=== PATIENT | female | born 1975 | race Caucasian/White ===

== ENCOUNTER 2017-06-05 01:04 | Emergency (ER) | payer OTHER ==
[2017-06-05] MEDS ORDERED: IPRATROPIUM-ALBUTEROL 3 ML NEB INHALATION STA (01:32)
[2017-06-05] MEDS ORDERED: ACETAMINOPHEN TAB 500 MG TAB PO STA (01:35)
--- NOTE | 2017-06-05 01:38 | ED ---
URI HPI - General Chief Complaint: Upper Respiratory Infection Stated Complaint: sore throat,cough Time Seen by Provider: 06/05/17 01:16 Source: patient, RN notes reviewed Mode of arrival: ambulatory Limitations: no limitations - History of Present Illness Initial Comments: Patient is a 41-year-old female presents to the emergency room for evaluation of upper respiratory symptoms. Patient states she's had sore throat, cough, nasal congestion for the past 2 days. Patient states her daughter was recently diagnosed with strep throat. Patient states that having on and off fevers. Patient states last dose of Aleve was yesterday. Patient denies headache or dizziness. Patient states having all over body aches. Patient states she is slightly nauseous but denies vomiting. Patient denies abdominal pain. Patient denies chest pain or shortness of breath. Patient states she's had a slight non- productive cough. Patient does state she has a history of asthma. Patient denies smoking. Patient denies any other symptoms or complaints at this time. - Related Data Home Medications Medication Instructions Recorded Confirmed Albuterol Inhaler [Ventolin Hfa 2 puff INHALATION RT-Q6H PRN 04/22/16 06/29/16 Inhaler] Cetirizine HCl [Zyrtec] 10 mg PO HS 04/22/16 06/29/16 Montelukast Sodium [Singulair] 10 mg PO HS 04/22/16 06/29/16 Naproxen [Naprosyn] 500 mg PO Q12H 06/22/16 06/29/16 Calcium Acetate-Aluminum Sulf 1 applic TOPICAL TID 06/29/16 06/29/16 [[place] Packet] Ibuprofen [Motrin] 200 mg PO Q6HR PRN 06/29/16 06/29/16 Previous Rx's Medication Instructions Recorded Amoxic-Pot Clav 875-125Mg 1 tab PO Q12HR #20 tablet 06/26/16 [Augmentin 875-125] Clobetasol Propionate [Temovate 1 applic TOPICAL BID #1 applic 06/27/16 0.05% Cream] traMADol HCl [Ultram] 50 mg PO QID PRN #0 tab 06/27/16 Calcium Acetate-Aluminum Sulf 1 each TOPICAL TID packet 07/02/16 [[place] Packet] HYDROcodone/APAP 5-325MG [[place] 2 each PO Q4HR PRN #0 tab 07/02/16 5-325] SILVER sulfADIAZINE CREAM 1 applic TOPICAL BID applic 07/02/16 [[place]adene Cream] Ciprofloxacin HCl [Cipro] 750 mg PO BID #28 tablet 07/04/16 predniSONE 20 mg PO BID #10 tab 07/04/16 Azithromycin [Zithromax Z-pack] 250 mg PO DIRECTED #6 tab 06/05/17 Benzonatate [Tessalon Perles] 100 mg PO TID PRN #15 cap 06/05/17 guaiFENesin [Mucinex] 1,200 mg PO BID #10 tab.er.12h 06/05/17 Allergies Allergy/AdvReac Type Severity Reaction Status Date / Time codeine Allergy Swelling Verified 06/05/17 01:09 sulfamethoxazole Allergy Rash/Hives Verified 06/05/17 01:09 [From Bactrim] trimethoprim [From Bactrim] Allergy Rash/Hives Verified 06/05/17 01:09 Review of Systems ROS Statement: Those systems with pertinent positive or pertinent negative responses have been documented in the HPI. ROS Other: All systems not noted in ROS Statement are negative. 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 Limitations: no limitations General appearance: alert, in no apparent distress Head exam: Present: atraumatic, normocephalic, normal inspection Eye exam: Present: normal appearance ENT exam: Present: normal exam, normal oropharynx, mucous membranes moist, TM's normal bilaterally, normal external ear exam Neck exam: Present: normal inspection Respiratory exam: Present: normal lung sounds bilaterally. Absent: respiratory distress Cardiovascular Exam: Present: regular rate, normal rhythm, normal heart sounds GI/Abdominal exam: Present: soft, normal bowel sounds. Absent: distended, tenderness, guarding, rebound, rigid Extremities exam: Present: normal inspection Back exam: Present: normal inspection Neurological exam: Present: alert, oriented X3, CN II-XII intact, normal gait Psychiatric exam: Present: normal affect, normal mood Skin exam: Present: warm, dry, intact, normal color. Absent: rash Course Vital Signs 06/05/17 06/05/17 06/05/17 01:06 01:49 02:03 Temperature 102.1 F H Pulse Rate 98 96 92 Respiratory 24 Rate Blood Pressure 135/65 O2 Sat by Pulse 97 Oximetry 06/05/17 06/05/17 02:54 03:07 Temperature 100.9 F H 100.9 F H Pulse Rate 90 90 Respiratory 18 18 Rate Blood Pressure 129/59 129/59 O2 Sat by Pulse 97 97 Oximetry Medical Decision Making - Medical Decision Making patient is a 41-year-old female since emergency room for evaluation of upper respiratory symptoms. Chest x-ray negative for any acute findings. Rapid strep negative. Patient be placed on symptomatic treatment. Discussed with patient the symptoms are not improving in 3-5 days that she can begin taking antibiotics that were prescribed. Advised patient to follow-up with primary care provider. Patient states she understands everything that was discussed with her. Return parameters discussed. Case discussed with Dr. Gee. - Lab Data Lab Results 06/05/17 Range/Units 01:22 Group A Strep Rapid Negative (Negative) - Radiology Data Radiology results: report reviewed, image reviewed Disposition Clinical Impression: Upper respiratory infection Disposition: HOME SELF-CARE Condition: Good Instructions: Upper Respiratory Infection (ED) Additional Instructions: Alternate Tylenol and Motrin for fever. Take Mucinex as directed. Take Tessalon Perles as needed for cough. If symptoms are not improving in 3-5 days , begin taking antibiotics as directed. Please follow up with primary care provider. If any new symptom arises or symptoms worsen, return to ER as soon as possible. Prescriptions: Azithromycin [Zithromax Z-pack] 250 mg PO DIRECTED #6 tab Benzonatate [Tessalon Perles] 100 mg PO TID PRN #15 cap PRN Reason: Cough guaiFENesin [Mucinex] 1,200 mg PO BID #10 tab.er.12h Referrals: Hever Duarte MD [Primary Care Provider] - 1-2 days Time of Disposition: 03:02
--- NOTE | 2017-06-05 02:31 | XR ---
EXAM: XR Chest, 2 Views CLINICAL HISTORY: Reason: Cough and congestion. TECHNIQUE: Frontal and lateral views of the chest. COMPARISON: No relevant prior studies available. FINDINGS: Lungs: No consolidation. Pleural space: Unremarkable. No effusion or pneumothorax. Heart: Unremarkable. No cardiomegaly. Mediastinum: Unremarkable. Bones/joints: There are degenerative changes seen within the spine. IMPRESSION: No acute intrathoracic abnormality or source of the patient's symptoms detected.
[2017-06-05 02:55] VITALS: BP 129/59; PULSE 90; RESP 18; TEMP 100.9
== END 2017-06-05 03:07 | disposition home or self-care (01) ==
LOC: EC 01:04
DX: J06.9 Acute upper respiratory infection, unspecified (principal); J45.909 Unspecified asthma, uncomplicated; Z88.2 Allergy status to sulfonamides; Z88.5 Allergy status to narcotic agent; Z79.1 Long term (current) use of non-steroidal anti-inflammatories (NSAID)
CPT/HCPCS: 71020; 87081; 87430; 94640; 99284

== ENCOUNTER 2018-03-31 21:51 | Emergency (ER) | payer OTHER ==
--- NOTE | 2018-04-01 00:35 | XR ---
EXAMINATION TYPE: XR shoulder complete RT DATE OF EXAM: 04/01/2018 COMPARISON: NONE HISTORY: Shoulder pain TECHNIQUE: 3 views FINDINGS: I see no fracture nor dislocation. Joint spaces are normal. There are no pathologic calcifi cations. IMPRESSION: Negative right shoulder exam.
--- NOTE | 2018-04-01 00:46 | ED ---
Extremity Problem HPI - General Chief complaint: Extremity Problem,Nontraumatic Stated complaint: arm & ear pain Time Seen by Provider: 04/01/18 00:05 Source: patient, RN notes reviewed, old records reviewed Mode of arrival: ambulatory Limitations: no limitations - History of Present Illness Initial comments: Patient is a 42 year old female, with CC of right arm pain x 2 days with movement and bilateral ear drainage and left ear pain. Patient reports no injury to right arm. IT is shoulder pain and worse with ROM. 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 No fever or chills. - Related Data Home Medications Medication Instructions Recorded Confirmed Ibuprofen [Motrin] 200 - 400 mg PO Q6HR PRN 10/27/17 03/31/18 diphenhydrAMINE [Benadryl] 25 mg PO HS 03/31/18 03/31/18 Previous Rx's Medication Instructions Recorded Amoxic-Pot Clav 875-125Mg 1 tab PO Q12HR #20 tablet 04/01/18 [Augmentin 875-125] Ciprofloxacin Ophth Soln [Cipro 1 drops LEFT EYE Q4HR #1 bottle 04/01/18 Ophth Soln] Ibuprofen [Motrin] 600 mg PO Q6HR PRN #20 tab 04/01/18 Allergies Allergy/AdvReac Type Severity Reaction Status Date / Time codeine Allergy Swelling Verified 10/27/17 19:18 sulfamethoxazole Allergy Rash/Hives Verified 10/27/17 19:18 [From Bactrim] trimethoprim [From Bactrim] Allergy Rash/Hives Verified 10/27/17 19:18 Review of Systems ROS Statement: Those systems with pertinent positive or pertinent negative responses have been documented in the HPI. ROS Other: All systems not noted in ROS Statement are negative. 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 Date of last positivie culture/infection: 2014 MDRO Source:: leg Past Surgical History: Section, Tubal Ligation Past Anesthesia/Blood Transfusion Reactions: No Reported Reaction Past Psychological History: No Psychological Hx Reported Smoking Status: Never smoker Past Alcohol Use History: Occasional Past Drug Use History: None Reported - Past Family History Mother Family Medical History: Cancer Additional Family Medical History / Comment(s): Tiffany, Father Family Medical History: No Reported History General Exam - General Exam Comments Initial Comments: Well appearing 42 year old female, no distress. Limitations: no limitations General appearance: alert, in no apparent distress Head exam: Present: atraumatic, normocephalic, normal inspection Eye exam: Present: normal appearance, PERRL, EOMI. Absent: scleral icterus, conjunctival injection, periorbital swelling ENT exam: Present: normal exam, mucous membranes moist. Absent: TM's normal bilaterally (Left otitis erythema and drainage noted. ) Neck exam: Present: normal inspection. Absent: tenderness, meningismus, lymphadenopathy Respiratory exam: Present: normal lung sounds bilaterally. Absent: respiratory distress, wheezes, rales, rhonchi, stridor Cardiovascular Exam: Present: regular rate, normal rhythm, normal heart sounds. Absent: systolic murmur, diastolic murmur, rubs, gallop, clicks Extremities exam: Present: normal inspection, full ROM, normal capillary refill , other (Pain with ROM of right shoulder. normal pulse, no deformity. NV intact. ). Absent: tenderness, pedal edema, joint swelling, calf tenderness Neurological exam: Present: alert, oriented X3, CN II-XII intact Psychiatric exam: Present: normal affect, normal mood Skin exam: Present: warm, dry, intact, normal color. Absent: rash Course Vital Signs 03/31/18 04/01/18 23:04 01:00 Temperature 97.8 F 97.5 F L Pulse Rate 62 58 L Respiratory 20 16 Rate Blood Pressure 131/70 148/78 O2 Sat by Pulse 100 100 Oximetry Medical Decision Making - Medical Decision Making 42 year old female with ear pain and right shoulder pain for two days. She has evidence of otitis media and drainage noted. Will start on antibiotics. Xray of shoulder was normal. Discussed chronic rotator cuff injury, and patient can follow up with orthopedic. REturn parameters discussed. - Radiology Data Radiology results: report reviewed Negative right shoulder exam . Disposition Clinical Impression: Right shoulder strain, Otitis externa, Otitis media Disposition: HOME SELF-CARE Condition: Good Instructions: Rotator Cuff Injury (ED), Otitis Externa (ED), Otitis Media (ED) Additional Instructions: Patient is follow-up with primary care provider. Return to emergency department if any alarming signs or symptoms occur. Prescriptions: Amoxic-Pot Clav 875-125Mg [Augmentin 875-125] 1 tab PO Q12HR #20 tablet Ciprofloxacin Ophth Soln [Cipro Ophth Soln] 1 drops LEFT EYE Q4HR #1 bottle Ibuprofen [Motrin] 600 mg PO Q6HR PRN #20 tab PRN Reason: Pain Is patient prescribed a controlled substance at d/c from ED?: No When asked, does pt state using other controlled substances?: No If prescribed controlled substance>3 days was MAPS reviewed?: No If opioid is for acute pain is fill amount 7 days or less?: No If Rx opioid, was Start Talking consent form obtained?: No Referrals: Hever Duarte MD [Primary Care Provider] - 1-2 days Time of Disposition: 00:44
[2018-04-01 01:01] VITALS: BP 148/78; PULSE 58; RESP 16; TEMP 97.5
== END 2018-04-01 01:23 | disposition home or self-care (01) ==
LOC: EC 21:51
DX: S46.911A Strain of unspecified muscle, fascia and tendon at shoulder and upper arm level, right arm, initial encounter (principal); H66.93 Otitis media, unspecified, bilateral; H60.93 Unspecified otitis externa, bilateral; Z86.14 Personal history of Methicillin resistant Staphylococcus aureus infection; Z79.899 Other long term (current) drug therapy; Z88.5 Allergy status to narcotic agent; Z88.2 Allergy status to sulfonamides
CPT/HCPCS: 99284

== ENCOUNTER 2018-05-04 22:58 | Emergency (ER) | payer OTHER ==
[2018-05-04 23:10] VITALS: BP 162/89; PULSE 62; RESP 18; TEMP 98.2
[2018-05-04] MEDS ORDERED: CIPROFLOXACIN-DEXAMETH 0.3-0.1% DROPS 7.5 ML BTL BOTH EARS STA (23:31)
--- NOTE | 2018-05-04 23:36 | ED ---
ENT HPI - General Chief complaint: ENT Stated complaint: sore throat Time Seen by Provider: 05/04/18 23:15 Source: patient Mode of arrival: ambulatory Limitations: no limitations - History of Present Illness Initial comments: 42-year-old female patient presents the emergency department today for sore throat and bilateral ear drainage. Patient states that she is having increased pain to the left ear and increased drainage from the right ear. Patient states she is having difficulty with hearing. Patient states that her symptoms have been going on for the last month. States that she did complete a prescription of Augmentin, has been taking Zyrtec, and has not noticed any improvement in her symptoms. States that she did see her primary care physician but did miss a recheck with him this . Denies any fevers or chills with this. She denies any cough or congestion. Patient states she is having a yeast infection beneath her right breast. States that she is out of nystatin cream. Patient denies any recent shortness breath, chest pain, abdominal pain, nausea, vomiting , diarrhea, constipation, back pain, numbness, tingling, dizziness, weakness, hematuria, dysuria, urinary urgency, urinary frequency, headache, visual changes , or any other complaints. - Related Data Home Medications Medication Instructions Recorded Confirmed Ibuprofen [Motrin] 200 - 400 mg PO Q6HR PRN 10/27/17 05/04/18 Cetirizine HCl [Zyrtec] 10 mg PO HS 05/04/18 05/04/18 Previous Rx's Medication Instructions Recorded Nystatin 100,000Unit/gm Cream 1 applic TOPICAL BID #25 gm 05/04/18 [Mycostatin Cream] Allergies Allergy/AdvReac Type Severity Reaction Status Date / Time codeine Allergy Swelling Verified 05/04/18 23:15 sulfamethoxazole Allergy Rash/Hives Verified 05/04/18 23:15 [From Bactrim] trimethoprim [From Bactrim] Allergy Rash/Hives Verified 05/04/18 23:15 Review of Systems ROS Statement: Those systems with pertinent positive or pertinent negative responses have been documented in the HPI. ROS Other: All systems not noted in ROS Statement are negative. 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 Date of last positivie culture/infection: 2015 MDRO Source:: leg Past Surgical History: Section, Tubal Ligation Past Anesthesia/Blood Transfusion Reactions: No Reported Reaction Past Psychological History: No Psychological Hx Reported Smoking Status: Never smoker Past Alcohol Use History: Occasional Past Drug Use History: None Reported - Past Family History Mother Family Medical History: Cancer Additional Family Medical History / Comment(s): Tiffany, Father Family Medical History: No Reported History General Exam Limitations: no limitations General appearance: alert, in no apparent distress, other (This is a well- developed, well-nourished adult female patient in no acute distress. Vital signs upon presentation are temperature 98.2F, pulse 62, respirations 18, blood pressure 162/89, pulse ox 99% on room air.) Eye exam: Present: normal appearance, PERRL, EOMI. Absent: scleral icterus, conjunctival injection, periorbital swelling ENT exam: Present: normal exam, mucous membranes moist. Absent: normal oropharynx (Mild pharyngeal erythema. Tonsils absent.), TM's normal bilaterally (Bilateral canal erythema, drainage present. Difficult to visualize tympanic membranes due to crusted drainage, what I could see do look normal.) Respiratory exam: Present: normal lung sounds bilaterally. Absent: respiratory distress, wheezes, rales, rhonchi, stridor Cardiovascular Exam: Present: regular rate, normal rhythm, normal heart sounds. Absent: systolic murmur, diastolic murmur, rubs, gallop, clicks Neurological exam: Present: alert, oriented X3, CN II-XII intact Psychiatric exam: Present: normal affect, normal mood Skin exam: Present: warm, dry, intact, normal color, rash (Erythema with satellite lesions noted to area beneath right breast. ) Course Vital Signs 05/04/18 23:07 Temperature 98.2 F Pulse Rate 62 Respiratory 18 Rate Blood Pressure 162/89 O2 Sat by Pulse 99 Oximetry Medical Decision Making - Medical Decision Making 42-year-old female patient presented to the emergency department today for complaints of sore throat and bilateral ear drainage, left ear discomfort. Physical examination did reveal canal erythema bilaterally, crusted drainage within the ear canals, and what I could see of the tympanic membranes appeared normal. Patient will be discharged home with Ciprodex drops. She'll be given prescription for nystatin to the rash beneath her breast. She is instructed to follow-up with an bacteriology research assistant. She is instructed to follow- up with her primary care physician for recheck in one to days. Return parameters discussed in detail. She verbalizes understanding and agreed with this plan. Disposition Clinical Impression: Otitis externa, Pharyngitis Disposition: HOME SELF-CARE Condition: Good Instructions: Ciprofloxacin/Dexamethasone (Into the ear), Pharyngitis (ED), Otitis Externa (ED) Additional Instructions: Use 4 drops in each ear twice daily. Follow-up with Ear, Nose, and Throat specialist. Follow-up with her primary care physician for recheck in 1-2 days. Return here immediately for any new, worsening, or concerning symptoms. Prescriptions: Nystatin 100,000Unit/gm Cream [Mycostatin Cream] 1 applic TOPICAL BID #25 gm Is patient prescribed a controlled substance at d/c from ED?: No Referrals: Hever Duarte MD [Primary Care Provider] - 1-2 days Sushil Wen MD [STAFF PHYSICIAN] - 1-2 days Time of Disposition: 23:35
== END 2018-05-04 23:50 | disposition home or self-care (01) ==
LOC: EC 22:58
DX: H60.93 Unspecified otitis externa, bilateral (principal); J02.9 Acute pharyngitis, unspecified; R21 Rash and other nonspecific skin eruption; Z86.14 Personal history of Methicillin resistant Staphylococcus aureus infection; Z79.899 Other long term (current) drug therapy; Z88.1 Allergy status to other antibiotic agents; Z88.2 Allergy status to sulfonamides; Z88.5 Allergy status to narcotic agent
CPT/HCPCS: 99282

== ENCOUNTER 2018-09-27 14:27 | Emergency (ER) | payer BC, OTHER ==
[2018-09-27 14:58] VITALS: RESP 18; TEMP 98.6
[2018-09-27] MEDS ORDERED: methylPREDNISolone SOD SUCCI 125 MG/2 ML VIAL IM ONE (17:32)
--- NOTE | 2018-09-27 17:32 | ED ---
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 She presents today with acute flare up of skin condition, and complains of irritiation and drainage from scalp, underneath axilla, and groin. She reports no fevers, chills. She states that in the past she has been hospitalized for severe reactions, and has been on cipro and keflex in the past. She has not followed up with philatelic consultant in quite some time. She denies any other complaints. She has been using desatin ointment over the areas. - Related Data Home Medications Medication Instructions Recorded Confirmed Cetirizine HCl [Zyrtec] 10 mg PO HS 05/04/18 09/27/18 diphenhydrAMINE HCL [Benadryl] 25 mg PO DAILY 09/27/18 09/27/18 Previous Rx's Medication Instructions Recorded Cephalexin [Keflex] 500 mg PO Q6HR #40 cap 09/27/18 Ciprofloxacin HCl [Cipro] 500 mg PO Q12HR 10 Days tab 09/27/18 Clobetasol Propionate [Temovate 1 applic TOPICAL BID #60 cream..g. 09/27/18 0.05% Cream] predniSONE 10 mg PO DAILY #15 tab 09/27/18 Allergies Allergy/AdvReac Type Severity Reaction Status Date / Time codeine Allergy Swelling Verified 09/27/18 16:54 sulfamethoxazole Allergy Rash/Hives Verified 09/27/18 16:54 [From Bactrim] trimethoprim [From Bactrim] Allergy Rash/Hives Verified 09/27/18 16:54 Review of Systems ROS Statement: Those systems with pertinent positive or pertinent negative responses have been documented in the HPI. ROS Other: All systems not noted in ROS Statement are negative. 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 Date of last positivie culture/infection: 2014 MDRO Source:: leg Past Surgical History: Section, Tubal Ligation Past Anesthesia/Blood Transfusion Reactions: No Reported Reaction Past Psychological History: No Psychological Hx Reported Smoking Status: Never smoker Past Alcohol Use History: Occasional Past Drug Use History: None Reported - Past Family History Mother Family Medical History: Cancer Additional Family Medical History / Comment(s): Tiffany, Father Family Medical History: No Reported History General Exam - General Exam Comments Initial Comments: This is a 43 year old female, no acute distress. Limitations: no limitations General appearance: alert Head exam: Present: atraumatic, normocephalic, normal inspection, other ( erythematous scale-like raised macular rash over scalp, posterior ears. ) Eye exam: Present: normal appearance, PERRL, EOMI. Absent: scleral icterus, conjunctival injection, periorbital swelling Respiratory exam: Present: normal lung sounds bilaterally. Absent: respiratory distress, wheezes, rales, rhonchi, stridor Cardiovascular Exam: Present: regular rate, normal rhythm, normal heart sounds. Absent: systolic murmur, diastolic murmur, rubs, gallop, clicks GI/Abdominal exam: Present: soft, normal bowel sounds. Absent: distended, tenderness, guarding, rebound, rigid Extremities exam: Present: normal inspection, full ROM, normal capillary refill. Absent: tenderness, pedal edema, joint swelling, calf tenderness Back exam: Present: normal inspection Neurological exam: Present: alert, oriented X3, CN II-XII intact Psychiatric exam: Present: normal affect, normal mood Skin exam: Present: warm, dry, intact, normal color, rash (Scaley, raised macular papular rash over axilla, underneath breasts, groin, neck and scalp. Consistent with darier disease. ) Course Vital Signs 09/27/18 09/27/18 14:53 18:40 Temperature 98.6 F Pulse Rate 66 58 L Respiratory 18 18 Rate Blood Pressure 156/99 163/99 O2 Sat by Pulse 98 99 Oximetry Medical Decision Making - Medical Decision Making 43 year old female with acute darier disease flare up, in scalp, axilla, breast tissue, and groin. No fevers or chills. She has managed with with Dr. Romero and Dr. Blood, infectious disease in the past. No recent antibiotics. Wound culture obtained from scalp. Patient at this time would like to try outpatient treatment with steriods, antibiotics, and cream. STarted on cipro, and keflex, as that has helped her in the past. Given IM steriods shot, and given clobetasol cream to use. Discussed if symptoms worsen to return for reevaluation. Discussed Derm follow up. Disposition Clinical Impression: Darier disease Disposition: HOME SELF-CARE Condition: Good Instructions: Cellulitis (ED) Additional Instructions: Patient denies follow-up with philatelic consultant, and primary care physician. Return to emergency department if any alarming signs or symptoms occur. Prescriptions: Cephalexin [Keflex] 500 mg PO Q6HR #40 cap Ciprofloxacin HCl [Cipro] 500 mg PO Q12HR 10 Days tab Clobetasol Propionate [Temovate 0.05% Cream] 1 applic TOPICAL BID #60 cream..g. predniSONE 10 mg PO DAILY #15 tab Is patient prescribed a controlled substance at d/c from ED?: No Referrals: Hever Duarte MD [Primary Care Provider] - 1-2 days Time of Disposition: 17:31
[2018-09-27 18:42] VITALS: BP 163/99; PULSE 58
== END 2018-09-27 18:45 | disposition home or self-care (01) ==
LOC: EC 14:27
DX: Q82.8 Other specified congenital malformations of skin (principal); Z79.899 Other long term (current) drug therapy; Z88.2 Allergy status to sulfonamides; Z88.5 Allergy status to narcotic agent
CPT/HCPCS: 87070; 87205; 99284; J2930; 87077; 87186

== ENCOUNTER 2018-10-02 03:36 | Emergency (ER) | payer BC ==
[2018-10-02 03:49] VITALS: TEMP 98.2
[2018-10-02] MEDS ORDERED: ACETAMINOPHEN TAB 325 MG TAB PO PRN (05:03)
[2018-10-02] MEDS ORDERED: NALOXONE 0.4 MG/ML 1 ML VIAL IV PRN (05:03)
[2018-10-02] MEDS ORDERED: VANCOMYCIN IV PER PHARMACY 1 EACH MISC MISCELLANE PRN (05:08)
[2018-10-02] MEDS ORDERED: traMADol 50 MG TAB PO STA (05:09)
[2018-10-02] MEDS ORDERED: SODIUM CHLORIDE 0.9% 1,000 ML IV SCH (05:15)
[2018-10-02] MEDS ORDERED: VANCOMYCIN 1,500 MG in SODIUM CHLORIDE 0.9% 250 ML IVPB ONE (06:00)
[2018-10-02 06:55] VITALS: BP 136/76; PULSE 58
--- NOTE | 2018-10-02 07:46 | ED ---
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 Patient is being treated with outpatient antibiotics. She denies fevers. She states that she does not feel the infection is significantly different. She states it doesn't seem to be getting significantly worse and it has not improved much. -: days(s) Location: head Radiation: non-radiation Quality: dull, constant Consistency: constant Improves with: none Worsens with: other (Palpation) Associated Symptoms: denies other symptoms Treatments Prior to Arrival: other (Antibiotics, steroids,) - Related Data Home Medications Medication Instructions Recorded Confirmed Cetirizine HCl [Zyrtec] 10 mg PO HS 05/04/18 09/27/18 diphenhydrAMINE HCL [Benadryl] 25 mg PO DAILY 09/27/18 09/27/18 Previous Rx's Medication Instructions Recorded Cephalexin [Keflex] 500 mg PO Q6HR #40 cap 09/27/18 Ciprofloxacin HCl [Cipro] 500 mg PO Q12HR 10 Days tab 09/27/18 Clobetasol Propionate [Temovate 1 applic TOPICAL BID #60 cream..g. 09/27/18 0.05% Cream] predniSONE 10 mg PO DAILY #15 tab 09/27/18 Allergies Allergy/AdvReac Type Severity Reaction Status Date / Time codeine Allergy Swelling Verified 09/27/18 16:54 sulfamethoxazole Allergy Rash/Hives Verified 09/27/18 16:54 [From Bactrim] trimethoprim [From Bactrim] Allergy Rash/Hives Verified 09/27/18 16:54 Review of Systems ROS Statement: Those systems with pertinent positive or pertinent negative responses have been documented in the HPI. ROS Other: All systems not noted in ROS Statement are negative. 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 Date of last positivie culture/infection: 09/27/18 MDRO Source:: head Past Surgical History: Section, Tubal Ligation Past Anesthesia/Blood Transfusion Reactions: No Reported Reaction Past Psychological History: No Psychological Hx Reported Smoking Status: Never smoker Past Alcohol Use History: Occasional Past Drug Use History: None Reported - Past Family History Mother Family Medical History: Cancer Additional Family Medical History / Comment(s): Tiffany, Father Family Medical History: No Reported History General Exam Limitations: no limitations General appearance: alert, in no apparent distress Head exam: Present: normocephalic, other (The patient does have what appears to be cellulitis of the scalp. No definite abscess.) Eye exam: Present: normal appearance. Absent: scleral icterus, conjunctival injection ENT exam: Present: normal oropharynx Neck exam: Present: normal inspection, full ROM. Absent: tenderness, meningismus, lymphadenopathy Respiratory exam: Present: normal lung sounds bilaterally. Absent: respiratory distress, wheezes, rales, rhonchi, stridor Cardiovascular Exam: Present: regular rate, normal rhythm, normal heart sounds. Absent: systolic murmur, diastolic murmur, rubs, gallop GI/Abdominal exam: Present: soft. Absent: distended, tenderness, guarding, rebound, rigid, mass Back exam: Present: normal inspection. Absent: CVA tenderness (R), CVA tenderness (L) Neurological exam: Present: alert Skin exam: Present: warm, dry, erythema (Posterior scalp) Course Vital Signs 10/02/18 10/02/18 10/02/18 03:44 05:55 06:54 Temperature 98.2 F Pulse Rate 78 88 58 L Respiratory 16 16 16 Rate Blood Pressure 162/98 132/82 136/76 O2 Sat by Pulse 100 96 100 Oximetry Medical Decision Making - Medical Decision Making Patient's 43-year-old woman with scalp cellulitis that does not appear to be improving with outpatient treatment. In addition she had a culture that is revealing what appears to be MRSA. Patient started on vancomycin here and I'm did write admission orders, and the patient subsequently stated that she was not able to stay and would sign out AMA. She states she will follow-up to have PICC line placed and continue the antibiotic treatment, but states that she is not able to state today. Discussed the risks of worsening infection, including permanent disability and . Patient states she is aware and will deftly follow-up to complete the treatment. Disposition Clinical Impression: Recurrent cellulitis Disposition: Left Against Medical Advice Condition: Serious Referrals: Hever Duarte MD [Primary Care Provider] - 1-2 days
[2018-10-02] MEDS ORDERED: diphenhydrAMINE 25 MG CAP PO SCH (09:00)
[2018-10-02] MEDS ORDERED: CIPROFLOXACIN HCL 500 MG TAB PO SCH (09:00)
[2018-10-02] MEDS ORDERED: CLOBETASOL PROP 0.05% CR 15GM TOPICAL SCH (09:00)
[2018-10-02 10:20] VITALS: RESP 19
[2018-10-02] MEDS ORDERED: LORATADINE 10 MG TAB PO SCH (21:00)
== END 2018-10-02 10:01 | disposition left against medical advice (07) ==
LOC: EC 03:36 → 4SSUR 05:03 → UNDOADMIN 05:03 → EC 10:01
DX: L03.811 Cellulitis of head [any part, except face] (principal); Z86.14 Personal history of Methicillin resistant Staphylococcus aureus infection; Z79.899 Other long term (current) drug therapy; Z88.2 Allergy status to sulfonamides; Z88.5 Allergy status to narcotic agent
CPT/HCPCS: 99283; 96365; 96366; J3370

== ENCOUNTER 2018-11-03 13:23 | Emergency (ER) | payer BC ==
[2018-11-03 14:14] VITALS: RESP 18; TEMP 98.8
--- NOTE | 2018-11-03 15:23 | ED ---
General Adult HPI - General Chief complaint: Skin/Abscess/Foreign Body Stated complaint: rash all over body, poss shingles Time Seen by Provider: 11/03/18 14:29 Source: patient, RN notes reviewed Mode of arrival: ambulatory Limitations: no limitations - History of Present Illness Initial comments: Patient's 43-year-old female presented to the emergency room today with chief complaint of a rash. She does admit that she has history of Darier disease. Patient states unsure if this is related. She states that she is profoundly increased rash across her abdomen over the last 2 days. Was scheduled see her family doctor tomorrow but states that she started noticed some spots to the legs. She states she feels like it is getting worse so she came here to the emergency room. Patient denies any other complaints or symptoms currently. Patient denies any recent fever, chills, shortness of breath, chest pain, back pain, abdominal pain, nausea or vomiting, numbness or tingling, headaches or visual changes, or any other complaints. - Related Data Home Medications Medication Instructions Recorded Confirmed Cetirizine HCl [Zyrtec] 10 mg PO HS 05/04/18 09/27/18 diphenhydrAMINE HCL [Benadryl] 25 mg PO DAILY 09/27/18 09/27/18 Previous Rx's Medication Instructions Recorded Cephalexin [Keflex] 500 mg PO Q6HR #40 cap 09/27/18 Ciprofloxacin HCl [Cipro] 500 mg PO Q12HR 10 Days tab 09/27/18 Clobetasol Propionate [Temovate 1 applic TOPICAL BID #60 cream..g. 09/27/18 0.05% Cream] predniSONE 10 mg PO DAILY #15 tab 09/27/18 Griseofulvin, Microsize 500 mg PO DAILY #14 tablet 11/03/18 [Griseofulvin] predniSONE 40 mg PO DAILY 5 Days tab 11/03/18 Allergies Allergy/AdvReac Type Severity Reaction Status Date / Time codeine Allergy Swelling Verified 11/03/18 14:11 sulfamethoxazole Allergy Rash/Hives Verified 11/03/18 14:11 [From Bactrim] trimethoprim [From Bactrim] Allergy Rash/Hives Verified 11/03/18 14:11 Review of Systems ROS Statement: Those systems with pertinent positive or pertinent negative responses have been documented in the HPI. ROS Other: All systems not noted in ROS Statement are negative. 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 Date of last positivie culture/infection: 09/27/18 MDRO Source:: head Past Surgical History: Section, Tubal Ligation Past Anesthesia/Blood Transfusion Reactions: No Reported Reaction Past Psychological History: No Psychological Hx Reported Smoking Status: Never smoker Past Alcohol Use History: Rare Past Drug Use History: None Reported - Past Family History Mother Family Medical History: Cancer Additional Family Medical History / Comment(s): Tiffany, Father Family Medical History: No Reported History General Exam - General Exam Comments Initial Comments: General: The patient is awake and alert, in no distress, and does not appear acutely ill. Ears, nose, mouth and throat: There are moist mucous membranes and no oral lesions. Neck: The neck is supple, there is no tenderness or JVD. Cardiovascular: There is a regular rate and rhythm. No murmur, rub or gallop is appreciated. Respiratory: Lungs are clear to auscultation, respirations are non-labored, breath sounds are equal. No wheezes, stridor, rales, or rhonchi. Musculoskeletal: Normal ROM, no tenderness. Neurological: A&O x 3. CN II-XII intact, There are no obvious motor or sensory deficits. Coordination appears grossly intact. Speech is normal. Skin: patient does have maculopapular red raised rash going across the abdomen. There is scaling in nature. There is a few papular type rash to the posterior trunk and lower extremities. Psychiatric: Cooperative, appropriate mood & affect, normal judgment. Limitations: no limitations Course Vital Signs 11/03/18 14:11 Temperature 98.8 F Pulse Rate 90 Respiratory 18 Rate Blood Pressure 144/86 O2 Sat by Pulse 98 Oximetry Medical Decision Making - Medical Decision Making case was discussed and seen by attending physician Dr. Ortega. Patient does have follow-up appointment with her family doctor tomorrow. We will start patient on antifungal medication and steroids. Advised to continue follow-up and to follow-up with the solid waste facility operator. Advised return if symptoms increase or worsen. Disposition Clinical Impression: Rash Disposition: HOME SELF-CARE Condition: Good Instructions: Tinea Corporis (ED) Additional Instructions: Please use medication as discussed. Please follow-up with family doctor with appointment tomorrow. Please return to emergency room if the symptoms increase or worsen or for any other concerns. Prescriptions: Griseofulvin, Microsize [Griseofulvin] 500 mg PO DAILY #14 tablet predniSONE 40 mg PO DAILY 5 Days tab Is patient prescribed a controlled substance at d/c from ED?: No Referrals: Hever Duarte MD [Primary Care Provider] - 1-2 days Jim Milan MD [STAFF PHYSICIAN] - 1-2 days Time of Disposition: 15:22
[2018-11-03 15:42] VITALS: BP 152/87; PULSE 80
== END 2018-11-03 15:40 | disposition home or self-care (01) ==
LOC: EC 13:23
DX: R21 Rash and other nonspecific skin eruption (principal); Q82.8 Other specified congenital malformations of skin; Z88.2 Allergy status to sulfonamides; Z88.5 Allergy status to narcotic agent; Z79.899 Other long term (current) drug therapy; Z86.14 Personal history of Methicillin resistant Staphylococcus aureus infection
CPT/HCPCS: 99282

== ENCOUNTER 2018-11-15 07:28 | Emergency (ER) | payer BC ==
[2018-11-15 07:36] VITALS: BP 118/79; PULSE 81; RESP 18; TEMP 97.8
--- NOTE | 2018-11-15 08:30 | ED ---
General Adult HPI - General Chief complaint: Skin/Abscess/Foreign Body Stated complaint: poss MRSA Time Seen by Provider: 11/15/18 08:05 Source: patient, RN notes reviewed Mode of arrival: ambulatory Limitations: no limitations - History of Present Illness Initial comments: Patient 43-year-old female presenting to the emergency room today with a chief complaint of possible MRSA infection. Does admit history of MRSA. States she' s noticed spot to the right wrist also one spot to the right side of the abdomen. She states she's concerned that these are small beginnings of MRSA abscess. Patient denies any other complaints currently. Patient denies any recent fever, chills, shortness of breath, chest pain, back pain, abdominal pain , headaches or visual changes, or any other complaints. - Related Data Home Medications Medication Instructions Recorded Confirmed Cetirizine HCl [Zyrtec] 10 mg PO HS 05/04/18 11/15/18 diphenhydrAMINE HCL [Benadryl] 25 mg PO DAILY 09/27/18 11/15/18 Previous Rx's Medication Instructions Recorded Griseofulvin, Microsize 500 mg PO DAILY #14 tablet 11/03/18 [Griseofulvin] Clindamycin HCl 300 mg PO Q6H #40 cap 11/15/18 Allergies Allergy/AdvReac Type Severity Reaction Status Date / Time codeine Allergy Swelling Verified 11/15/18 07:51 sulfamethoxazole Allergy Rash/Hives Verified 11/15/18 07:51 [From Bactrim] trimethoprim [From Bactrim] Allergy Rash/Hives Verified 11/15/18 07:51 Review of Systems ROS Statement: Those systems with pertinent positive or pertinent negative responses have been documented in the HPI. ROS Other: All systems not noted in ROS Statement are negative. 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 Date of last positivie culture/infection: 09/27/18 MDRO Source:: head Past Surgical History: Section, Tubal Ligation Past Anesthesia/Blood Transfusion Reactions: No Reported Reaction Past Psychological History: No Psychological Hx Reported Smoking Status: Never smoker Past Alcohol Use History: Rare Past Drug Use History: None Reported - Past Family History Mother Family Medical History: Cancer Additional Family Medical History / Comment(s): Tiffany, Father Family Medical History: No Reported History General Exam - General Exam Comments Initial Comments: General: The patient is awake and alert, in no distress, and does not appear acutely ill. Musculoskeletal: Normal ROM, no tenderness. Strength 5/5. Sensation intact. Pulses equal bilaterally 2+. Neurological: A&O x 3. CN II-XII intact, There are no obvious motor or sensory deficits. Coordination appears grossly intact. Speech is normal. Skin: She does have small bump to the right side of the abdomen and a small bump to the right wrist. There is no fluctuant area.. Psychiatric: Cooperative, appropriate mood & affect, normal judgment. Limitations: no limitations Course Vital Signs 11/15/18 07:34 Temperature 97.8 F Pulse Rate 81 Respiratory 18 Rate Blood Pressure 118/79 O2 Sat by Pulse 100 Oximetry Medical Decision Making - Medical Decision Making Patient will be started on clindamycin to cover for MRSA. Advised close follow- up return for any other concerns. Disposition Clinical Impression: Abscess Disposition: HOME SELF-CARE Condition: Good Instructions: Abscess (ED) Additional Instructions: Please use medication as discussed. Please follow-up with family doctor in the next 2 days of symptoms have not improved. Please return to emergency room if the symptoms increase or worsen or for any other concerns. Prescriptions: Clindamycin HCl 300 mg PO Q6H #40 cap Is patient prescribed a controlled substance at d/c from ED?: No Referrals: Hever Duarte MD [Primary Care Provider] - 1-2 days Time of Disposition: 08:29
== END 2018-11-15 08:43 | disposition home or self-care (01) ==
LOC: EC 07:28
DX: L02.413 Cutaneous abscess of right upper limb (principal); L02.211 Cutaneous abscess of abdominal wall; B95.62 Methicillin resistant Staphylococcus aureus infection as the cause of diseases classified elsewhere; Z79.899 Other long term (current) drug therapy; Z88.5 Allergy status to narcotic agent; Z88.2 Allergy status to sulfonamides
CPT/HCPCS: 99283

== ENCOUNTER 2019-03-11 06:19 | Emergency (ER) | payer BC ==
--- NOTE | 2019-03-11 06:55 | ED ---
Abdominal Pain HPI - General Source: patient Limitations: no limitations - History of Present Illness Complaint: abdominal pain -: hour(s) Location: RLQ Radiation: none Migration to: no migration Severity: moderate Quality: stabbing Consistency: intermittent Improves With: nothing Worsens With: nothing Associated Symptoms: nausea, diarrhea <Frankie Gee - Last Filed: 03/11/19 06:55> <Unruly Linares - Last Filed: 03/11/19 10:13> - General Chief Complaint: Abdominal Pain Stated Complaint: Abd Pain Time Seen by Provider: 03/11/19 06:45 - History of Present Illness Initial Comments: This patient is a 43-year-old woman who presents to have evaluation for right lower quadrant pain. The patient states that this been going on while she was working this morning. She indicates the right lower quadrant. She states that the pains are sharp and intermittent. She states that they, every few minutes and last 15-30 seconds. She has not found anything that makes pain worse or recurrent gives any relief. She has had some accompanying nausea. She states that she had 2 bowel movements this morning as well no blood or dark tarry (Frankie Gee) - Related Data Home Medications Medication Instructions Recorded Confirmed Cetirizine HCl [Zyrtec] 10 mg PO HS 05/04/18 03/11/19 diphenhydrAMINE HCL [Benadryl] 25 mg PO DAILY 09/27/18 03/11/19 Previous Rx's Medication Instructions Recorded Ibuprofen [Motrin] 600 mg PO Q8HR PRN #24 tab 03/11/19 Allergies Allergy/AdvReac Type Severity Reaction Status Date / Time codeine Allergy Swelling Verified 03/11/19 08:07 sulfamethoxazole Allergy Rash/Hives Verified 03/11/19 08:07 [From Bactrim] trimethoprim [From Bactrim] Allergy Rash/Hives Verified 03/11/19 08:07 Review of Systems ROS Other: All systems not noted in ROS Statement are negative. Constitutional: Denies: fever, chills, weakness Respiratory: Denies: cough, dyspnea Cardiovascular: Denies: chest pain, palpitations, edema Gastrointestinal: Reports: abdominal pain, nausea, diarrhea. Denies: vomiting, constipation, hematemesis, melena Genitourinary: Denies: dysuria, hematuria Musculoskeletal: Denies: back pain Skin: Denies: rash Neurological: Denies: headache, weakness, numbness <Frankie Gee - Last Filed: 03/11/19 06:55> ROS Other: All systems not noted in ROS Statement are negative. <Unruly Linares - Last Filed: 03/11/19 10:13> ROS Statement: Those systems with pertinent positive or pertinent negative responses have been documented in the HPI. 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 Date of last positivie culture/infection: 09/27/18 MDRO Source:: head Past Surgical History: Section, Tubal Ligation Past Anesthesia/Blood Transfusion Reactions: No Reported Reaction Past Psychological History: No Psychological Hx Reported Smoking Status: Never smoker Past Alcohol Use History: Rare Past Drug Use History: None Reported - Past Family History Mother Family Medical History: Cancer Additional Family Medical History / Comment(s): Tiffany, Father Family Medical History: No Reported History <GuillaumeFrankie joseph - Last Filed: 03/11/19 06:55> General Exam Limitations: no limitations General appearance: alert, in no apparent distress Head exam: Present: atraumatic, normocephalic Eye exam: Present: normal appearance. Absent: scleral icterus, conjunctival injection ENT exam: Present: normal oropharynx Neck exam: Present: normal inspection Respiratory exam: Present: normal lung sounds bilaterally. Absent: respiratory distress, wheezes, rales, rhonchi, stridor Cardiovascular Exam: Present: regular rate, normal rhythm, normal heart sounds. Absent: systolic murmur, diastolic murmur, rubs, gallop GI/Abdominal exam: Present: soft. Absent: distended, tenderness, guarding, rebound, rigid, mass Extremities exam: Present: normal inspection, normal capillary refill. Absent: pedal edema, calf tenderness Back exam: Present: normal inspection. Absent: CVA tenderness (R), CVA tenderness (L) Neurological exam: Present: alert Skin exam: Present: warm, dry, intact, normal color. Absent: rash <MarlenFraknie - Last Filed: 03/11/19 06:55> Course Vital Signs 03/11/19 03/11/19 06:31 09:00 Temperature 98.2 F 98.0 F Pulse Rate 58 L 68 Respiratory 17 18 Rate Blood Pressure 149/84 130/74 O2 Sat by Pulse 97 99 Oximetry Medical Decision Making - Lab Data Result diagrams: 03/11/19 07:03 03/11/19 07:03 <Unruly Linares - Last Filed: 03/11/19 10:13> - Medical Decision Making 43-year-old female with intermittent right lower quadrant abdominal pain. Patient has minimal tenderness on exam, no rebound or guarding, stable vitals. She has normal CBC and normal CMP, laboratory workup is unremarkable. Her care was signed out at shift change awaiting reevaluation. CT was performed, shows a cystic structure in the right adnexa 3.4 x 3.1 cm. Ultrasound was obtained with intent at better visualization, however the right cystic structure was not visualized on ultrasound. Patient will follow-up with her primary care physician regarding this cystic structure, she will return with worsening or changing symptoms. (Unruly Linares) - Lab Data Lab Results 03/11/19 03/11/19 03/11/19 Range/Units 07:03 07:03 07:03 WBC 5.2 (3.8-10.6) k/uL RBC 4.35 (3.80-5.40) m/uL Hgb 11.7 (11.4-16.0) gm/dL Hct 35.8 (34.0-46.0) % MCV 82.5 (80.0-100.0) fL MCH 26.8 (25.0-35.0) pg MCHC 32.5 (31.0-37.0) g/dL RDW 14.5 (11.5-15.5) % Plt Count 281 (150-450) k/uL Neutrophils % 60 % Lymphocytes % 27 % Monocytes % 6 % Eosinophils % 5 % Basophils % 0 % Neutrophils # 3.1 (1.3-7.7) k/uL Lymphocytes # 1.4 (1.0-4.8) k/uL Monocytes # 0.3 (0-1.0) k/uL Eosinophils # 0.3 (0-0.7) k/uL Basophils # 0.0 (0-0.2) k/uL Sodium 138 (137-145) mmol/L Potassium 4.4 (3.5-5.1) mmol/L Chloride 106 (98-107) mmol/L Carbon Dioxide 27 (22-30) mmol/L Anion Gap 5 mmol/L BUN 12 (7-17) mg/dL Creatinine 0.73 (0.52-1.04) mg/dL Est GFR (CKD-EPI)AfAm >90 (>60 ml/min/1.73 sqM) Est GFR (CKD-EPI)NonAf >90 (>60 ml/min/1.73 sqM) Glucose 84 (74-99) mg/dL Calcium 8.8 (8.4-10.2) mg/dL Total Bilirubin 0.6 (0.2-1.3) mg/dL AST 22 (14-36) U/L ALT 21 (9-52) U/L Alkaline Phosphatase 56 (38-126) U/L Total Protein 6.8 (6.3-8.2) g/dL Albumin 4.0 (3.5-5.0) g/dL Amylase 34 (30-110) U/L Lipase 83 (23-300) U/L Urine Color Light Yellow Urine Appearance Clear (Clear) Urine pH 6.5 (5.0-8.0) Ur Specific [place] 1.015 (1.001-1.035) Urine Protein Negative (Negative) Urine Glucose (UA) Negative (Negative) Urine Ketones Negative (Negative) Urine Blood Negative (Negative) Urine Nitrite Negative (Negative) Urine Bilirubin Negative (Negative) Urine Urobilinogen <2.0 (<2.0) mg/dL Ur Leukocyte Esterase Small H (Negative) Urine RBC 2 (0-5) /hpf Urine WBC 5 (0-5) /hpf Ur Squamous Epith Cells 6 H (0-4) /hpf Urine Bacteria Rare H (None) /hpf Urine Mucus Rare H (None) /hpf Urine HCG, Qual (Not Detectd) 03/11/19 Range/Units 07:03 WBC (3.8-10.6) k/uL RBC (3.80-5.40) m/uL Hgb (11.4-16.0) gm/dL Hct (34.0-46.0) % MCV (80.0-100.0) fL MCH (25.0-35.0) pg MCHC (31.0-37.0) g/dL RDW (11.5-15.5) % Plt Count (150-450) k/uL Neutrophils % % Lymphocytes % % Monocytes % % Eosinophils % % Basophils % % Neutrophils # (1.3-7.7) k/uL Lymphocytes # (1.0-4.8) k/uL Monocytes # (0-1.0) k/uL Eosinophils # (0-0.7) k/uL Basophils # (0-0.2) k/uL Sodium (137-145) mmol/L Potassium (3.5-5.1) mmol/L Chloride (98-107) mmol/L Carbon Dioxide (22-30) mmol/L Anion Gap mmol/L BUN (7-17) mg/dL Creatinine (0.52-1.04) mg/dL Est GFR (CKD-EPI)AfAm (>60 ml/min/1.73 sqM) Est GFR (CKD-EPI)NonAf (>60 ml/min/1.73 sqM) Glucose (74-99) mg/dL Calcium (8.4-10.2) mg/dL Total Bilirubin (0.2-1.3) mg/dL AST (14-36) U/L ALT (9-52) U/L Alkaline Phosphatase (38-126) U/L Total Protein (6.3-8.2) g/dL Albumin (3.5-5.0) g/dL Amylase (30-110) U/L Lipase (23-300) U/L Urine Color Urine Appearance (Clear) Urine pH (5.0-8.0) Ur Specific [place] (1.001-1.035) Urine Protein (Negative) Urine Glucose (UA) (Negative) Urine Ketones (Negative) Urine Blood (Negative) Urine Nitrite (Negative) Urine Bilirubin (Negative) Urine Urobilinogen (<2.0) mg/dL Ur Leukocyte Esterase (Negative) Urine RBC (0-5) /hpf Urine WBC (0-5) /hpf Ur Squamous Epith Cells (0-4) /hpf Urine Bacteria (None) /hpf Urine Mucus (None) /hpf Urine HCG, Qual Not Detected (Not Detectd) Disposition <Frankie Gee - Last Filed: 03/11/19 06:55> Is patient prescribed a controlled substance at d/c from ED?: No Time of Disposition: 10:12 <Unruly Linares Last Filed: 03/11/19 10:13> Clinical Impression: Abdominal pain Disposition: HOME SELF-CARE Condition: Good Instructions (If sedation given, give patient instructions): Abdominal Pain (ED) Prescriptions: Ibuprofen [Motrin] 600 mg PO Q8HR PRN #24 tab PRN Reason: Pain Referrals: Hever Duarte MD [Primary Care Provider] - 1-2 days
[2019-03-11 07:18] LABS: Basophils % (A) 0 %; Eosinophils # (A) 0.3 k/uL (0-0.7); Eosinophils % (A) 5 %; HCT 35.8 % (34.0-46.0); HGB 11.7 gm/dL (11.4-16.0); Lymphocytes # (A) 1.4 k/uL (1.0-4.8); Lymphocytes % (A) 27 %; MCH 26.8 pg (25.0-35.0); MCHC 32.5 g/dL (31.0-37.0); MCV 82.5 fL (80.0-100.0); Mean Platelet Volume 6.5; Monocytes # (A) 0.3 k/uL (0-1.0); Monocytes % (A) 6 %; Neutrophils # (A) 3.1 k/uL (1.3-7.7); Neutrophils % (A) 60 %; Platelet Count 281 k/uL (150-450); RBC 4.35 m/uL (3.80-5.40); RDW 14.5 % (11.5-15.5); WBC 5.2 k/uL (3.8-10.6)
[2019-03-11 07:21] LABS: Appearance,Urine Clear (Clear); Bacteria,Urine Rare /hpf; Bilirubin,Urine Negative (Negative); Blood,Urine Negative (Negative); Color,Urine Light Yellow; Glucose,Urine (UA) Negative (Negative); Ketones,Urine Negative (Negative); Leukocyte Esterase,Urine Small (Negative); Mucus,Urine Rare /hpf; Nitrite,Urine Negative (Negative); PH, Urine 6.5 (5.0-8.0); Protein,Urine Negative (Negative); RBC,Urine 2 /hpf (0-5); Specific Gravity,Urine 1.015 (1.001-1.035); Squamous Epithelial Cell,Urine 6 /hpf (0-4); Urobilinogen,Urine <2.0 mg/dL (<2.0); WBC,Urine 5 /hpf (0-5)
[2019-03-11 07:26] LABS: ALT 21 U/L (9-52); AST 22 U/L (14-36); Alkaline Phosphatase 56 U/L (38-126); Amylase 34 U/L (30-110); Anion Gap 5 mmol/L; Blood Urea Nitrogen 12 mg/dL (7-17); Calcium 8.8 mg/dL (8.4-10.2); Carbon Dioxide 27 mmol/L (22-30); Chloride 106 mmol/L (98-107); Glucose 84 mg/dL (74-99); Lipase 83 U/L (23-300); Potassium 4.4 mmol/L (3.5-5.1); Sodium 138 mmol/L (137-145); Total Bilirubin 0.6 mg/dL (0.2-1.3); Total Protein 6.8 g/dL (6.3-8.2)
[2019-03-11] MEDS ORDERED: KETOROLAC 30 MG/ML 1 ML VIAL IVP STA (07:35)
--- NOTE | 2019-03-11 08:32 | CT ---
EXAMINATION TYPE: CT abdomen pelvis w con DATE OF EXAM: 03/11/2019 COMPARISON: None HISTORY: Right lower quadrant pain CONTRAST: CT scan of the abdomen and pelvis is performed with Oral Contrast and with IV Contrast, patient injec robin with 100 mL of Isovue 300. FINDINGS: LUNG BASES-: No visible nodule. No infiltrate. Small hiatal hernia. LIVER/GB: No calcified gallstones. 1.2 hypoattenuating lesion left hepatic lobe. Biliary tree is of normal caliber. PANCREAS: No inflammation. No distinct mass. SPLEEN: No splenic enlargement. No lesion seen. ADRENALS: No nodule. No thickening. KIDNEYS/BLADDER: No hydronephrosis. No nephrolithiasis. No distinct renal mass. Urinary bladder g rossly unremarkable. BOWEL: Normal appendix. Normal bowel caliber. No inflammation. GENITAL ORGANS: Cystic structure in the region of the cul-de-sac to the right of midline measuring 3 .4 x 3.1 cm may reflect loculated fluid. Cyst of other etiology is not excluded. Consider pelvic ultr asound. The ovaries and uterus appear unremarkable. LYMPH NODES: No greater than 1cm abdominal or pelvic lymph nodes are appreciated. AORTA: No significant abnormality. OSSEOUS STRUCTURES: No significant abnormality is seen. OTHER: No significant additional abnormality is seen. IMPRESSION: 1. No acute inflammatory process seen. 2. Cystic structure in the region of the cul-de-sac as discussed above of uncertain etiology. Conside r pelvic ultrasound. 3. Small hiatal hernia. 4. Too small to characterize lesion left hepatic lobe may reflect a small cyst. Ultrasound could be p erformed on a nonemergent basis.
[2019-03-11 09:20] VITALS: RESP 18; TEMP 98
--- NOTE | 2019-03-11 09:57 | US ---
EXAMINATION TYPE: US pelvis complete transvag DATE OF EXAM: 03/11/2019 COMPARISON: NONE CLINICAL HISTORY: Pain. TECHNIQUE: Transvaginal (TV) and Transabdominal (TA) . Transvaginal sonographic images of the pelvi s were acquired. Transabdominal sonographic images were medically necessary to better assess the fol lowing anatomy: ovaries Date of LMP: 12/25/18 EXAM MEASUREMENTS: Uterus: 11.8 x 5.0 x 6.0cm Endometrial Stripe: 1.6 cm Right Ovary: 3.3 x 2.3 x 2.2 cm Left Ovary: not visualized Morbidly obese patient, technically difficult study. Patient unable to fully empty bladder making transvaginal technically difficult. 1. Uterus: Anteverted, enlarged 2. Endometrium: thickened, small amount of ff in endocervical canal 3. Right Ovary: appears wnl 4. Left Ovary: not visualized, due to obesity and overlying bowel gas 5. Bilateral Adnexa: wnl as seen 6. Posterior cul-de-sac: wnl Unable to appreciate cystic area seen on right with CT. IMPRESSION: 1. Cystic structure seen on CT is not confirmed with ultrasound. This could reflect a loop of bowel. Consider follow-up CT in 3 months. Otherwise unremarkable study.
[2019-03-11 11:06] VITALS: BP 132/77; PULSE 60
== END 2019-03-11 11:07 | disposition home or self-care (01) ==
LOC: EC 06:19
DX: R10.31 Right lower quadrant pain (principal); N83.8 Other noninflammatory disorders of ovary, fallopian tube and broad ligament; R11.0 Nausea; R19.7 Diarrhea, unspecified; Z88.2 Allergy status to sulfonamides; Z88.5 Allergy status to narcotic agent; Z79.899 Other long term (current) drug therapy; Z86.14 Personal history of Methicillin resistant Staphylococcus aureus infection; Z87.2 Personal history of diseases of the skin and subcutaneous tissue; Z98.51 Tubal ligation status
CPT/HCPCS: 36415; 80053; 82150; 83690; 85025; 81001; 81025; 76856; 76830; 74177; 99284; 96374; J1885; Q9967

== ENCOUNTER 2019-11-17 05:13 | Emergency (ER) | payer BC ==
[2019-11-17 05:21] VITALS: TEMP 99
[2019-11-17] MEDS ORDERED: IPRATROPIUM-ALBUTEROL 3 ML NEB INHALATION STA (05:33)
[2019-11-17] MEDS ORDERED: ALBUTEROL NEBULIZED 2.5 MG/3 ML INHALATION STA (05:33)
--- NOTE | 2019-11-17 05:49 | XR ---
EXAMINATION TYPE: XR chest 2V DATE OF EXAM: 11/17/2019 COMPARISON: 06/05/2017 HISTORY: Cough and wheezing TECHNIQUE: FINDINGS: Heart and mediastinum are normal. There is some patchy airspace infiltrate right upper lobe . The other lung brandon are clear. Diaphragm is normal. Bony thorax is intact. IMPRESSION: Right upper lobe pneumonia is a change compared to old exam. Normal heart.
--- NOTE | 2019-11-17 06:06 | ED ---
SOB HPI - General Chief Complaint: Upper Respiratory Infection Stated Complaint: HALLIE/Fever Time Seen by Provider: 11/17/19 05:26 Source: patient Mode of arrival: ambulatory Limitations: no limitations - History of Present Illness MD Complaint: shortness of breath, cough Onset/Timin -: days(s) Consistency: constant Improves With: nothing Worsens With: nothing Context: recent URI Associated Symptoms: fever, cough Treatments Prior to Arrival: none - Related Data Home Oxygen Therapy: No Home Medications Medication Instructions Recorded Confirmed Cetirizine HCl [Zyrtec] 10 mg PO HS 05/04/18 03/11/19 diphenhydrAMINE HCL [Benadryl] 25 mg PO DAILY 09/27/18 03/11/19 Previous Rx's Medication Instructions Recorded Ibuprofen [Motrin] 600 mg PO Q8HR PRN #24 tab 03/11/19 Albuterol Inhaler [Ventolin Hfa 1 - 2 puff INHALATION Q6HR PRN #1 11/17/19 Inhaler] inhaler Azithromycin [Zithromax Z-pack] 250 mg PO DIRECTED #6 tab 11/17/19 predniSONE 60 mg PO DAILY #30 tab 11/17/19 Allergies Allergy/AdvReac Type Severity Reaction Status Date / Time codeine Allergy Swelling Verified 11/17/19 05:21 sulfamethoxazole Allergy Rash/Hives Verified 11/17/19 05:21 [From Bactrim] trimethoprim [From Bactrim] Allergy Rash/Hives Verified 11/17/19 05:21 Review of Systems ROS Statement: Those systems with pertinent positive or pertinent negative responses have been documented in the HPI. ROS Other: All systems not noted in ROS Statement are negative. 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 Date of last positivie culture/infection: 09/27/18 MDRO Source:: head Past Surgical History: Section, Tubal Ligation Past Anesthesia/Blood Transfusion Reactions: No Reported Reaction Past Psychological History: No Psychological Hx Reported Smoking Status: Never smoker Past Alcohol Use History: Rare Past Drug Use History: None Reported - Past Family History Mother Family Medical History: Cancer Additional Family Medical History / Comment(s): Tiffany, Father Family Medical History: No Reported History General Exam Limitations: no limitations General appearance: alert, in no apparent distress Head exam: Present: atraumatic, normocephalic ENT exam: Present: normal oropharynx Neck exam: Present: normal inspection, full ROM Respiratory exam: Present: wheezes, other (Frequent nonproductive cough). Absent: respiratory distress, rales, rhonchi, stridor Cardiovascular Exam: Present: regular rate, normal rhythm, normal heart sounds. Absent: systolic murmur, diastolic murmur, rubs, gallop GI/Abdominal exam: Present: soft. Absent: distended, tenderness, guarding, rebound, rigid, mass Extremities exam: Present: normal inspection, normal capillary refill. Absent: pedal edema, calf tenderness Back exam: Present: normal inspection. Absent: CVA tenderness (R), CVA tenderne ss (L) Neurological exam: Present: alert Skin exam: Present: warm, dry, intact, normal color. Absent: rash Course Vital Signs 11/17/19 11/17/19 11/17/19 05:18 05:45 05:52 Temperature 99 F Pulse Rate 77 77 84 Respiratory 20 Rate Blood Pressure 124/82 O2 Sat by Pulse 97 Oximetry Medical Decision Making - Lab Data Result diagrams: 11/17/19 06:20 Lab Results 11/17/19 11/17/19 Range/Units 05:32 06:20 WBC 3.9 (3.8-10.6) k/uL RBC 4.37 (3.80-5.40) m/uL Hgb 12.8 (11.4-16.0) gm/dL Hct 37.0 (34.0-46.0) % MCV 84.8 (80.0-100.0) fL MCH 29.3 (25.0-35.0) pg MCHC 34.5 (31.0-37.0) g/dL RDW 13.8 (11.5-15.5) % Plt Count 213 (150-450) k/uL Neutrophils % 61 % Lymphocytes % 27 % Monocytes % 6 % Eosinophils % 2 % Basophils % 1 % Neutrophils # 2.4 (1.3-7.7) k/uL Lymphocytes # 1.1 (1.0-4.8) k/uL Monocytes # 0.2 (0-1.0) k/uL Eosinophils # 0.1 (0-0.7) k/uL Basophils # 0.0 (0-0.2) k/uL Influenza Type A RNA Not Detected (Not Detectd) Influenza Type B (PCR) Not Detected (Not Detectd) Disposition Clinical Impression: Pneumonia Disposition: HOME SELF-CARE Condition: Good Instructions (If sedation given, give patient instructions): Pneumonia (ED) Prescriptions: predniSONE 60 mg PO DAILY #30 tab Albuterol Inhaler [Ventolin Hfa Inhaler] 1 - 2 puff INHALATION Q6HR PRN #1 inhaler PRN Reason: Wheezing Azithromycin [Zithromax Z-pack] 250 mg PO DIRECTED #6 tab Is patient prescribed a controlled substance at d/c from ED?: No Referrals: Hever Duarte MD [Primary Care Provider] - 1-2 days
[2019-11-17] MEDS ORDERED: AZITHROMYCIN 500 MG TAB PO STA (06:07)
[2019-11-17 06:37] LABS: Basophils % (A) 1 %; Eosinophils # (A) 0.1 k/uL (0-0.7); Eosinophils % (A) 2 %; HGB 12.8 gm/dL (11.4-16.0); Lymphocytes # (A) 1.1 k/uL (1.0-4.8); Lymphocytes % (A) 27 %; MCH 29.3 pg (25.0-35.0); MCHC 34.5 g/dL (31.0-37.0); MCV 84.8 fL (80.0-100.0); Mean Platelet Volume 6.5; Monocytes # (A) 0.2 k/uL (0-1.0); Monocytes % (A) 6 %; Neutrophils # (A) 2.4 k/uL (1.3-7.7); Neutrophils % (A) 61 %; Platelet Count 213 k/uL (150-450); RBC 4.37 m/uL (3.80-5.40); RDW 13.8 % (11.5-15.5); WBC 3.9 k/uL (3.8-10.6)
[2019-11-17 06:45] LABS: African American GFR (CKD) >90 (>60 ml/min/1.73 sqM); Anion Gap 7 mmol/L; Blood Urea Nitrogen 12 mg/dL (7-17); Calcium 8.4 mg/dL (8.4-10.2); Carbon Dioxide 29 mmol/L (22-30); Chloride 103 mmol/L (98-107); Glucose 102 mg/dL (74-99); Non-African American GFR(CKD) 78 (>60 ml/min/1.73 sqM); Potassium 4.3 mmol/L (3.5-5.1); Sodium 139 mmol/L (137-145)
[2019-11-17] MEDS ORDERED: predniSONE 20 MG TAB PO STA (06:46)
[2019-11-17 06:56] VITALS: BP 120/70; PULSE 83; RESP 18
== END 2019-11-17 07:05 | disposition home or self-care (01) ==
LOC: EC 05:13
DX: J18.1 Lobar pneumonia, unspecified organism (principal); Z79.899 Other long term (current) drug therapy; Z88.1 Allergy status to other antibiotic agents; Z88.2 Allergy status to sulfonamides; Z88.5 Allergy status to narcotic agent
CPT/HCPCS: 99285; 36415; 94640; 80048; 85025; 87502; 71046; 96365; J0696; J7512

== ENCOUNTER 2020-05-07 16:30 | Emergency (ER) | payer OTHER ==
[2020-05-07 16:45] VITALS: TEMP 98.1
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
[2020-05-07 18:59] VITALS: BP 104/75; PULSE 68; RESP 18
== END 2020-05-07 19:11 | disposition home or self-care (01) ==
LOC: EC 16:30
DX: S16.1XXA Strain of muscle, fascia and tendon at neck level, initial encounter (principal); Z88.2 Allergy status to sulfonamides; Z88.5 Allergy status to narcotic agent; Z86.14 Personal history of Methicillin resistant Staphylococcus aureus infection; V43.52XA Car driver injured in collision with other type car in traffic accident, initial encounter; Y92.410 Unspecified street and highway as the place of occurrence of the external cause
CPT/HCPCS: 70450; 72125; 99283

== ENCOUNTER 2021-01-10 15:57 | Emergency (ER) | payer OTHER ==
[2021-01-10] MEDS ORDERED: ONDANSETRON 4 MG/2 ML VIAL IVP STA (16:57)
[2021-01-10] MEDS ORDERED: SODIUM CHLORIDE 0.9% 1,000 ML IV STA (16:57)
--- NOTE | 2021-01-10 17:06 | ED ---
Dizziness HPI - General Chief Complaint: Dizziness Stated Complaint: Vomiting, Dizziness Time Seen by Provider: 01/10/21 16:56 Source: patient, RN notes reviewed Mode of arrival: ambulatory Limitations: no limitations - History of Present Illness Initial Comments: 45-year-old female that presents to emergency room with nausea and vomiting. She notes around 2:30 this afternoon she acutely became nauseous and lightheaded with some dizziness. She noted that she drinks plenty water about 80 ounces per day. She did note a history of vertigo, but stated that this was a different sensation and feeling. She denied any syncopal episodes or pain. She noted that she was doing okay while at work this morning but had to leave due to nausea. She denied any chest pain shortness of breath headache diarrhea constipation fever fatigue chills. - Related Data Home Medications Medication Instructions Recorded Confirmed Cetirizine HCl [Zyrtec] 10 mg PO HS 05/04/18 01/10/21 Acetaminophen Tab [Tylenol Tab] 500 mg PO Q6H PRN 01/10/21 01/10/21 Minocycline HCl [Minocin] 100 mg PO DAILY 01/10/21 01/10/21 Allergies Allergy/AdvReac Type Severity Reaction Status Date / Time codeine Allergy Swelling Verified 01/10/21 17:47 sulfamethoxazole Allergy Rash/Hives Verified 01/10/21 17:47 [From Bactrim] trimethoprim [From Bactrim] Allergy Rash/Hives Verified 01/10/21 17:47 Review of Systems ROS Statement: Those systems with pertinent positive or pertinent negative responses have been documented in the HPI. ROS Other: All systems not noted in ROS Statement are negative. 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 Date of last positivie culture/infection: 09/27/18 MDRO Source:: head Past Surgical History: Section, Tubal Ligation Past Anesthesia/Blood Transfusion Reactions: No Reported Reaction Past Psychological History: No Psychological Hx Reported Smoking Status: Never smoker Past Alcohol Use History: Rare Past Drug Use History: None Reported - Past Family History Mother Family Medical History: Cancer Additional Family Medical History / Comment(s): Tiffany, Father Family Medical History: No Reported History General Exam Limitations: no limitations General appearance: alert, in no apparent distress, obese Head exam: Present: atraumatic, normocephalic, normal inspection Eye exam: Present: normal appearance, PERRL, EOMI. Absent: scleral icterus, conjunctival injection, periorbital swelling ENT exam: Present: normal exam, mucous membranes moist Neck exam: Present: normal inspection. Absent: tenderness, meningismus, lymphadenopathy Respiratory exam: Present: normal lung sounds bilaterally. Absent: respiratory distress, wheezes, rales, rhonchi, stridor Cardiovascular Exam: Present: regular rate, normal rhythm, normal heart sounds. Absent: systolic murmur, diastolic murmur, rubs, gallop, clicks GI/Abdominal exam: Present: soft, normal bowel sounds. Absent: distended, tenderness, guarding, rebound, rigid Extremities exam: Present: normal inspection, full ROM, normal capillary refill. Absent: tenderness, pedal edema, joint swelling, calf tenderness Neurological exam: Present: alert, oriented X3, CN II-XII intact Psychiatric exam: Present: normal affect, normal mood Skin exam: Present: warm, dry, intact, normal color. Absent: rash Course Vital Signs 01/10/21 01/10/21 16:12 18:34 Temperature 97.8 F Pulse Rate 55 L 59 L Respiratory 17 18 Rate Blood Pressure 142/84 139/78 O2 Sat by Pulse 100 100 Oximetry EKG Findings - EKG Comments: EKG Findings:: Ventricular rate 59 bpm, HI interval 172 ms, QRS duration 108 ms, QT/QTc 516/510 ms, PareT axes 70/-32/12. Sinus bradycardia with sinus arrhythmia, left axis deviation, prolonged QT, abnormal ECG. Medical Decision Making - Medical Decision Making Ordered a 5-year-old female complaining of nausea and dizziness. Labs, 1 L normal saline, 4 mg of Zofran, EKG ordered. Labs unremarkable. Started pack of Zofran ordered. Case discussed with Dr. Carrasco, patient discharged home. - Lab Data Result diagrams: 01/10/21 17:14 01/10/21 17:14 Lab Results 01/10/21 01/10/21 01/10/21 Range/Units 17:14 17:14 17:14 WBC 7.6 (3.8-10.6) k/uL RBC 4.72 (3.80-5.40) m/uL Hgb 13.7 (11.4-16.0) gm/dL Hct 40.1 (34.0-46.0) % MCV 85.1 (80.0-100.0) fL MCH 29.2 (25.0-35.0) pg MCHC 34.3 (31.0-37.0) g/dL RDW 14.0 (11.5-15.5) % Plt Count 235 (150-450) k/uL MPV 6.4 Neutrophils % 79 % Lymphocytes % 13 % Monocytes % 4 % Eosinophils % 3 % Basophils % 0 % Neutrophils # 6.0 (1.3-7.7) k/uL Lymphocytes # 1.0 (1.0-4.8) k/uL Monocytes # 0.3 (0-1.0) k/uL Eosinophils # 0.2 (0-0.7) k/uL Basophils # 0.0 (0-0.2) k/uL Sodium (137-145) mmol/L Potassium (3.5-5.1) mmol/L Chloride (98-107) mmol/L Carbon Dioxide (22-30) mmol/L Anion Gap mmol/L BUN (7-17) mg/dL Creatinine (0.52-1.04) mg/dL Est GFR (CKD-EPI)AfAm (>60 ml/min/1.73 sqM) Est GFR (CKD-EPI)NonAf (>60 ml/min/1.73 sqM) Glucose (74-99) mg/dL Calcium (8.4-10.2) mg/dL Total Bilirubin (0.2-1.3) mg/dL AST (14-36) U/L ALT (4-34) U/L Alkaline Phosphatase (38-126) U/L Troponin I (0.000-0.034) ng/mL Total Protein (6.3-8.2) g/dL Albumin (3.5-5.0) g/dL Amylase (30-110) U/L Lipase (23-300) U/L Urine Color Yellow Urine Appearance Clear (Clear) Urine pH 7.5 (5.0-8.0) Ur Specific [place] 1.025 (1.001-1.035) Urine Protein Trace H (Negative) Urine Glucose (UA) Negative (Negative) Urine Ketones Trace H (Negative) Urine Blood Negative (Negative) Urine Nitrite Negative (Negative) Urine Bilirubin Negative (Negative) Urine Urobilinogen <2.0 (<2.0) mg/dL Ur Leukocyte Esterase Negative (Negative) Urine HCG, Qual Not Detected (Not Detectd) Coronavirus (PCR) (Not Detectd) 01/10/21 01/10/21 01/10/21 Range/Units 17:14 17:14 17:14 WBC (3.8-10.6) k/uL RBC (3.80-5.40) m/uL Hgb (11.4-16.0) gm/dL Hct (34.0-46.0) % MCV (80.0-100.0) fL MCH (25.0-35.0) pg MCHC (31.0-37.0) g/dL RDW (11.5-15.5) % Plt Count (150-450) k/uL MPV Neutrophils % % Lymphocytes % % Monocytes % % Eosinophils % % Basophils % % Neutrophils # (1.3-7.7) k/uL Lymphocytes # (1.0-4.8) k/uL Monocytes # (0-1.0) k/uL Eosinophils # (0-0.7) k/uL Basophils # (0-0.2) k/uL Sodium 138 (137-145) mmol/L Potassium 4.1 (3.5-5.1) mmol/L Chloride 102 (98-107) mmol/L Carbon Dioxide 28 (22-30) mmol/L Anion Gap 8 mmol/L BUN 17 (7-17) mg/dL Creatinine 0.87 (0.52-1.04) mg/dL Est GFR (CKD-EPI)AfAm >90 (>60 ml/min/1.73 sqM) Est GFR (CKD-EPI)NonAf 81 (>60 ml/min/1.73 sqM) Glucose 93 (74-99) mg/dL Calcium 9.1 (8.4-10.2) mg/dL Total Bilirubin 0.6 (0.2-1.3) mg/dL AST 35 (14-36) U/L ALT 25 (4-34) U/L Alkaline Phosphatase 72 (38-126) U/L Troponin I <0.012 (0.000-0.034) ng/mL Total Protein 7.8 (6.3-8.2) g/dL Albumin 4.7 (3.5-5.0) g/dL Amylase 38 (30-110) U/L Lipase 100 (23-300) U/L Urine Color Urine Appearance (Clear) Urine pH (5.0-8.0) Ur Specific [place] (1.001-1.035) Urine Protein (Negative) Urine Glucose (UA) (Negative) Urine Ketones (Negative) Urine Blood (Negative) Urine Nitrite (Negative) Urine Bilirubin (Negative) Urine Urobilinogen (<2.0) mg/dL Ur Leukocyte Esterase (Negative) Urine HCG, Qual (Not Detectd) Coronavirus (PCR) Not Detected (Not Detectd) - EKG Data -: EKG Interpreted by Me EKG shows normal: sinus rhythm Rate: bradycardia EKG Comments: Ventricular rate 59 bpm, HI interval 172 ms, QRS duration 108 ms, QT/QTc 516/510 ms, PRT axes 70/-32/12. Sinus bradycardia with sinus arrhythmia, left axis deviation, prolonged QT, abnormal ECG. Disposition Clinical Impression: Nausea and vomiting, Dizziness Disposition: HOME SELF-CARE Condition: Stable Instructions (If sedation given, give patient instructions): Dizziness (ED) Additional Instructions: Please return to the Emergency Department if symptoms worsen or any other concerns. Follow-up with primary care in 3-4 days. Take Zofran starter pack as prescribed as directed. Increase oral fluid intake. Shoe for approximately 1 gallon per day. Eat a bland diet until symptoms dissipate. Is patient prescribed a controlled substance at d/c from ED?: No Referrals: Hever Duarte MD [Primary Care Provider] - 1-2 days Time of Disposition: 18:55
[2021-01-10 17:27] LABS: Appearance,Urine Clear (Clear); Bilirubin,Urine Negative (Negative); Blood,Urine Negative (Negative); Color,Urine Yellow; Glucose,Urine (UA) Negative (Negative); Ketones,Urine Trace (Negative); Leukocyte Esterase,Urine Negative (Negative); Nitrite,Urine Negative (Negative); PH, Urine 7.5 (5.0-8.0); Protein,Urine Trace (Negative); Specific Gravity,Urine 1.025 (1.001-1.035); Urobilinogen,Urine <2.0 mg/dL (<2.0)
[2021-01-10 18:09] LABS: Basophils % (A) 0 %; Eosinophils # (A) 0.2 k/uL (0-0.7); Eosinophils % (A) 3 %; HCT 40.1 % (34.0-46.0); HGB 13.7 gm/dL (11.4-16.0); Lymphocytes % (A) 13 %; MCH 29.2 pg (25.0-35.0); MCHC 34.3 g/dL (31.0-37.0); MCV 85.1 fL (80.0-100.0); Mean Platelet Volume 6.4; Monocytes # (A) 0.3 k/uL (0-1.0); Monocytes % (A) 4 %; Neutrophils % (A) 79 %; Platelet Count 235 k/uL (150-450); RBC 4.72 m/uL (3.80-5.40); WBC 7.6 k/uL (3.8-10.6)
[2021-01-10 18:20] LABS: ALT 25 U/L (4-34); AST 35 U/L (14-36); African American GFR (CKD) >90 (>60 ml/min/1.73 sqM); Albumin 4.7 g/dL (3.5-5.0); Alkaline Phosphatase 72 U/L (38-126); Amylase 38 U/L (30-110); Anion Gap 8 mmol/L; Blood Urea Nitrogen 17 mg/dL (7-17); Calcium 9.1 mg/dL (8.4-10.2); Carbon Dioxide 28 mmol/L (22-30); Chloride 102 mmol/L (98-107); Glucose 93 mg/dL (74-99); Lipase 100 U/L (23-300); Non-African American GFR(CKD) 81 (>60 ml/min/1.73 sqM); Potassium 4.1 mmol/L (3.5-5.1); Sodium 138 mmol/L (137-145); Total Bilirubin 0.6 mg/dL (0.2-1.3); Total Protein 7.8 g/dL (6.3-8.2)
[2021-01-10 18:36] VITALS: PULSE 59; RESP 18
[2021-01-10] MEDS ORDERED: ONDANSETRON 4 MG ODT STARTER PACK 2 TAB BTL PO STA (18:54)
[2021-01-10 19:33] VITALS: BP 117/79; TEMP 97.9
== END 2021-01-10 19:33 | disposition home or self-care (01) ==
LOC: EC 15:57
DX: R11.2 Nausea with vomiting, unspecified (principal); R42 Dizziness and giddiness; J45.909 Unspecified asthma, uncomplicated; Z20.822 Contact with and (suspected) exposure to COVID-19
CPT/HCPCS: 36415; 93005; 80053; 82150; 83690; 84484; 85025; 81003; 81025; 87635; 99284; 96374; 96361; J2405; S0119

== ENCOUNTER 2021-01-29 19:48 | Emergency (ER) | payer OTHER ==
--- NOTE | 2021-01-29 21:39 | XR ---
EXAMINATION TYPE: XR chest 2V DATE OF EXAM: 01/29/2021 COMPARISON: 11/17/2019 HISTORY: Cough TECHNIQUE: 2 views FINDINGS: Heart and mediastinum are normal. Lungs are clear. Diaphragm is normal. Bony thorax appears normal. IMPRESSION: Normal chest. There is clearing of the right upper lobe pneumonia compared to old exam.
[2021-01-29] MEDS ORDERED: ACETAMINOPHEN TAB 500 MG TAB PO STA (22:24)
--- NOTE | 2021-01-29 22:52 | ED ---
General Adult HPI - General Chief complaint: Upper Respiratory Infection Stated complaint: Cough Time Seen by Provider: 01/29/21 22:24 Source: patient Mode of arrival: wheelchair Limitations: no limitations - History of Present Illness Initial comments: Patient is a pleasant 45-year-old female presenting to the emergency Department with complaints of cough. Onset of symptoms was 3 days ago. Patient has had significant fatigue. Patient feels a little bit short of breath. Patient has fever or chills and myalgias. Patient's was recently diagnosed with coronavirus infection. Patient does have loss of taste and smell. 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 Patient is having an outbreak in her scalp and chest. Patient states normally he gets like this she does get Cipro and prednisone - Related Data Home Medications Medication Instructions Recorded Confirmed Cetirizine HCl [Zyrtec] 10 mg PO HS 05/04/18 01/10/21 Acetaminophen Tab [Tylenol Tab] 500 mg PO Q6H PRN 01/10/21 01/10/21 Minocycline HCl [Minocin] 100 mg PO DAILY 01/10/21 01/10/21 Previous Rx's Medication Instructions Recorded Ciprofloxacin HCl [Cipro] 500 mg PO Q12HR #14 tablet 01/29/21 Mupirocin 2% Oint [Bactroban 2% 1 applic TOPICAL TID #80 gm 01/29/21 Oint] methylPREDNISolone Dose Pack 24 mg PO DAILY #1 tab 01/29/21 [Medrol Dose Pack] Allergies Allergy/AdvReac Type Severity Reaction Status Date / Time codeine Allergy Swelling Verified 01/29/21 21:08 sulfamethoxazole Allergy Rash/Hives Verified 01/29/21 21:08 [From Bactrim] trimethoprim [From Bactrim] Allergy Rash/Hives Verified 01/29/21 21:08 Review of Systems ROS Statement: Those systems with pertinent positive or pertinent negative responses have been documented in the HPI. ROS Other: All systems not noted in ROS Statement are negative. Constitutional: Reports: fever, chills Eyes: Denies: eye pain ENT: Denies: ear pain Respiratory: Reports: cough Cardiovascular: Denies: chest pain Endocrine: Reports: fatigue Gastrointestinal: Reports: other (Anorexia). Denies: abdominal pain Genitourinary: Denies: dysuria Musculoskeletal: Denies: back pain Skin: Reports: as per HPI, rash 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 Date of last positivie culture/infection: 09/27/18 MDRO Source:: head Past Surgical History: Section, Tubal Ligation Past Anesthesia/Blood Transfusion Reactions: No Reported Reaction Past Psychological History: No Psychological Hx Reported Smoking Status: Never smoker Past Alcohol Use History: Rare Past Drug Use History: None Reported - Past Family History Mother Family Medical History: Cancer Additional Family Medical History / Comment(s): Tiffany, Father Family Medical History: No Reported History General Exam Limitations: no limitations General appearance: alert, in no apparent distress Head exam: Present: normocephalic, other (Scalp with evidence of lesions with scaling and clear drainage.) Eye exam: Present: normal appearance Neck exam: Present: normal inspection Respiratory exam: Present: normal lung sounds bilaterally Cardiovascular Exam: Present: regular rate, normal rhythm GI/Abdominal exam: Present: soft. Absent: tenderness Extremities exam: Present: normal inspection. Absent: calf tenderness Neurological exam: Present: alert Psychiatric exam: Present: normal affect, normal mood Skin exam: Present: rash (Chest also has a patch approximately 4 x 6 cm with scaling lesion) Course Vital Signs 01/29/21 21:04 Temperature 100.4 F H Pulse Rate 95 Respiratory 22 Rate Blood Pressure 123/90 O2 Sat by Pulse 97 Oximetry Medical Decision Making - Medical Decision Making Patient is a candidate for monoclonal antibodies. Patient is a agreement with confusion. This will be provided prior to discharge. Patient will be observed following transfusion. - Lab Data Lab Results 01/29/21 Range/Units 21:10 Coronavirus (PCR) Detected A (Not Detectd) - Radiology Data Radiology results: image reviewed (Chest x-ray shows no acute process) Disposition Clinical Impression: Coronavirus infection, Darier disease Disposition: HOME SELF-CARE Instructions (If sedation given, give patient instructions): Upper Respiratory Infection (ED), Fever in Adults (ED) Additional Instructions: [id number] vitamin D, vitamin C, and zinc. Continue medicated shampoo. Prescriptions for antibiotics and steroids as well as antibiotic ointment has been sent to her pharmacy. Return for difficulty breathing, not tolerating fluids, worsening symptoms or any other concerns. Follow-up to primary care physician in the next day or 2 for recheck. Prescriptions: Mupirocin 2% Oint [Bactroban 2% Oint] 1 applic TOPICAL TID #80 gm Ciprofloxacin HCl [Cipro] 500 mg PO Q12HR #14 tablet methylPREDNISolone Dose Pack [Medrol Dose Pack] 24 mg PO DAILY #1 tab Is patient prescribed a controlled substance at d/c from ED?: No Referrals: Hever Duarte MD [Primary Care Provider] - 1-2 days Time of Disposition: 22:49
[2021-01-29] MEDS ORDERED: MUPIROCIN 2% OINT 22 GM TUBE TOPICAL ONE (23:00)
[2021-01-29 23:20] VITALS: RESP 18
[2021-01-29] MEDS ORDERED: BAMLANIVIMAB (EUA) 700 MG, ETESEVIMAB (EUA) 1,400 MG in SODIUM CHLORIDE 0.9% 50 ML IVPB ONE (23:50)
[2021-01-30] MEDS ORDERED: SODIUM CHLORIDE 0.9% 1,000 ML IV SCH (00:15)
[2021-01-30 02:01] VITALS: BP 137/90; PULSE 80; TEMP 99
== END 2021-01-30 02:01 | disposition home or self-care (01) ==
LOC: EC 19:48
DX: U07.1 COVID-19 (principal); Q82.8 Other specified congenital malformations of skin; J45.909 Unspecified asthma, uncomplicated
CPT/HCPCS: 87070; 87205; 87635; 71046; 99285; 96365; 96361; Q0245

== ENCOUNTER 2021-09-17 05:20 | Emergency (ER) | payer BC ==
[2021-09-17 05:25] VITALS: BP 141/87; PULSE 67; RESP 18; TEMP 99.1
[2021-09-17 06:44] LABS: Appearance,Urine Clear (Clear); Bacteria,Urine Rare /hpf; Bilirubin,Urine Negative (Negative); Blood,Urine Negative (Negative); Color,Urine Light Yellow; Glucose,Urine (UA) Negative (Negative); Ketones,Urine Negative (Negative); Leukocyte Esterase,Urine Large (Negative); Mucus,Urine Rare /hpf; Nitrite,Urine Negative (Negative); Protein,Urine Negative (Negative); RBC,Urine <1 /hpf (0-5); Specific Gravity,Urine 1.009 (1.001-1.035); Squamous Epithelial Cell,Urine 4 /hpf (0-4); Urobilinogen,Urine <2.0 mg/dL (<2.0); WBC,Urine 29 /hpf (0-5)
[2021-09-17] MEDS ORDERED: FLUCONAZOLE 150 MG TAB PO STA (08:18)
[2021-09-17] MEDS ORDERED: NYSTATIN 100,000 UNIT/GM OINT 30 GM TUBE TOPICAL STA (08:20)
--- NOTE | 2021-09-17 08:24 | ED ---
General Adult HPI - General Chief complaint: Urogenital Stated complaint: Female Time Seen by Provider: 09/17/21 07:54 Source: patient, RN notes reviewed Mode of arrival: ambulatory Limitations: no limitations - History of Present Illness Initial comments: 46-year-old female with a past medical history of Darier's disease, eczema presents to the emergency room for a chief complaint of rash. Patient states she has had an itchy and painful rash in the groin. This has been ongoing since the past several days. She denies any fevers. Denies any new rash elsewhere. Patient denies any vaginal discharge. Denies any concern for STDs.Patient has no other complaints at this time including shortness of breath, chest pain, abdominal pain, nausea or vomiting, headache, or visual changes. - Related Data Home Medications Medication Instructions Recorded Confirmed Cetirizine HCl [Zyrtec] 10 mg PO HS 05/04/18 01/10/21 Acetaminophen Tab [Tylenol Tab] 500 mg PO Q6H PRN 01/10/21 01/10/21 Minocycline HCl [Minocin] 100 mg PO DAILY 01/10/21 01/10/21 Previous Rx's Medication Instructions Recorded Ciprofloxacin HCl [Cipro] 500 mg PO Q12HR #14 tablet 01/29/21 Mupirocin 2% Oint [Bactroban 2% 1 applic TOPICAL TID #80 gm 01/29/21 Oint] methylPREDNISolone Dose Pack 24 mg PO DAILY #1 tab 01/29/21 [Medrol Dose Pack] Fluconazole [Diflucan] 150 mg PO ONCE #1 tab 09/17/21 Nystatin 1 applic TOPICAL TID #30 gm 09/17/21 Allergies Allergy/AdvReac Type Severity Reaction Status Date / Time codeine Allergy Swelling Verified 09/17/21 05:25 sulfamethoxazole Allergy Rash/Hives Verified 09/17/21 05:25 [From Bactrim] trimethoprim [From Bactrim] Allergy Rash/Hives Verified 09/17/21 05:25 Review of Systems ROS Statement: Those systems with pertinent positive or pertinent negative responses have been documented in the HPI. ROS Other: All systems not noted in ROS Statement are negative. 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 Date of last positivie culture/infection: 01/29/21 MDRO Source:: Scalp Past Surgical History: Section, Tubal Ligation Past Anesthesia/Blood Transfusion Reactions: No Reported Reaction Past Psychological History: No Psychological Hx Reported Smoking Status: Never smoker Past Alcohol Use History: Rare Past Drug Use History: None Reported - Past Family History Mother Family Medical History: Cancer Additional Family Medical History / Comment(s): Tiffany, Father Family Medical History: No Reported History General Exam Limitations: no limitations General appearance: alert, in no apparent distress Head exam: Present: atraumatic Eye exam: Present: normal appearance, PERRL, EOMI. Absent: scleral icterus, conjunctival injection ENT exam: Present: normal exam, mucous membranes moist Neck exam: Present: normal inspection, full ROM. Absent: tenderness Respiratory exam: Present: normal lung sounds bilaterally. Absent: respiratory distress, wheezes Cardiovascular Exam: Present: regular rate, normal rhythm, normal heart sounds External exam: Present: erythema (pt has erythema consistent with linwood noted in the intertriginous areas of the thighs as well as labia.) Speculum exam: Present: normal speculum exam. Absent: erythema, vaginal discharge, cervical discharge, vaginal bleeding, foreign body, tissue, laceration By manual exam: Present: normal by manual exam. Absent: cervical motion tenderness Course Vital Signs 09/17/21 05:23 Temperature 99.1 F Pulse Rate 67 Respiratory 18 Rate Blood Pressure 141/87 O2 Sat by Pulse 98 Oximetry Medical Decision Making - Medical Decision Making pelvic exam was done. There is erythema in the intertriginous areas and on labia consistent with candidiasis. Patient will be treated with Diflucan and nystatin cream. Urinalysis was obtained. There were 29 white cells however patient is not having any dysuria. We will culture this. Gonorrhea chlamydia Trichomonas and genital culture pending. There is no concern for STDs and patient does not want treatment. Will follow up with her [employer]. She will return here for any worsening symptoms. - Lab Data Lab Results 09/17/21 Range/Units 05:31 Urine Color Light Yellow Urine Appearance Clear (Clear) Urine pH 5.0 (5.0-8.0) Ur Specific [place] 1.009 (1.001-1.035) Urine Protein Negative (Negative) Urine Glucose (UA) Negative (Negative) Urine Ketones Negative (Negative) Urine Blood Negative (Negative) Urine Nitrite Negative (Negative) Urine Bilirubin Negative (Negative) Urine Urobilinogen <2.0 (<2.0) mg/dL Ur Leukocyte Esterase Large H (Negative) Urine RBC <1 (0-5) /hpf Urine WBC 29 H (0-5) /hpf Ur Squamous Epith Cells 4 (0-4) /hpf Urine Bacteria Rare H (None) /hpf Urine Mucus Rare H (None) /hpf Disposition Clinical Impression: Skin rash in pelvic region Disposition: HOME SELF-CARE Condition: Good Instructions (If sedation given, give patient instructions): Skin Yeast Infection (ED) Additional Instructions: Please use cream as directed. If symptoms do not improve within 3 days take second pill. Follow-up with your doctor. Return to the emergency room for any worsening symptoms. Prescriptions: Fluconazole [Diflucan] 150 mg PO ONCE #1 tab Nystatin 1 applic TOPICAL TID #30 gm Is patient prescribed a controlled substance at d/c from ED?: No Referrals: Hever Duarte MD [Primary Care Provider] - 1-2 days Time of Disposition: 08:22
[2021-09-18 15:42] LABS: C. trachomatis,PCR Negative (Neg,Equiv); Chlamydia trachomatis Source Urine; N. gonorrhoeae,PCR Negative (Neg,Equiv); Neisseria Source Urine
== END 2021-09-17 09:21 | disposition home or self-care (01) ==
LOC: EC 05:20
DX: R21 Rash and other nonspecific skin eruption (principal); J45.909 Unspecified asthma, uncomplicated; Z88.1 Allergy status to other antibiotic agents; Z88.5 Allergy status to narcotic agent; Z88.2 Allergy status to sulfonamides; Z98.51 Tubal ligation status
CPT/HCPCS: 81001; 81025; 87070; 87086; 87491; 87591; 99283

== ENCOUNTER 2021-09-21 09:23 | Emergency (ER) | payer BC ==
[2021-09-21 09:27] VITALS: BP 173/84; PULSE 62; RESP 18; TEMP 98.1
--- NOTE | 2021-09-21 10:15 | ED ---
Female Urogenital HPI - General Chief complaint: Urogenital Stated complaint: Female Time Seen by Provider: 09/21/21 09:28 Source: patient, old records reviewed Mode of arrival: ambulatory Limitations: no limitations - History of Present Illness Initial comments: Patient is a 46-year-old female with history of Dariers Disease, presenting to the emergency department for reevaluation of a rash in her groin area. Patient was evaluated about 3 days ago for same complaint, was prescribed oral and topical nystatin as well as topical steroid. She states the rash is getting worse and is not improving with that ointments. She states she does follow with a busboy over they are not open on the weekends and she wanted a reevaluation. She denies any fevers or chills. States she was hospitalized in the past as this infection can get worse. She denies any chest pain or shortness of breath, no cough or chills. She has no further complaints. Her vitals are stable upon arrival. - Related Data Home Medications Medication Instructions Recorded Confirmed Minocycline HCl [Minocin] 100 mg PO DAILY 01/10/21 09/21/21 Fluconazole [Diflucan] 150 mg PO DAILY 09/21/21 09/21/21 Triamcinolone 0.1% Ointment 1 applic TOPICAL DAILY PRN 09/21/21 09/21/21 [Kenalog 0.1% Ointment] Previous Rx's Medication Instructions Recorded Nystatin 1 applic TOPICAL TID #30 gm 09/17/21 Amoxicillin/Potassium Clav 1 tab PO Q12HR 10 Days #20 tab 09/21/21 [Augmentin 875-125 Tablet] Clobetasol Propionate [Temovate 1 applic TOPICAL BID #15 gm 09/21/21 0.05% Cream] predniSONE [Deltasone] 20 mg PO DAILY #12 tab 09/21/21 Allergies Allergy/AdvReac Type Severity Reaction Status Date / Time codeine Allergy Swelling Verified 09/21/21 10:19 sulfamethoxazole Allergy Rash/Hives Verified 09/21/21 10:19 [From Bactrim] trimethoprim [From Bactrim] Allergy Rash/Hives Verified 09/21/21 10:19 Review of Systems ROS Statement: Those systems with pertinent positive or pertinent negative responses have been documented in the HPI. ROS Other: All systems not noted in ROS Statement are negative. 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 Date of last positivie culture/infection: 01/29/21 MDRO Source:: Scalp Past Surgical History: Section, Tubal Ligation Past Anesthesia/Blood Transfusion Reactions: No Reported Reaction Past Psychological History: No Psychological Hx Reported Smoking Status: Never smoker Past Alcohol Use History: Rare Past Drug Use History: None Reported - Past Family History Mother Family Medical History: Cancer Additional Family Medical History / Comment(s): Tiffany, Father Family Medical History: No Reported History General Exam - General Exam Comments Initial Comments: GENERAL: Patient is well-developed and well-nourished. Patient is nontoxic and in no acute distress. HEAD: Atraumatic, normocephalic. EYES: Pupils equal round and reactive to light, extraocular movements intact, sclera anicteric, conjunctiva are normal. Eyelids were unremarkable. ENT: Moist mucous membranes. NECK: Normal range of motion, supple without lymphadenopathy or JVD. LUNGS: Unlabored respirations. Breath sounds clear to auscultation bilaterally and equal. No wheezes rales or rhonchi. HEART: Regular rate and rhythm without murmurs, rubs or gallops. MUSCULOSKELETAL: Normal extremities with adequate strength and normal range of motion, no pitting or edema. No clubbing or cyanosis. SKIN: Warm, Dry, normal turgor. Patient has an acute rash in the creases of bilateral groins, it is a raised, mildly erythematous, papules that are oozing some. Limitations: no limitations Course Vital Signs 09/21/21 09:24 Temperature 98.1 F Pulse Rate 62 Respiratory 18 Rate Blood Pressure 173/84 O2 Sat by Pulse 99 Oximetry Medical Decision Making - Medical Decision Making Patient is a 46-year-old female with history of Darier's disease presenting for reevaluation of a rash in her bilateral groin area. She was seen 4 days ago, symptoms are worsening. Patient's rash is consistent with her prior outbreak that her prior doctor thought was because of her Darier's disease. I did review past reports from Dr. Romero that used to see the patient. Patient will be started on an oral steroid and antibiotic as well as a stronger topical steroid cream. She is agreeable to this plan of care. She will follow-up with her busboy on Thursday or Thursday. Return parameters were discussed. She verbalized understanding. Disposition Clinical Impression: Darier disease, Skin rash in pelvic region Disposition: HOME SELF-CARE Condition: Stable Instructions (If sedation given, give patient instructions): Acute Rash (ED) Additional Instructions: Please return to the Emergency Department if symptoms worsen or any other concerns. Start medications as prescribed. Recommend following up with your busboy next week. Prescriptions: Amoxicillin/Potassium Clav [Augmentin 875-125 Tablet] 1 tab PO Q12HR 10 Days #20 tab predniSONE [Deltasone] 20 mg PO DAILY #12 tab Clobetasol Propionate [Temovate 0.05% Cream] 1 applic TOPICAL BID #15 gm Is patient prescribed a controlled substance at d/c from ED?: No Referrals: Hever Duarte MD [Primary Care Provider] - 1-2 days Time of Disposition: 10:15
== END 2021-09-21 10:45 | disposition home or self-care (01) ==
LOC: EC 09:23
DX: Q82.8 Other specified congenital malformations of skin (principal); R21 Rash and other nonspecific skin eruption; J45.909 Unspecified asthma, uncomplicated; Z72.89 Other problems related to lifestyle
CPT/HCPCS: 99282

== ENCOUNTER 2021-09-22 08:16 | Inpatient (IN) | payer BC ==
--- NOTE | 2021-09-22 09:13 | ED ---
Female Urogenital HPI - General Chief complaint: Urogenital Stated complaint: Female Time Seen by Provider: 09/22/21 08:23 Source: patient, RN notes reviewed, old records reviewed Mode of arrival: ambulatory Limitations: no limitations - History of Present Illness Initial comments: Patient is a 46-year-old female with history of Dariers disease, presenting to the emergency Department with complaints of continued and worsening pain of a bilateral groin rash. This is patient's third visit this week for similar complaint. She has taken oral medications, topical medications without improvement. She states her pain has been worse and she is requesting admission. Patient states she has had to be admitted in the past for similar issue. Her pain is currently an 8/10, she describes it as burning, hurts to walk, hurts to sit. She denies any fevers or chills. She has been taking her prescribed medications without improvement in her symptoms. She denies any chest pain or shortness of breath. She has no further complaints. She is afebrile upon arrival. - Related Data Home Medications Medication Instructions Recorded Confirmed Minocycline HCl [Minocin] 100 mg PO DAILY 01/10/21 09/22/21 Acetaminophen Tab [Tylenol Tab] 1,000 mg PO Q6HR PRN 09/22/21 09/22/21 Nystatin 1 applic TOPICAL BID 09/22/21 09/22/21 Previous Rx's Medication Instructions Recorded Amoxicillin/Potassium Clav 1 tab PO Q12HR 10 Days #20 tab 09/21/21 [Augmentin 875-125 Tablet] Clobetasol Propionate [Temovate 1 applic TOPICAL BID #15 gm 09/21/21 0.05% Cream] predniSONE [Deltasone] 20 mg PO DAILY #12 tab 09/21/21 Allergies Allergy/AdvReac Type Severity Reaction Status Date / Time codeine Allergy Swelling Verified 09/22/21 09:42 sulfamethoxazole Allergy Rash/Hives Verified 09/22/21 09:42 [From Bactrim] trimethoprim [From Bactrim] Allergy Rash/Hives Verified 09/22/21 09:42 Review of Systems ROS Statement: Those systems with pertinent positive or pertinent negative responses have been documented in the HPI. ROS Other: All systems not noted in ROS Statement are negative. 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 Date of last positivie culture/infection: 01/29/21 MDRO Source:: Scalp Past Surgical History: Section, Tubal Ligation Past Anesthesia/Blood Transfusion Reactions: No Reported Reaction Past Psychological History: No Psychological Hx Reported Smoking Status: Never smoker Past Alcohol Use History: Rare Past Drug Use History: None Reported - Past Family History Mother Family Medical History: Cancer Additional Family Medical History / Comment(s): Dariers, Father Family Medical History: No Reported History General Exam - General Exam Comments Initial Comments: GENERAL: Patient is well-developed and well-nourished. Patient is nontoxic and in no acute distress. HEAD: Atraumatic, normocephalic. EYES: Pupils equal round and reactive to light, extraocular movements intact, sclera anicteric, conjunctiva are normal. Eyelids were unremarkable. ENT: Moist mucous membranes. NECK: Normal range of motion, supple without lymphadenopathy or JVD. LUNGS: Unlabored respirations. Breath sounds clear to auscultation bilaterally and equal. No wheezes rales or rhonchi. HEART: Regular rate and rhythm without murmurs, rubs or gallops. ABDOMEN: Soft, nontender, normoactive bowel sounds. : Patient has extensive plaque type skin lesions, blisters in bilateral groins, right greater than left., Mild erythema surrounding the lesions as well. These are very painful to the touch. MUSCULOSKELETAL: Normal extremities with adequate strength and normal range of motion, no pitting or edema. No clubbing or cyanosis. NEUROLOGICAL: Patient is alert and oriented x 3. SKIN: Warm, Dry, normal turgor, no rashes or lesions noted. Limitations: no limitations Course Vital Signs 09/22/21 09/22/21 08:19 11:21 Temperature 97.5 F L Pulse Rate 114 H 62 Respiratory 18 18 Rate Blood Pressure 153/100 140/85 O2 Sat by Pulse 96 99 Oximetry Medical Decision Making - Medical Decision Making Patient is a 46-year-old female with history of Dariers disease presenting for rash/blisters of bilateral groins over the past week. This patient's third visit for same complaint. She has tried oral and topical medications over the past week without improvement. The blisters have worsened. She has no fevers, her vitals are stable, labs are stable. Patient has seen Dr. Blood in the past for this, she is requesting admission as her pain is worsening. Patient will be admitted for further care and treatment, infected skin lesions, failed outpatient treatment. Patient accepted by Dr. Duarte, with consult to Dr. Blood. Patient is agreeable to this plan of care. I will start a course of antibiotics and IV steroids, pain control. Case discussed with Dr. Linares. - Lab Data Result diagrams: 09/22/21 10:32 09/22/21 10:32 Disposition Clinical Impression: Skin lesion, infected, Darier disease, Cellulitis of groin, Failure of outpatient treatment Disposition: ADMITTED IP TO THIS HOSP Condition: Stable Decision Date: 09/22/21 Decision Time: 09:27
[2021-09-22] MEDS ORDERED: KETOROLAC 15 MG/ML 1 ML VIAL IVP STA (09:18)
[2021-09-22] MEDS ORDERED: methylPREDNISolone SOD SUCCI 125 MG/2 ML VIAL IV STA (09:22)
[2021-09-22] MEDS ORDERED: cefTRIAXone IN SWFI 1,000 MG/10 ML SYRINGE IVP STA (09:22)
[2021-09-22] MEDS ORDERED: NALOXONE 0.4 MG/ML 1 ML VIAL IV PRN (09:25)
[2021-09-22] MEDS ORDERED: ONDANSETRON 4 MG/2 ML VIAL IVP PRN (09:25)
[2021-09-22] MEDS ORDERED: IBUPROFEN 400 MG TAB PO PRN (09:25)
[2021-09-22] MEDS ORDERED: MORPHINE SULFATE 4 MG/ML SYRINGE IV PRN (09:25)
[2021-09-22] MEDS ORDERED: ACETAMINOPHEN TAB 325 MG TAB PO PRN (09:25)
[2021-09-22] MEDS ORDERED: KETOROLAC 15 MG/ML 1 ML VIAL IVP PRN (09:25)
[2021-09-22 10:42] LABS: Basophils % (A) 0 %; Eosinophils # (A) 0.1 k/uL (0-0.7); Eosinophils % (A) 1 %; HCT 40.7 % (34.0-46.0); HGB 13.9 gm/dL (11.4-16.0); Lymphocytes % (A) 9 %; MCHC 34.1 g/dL (31.0-37.0); Mean Platelet Volume 6.4; Monocytes # (A) 0.4 k/uL (0-1.0); Monocytes % (A) 3 %; Neutrophils # (A) 9.5 k/uL (1.3-7.7); Neutrophils % (A) 86 %; Platelet Count 241 k/uL (150-450); RBC 4.63 m/uL (3.80-5.40); RDW 13.5 % (11.5-15.5); WBC 11.1 k/uL (3.8-10.6)
[2021-09-22 11:00] LABS: ALT 14 U/L (4-34); AST 20 U/L (14-36); African American GFR (CKD) >90 (>60 ml/min/1.73 sqM); Albumin 3.9 g/dL (3.5-5.0); Alkaline Phosphatase 66 U/L (38-126); Anion Gap 6 mmol/L; Blood Urea Nitrogen 15 mg/dL (7-17); Calcium 8.9 mg/dL (8.4-10.2); Carbon Dioxide 28 mmol/L (22-30); Chloride 103 mmol/L (98-107); Glucose 90 mg/dL (74-99); Non-African American GFR(CKD) 88 (>60 ml/min/1.73 sqM); Sodium 137 mmol/L (137-145); Total Bilirubin 0.4 mg/dL (0.2-1.3); Total Protein 6.7 g/dL (6.3-8.2)
--- NOTE | 2021-09-22 12:42 | HP ---
HISTORY AND PHYSICAL HISTORY OF PRESENT ILLNESS: 46-year-old white female, history of Darier's disease, presents to the hospital with complaints of continued worsening pain, bilateral groin rash. She is admitted with most likely bacterial infection, failed outpatient treatment. She has been admitted two or three times in the past for this condition due to overwhelming skin infection. She is admitted, started on broad-spectrum antibiotics. Wait for Dr. Blood's recommendations. MEDICATIONS: Home medicines include Minocin 100 daily, Diflucan 150 daily, Kenalog cream topically daily, nystatin topically t.i.d., Deltasone 20 mg daily. Clobetasol p.r.n. REVIEW OF SYMPTOMS: 14-point review of systems otherwise negative. PAST MEDICAL HISTORY: Darier's disease, asthma, skin disorder, MRSA. PAST SURGICAL HISTORY: , tubal ligation. SOCIAL HISTORY: Does not smoke. No alcohol. FAMILY HISTORY: Mother Darier's and cancer. Father negative. PHYSICAL EXAMINATION: Vital signs stable. Afebrile. CARDIOVASCULAR: S1, S2. LUNGS: Clear. GI soft. HEMATOLOGY: Negative Homans. INTEGUMENT: She has skin blisters with bilateral groin areas. PSYCH: Fair mood and affect. NEUROLOGIC: Alert and oriented x3. ASSESSMENT AND PLAN: 1. Infected skin lesion. 2. Darier's disease. 3. Cellulitis of the groin. 4. Tachycardia secondary to infection. 5. Hypertension acceleration secondary infection. 6. Prognosis guarded. 7. IV antibiotics. 8. Await for Infectious Disease consult. MMODL / IJN: [id number] /
[2021-09-22 13:08] LABS: Erythrocyte Sedimentation Rate 12 mm/hr (0-20)
[2021-09-22] MEDS ORDERED: VANCOMYCIN 1,000 MG in SODIUM CHLORIDE 0.9% 250 ML IVPB STA (13:49)
[2021-09-22] MEDS ORDERED: VANCOMYCIN IV PER PHARMACY 1 EACH MISC MISCELLANE PRN (14:11)
[2021-09-22] MEDS: VANCOMYCIN 2,500 MG in SODIUM CHLORIDE 0.9% 500 ML 500 ML IVPB ONE ×2 (15:42→20:49)
[2021-09-22] MEDS: methylPREDNISolone SOD SUCCI 125 MG/2 ML VIAL IV SCH ×2 (18:04→23:54)
[2021-09-22] MEDS: AMPICILLIN-SULBACTAM 3 GM in SODIUM CHLORIDE 0.9% 100 ML IVPB SCH ×2 (18:11→23:54)
[2021-09-22] MEDS: KETOROLAC 30 MG/ML 1 ML VIAL IVP PRN (18:24)
[2021-09-23] MEDS: KETOROLAC 30 MG/ML 1 ML VIAL IVP PRN ×3 (03:47→15:18)
[2021-09-23] MEDS ORDERED: VANCOMYCIN 2,000 MG in SODIUM CHLORIDE 0.9% 500 ML 500 ML IVPB SCH (04:00)
[2021-09-23] MEDS: AMPICILLIN-SULBACTAM 3 GM in SODIUM CHLORIDE 0.9% 100 ML IVPB SCH ×3 (05:35→17:55)
[2021-09-23] MEDS: methylPREDNISolone SOD SUCCI 125 MG/2 ML VIAL IV SCH ×3 (05:35→17:53)
[2021-09-23] MEDS ORDERED: predniSONE 20 MG TAB PO SCH (09:00)
[2021-09-23] MEDS: FLUCONAZOLE IN NACL,ISO-OSM 100 MG in SALINE 1 50ML.BAG IVPB SCH (09:21)
[2021-09-23 11:11] LABS: Calcium 8.8 mg/dL (8.4-10.2); Potassium 4.1 mmol/L (3.5-5.1)
--- NOTE | 2021-09-23 14:58 | PN ---
PROGRESS NOTE DATE OF SERVICE: 09/23/2021 REASON FOR FOLLOWUP: Rash to the groin, question of inflammatory versus infection and bilateral breast cutaneous candidiasis. INTERVAL HISTORY: Patient is afebrile. Still complaining of burning pain to the rash and the groin in the area. Not so much discomfort to the rash under the breast. No chest pain, shortness of breath, cough, abdominal pain or diarrhea. PHYSICAL EXAMINATION: Blood pressure 106/73, pulse of 55, temperature 98. She is 95% on room air. General description is a middle-aged female lying in bed in no distress. Respiratory system: Unlabored breathing, decreased intensity of breath sounds. No wheeze. Heart S1, S2. Regular rate and rhythm. Abdomen: Soft. No tenderness. Examination of the rash to the groin area did have some maceration. No significant redness or drainage. LABS: Creatinine 0.94. Cultures are currently pending. DIAGNOSTIC IMPRESSION AND PLAN: 1. Patient with extensive rash to the groin area concerning for possible inflammatory versus infectious. Cultures are pending. Patient is on steroids and Unasyn. 2. Patient with bilateral breast fold cutaneous candidiasis, continue with nystatin powder. MMODL / IJN: [id number] /
[2021-09-23] MEDS: SODIUM CHLORIDE 0.9% 500 ML 500 ML IV SCH (17:55)
[2021-09-24] MEDS: AMPICILLIN-SULBACTAM 3 GM in SODIUM CHLORIDE 0.9% 100 ML IVPB SCH ×5 (00:23→23:10)
[2021-09-24] MEDS: methylPREDNISolone SOD SUCCI 125 MG/2 ML VIAL IV SCH ×3 (00:23→06:01)
[2021-09-24] MEDS: KETOROLAC 30 MG/ML 1 ML VIAL IVP PRN (03:10)
[2021-09-24 04:50] LABS: HSV I IgG Interp POSITIVE (NEGATIVE); HSV II IgG Interp NEGATIVE (NEGATIVE)
[2021-09-24] MEDS: FLUCONAZOLE IN NACL,ISO-OSM 100 MG in SALINE 1 50ML.BAG IVPB SCH (08:06)
--- NOTE | 2021-09-24 11:10 | PN ---
PROGRESS NOTE This is a 46-year-old white female with improved wound in the right lower quadrant, right groin. Remains on Unasyn, fluconazole, IV steroids. Cardiovascular S1-S2. Lungs clear. GI soft. Hematology: Negative Homans. Psych fair mood and affect. Integument: Rash in the right groin improved. Redness, some under the breast area. ASSESSMENT: 1. Candidiasis. 2. Darier's disease. 3. Acute skin rash, cellulitis in the groin. Wait for cultures for long-term antibiotics, but improving on Zosyn. Prognosis guarded. MMODL / IJN: [id number] /
[2021-09-24] MEDS: ACYCLOVIR SODIUM 1,000 MG in SODIUM CHLORIDE 0.9% 250 ML IVPB SCH ×2 (11:16→19:33)
--- NOTE | 2021-09-24 14:49 | PN ---
PROGRESS NOTE DATE OF SERVICE: 09/24/2021 REASON FOR FOLLOWUP: 1. Extensive groin and genital area herpes zoster. 2. Bilateral breast fold cutaneous candidiasis. INTERVAL HISTORY: Patient is afebrile. The patient mentioned some burning pain to the genital and groin area, however, decreased intensity. No chest pain, shortness of breath or cough. No abdominal pain or diarrhea. PHYSICAL EXAMINATION: Blood pressure 132/82 with a pulse of 57, temperature 97.7. She is 98% on room air. General description is a middle-aged female lying in bed in no distress. Respiratory system: Unlabored breathing, clear to auscultation anteriorly. Heart S1, S2. Regular rate and rhythm. Abdomen soft, no tenderness. LABS: HSV, PCR from the blister on the genital area came back positive and she did have positive serology. DIAGNOSTIC IMPRESSION AND PLAN: 1. 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 Patient started on acyclovir. Culture showing gram- negative and also covered with Unasyn. 2. Breast fold cutaneous candidiasis, continue with Nystatin powder. MMODL / IJN: [id number] /
[2021-09-24] MEDS: SODIUM CHLORIDE 0.9% 500 ML 500 ML IV SCH (18:15)
[2021-09-25] MEDS: ACYCLOVIR SODIUM 1,000 MG in SODIUM CHLORIDE 0.9% 250 ML IVPB SCH ×3 (03:02→20:21)
[2021-09-25] MEDS: KETOROLAC 30 MG/ML 1 ML VIAL IVP PRN (03:05)
[2021-09-25] MEDS: AMPICILLIN-SULBACTAM 3 GM in SODIUM CHLORIDE 0.9% 100 ML IVPB SCH ×3 (05:17→17:54)
[2021-09-25 06:23] LABS: Herpes simplex I and/or II IgM 0.48 INDEX (<=0.90); Herpes simplex IgG I Ab >62.20 (< or = 0.90)
[2021-09-25 06:36] LABS: Basophils % (A) 0 %; Eosinophils % (A) 0 %; HCT 37.6 % (34.0-46.0); HGB 12.5 gm/dL (11.4-16.0); Lymphocytes # (A) 1.3 k/uL (1.0-4.8); Lymphocytes % (A) 10 %; MCH 30.3 pg (25.0-35.0); MCHC 33.2 g/dL (31.0-37.0); MCV 91.5 fL (80.0-100.0); Mean Platelet Volume 6.7; Monocytes # (A) 0.6 k/uL (0-1.0); Monocytes % (A) 5 %; Neutrophils # (A) 10.2 k/uL (1.3-7.7); Neutrophils % (A) 84 %; Platelet Count 250 k/uL (150-450); RBC 4.11 m/uL (3.80-5.40); RDW 13.9 % (11.5-15.5); WBC 12.3 k/uL (3.8-10.6)
[2021-09-25 06:58] LABS: Albumin 3.1 g/dL (3.5-5.0); Calcium 8.4 mg/dL (8.4-10.2); Potassium 4.4 mmol/L (3.5-5.1); Total Bilirubin 0.3 mg/dL (0.2-1.3); Total Protein 5.7 g/dL (6.3-8.2)
[2021-09-25] MEDS: FLUCONAZOLE IN NACL,ISO-OSM 100 MG in SALINE 1 50ML.BAG IVPB SCH (08:14)
--- NOTE | 2021-09-25 09:08 | PN ---
PROGRESS NOTE The patient was found to have an RS possibly HSV infection. Pseudomonas infection of the wound as well as possible herpes simplex virus. On IV acyclovir, IV Unasyn. Possibly switch to oral antibiotics on discharge as well as fungal medicines for under the groin and possible IV versus oral acyclovir. Pseudomonas is sensitive to multiple antibiotics. Possibly Cipro will be given as an outpatient or Levaquin. Prognosis is guarded. Follow up in next 24 to 48 hours for possible discharge. The patient continues improvement. MMODL / IJN: [id number] /
--- NOTE | 2021-09-25 15:31 | PN ---
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 Blood pressure is 130s over 80s, pulse 50s to 60s, temperature 97.7, O2 98. Cardiovascular S1, S2. Lungs clear. GI soft. She had PCR from the blister which is HSV, positive serology. She had extensive surgical rash to the groin and general area on the right side secondary to HSV 1 steroids. She is on acyclovir gram-negative Pseudomonas, covered with Unasyn and possibly switched to Cipro on discharge and breast fold cutaneous candidiasis with nystatin powder. Prognosis is guarded but possibly discharge home on [facility] as she wants to go to [facility] Thursday morning that her family goes to for years and years. MMODL / CARLOSN: [id number] /
[2021-09-25] MEDS: SODIUM CHLORIDE 0.9% 500 ML 500 ML IV SCH (16:30)
--- NOTE | 2021-09-25 22:01 | PN ---
PROGRESS NOTE DATE OF SERVICE: 09/25/2021 REASON FOR FOLLOWUP: 1. Genital herpes. 2. Bilateral breast fold cutaneous candidiasis. INTERVAL HISTORY: The patient is afebrile. The patient is breathing comfortably. Denies any chest pain, shortness of breath or cough. Overall burning pain to the genital area has decreased in intensity. PHYSICAL EXAMINATION: Blood pressure 128/67, pulse of 57, temperature is 97.9. He is 99% on room air. General description is a middle-aged female lying in bed in no distress. Respiratory system: Unlabored breathing, decreased intensity of breath sounds. No wheeze. Heart S1, S2. Regular rate and rhythm. Abdomen soft, no tenderness. The groin area induration and maceration are minimally decreased. LABS: Creatinine is slightly up at 1.07. Local culture positive for Pseudomonas. DIAGNOSTIC IMPRESSION AND PLAN: Patient with extensive rash and maceration to the groin and genital area concerning for the HSV1 infection with secondary cellulitis. Culture with Pseudomonas. Antibiotic adjusted to Zosyn. Continue acyclovir, IV fluid. Kidney function needs to be monitored closely. Repeat CBC and creatinine tomorrow. Continue supportive care. MMODL / IJN: [id number] /
[2021-09-26] MEDS: PIPERACILLIN-TAZOBACTAM 3.375 GM in SODIUM CHLORIDE 0.9% 100 ML IVPB SCH ×2 (00:19→07:55)
[2021-09-26] MEDS: ACYCLOVIR SODIUM 1,000 MG in SODIUM CHLORIDE 0.9% 250 ML IVPB SCH ×3 (04:29→20:19)
[2021-09-26 05:00] LABS: Basophils % (A) 0 %; Eosinophils # (A) 0.1 k/uL (0-0.7); Eosinophils % (A) 1 %; HCT 35.8 % (34.0-46.0); HGB 12.3 gm/dL (11.4-16.0); Lymphocytes # (A) 2.4 k/uL (1.0-4.8); Lymphocytes % (A) 29 %; MCH 30.4 pg (25.0-35.0); MCHC 34.4 g/dL (31.0-37.0); MCV 88.3 fL (80.0-100.0); Mean Platelet Volume 6.4; Monocytes # (A) 0.6 k/uL (0-1.0); Monocytes % (A) 7 %; Neutrophils # (A) 5.1 k/uL (1.3-7.7); Neutrophils % (A) 61 %; Platelet Count 236 k/uL (150-450); RBC 4.05 m/uL (3.80-5.40); RDW 14.3 % (11.5-15.5); WBC 8.3 k/uL (3.8-10.6)
[2021-09-26 05:15] LABS: African American GFR (CKD) 81 (>60 ml/min/1.73 sqM); Anion Gap 3 mmol/L; Blood Urea Nitrogen 30 mg/dL (7-17); C Reactive Protein <0.5 mg/dL (<1.0); Calcium 8.2 mg/dL (8.4-10.2); Carbon Dioxide 27 mmol/L (22-30); Chloride 106 mmol/L (98-107); Glucose 83 mg/dL (74-99); Non-African American GFR(CKD) 71 (>60 ml/min/1.73 sqM); Potassium 4.2 mmol/L (3.5-5.1); Sodium 136 mmol/L (137-145)
[2021-09-26] MEDS: FLUCONAZOLE IN NACL,ISO-OSM 100 MG in SALINE 1 50ML.BAG IVPB SCH (09:10)
[2021-09-26] MEDS ORDERED: VANCOMYCIN IV PER PHARMACY 1 EACH MISC MISCELLANE PRN (09:53)
[2021-09-26] MEDS ORDERED: VANCOMYCIN 2,250 MG in SODIUM CHLORIDE 0.9% 500 ML 500 ML IVPB ONE (11:00)
[2021-09-26] MEDS: SODIUM CHLORIDE 0.9% 500 ML 500 ML IV SCH (13:13)
[2021-09-26] MEDS: diphenhydrAMINE 25 MG CAP PO PRN ×2 (13:30→20:26)
[2021-09-26] MEDS: NYSTATIN 100,000 UNIT/GM POWD 15 GM TOPICAL SCH ×3 (14:23→21:59)
[2021-09-26] MEDS: CEFEPIME 2 GM in SODIUM CHLORIDE 0.9% 100 ML IVPB SCH (15:55)
--- NOTE | 2021-09-26 20:20 | P.PN ---
Progress Note - Text Progress Note Date: 09/26/21 Hospital course: Patient admitted with bilateral breasts for cutaneous candidiasis, groin candid iasis, genital herpes. September 26: Overnight patient did developed some rash in the contact areas of the back and the buttock area. Not in the front. IV Zosyn was switched over to vancomycin by ID. Patient is also on IV Diflucan and IV cefepime. Oral intake good. Sitting up in bed. Comfortable. No shortness of breath. No throat tightness. no welts Review of systems: Was done for constitutional, cardiovascular, GI, pulmonary. relevant finding as above Active Medications Acetaminophen (Acetaminophen Tab 325 Mg Tab) 650 mg PO Q6HR PRN PRN Reason: Mild Pain or Fever > 100.5 Diphenhydramine HCl (Diphenhydramine 25 Mg Cap) 25 mg PO Q6H PRN PRN Reason: itching Last Admin: 09/26/21 13:30 Dose: 25 mg Documented by: Fluconazole/Sodium Chloride (100 mg/ IV Solution) 50 mls @ 50 mls/hr IVPB DAILY [facility] Last Admin: 09/26/21 09:10 Dose: 50 mls/hr Documented by: Sodium Chloride (Saline 0.9%) 500 mls @ 20 mls/hr IV .Q24H [facility] Last Admin: 09/26/21 13:13 Dose: 20 mls/hr Documented by: Acyclovir Sodium 1,000 mg/ (Sodium Chloride) 270 mls @ 270 mls/hr IVPB Q8H [facility] Last Admin: 09/26/21 12:00 Dose: 270 mls/hr Documented by: Vancomycin HCl 2,250 mg/ (Sodium Chloride) 500 mls @ 167 mls/hr IVPB Q12H [facility] Cefepime HCl 2 gm/ Sodium (Chloride) 100 mls @ 25 mls/hr IVPB Q8HR [facility] Last Admin: 09/26/21 15:55 Dose: 25 mls/hr Documented by: Ibuprofen (Ibuprofen 400 Mg Tab) 400 mg PO Q6HR PRN PRN Reason: Mild Pain or Fever > 100.5 Ketorolac Tromethamine (Ketorolac 30 Mg/Ml 1 Ml Vial) 15 mg IVP Q6HR PRN PRN Reason: Moderate Pain Stop: 09/27/21 18:13 Last Admin: 09/25/21 03:05 Dose: 15 mg Documented by: Morphine Sulfate (Morphine Sulfate 4 Mg/Ml Syringe) 4 mg IV Q4HR PRN PRN Reason: Severe Pain Last Admin: 09/23/21 04:37 Dose: 4 mg Documented by: Naloxone HCl (Naloxone 0.4 Mg/Ml 1 Ml Vial) 0.2 mg IV Q2M PRN PRN Reason: Opioid Reversal Nystatin (Nystatin 100,000 Unit/Gm Powd 15 Gm) 1 applic TOPICAL TID [facility]; Protocol Last Admin: 09/26/21 14:30 Dose: 1 applic Documented by: Ondansetron HCl (Ondansetron 4 Mg/2 Ml Vial) 4 mg IVP Q8HR PRN PRN Reason: Nausea And Vomiting Last Admin: 09/23/21 09:40 Dose: 4 mg Documented by: On examination: VITAL SIGNS: 97.8, 60, 18, 137 with 75, 100% room air GENERAL APPEARANCE: BMI 39.8, sitting on bed, awake comfortable HEENT: Normal external appearance of nose and ear. Oral cavity normal EYES: Pupils equal. Conjunctiva normal. NECK: JVD not raised. Mass not palpable. RESPIRATORY: Respiratory effort normal. Lungs clear to auscultation. CARDIOVASCULAR: First and second sounds normal. No edema. DERMATOLOGICAL: Scattered rash on the back. Some red medicine the contiguous area below the breast and the groin ABDOMEN: Soft. Liver and spleen not palpable. No tenderness. No mass palpable. PSYCHIATRY: Alert and oriented x3. Mood and affect normal. Investigations: White count 8.3 hemoglobin 12.3 platelets 236 potassium 4.2 BUN 30 creatinine 0.97 CRP less than 0.5 HSV 1 and 2 IgM antibody 0.48 HSV 1 DNA PCR detected COVID 19 PCR: Not detected Assessment and plan: -Extensive rash and maceration to the groin and genital area positive for HSV-1 infection and secondary cellulitis. Cultures positive for Pseudomonas aeruginosa and MRSA. An HSV-1 PCR Patient on IV acyclovir, IV Diflucan, IV vancomycin per ID -Obesity BMI 39.8 Weight loss measures -Possible ALLERGIC reaction to Zosyn This has been discontinued. Swished to vancomycin per ID. Continue topical treatment and IV antibiotics per ID. Discussed with the patient. Continue. Use Benadryl when necessary.
[2021-09-26] MEDS: VANCOMYCIN 2,250 MG in SODIUM CHLORIDE 0.9% 500 ML 500 ML IVPB SCH (21:59)
[2021-09-27] MEDS: CEFEPIME 2 GM in SODIUM CHLORIDE 0.9% 100 ML IVPB SCH ×2 (00:16→07:37)
[2021-09-27] MEDS: ACYCLOVIR SODIUM 1,000 MG in SODIUM CHLORIDE 0.9% 250 ML IVPB SCH ×2 (04:16→12:58)
[2021-09-27 07:37] VITALS: BP 135/84; PULSE 62
[2021-09-27 08:21] LABS: Calcium 8.2 mg/dL (8.4-10.2)
[2021-09-27 08:26] VITALS: BMI 39.8
[2021-09-27 08:31] LABS: Potassium 4.9 mmol/L (3.5-5.1)
[2021-09-27 08:43] VITALS: RESP 16; TEMP 98.4
[2021-09-27] MEDS: FLUCONAZOLE IN NACL,ISO-OSM 100 MG in SALINE 1 50ML.BAG IVPB SCH (09:00)
[2021-09-27] MEDS: NYSTATIN 100,000 UNIT/GM POWD 15 GM TOPICAL SCH (09:00)
--- NOTE | 2021-09-27 09:26 | PN ---
PROGRESS NOTE DATE OF SERVICE: 09/26/2021 REASON FOR FOLLOWUP: 1. Groin area with secondary bacterial infection. 2. Bilateral breast wall cutaneous candidiasis. INTERVAL COURSE: The patient is afebrile. She is breathing comfortably. The patient has developed a rash to the back area has been discontinued. Patient mentioned overall pain and discomfort to the bilateral groin area has decreased. No chest pain, shortness of breath or cough. No abdominal pain. No diarrhea. PHYSICAL EXAMINATION: Blood pressure is 140/70 with a pulse of 75, temperature 98.2. She is 100% on room air. General description is a middle-aged female up in the chair in no distress. Respiratory system: Unlabored breathing, clear to auscultation anteriorly. Heart S1, S2. Regular rate and rhythm. Abdomen soft, no tenderness. Groin area overall induration has slightly decreased. LABS: The culture now showing MRSA in addition to the Pseudomonas. DIAGNOSTIC IMPRESSION AND PLAN: Patient with extensive herpes infection on the bilateral groin and the genital area with secondary cellulitis. Culture with MRSA and Pseudomonas developing a rash to Zosyn. Antibiotic adjusted to vancomycin, cefepime. Continue with Acyclovir. Hopefully transition to oral medication. Continue supportive care. MMODL / IJN: [id number] /
[2021-09-27] MEDS: VANCOMYCIN 2,250 MG in SODIUM CHLORIDE 0.9% 500 ML 500 ML IVPB SCH (10:40)
--- NOTE | 2021-09-27 17:05 | PN ---
PROGRESS NOTE DATE OF SERVICE: 09/27/2021 REASON FOR FOLLOWUP: 1. Bilateral groin area secondary to cellulitis. 2. Breast fold cutaneous candidiasis. INTERVAL HISTORY: The patient is afebrile. The patient is feeling better, breathing comfortably. Overall pain and discomfort to the groin area has decreased. No chest pain, shortness of breath or cough. No abdominal pain or diarrhea. PHYSICAL EXAMINATION: Blood pressure 135/84, pulse of 62, temperature 98.4. She is 100% on room air. General description is a middle-aged female up in the bed in no distress. Respiratory system: Unlabored breathing, clear to auscultation anteriorly. Heart S1, S2. Regular rate and rhythm. Abdomen soft, no tenderness. Bilateral groin area induration has decreased. LABS: Culture with MSSA, Pseudomonas, anaerobes.. DIAGNOSTIC IMPRESSION AND PLAN: 1. Patient with extensive groin area HSV1 infection with possible secondary cellulitis. Plan is for acyclovir 1 gram q.8 hours for 7 days along with oral Cipro for the same duration. 2. Cutaneous candidiasis of the breast folds. Nystatin powder twice a day for about a week. MMODL / IJN: [id number] /
--- NOTE | 2021-09-27 17:21 | P.DS ---
Providers Date of admission: 09/22/21 09:25 Expected date of discharge: 09/27/21 Attending physician: Hever Duarte Consults: 09/22/21 09:25 Consult Physician Urgent Consulting Provider: Jimmy Blood Consult Reason/Comments: Infected skin lesions, failed outpatient treatment Do you want consulting provider notified?: Yes Primary care physician: Hever Duarte [facility] Course: Hospital course: Patient admitted with bilateral breasts for cutaneous candidiasis, groin candidiasis, genital herpes. September 26: Overnight patient did developed some rash in the contact areas of t he back and the buttock area. Not in the front. IV Zosyn was switched over to vancomycin by ID. Patient is also on IV Diflucan and IV cefepime. Oral intake good. Sitting up in bed. Comfortable. No shortness of breath. No throat tightness. no welts September 27: Feeling much better. Rash on the back improved. Oral intake improved. She will be discharged on Valtrex, ciprofloxacin per ID. Benadryl when necessary. Discussed with the patient. Follow with Dr. Reyes Consultation: Dr. Blood from ID On examination: VITAL SIGNS: 98.4, 62, 16, 1 3584, 100% room air GENERAL APPEARANCE: Sitting up in a chair, awake, comfortable HEENT: Normal external appearance of nose and ear. Oral cavity normal EYES: Pupils equal. Conjunctiva normal. NECK: JVD not raised. Mass not palpable. RESPIRATORY: Respiratory effort normal. Lungs clear to auscultation. CARDIOVASCULAR: First and second sounds normal. No edema. DERMATOLOGICAL: Scattered rash on the back: Improving. Some red rash contiguous area below the breast and the groin ABDOMEN: Soft. Liver and spleen not palpable. No tenderness. No mass palpable. PSYCHIATRY: Alert and oriented x3. Mood and affect normal. Investigations: September 27: Potassium 4.9 creatinine 0.95 White count 8.3 hemoglobin 12.3 platelets 236 potassium 4.2 BUN 30 creatinine 0.97 CRP less than 0.5 HSV 1 and 2 IgM antibody 0.48 HSV 1 DNA PCR detected COVID 19 PCR: Not detected Assessment and plan: -Extensive rash and maceration to the groin and genital area positive for HSV-1 infection and secondary cellulitis. Cultures positive for Pseudomonas aerugin dave and MRSA. An HSV-1 PCR Patient on IV acyclovir, IV Diflucan, IV vancomycin per ID Discharged on valacyclovir thousand milligrams every 8 21 tablets: Ciprofloxacin 5 mg twice a day 14 tablets -Obesity BMI 39.8 Weight loss measures -Possible ALLERGIC reaction to Zosyn This has been discontinued. Swished to vancomycin per ID. Disposition: Home Patient Condition at Discharge: Good Plan - Discharge Summary Discharge Rx Participant: No New Discharge Prescriptions: New diphenhydrAMINE [Benadryl] 25 mg PO Q6H PRN cap PRN Reason: itching Ciprofloxacin HCl [Cipro] 500 mg PO BID 7 Days #14 tab valACYclovir HCL [Valtrex] 1,000 mg PO Q8HR #21 tab Continue Acetaminophen Tab [Tylenol] 1,000 mg PO Q6HR PRN PRN Reason: Pain Discontinued Amoxicillin/Potassium Clav [Augmentin 875-125 Tablet] 1 tab PO Q12HR 10 Days #20 tab predniSONE [Deltasone] 20 mg PO DAILY #12 tab Clobetasol Propionate [Temovate 0.05% Cream] 1 applic TOPICAL BID #15 gm No Action Minocycline HCl [Minocin] 100 mg PO DAILY Nystatin 1 applic TOPICAL BID Discharge Medication List Minocycline HCl [Minocin] 100 mg PO DAILY 01/10/21 [History] Acetaminophen Tab [Tylenol] 1,000 mg PO Q6HR PRN 09/22/21 [History] Nystatin 1 applic TOPICAL BID 09/22/21 [History] Ciprofloxacin HCl [Cipro] 500 mg PO BID 7 Days #14 tab 09/27/21 [Rx] diphenhydrAMINE [Benadryl] 25 mg PO Q6H PRN cap 09/27/21 [Rx] valACYclovir HCL [Valtrex] 1,000 mg PO Q8HR #21 tab 09/27/21 [Rx] Follow up Appointment(s)/Referral(s): Hever Duarte MD [Primary Care Provider] - 1-2 days Jimmy Blood MD [STAFF PHYSICIAN] - 1 Week Discharge Disposition: HOME SELF-CARE
[2021-09-28] MEDS ORDERED: VANCOMYCIN TROUGH DUE 1 EACH MISC MISCELLANE ONE (21:00)
== END 2021-09-27 16:50 | disposition home or self-care (01) | DRG 758 ==
LOC: EC 08:16 → 5NMEDONC 09:25 → 6PED 09:56
PROVIDERS: ADMIT Family Medicine; ATTEND Family Medicine
DX: A60.09 Herpesviral infection of other urogenital tract (principal); B37.89 Other sites of candidiasis; L03.314 Cellulitis of groin; Z20.822 Contact with and (suspected) exposure to COVID-19; B02.9 Zoster without complications; B96.5 Pseudomonas (aeruginosa) (mallei) (pseudomallei) as the cause of diseases classified elsewhere; Q82.8 Other specified congenital malformations of skin; I10 Essential (primary) hypertension; J45.909 Unspecified asthma, uncomplicated; E66.9 Obesity, unspecified; Z68.39 Body mass index [BMI] 39.0-39.9, adult; Z79.899 Other long term (current) drug therapy; Z86.14 Personal history of Methicillin resistant Staphylococcus aureus infection; Z98.891 History of uterine scar from previous surgery; Z98.51 Tubal ligation status; Z71.3 Dietary counseling and surveillance; Z88.5 Allergy status to narcotic agent; Z88.0 Allergy status to penicillin; Z88.2 Allergy status to sulfonamides; Z80.9 Family history of malignant neoplasm, unspecified; Z82.79 Family history of other congenital malformations, deformations and chromosomal abnormalities
CPT/HCPCS: 80048; 80053; 85025; 85652; 86140; 86694; 86695; 86696; 87070; 87075; 87077; 87186; 87205; 87529; 87635; 99284

== ENCOUNTER 2021-10-03 07:57 | Emergency (ER) | payer BC ==
[2021-10-03 08:04] VITALS: BP 145/85; PULSE 72; RESP 20; TEMP 98.5
--- NOTE | 2021-10-03 08:39 | ED ---
General Adult HPI - General Chief complaint: Allergic Reaction Stated complaint: Allergic reaction to meds Time Seen by Provider: 10/03/21 08:07 Source: patient, RN notes reviewed, old records reviewed Mode of arrival: ambulatory Limitations: no limitations - History of Present Illness Initial comments: 46-year-old female presenting for evaluation suspected ALLERGIC reaction. Patient had recent admission for skin infection, bacteremia, and genital herpes. She had been on IV medications and was discharged on oral Cipro and valacyclovir. She believes she is having ALLERGIC reaction to valacyclovir. She states she's taken Cipro in the past without issue. She has a generalized erythematous skin reaction. No significant dyspnea. No tongue or lip swelling. No vomiting. - Related Data Home Medications Medication Instructions Recorded Confirmed Minocycline HCl [Minocin] 100 mg PO DAILY 01/10/21 09/22/21 Acetaminophen Tab [Tylenol] 1,000 mg PO Q6HR PRN 09/22/21 09/22/21 Nystatin 1 applic TOPICAL BID 09/22/21 09/22/21 Previous Rx's Medication Instructions Recorded Ciprofloxacin HCl [Cipro] 500 mg PO BID 7 Days #14 tab 09/27/21 diphenhydrAMINE [Benadryl] 25 mg PO Q6H PRN cap 09/27/21 valACYclovir HCL [Valtrex] 1,000 mg PO Q8HR #21 tab 09/27/21 diphenhydrAMINE [Benadryl] 25 mg PO TID PRN #21 capsule 10/03/21 methylPREDNISolone Dose Pack 4 mg PO DIRECTED #21 packet 10/03/21 [Medrol Dose Pack] Allergies Allergy/AdvReac Type Severity Reaction Status Date / Time Penicillins Allergy Intermediate Rash/Hives Verified 10/03/21 08:04 codeine Allergy Swelling Verified 10/03/21 08:04 sulfamethoxazole Allergy Rash/Hives Verified 10/03/21 08:04 [From Bactrim] trimethoprim [From Bactrim] Allergy Rash/Hives Verified 10/03/21 08:04 Review of Systems ROS Statement: Those systems with pertinent positive or pertinent negative responses have been documented in the HPI. ROS Other: All systems not noted in ROS Statement are negative. 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, eczema History of Any Multi-Drug Resistant Organisms: MRSA Date of last positivie culture/infection: 09/22/21 MDRO Source:: GROIN Past Surgical History: Section, Tubal Ligation Past Anesthesia/Blood Transfusion Reactions: No Reported Reaction Past Psychological History: No Psychological Hx Reported Smoking Status: Never smoker Past Alcohol Use History: Rare Past Drug Use History: None Reported - Past Family History Mother Family Medical History: Cancer Additional Family Medical History / Comment(s): Tiffany, Father Family Medical History: No Reported History General Exam Limitations: no limitations General appearance: alert, in no apparent distress Head exam: Present: atraumatic, normocephalic Eye exam: Present: normal appearance, PERRL ENT exam: Present: normal exam Neck exam: Present: normal inspection. Absent: tenderness, meningismus Respiratory exam: Present: normal lung sounds bilaterally. Absent: respiratory distress Cardiovascular Exam: Present: regular rate, normal rhythm GI/Abdominal exam: Present: soft. Absent: distended, tenderness Neurological exam: Present: alert, oriented X3, CN II-XII intact Skin exam: Present: other (Generalized erythematous maculopapular rash throughout the torso and extremities.) Course Vital Signs 10/03/21 08:01 Temperature 98.5 F Pulse Rate 72 Respiratory 20 Rate Blood Pressure 145/85 O2 Sat by Pulse 97 Oximetry Medical Decision Making - Medical Decision Making 46 yo female presenting with generalized rash, suspect ALLERGIC reaction to medication. Patient otherwise well-appearing stable vitals. I discussed case with Dr. Blood who is familiar with this patient. Recommending discontinuing the Valtrex and steroids. Patient given return parameters. She will continue Cipro at this time. Disposition Clinical Impression: Allergic reaction to drug Disposition: HOME SELF-CARE Condition: Good Instructions (If sedation given, give patient instructions): Antibiotic Med ication Allergy (ED) Prescriptions: diphenhydrAMINE [Benadryl] 25 mg PO TID PRN #21 capsule PRN Reason: Allergic Reaction methylPREDNISolone Dose Pack [Medrol Dose Pack] 4 mg PO DIRECTED #21 packet Is patient prescribed a controlled substance at d/c from ED?: No Referrals: Hever Duarte MD [Primary Care Provider] - 1-2 days Jimmy Blood MD [STAFF PHYSICIAN] - 1-2 days Time of Disposition: 08:48
== END 2021-10-03 09:00 | disposition home or self-care (01) ==
LOC: EC 07:57
DX: T50.905A Adverse effect of unspecified drugs, medicaments and biological substances, initial encounter (principal); J45.909 Unspecified asthma, uncomplicated
CPT/HCPCS: 99283

== ENCOUNTER → 2022-07-03 | Outpatient (CLI) | payer BC ==
[2022-07-03 12:30] LABS: HCG,Qualitative Serum Not Detected
[2022-07-03 18:39] LABS: Follicle Stimulating Hormone 61.8 mIU/mL
== END | disposition home or self-care (01) ==
LOC: LABWHC1 10:25
PROVIDERS: ATTEND Physician Assistant Medical
DX: Q82.8 Other specified congenital malformations of skin (principal)
CPT/HCPCS: 36415; 83001; 84703

== ENCOUNTER 2023-01-29 05:31 | Inpatient (IN) | payer BC ==
[2023-01-29] MEDS ORDERED: methylPREDNISolone SOD SUCCI 125 MG/2 ML VIAL IV STA (06:10)
[2023-01-29] MEDS ORDERED: NALOXONE 0.4 MG/ML 1 ML VIAL IV PRN (06:12)
--- NOTE | 2023-01-29 06:28 | ED ---
General Adult HPI - General Chief complaint: Skin/Abscess/Foreign Body Stated complaint: Infection on chest, Time Seen by Provider: 01/29/23 05:54 Source: patient, RN notes reviewed, old records reviewed Mode of arrival: ambulatory - History of Present Illness Initial comments: 47-year-old female who presents for evaluation of rash underneath her right breast. She has history of eczema, history of Darier's disease. Patient had been seen by dermatology prescribed topical steroids but symptoms have failed to improve in of significantly worsened. No fever. She states that she's had multiple skin infections in the past requiring IV antibiotics and steroids. She is followed by infectious disease. - Related Data Home Medications Medication Instructions Recorded Confirmed Minocycline HCl [Minocin] 100 mg PO DAILY 01/10/21 09/22/21 Acetaminophen Tab [Tylenol] 1,000 mg PO Q6HR PRN 09/22/21 09/22/21 Nystatin 1 applic TOPICAL BID 09/22/21 09/22/21 Previous Rx's Medication Instructions Recorded Ciprofloxacin HCl [Cipro] 500 mg PO BID 7 Days #14 tab 09/27/21 diphenhydrAMINE [Benadryl] 25 mg PO Q6H PRN cap 09/27/21 valACYclovir HCL [Valtrex] 1,000 mg PO Q8HR #21 tab 09/27/21 diphenhydrAMINE [Benadryl] 25 mg PO TID PRN #21 capsule 10/03/21 methylPREDNISolone Dose Pack 4 mg PO DIRECTED #21 packet 10/03/21 [Medrol Dose Pack] Allergies Allergy/AdvReac Type Severity Reaction Status Date / Time valacyclovir [From Valtrex] Allergy Severe Rash/Hives Verified 01/29/23 05:45 Penicillins Allergy Intermediate Rash/Hives Verified 01/29/23 05:45 codeine Allergy Swelling Verified 01/29/23 05:45 sulfamethoxazole Allergy Rash/Hives Verified 01/29/23 05:45 [From Bactrim] trimethoprim [From Bactrim] Allergy Rash/Hives Verified 01/29/23 05:45 Review of Systems ROS Statement: Those systems with pertinent positive or pertinent negative responses have been documented in the HPI. ROS Other: All systems not noted in ROS Statement are negative. 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 Date of last positivie culture/infection: 09/22/21 MDRO Source:: GROIN Past Surgical History: Section, Tubal Ligation Past Anesthesia/Blood Transfusion Reactions: No Reported Reaction Past Psychological History: No Psychological Hx Reported Smoking Status: Never smoker Past Alcohol Use History: Rare Past Drug Use History: None Reported - Past Family History Mother Family Medical History: Cancer Additional Family Medical History / Comment(s): Tiffany, Father Family Medical History: No Reported History General Exam General appearance: alert, in no apparent distress Head exam: Present: atraumatic, normocephalic Eye exam: Present: normal appearance, PERRL, EOMI Respiratory exam: Present: normal lung sounds bilaterally. Absent: respiratory distress, wheezes Cardiovascular Exam: Present: regular rate, normal rhythm GI/Abdominal exam: Absent: distended Neurological exam: Present: alert, oriented X3 Psychiatric exam: Present: normal affect, normal mood Skin exam: Present: other (Erythematous, draining rash underneath the right breast.) Course Vital Signs 01/29/23 05:40 Temperature 98.1 F Pulse Rate 67 Respiratory 18 Rate Blood Pressure 135/89 O2 Sat by Pulse 97 Oximetry Medical Decision Making - Medical Decision Making Was pt. sent in by a medical professional or institution (NE[facility] Mae, LABEL PRINTING MACHINIST, urgent care, hospital, or assisted...) When possible be specific @ -No Did you speak to anyone other than the patient for history (EMS, parent, family, police, friend...)? What history was obtained from this source @ -No Did you review nursing and triage notes (agree or disagree)? Why? @ -I reviewed and agree with nursing and triage notes Were old charts reviewed (outside hosp., previous admission, EMS record, old EKG, old radiological studies, urgent care reports/EKG's, assisted records)? Report findings @ -No old charts were reviewed Differential Diagnosis (chest pain, altered mental status, abdominal pain women, abdominal pain men, vaginal bleeding, weakness, fever, dyspnea, syncope, headache, dizziness, GI bleed, back pain, seizure, CVA, palpatations, mental health, musculoskeletal)? @ -Cellulitis, fungal infection EKG interpreted by me (3pts min.). @ -As above X-rays interpreted by me (1pt min.). @ -None done CT interpreted by me (1pt min.). @ -None done U/S interpreted by me (1pt. min.). @ -None done What testing was considered but not performed or refused? (CT, X-rays, U/S, labs)? Why? @ -None What meds were considered but not given or refused? Why? @ -None Did you discuss the management of the patient with other professionals (professionals i.e. , PA, LABEL PRINTING MACHINIST, lab, RT, psych nurse, socially responsible investment adviser, grease monkey, teacher, customer service security officer, caseworker)? Give summary @ -Case discussed with admitting physician Was smoking cessation discussed for >3mins.? @ -No Was critical care preformed (if so, how long)? @ -No Were there social determinants of health that impacted care today? How? (Homelessness, low income, unemployed, alcoholism, drug addiction, transportation, low edu. Level, literacy, decrease access to med. care, fpc, rehab)? @ -No Was there de-escalation of care discussed even if they declined (Discuss DNR or withdrawal of care, Hospice)? DNR status @ -No What co-morbidities impacted this encounter? (DM, HTN, Smoking, COPD, CAD, Cancer, CVA, ARF, Chemo, Hep., AIDS, mental health diagnosis, sleep apnea, morbid obesity)? @ -None Was patient admitted / discharged? Hospital course, mention meds given and route, prescriptions, significant lab abnormalities, going to OR and other pertinent info. @ -Admitted with infectious disease on consult Undiagnosed new problem with uncertain prognosis? @ -No Drug Therapy requiring intensive monitoring for toxicity (Heparin, Nitro, Insulin, Cardizem)? @ -No Were any procedures done? @ -No Diagnosis/symptom? @ -Skin soft tissue infection of the right chest and inframammary region Acute, or Chronic, or Acute on Chronic? @ -Acute Uncomplicated (without systemic symptoms) or Complicated (systemic symptoms)? @ -[complicated Side effects of treatment? @ -No Exacerbation, Progression, or Severe Exacerbation? @ -No Poses a threat to life or bodily function? How? (Chest pain, [place], NH, pneumonia, PE, COPD, DKA, ARF, appy, cholecystitis, CVA, Diverticulitis, Homicidal, Suicidal, threat to staff... and all critical care pts) @ -No Disposition Clinical Impression: Recurrent cellulitis, Darier disease, Failure of outpatient treatment, Cellulitis of chest wall, Skin lesion, infected Disposition: ADMITTED IP TO THIS HOSP Condition: Stable Is patient prescribed a controlled substance at d/c from ED?: No Referrals: Hever Duarte MD [Primary Care Provider] - 1-2 days Time of Disposition: 06:27
[2023-01-29 06:37] LABS: Basophils % (A) 0 %; Eosinophils # (A) 0.1 k/uL (0-0.7); Eosinophils % (A) 2 %; HCT 39.4 % (34.0-46.0); HGB 13.2 gm/dL (11.4-16.0); Lymphocytes # (A) 0.9 k/uL (1.0-4.8); Lymphocytes % (A) 16 %; MCHC 33.6 g/dL (31.0-37.0); MCV 89.1 fL (80.0-100.0); Mean Platelet Volume 6.5; Monocytes # (A) 0.4 k/uL (0-1.0); Monocytes % (A) 7 %; Neutrophils # (A) 4.1 k/uL (1.3-7.7); Neutrophils % (A) 74 %; Platelet Count 254 k/uL (150-450); RBC 4.42 m/uL (3.80-5.40); RDW 14.2 % (11.5-15.5); WBC 5.5 k/uL (3.8-10.6)
[2023-01-29 06:57] LABS: ALT 19 U/L (4-34); AST 21 U/L (14-36); African American GFR (CKD) >90 (>60 ml/min/1.73 sqM); Alkaline Phosphatase 68 U/L (38-126); Anion Gap 5 mmol/L; Blood Urea Nitrogen 17 mg/dL (7-17); Calcium 8.9 mg/dL (8.4-10.2); Carbon Dioxide 29 mmol/L (22-30); Chloride 105 mmol/L (98-107); Glucose 87 mg/dL (74-99); Non-African American GFR(CKD) 81 (>60 ml/min/1.73 sqM); Potassium 4.4 mmol/L (3.5-5.1); Sodium 139 mmol/L (137-145); Total Bilirubin 0.5 mg/dL (0.2-1.3); Total Protein 6.8 g/dL (6.3-8.2)
[2023-01-29] MEDS ORDERED: NYSTATIN 100,000 UNIT/GM OINT 30 GM TUBE TOPICAL SCH (09:00)
[2023-01-29] MEDS ORDERED: HYDROmorphone 1 MG/ML 1 ML SYRINGE IVP PRN (12:36)
[2023-01-29] MEDS: FLUCONAZOLE 100 MG TAB PO SCH (13:07)
[2023-01-29] MEDS: NYSTATIN 100,000 UNIT/GM POWD 15 GM TOPICAL SCH ×2 (13:08→20:53)
[2023-01-29] MEDS ORDERED: VANCOMYCIN IV PER PHARMACY 1 EACH MISC MISCELLANE PRN (19:07)
[2023-01-29] MEDS ORDERED: VANCOMYCIN 1,000 MG in SODIUM CHLORIDE 0.9% 250 ML IVPB STA (19:08)
--- NOTE | 2023-01-29 19:16 | P.CONS ---
History of Present Illness - Reason for Consult Consult date: 01/29/23 Skin infection Requesting physician: Unruly Linares - Chief Complaint Increasing pain to the breast fold and groin area x days - History of Present Illness Patient is a 47-year-old female with a past medical history taken for eczema and Dariers' disease, recently started having a problem with the worsening of another patch on the right lower abdominal area subsequently noticed to have increasing excoriation to the right breast fold and to the bilateral groin area patient advised to see her machine turner and the patient did received a dose of Solu-Medrol and subsequently sent to the [facility] ER on arrival to the ER the patient was afebrile did have a normal white count patient did receive a dose of Solu-Medrol and Rocephin in the ER started on nystatin cream admit to the hospital infectious disease was consulted for further management of antibiotic therapy. At the time my evaluation that is 01/29/2023 the patient denies having any fever or any chills patient complaining of significant excoriation pain especially to the right breast fold area intensity is almost 7-8 out of 10 no radiation patient denies having any drainage Review of Systems Positive point has been mentioned in the HPI rest of the systems are negative 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 Year Discovered:: 09/22/21 MDRO Source:: GROIN Past Surgical History: Section, Tubal Ligation Past Anesthesia/Blood Transfusion Reactions: No Reported Reaction Past Psychological History: No Psychological Hx Reported Smoking Status: Never smoker Past Alcohol Use History: Rare Past Drug Use History: None Reported - Past Family History Mother Family Medical History: Cancer Additional Family Medical History / Comment(s): Dariers, Father Family Medical History: No Reported History Medications and Allergies Home Medications Medication Instructions Recorded Confirmed Type Acitretin [Soriatane] 10 mg PO DIRECTED 01/29/23 01/29/23 History Clobetasol Propionate [Temovate 1 applic TOPICAL BID 01/29/23 01/29/23 History 0.05% Oint] Ciprofloxacin HCl [Cipro] 500 mg PO Q12HR 10 Days #20 tab 02/06/23 Rx Nystatin 100,000 Unit/gm Powd 1 applic TOPICAL BID #30 gm 02/06/23 Rx [Mycostatin Powder] metroNIDAZOLE [Flagyl] 500 mg PO TID #30 tab 02/06/23 Rx Levothyroxine Sodium [Synthroid] 75 mcg PO DAILY@0630 90 Days #90 02/07/23 Rx tab Allergies Allergy/AdvReac Type Severity Reaction Status Date / Time valacyclovir [From Valtrex] Allergy Severe Rash/Hives Verified 01/29/23 05:45 Penicillins Allergy Intermediate Itching Verified 01/29/23 07:56 codeine Allergy Swelling Verified 01/29/23 05:45 piperacillin [From Zosyn] Allergy Itching Verified 01/29/23 07:56 sulfamethoxazole Allergy Rash/Hives Verified 01/29/23 05:45 [From Bactrim] tazobactam [From Zosyn] Allergy Itching Verified 01/29/23 07:56 trimethoprim [From Bactrim] Allergy Rash/Hives Verified 01/29/23 05:45 Physical Exam Vitals: Vital Signs Temp Pulse Pulse Resp BP BP Pulse Ox 01/29/23 07:37 97.7 F 60 16 131/79 100 01/29/23 07:00 97.9 F 56 L 16 139/79 99 01/29/23 05:40 98.1 F 67 18 135/89 97 Intake and Output 01/28/23 01/29/23 01/29/23 22:59 06:59 14:59 Intake Total 118 Balance 118 Intake: Oral 118 Other: Weight 118.388 kg 118.388 kg GENERAL DESCRIPTION: Middle-aged female lying in bed, no distress. No tachypnea or accessory muscle of respiration use. HEENT: Shows Pallor , no scleral icterus. Oral mucous membrane is dry. No pharyngeal erythema or thrush NECK: Trachea central, no thyromegaly. LUNGS: Unlabored breathing. Clear to auscultation anteriorly. No wheeze or crackle. HEART: S1, S2, regular rate and rhythm. No loud murmur ABDOMEN: Soft, no tenderness , guarding or rigidity, no organomegaly EXTREMITIES: No edema of feet. SKIN: Right breast fold and groin area did have extensive excoriation, no significant redness or foul-smelling drainage was noticed NEUROLOGICAL: The patient is awake, alert, oriented x3, mood and affect normal. Results CBC & Chem 7: 02/04/23 06:01 02/07/23 09:44 Labs: Abnormal Lab Results - Last 24 Hours (Table) 01/29/23 Range/Units 06:16 Lymphocytes # 0.9 L (1.0-4.8) k/uL Assessment and Plan (1) Intertriginous candidiasis Status: Acute Code(s): B37.2 - CANDIDIASIS OF SKIN AND NAIL SNOMED Code(s): 922945113 (2) Cellulitis of chest wall Status: Acute Code(s): L03.313 - CELLULITIS OF CHEST WALL SNOMED Code(s): 55790500 Plan: 1patient with extensive cutaneous candidiasis involving the bilateral breast fold right greater than the left and also involving the bilateral groin area with no evidence of any secondary cellulitis in this patient with no fever or elevated white count. 2discontinue nystatin cream. 3we will start the patient on nystatin powder twice a day and oral Diflucan. 4no need for systemic antibiotic therapy We will follow on clinical condition and cultures to further adjust medication if needed Thank you for this consultation we will follow the patient along with you Time with Patient: Greater than 30
[2023-01-29] MEDS ORDERED: VANCOMYCIN 2,000 MG in SODIUM CHLORIDE 0.9% 500 ML 500 ML IVPB ONE (19:30)
[2023-01-30] MEDS: diphenhydrAMINE 50 MG/ML 1 ML VIAL IVP PRN (00:07)
[2023-01-30] MEDS: methylPREDNISolone SOD SUCCI 40 MG/ML 1 ML VIAL IV SCH ×3 (00:07→16:23)
[2023-01-30] MEDS: ACYCLOVIR SODIUM 450 MG in SODIUM CHLORIDE 0.9% 100 ML IVPB SCH ×4 (01:27→23:45)
[2023-01-30] MEDS: VANCOMYCIN 2,000 MG in SODIUM CHLORIDE 0.9% 500 ML 500 ML IVPB SCH ×2 (08:30→18:58)
[2023-01-30] MEDS: NYSTATIN 100,000 UNIT/GM POWD 15 GM TOPICAL SCH ×2 (09:26→20:18)
[2023-01-30] MEDS: FLUCONAZOLE 100 MG TAB PO SCH (09:26)
[2023-01-30 11:24] LABS: African American GFR (CKD) 94.3 (60.0-200.0); Non-African American GFR(CKD) 81.4 (60.0-200.0)
[2023-01-30] MEDS ORDERED: VANCOMYCIN 2,000 MG in SODIUM CHLORIDE 0.9% 500 ML 500 ML IVPB SCH (16:30)
[2023-01-30] MEDS: IBUPROFEN 400 MG TAB PO PRN (18:21)
--- NOTE | 2023-01-30 21:13 | P.PN ---
Subjective Progress Note Date: 01/30/23 Principal diagnosis: Cutenous Candidiasis Patient is a 47-year-old female with a past medical history taken for eczema and Dariers' disease, presented to hospital with increasing pain discomfort to the breast fold as well as the bilateral groin fold area. On today's evaluation that is 01/30/2023, the patient denies having any fever or any chills still complaining of discomfort to the right breast fold area however no worsening there is no redness or drainage no chest pain shortness of breath or cough no abdominal pain no diarrhea Objective - Vital Signs Vital signs: Vital Signs Temp 90.0 F L 01/30/23 06:40 Pulse 60 01/30/23 06:40 Resp 14 01/30/23 08:56 BP 104/74 01/30/23 06:40 Pulse Ox 97 01/30/23 06:40 FiO2 Intake & Output 01/29/23 01/30/23 01/30/23 18:59 06:59 18:59 Intake Total 236 Balance 236 Weight 118.388 kg Intake: Oral 236 Other: Voiding Method Toilet # Voids 2 2 - Exam GENERAL DESCRIPTION middle-aged female lying in bed in no distress RESPIRATORY SYSTEM: Unlabored breathing , decreased breath sounds at bases HEART: S1 S2 regular rate and rhythm ,no loud murmurs ABDOMEN: Soft , no tenderness EXTREMITIES: No edema feet Right breast fold area with excoriation no significant redness or drainage - Labs CBC & Chem 7: 01/29/23 06:16 01/30/23 06:43 Labs: Abnormal Lab Results - Last 24 Hours (Table) 01/29/23 Range/Units 06:16 ESR 35 H (0-20) mm/Hr Microbiology - Last 24 Hours (Table) 01/29/23 05:45 Blood Culture - Preliminary Blood No Growth after 24 hours 01/29/23 06:00 Blood Culture - Preliminary Blood No Growth after 24 hours Assessment and Plan (1) Failure of outpatient treatment Current Visit: Yes Status: Acute Code(s): Z78.9 - OTHER SPECIFIED HEALTH STATUS SNOMED Code(s): 872314180 (2) Skin lesion, infected Current Visit: Yes Status: Acute Code(s): L08.9 - LOCAL INFECTION OF THE SKIN AND SUBCUTANEOUS TISSUE, UNSP SNOMED Code(s): 47241575 Plan: 1patient with extensive cutaneous candidiasis involving the bilateral breast fold right greater than the left and also involving the bilateral groin area with no evidence of any secondary cellulitis in this patient with no fever or elevated white count. 2continue the patient on nystatin powder twice a day and oral Diflucan. 3no need for systemic antibiotic therapy Time with Patient: Less than 30
--- NOTE | 2023-01-30 21:31 | HP ---
HISTORY AND PHYSICAL HISTORY OF PRESENT ILLNESS: This 47-year-old white female admitted for severe cellulitis to the right lateral abdomen and chest area in the anterior breast area start her on. She has history of areas in severe worsening of this excoriation to her abdomen and under the breast area, started on IV Diflucan and IV acyclovir which helped on a prior admission. Waiting for Dr. Blood's recommendations. PAST MEDICAL HISTORY: Asthma, eczema, disorder, heart murmur, , and tubal ligation for surgery. FAMILY HISTORY: Mother with cancer. Father otherwise negative. HOME MEDICINES: 1. Soriatane. 2. Temovate. ALLERGIES: Penicillin, codeine, sulfa, Bactrim allergies. PHYSICAL EXAMINATION: VITAL SIGNS: Temperature 98.1, pulse 67, respiratory rate 16 to 18, pulse 50s, blood pressure 130s over 70s 80s, and O2 97-100. CARDIOVASCULAR: S1, S2. LUNGS: Decreased breath sounds x4. HEMATOLOGIC: Negative Homans. INTEGUMENT: Large red excoriated area with pustular on the right lateral abdomen, about 5 inches x 5 inches, severe continuous excoriations onto the breast. ENDOCRINE: BMI is over 40. She has no fever or elevated white count. We are going to put her on acyclovir, Diflucan and check cultures with Dr. Blood's recommendations. PROGNOSIS: Guarded. MMODL / IJN: [id number] /
[2023-01-31] MEDS: IBUPROFEN 400 MG TAB PO PRN ×3 (05:31→20:31)
[2023-01-31] MEDS: ACYCLOVIR SODIUM 450 MG in SODIUM CHLORIDE 0.9% 100 ML IVPB SCH ×3 (05:32→22:39)
[2023-01-31 06:39] LABS: T4, Free (Free Thyroxine) 1.22 ng/dL (0.78-2.19)
[2023-01-31] MEDS: NYSTATIN 100,000 UNIT/GM POWD 15 GM TOPICAL SCH ×2 (08:36→20:32)
[2023-01-31] MEDS: FLUCONAZOLE 100 MG TAB PO SCH (09:04)
[2023-01-31] MEDS ORDERED: VANCOMYCIN 1,250 MG in SODIUM CHLORIDE 0.9% 250 ML IVPB SCH (10:30)
[2023-01-31] MEDS: VANCOMYCIN 1,750 MG in SODIUM CHLORIDE 0.9% 500 ML 500 ML IVPB SCH ×2 (11:31→20:32)
[2023-01-31] MEDS: ACETAMINOPHEN TAB 325 MG TAB PO PRN (15:44)
--- NOTE | 2023-01-31 17:15 | P.PN ---
Subjective Progress Note Date: 01/31/23 Principal diagnosis: Cutenous Candidiasis Patient is a 47-year-old female with a past medical history taken for eczema and Dariers' disease, presented to hospital with increasing pain discomfort to the breast fold as well as the bilateral groin fold area. On today's evaluation that is 01/31/2023, the patient remains to be afebrile, the patient is still complaining of discomfort to the right breast fold area and mention some drainage, the patient denies chest pain shortness of breath or cough no abdominal pain no diarrhea Objective - Vital Signs Vital signs: Vital Signs Temp 98.1 F 01/31/23 14:09 Pulse 59 L 01/31/23 14:09 Resp 16 01/31/23 14:09 BP 154/77 01/31/23 14:09 Pulse Ox 99 01/31/23 14:09 FiO2 Intake & Output 01/30/23 01/31/23 01/31/23 18:59 06:59 18:59 Intake Total 118 236 Balance 118 236 Intake: Oral 118 236 Other: Voiding Method Toilet # Voids 1 2 1 # Bowel Movements 1 - Exam GENERAL DESCRIPTION middle-aged female lying in bed in no distress RESPIRATORY SYSTEM: Unlabored breathing , decreased breath sounds at bases HEART: S1 S2 regular rate and rhythm ,no loud murmurs ABDOMEN: Soft , no tenderness EXTREMITIES: No edema feet Right breast fold area with excoriation no significant redness or drainage - Labs CBC & Chem 7: 01/29/23 06:16 01/30/23 06:43 Labs: Abnormal Lab Results - Last 24 Hours (Table) 01/31/23 Range/Units 05:02 Free T3 pg/mL 2.5 L (2.8-5.3) pg/ml Microbiology - Last 24 Hours (Table) 01/29/23 21:05 Gram Stain - Preliminary Breast - Right Wound Culture - Preliminary Gram Neg Bacilli 01/29/23 06:00 Blood Culture - Preliminary Blood No Growth after 48 hours 01/29/23 05:45 Blood Culture - Preliminary Blood No Growth after 48 hours 01/29/23 21:05 Anaerobic Culture - Preliminary Breast - Right Assessment and Plan (1) Failure of outpatient treatment Current Visit: Yes Status: Acute Code(s): Z78.9 - OTHER SPECIFIED HEALTH STATUS SNOMED Code(s): 144203830 (2) Skin lesion, infected Current Visit: Yes Status: Acute Code(s): L08.9 - LOCAL INFECTION OF THE SKIN AND SUBCUTANEOUS TISSUE, UNSP SNOMED Code(s): 09323288 Plan: 1patient with extensive cutaneous candidiasis involving the bilateral breast fold right greater than the left and also involving the bilateral groin area with no evidence of any secondary cellulitis in this patient with no fever or elevated white count. 2patient has been advised to continue the patient on nystatin powder twice a day and oral Diflucan, keeping the area dry as much as possible Time with Patient: Less than 30
[2023-02-01] MEDS: IBUPROFEN 400 MG TAB PO PRN ×2 (02:31→11:43)
[2023-02-01] MEDS: ACETAMINOPHEN TAB 325 MG TAB PO PRN ×3 (02:31→16:51)
[2023-02-01] MEDS ORDERED: VANCOMYCIN TROUGH DUE 1 EACH MISC MISCELLANE ONE (05:00)
[2023-02-01] MEDS: ACYCLOVIR SODIUM 450 MG in SODIUM CHLORIDE 0.9% 100 ML IVPB SCH ×3 (05:57→20:06)
[2023-02-01] MEDS: LEVOTHYROXINE 75 MCG TAB PO SCH (05:57)
[2023-02-01] MEDS: FLUCONAZOLE 100 MG TAB PO SCH (08:36)
[2023-02-01] MEDS: NYSTATIN 100,000 UNIT/GM POWD 15 GM TOPICAL SCH ×2 (08:36→20:04)
[2023-02-01] MEDS: diphenhydrAMINE 50 MG/ML 1 ML VIAL IVP PRN (08:37)
[2023-02-01] MEDS ORDERED: MORPHINE SULFATE 2 MG/ML SYRINGE IVP PRN (08:54)
[2023-02-01 09:16] LABS: African American GFR (CKD) 77.7 (60.0-200.0)
[2023-02-01] MEDS: VANCOMYCIN 1,750 MG in SODIUM CHLORIDE 0.9% 500 ML 500 ML IVPB SCH ×2 (15:15→20:05)
--- NOTE | 2023-02-01 16:23 | P.PN ---
Subjective Progress Note Date: 02/01/23 Principal diagnosis: Cutenous Candidiasis Patient is a 47-year-old female with a past medical history taken for eczema and Dariers' disease, presented to hospital with increasing pain discomfort to the breast fold as well as the bilateral groin fold area. On today's evaluation that is 02/01/2023, the patient continues to be afebrile, the patient has been complaining of discomfort to the right breast fold area and mention some drainage, the patient denies chest pain shortness of breath or cough no abdominal pain no diarrhea has been reported by the nursing staff Objective - Vital Signs Vital signs: Vital Signs Temp 98.3 F 02/01/23 14:27 Pulse 59 L 02/01/23 14:27 Resp 17 02/01/23 14:27 BP 133/74 02/01/23 14:27 Pulse Ox 99 02/01/23 14:27 FiO2 Intake & Output 01/31/23 02/01/23 02/01/23 18:59 06:59 18:59 Intake Total 954 118 Balance 954 118 Intake: Oral 954 118 Other: Voiding Method Toilet # Voids 1 1 2 - Exam The right breast for area is about the same per the nursing staff - Labs CBC & Chem 7: 01/29/23 06:16 02/01/23 05:19 Labs: Microbiology - Last 24 Hours (Table) 01/29/23 21:05 Gram Stain - Preliminary Breast - Right Wound Culture - Preliminary Gram Neg Bacilli Presumptive Staph aureus Group D Enterococcus 01/29/23 06:00 Blood Culture - Preliminary Blood No Growth after 72 hours 01/29/23 05:45 Blood Culture - Preliminary Blood No Growth after 72 hours Assessment and Plan (1) Failure of outpatient treatment Current Visit: Yes Status: Acute Code(s): Z78.9 - OTHER SPECIFIED HEALTH STATUS SNOMED Code(s): 591489156 (2) Skin lesion, infected Current Visit: Yes Status: Acute Code(s): L08.9 - LOCAL INFECTION OF THE SKIN AND SUBCUTANEOUS TISSUE, UNSP SNOMED Code(s): 10471611 Plan: 1patient with extensive cutaneous candidiasis involving the bilateral breast fold right greater than the left and also involving the bilateral groin area with no evidence of any secondary cellulitis in this patient with no fever or elevated white count. 2patient has been advised to continue the patient on nystatin powder twice a day and oral Diflucan, keeping the area dry as much as possible, with use of abdominal material or clothing such as cotton or absorbent dressing to separate the skin fold will help and daily cleansing followed by drying of the affected area with a hairdryer will help and discussed with pt and RN Time with Patient: Less than 30
--- NOTE | 2023-02-01 17:44 | P.PN ---
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 ER on arrival to the ER the patient was afebrile did have a normal white count patient did receive a dose of Solu-Medrol and Rocephin in the ER started on nystatin cream admit to the hospital infectious disease was consulted for further management of antib iotic therapy. At the time my evaluation that is 01/29/2023 the patient denies having any fever or any chills patient complaining of significant excoriation pain especially to the right breast fold area intensity is almost 7-8 out of 10 no radiation patient denies having any drainage 02/01/2023 the patient continues to be afebrile, the patient has been complaining of disc omfort to the right breast fold area and mention some drainage, the patient denies chest pain shortness of breath or cough no abdominal pain no diarrhea has been reported by the nursing staff patient with extensive cutaneous candidiasis involving the bilateral breast fold right greater than the left and also involving the bilateral groin area with no evidence of any secondary cellulitis in this patient with no fever or elevated white count. patient has been advised to continue the patient on nystatin powder twice a day and oral Diflucan, keeping the area dry as much as possible, with use of abdominal material or clothing such as cotton or absorbent dressing to separate the skin fold will help and daily cleansing followed by drying of the affected area with a hairdryer will help Objective - Vital Signs Vital signs: Vital Signs Temp 97.8 F 02/01/23 07:00 Pulse 54 L 02/01/23 07:00 Resp 16 02/01/23 07:00 BP 116/74 02/01/23 07:00 Pulse Ox 100 02/01/23 07:00 FiO2 Intake & Output 01/31/23 02/01/23 02/01/23 18:59 06:59 18:59 Intake Total 954 Balance 954 Intake: Oral 954 Other: Voiding Method Toilet # Voids 1 1 - Exam PHYSICAL EXAMINATION: GENERAL: The patient is alert and oriented x3, not in any acute distress. Well developed, well nourished. HEENT: Pupils are round and equally reacting to light. EOMI. No scleral icterus. No conjunctival pallor. Normocephalic, atraumatic. No pharyngeal erythema. No thyromegaly. CARDIOVASCULAR: S1 and S2 present. No murmurs, rubs, or gallops. PULMONARY: Chest is clear to auscultation, no wheezing or crackles. ABDOMEN: Soft, nontender, nondistended, normoactive bowel sounds. No palpable organomegaly. MUSCULOSKELETAL: No joint swelling or deformity. EXTREMITIES: No cyanosis, clubbing, or pedal edema. NEUROLOGICAL: Gross neurological examination did not reveal any focal deficits. SKIN: No rashes. - Labs CBC & Chem 7: 01/29/23 06:16 02/01/23 05:19 Labs: Microbiology - Last 24 Hours (Table) 01/29/23 21:05 Gram Stain - Preliminary Breast - Right Wound Culture - Preliminary Gram Neg Bacilli Presumptive Staph aureus Group D Enterococcus 01/29/23 06:00 Blood Culture - Preliminary Blood No Growth after 72 hours 01/29/23 05:45 Blood Culture - Preliminary Blood No Growth after 72 hours Assessment and Plan Assessment: Extensive cutaneous candidiasis involving bilateral depressed. Right greater than left and bilateral groin areas with no evidence of secondary cellulitis - Patient remains on nystatin powder and oral Diflucan - IDs on board; no need for oral antibiotics Uncontrolled pain; patient has lost IV access and been able to get up until tomorrow; is agreeable to try IM pain medication Hypothyroidism; levothyroxin 75 MCG daily DVT prophylaxis; SCDs CODE STATUS; full code
[2023-02-01] MEDS ORDERED: MORPHINE SULFATE 4 MG/ML SYRINGE IM PRN (17:45)
[2023-02-01] MEDS: KETOROLAC 15 MG/ML 1 ML VIAL IM PRN (18:10)
[2023-02-02] MEDS: KETOROLAC 15 MG/ML 1 ML VIAL IM PRN ×2 (01:58→11:25)
[2023-02-02] MEDS: ACYCLOVIR SODIUM 450 MG in SODIUM CHLORIDE 0.9% 100 ML IVPB SCH ×3 (05:56→21:55)
[2023-02-02] MEDS: LEVOTHYROXINE 75 MCG TAB PO SCH (06:20)
[2023-02-02] MEDS ORDERED: VANCOMYCIN TROUGH DUE 1 EACH MISC MISCELLANE ONE (08:00)
[2023-02-02] MEDS: FLUCONAZOLE 100 MG TAB PO SCH (09:21)
[2023-02-02] MEDS: NYSTATIN 100,000 UNIT/GM POWD 15 GM TOPICAL SCH ×2 (09:21→21:32)
[2023-02-02 09:27] LABS: African American GFR (CKD) 88.2 (60.0-200.0); Non-African American GFR(CKD) 76.1 (60.0-200.0)
[2023-02-02] MEDS: VANCOMYCIN 1,750 MG in SODIUM CHLORIDE 0.9% 500 ML 500 ML IVPB SCH ×2 (09:50→23:34)
--- NOTE | 2023-02-02 19:10 | P.PN ---
Subjective Progress Note Date: 02/02/23 Principal diagnosis: Cutenous Candidiasis Patient is a 47-year-old female with a past medical history taken for eczema and Dariers' disease, presented to hospital with increasing pain discomfort to the breast fold as well as the bilateral groin fold area. On today's evaluation that is 02/02/2023, the patient denies having any fever or any chills still complaining of pain and discomfort to the right breast fold area though some improvement since yesterday no chest pain shortness of breath or cough no abdominal pain or diarrhea Objective - Vital Signs Vital signs: Vital Signs Temp 98.0 F 02/02/23 07:00 Pulse 54 L 02/02/23 07:00 Resp 16 02/02/23 07:00 BP 126/82 02/02/23 07:00 Pulse Ox 100 02/02/23 07:00 FiO2 Intake & Output 02/01/23 02/02/23 02/02/23 18:59 06:59 18:59 Intake Total 236 118 Balance 236 118 Intake: Oral 236 118 Other: Voiding Method Toilet # Voids 2 1 - Exam Middle-aged female up in the bed in no distress Examination of the right breast fold in the presence of the nurse did shows overall decrease in excoriation and drainage - Labs CBC & Chem 7: 01/29/23 06:16 02/02/23 05:20 Labs: Microbiology - Last 24 Hours (Table) 01/29/23 21:05 Gram Stain - Final Breast - Right Wound Culture - Final Acinetobacter divya/haemol Methicillin resist S. aureus Enterococcus faecalis 01/29/23 05:45 Blood Culture - Preliminary Blood No Growth after 96 hours 01/29/23 06:00 Blood Culture - Preliminary Blood No Growth after 96 hours Assessment and Plan (1) Failure of outpatient treatment Current Visit: Yes Status: Acute Code(s): Z78.9 - OTHER SPECIFIED HEALTH STATUS SNOMED Code(s): 544162811 (2) Skin lesion, infected Current Visit: Yes Status: Acute Code(s): L08.9 - LOCAL INFECTION OF THE SKIN AND SUBCUTANEOUS TISSUE, UNSP SNOMED Code(s): 22764938 Plan: 1patient with extensive cutaneous candidiasis involving the bilateral breast fold right greater than the left and also involving the bilateral groin area with no evidence of any secondary cellulitis in this patient with no fever or elevated white count. 2patient has been advised to continue the patient on nystatin powder twice a day and oral Diflucan, keeping the area dry as much as possible, with use of abdominal material or clothing such as cotton or absorbent dressing to separate the skin fold will help and daily cleansing followed by drying of the affected area with a hairdryer 3patient category planner has recommended medication which can be started per the admitting physician and discussed with the patient nurse this morning Time with Patient: Less than 30
[2023-02-02] MEDS: KETOROLAC 15 MG/ML 1 ML VIAL IVP PRN (21:30)
--- NOTE | 2023-02-03 05:25 | PN ---
PROGRESS NOTE DATE OF SERVICE: 02/02/2023 SUBJECTIVE: This is a 47-year-old woman who was admitted with extensive bilateral cutaneous candidiasis, also had diarrhea disease. No chest pain, no palpitations, no fever. OBJECTIVE: VITAL SIGNS: Pulse is 52, blood pressure 143/70, respirations 16. CHEST: Clear to auscultation. ABDOMEN: Soft. SKIN: Significant lesions present. LABORATORY DATA: Noted. ASSESSMENT: 1. Extensive cutaneous candidiasis bilateral groin and under the breast with secondary cellulitis. 2. Uncontrolled pain. RECOMMENDATIONS: This 47-year-old woman presented with multiple complex medical issues, we will monitor the patient closely. We will continue current management, follow closely with Infectious Disease. Repeat labs. Symptomatic treatment. Guarded prognosis. Further recommendations will follow, Dr. Duarte will follow. MMODL / IJN: [id number] /
[2023-02-03] MEDS: LEVOTHYROXINE 75 MCG TAB PO SCH (06:28)
[2023-02-03] MEDS: KETOROLAC 15 MG/ML 1 ML VIAL IVP PRN (06:31)
[2023-02-03] MEDS: ACYCLOVIR SODIUM 450 MG in SODIUM CHLORIDE 0.9% 100 ML IVPB SCH ×3 (07:12→20:06)
[2023-02-03] MEDS: FLUCONAZOLE 100 MG TAB PO SCH (09:12)
[2023-02-03] MEDS: VANCOMYCIN 1,750 MG in SODIUM CHLORIDE 0.9% 500 ML 500 ML IVPB SCH ×2 (09:12→20:59)
[2023-02-03] MEDS: NYSTATIN 100,000 UNIT/GM POWD 15 GM TOPICAL SCH ×2 (09:13→20:59)
[2023-02-03 11:07] LABS: Basophils # (A) 0.02 X 10*3/uL (0.00-0.10); Basophils % (A) 0.2 %; Eosinophils # (A) 0.27 X 10*3/uL (0.04-0.35); Eosinophils % (A) 3.1 %; HCT 36.4 % (37.2-46.3); HGB 11.8 g/dL (12.0-15.0); Immature Grans, Automated 0.5 %; Lymphocytes # (A) 2.48 X 10*3/uL (0.90-5.00); Lymphocytes % (A) 28.3 %; MCH 29.4 pg (27.0-32.0); MCHC 32.4 g/dL (32.0-37.0); MCV 90.8 fL (80.0-97.0); Mean Platelet Volume 8.1 fL (9.5-12.2); Monocytes # (A) 0.56 X 10*3/uL (0.20-1.00); Monocytes % (A) 6.4 %; NRBC Per 100 WBC 0 /100 WBCS (0.0-0.0); Neutrophils # (A) 5.39 X 10*3/uL (1.80-7.70); Neutrophils % (A) 61.5 %; Platelet Count 189 X 10*3/uL (140-440); RBC 4.01 X 10*6/uL (4.10-5.20); RDW 14.2 % (11.5-14.5); WBC 8.76 X 10*3/uL (4.50-10.00)
[2023-02-03 11:21] LABS: African American GFR (CKD) 101.8 (60.0-200.0); Anion Gap 8.8 mmol/L (10.00-18.00); BUN/Creat Ratio 22.75 Ratio (12.00-20.00); Blood Urea Nitrogen 18.2 mg/dL (9.0-27.0); Calcium 8.4 mg/dL (8.7-10.3); Carbon Dioxide 26.2 mmol/L (20.0-27.5); Non-African American GFR(CKD) 87.8 (60.0-200.0); Potassium 4.6 mmol/L (3.5-5.5)
[2023-02-03] MEDS: metroNIDAZOLE 500 MG TAB PO SCH ×2 (15:09→20:59)
[2023-02-03] MEDS: CIPROFLOXACIN HCL 500 MG TAB PO SCH ×2 (15:09→20:58)
--- NOTE | 2023-02-03 17:39 | P.PN ---
Subjective Progress Note Date: 02/03/23 Principal diagnosis: Cutenous Candidiasis Patient is a 47-year-old female with a past medical history taken for eczema and Dariers' disease, presented to hospital with increasing pain discomfort to the breast fold as well as the bilateral groin fold area. On today's evaluation that is 02/03/2023, the patient remains to be afebrile, the patient pain and discomfort to the right breast fold area has slightly decreased in intensity, and less drainage no chest pain shortness of breath or cough no abdominal pain or diarrhea Objective - Vital Signs Vital signs: Vital Signs Temp 98.1 F 02/03/23 07:00 Pulse 56 L 02/03/23 07:00 Resp 18 02/03/23 07:00 BP 142/87 02/03/23 07:00 Pulse Ox 98 02/03/23 07:00 FiO2 Intake & Output 02/02/23 02/03/23 02/03/23 18:59 06:59 18:59 Intake Total 236 Balance 236 Intake: Oral 236 Other: # Voids 4 3 # Bowel Movements 2 - Exam GENERAL DESCRIPTION: Middle-age female up in bed in no distress RESPIRATORY SYSTEM: Unlabored breathing , decreased breath sounds at bases HEART: S1 S2 regular rate and rhythm , ABDOMEN: Soft , no tenderness EXTREMITIES: No edema feet - Labs CBC & Chem 7: 02/03/23 06:04 02/03/23 06:04 Labs: Abnormal Lab Results - Last 24 Hours (Table) 02/03/23 02/03/23 Range/Units 06:04 06:04 RBC 4.01 L (4.10-5.20) X 10*6/uL Hgb 11.8 L (12.0-15.0) g/dL Hct 36.4 L (37.2-46.3) % MPV 8.1 L (9.5-12.2) fL Anion Gap 8.80 L (10.00-18.00) mmol/L BUN/Creatinine Ratio 22.75 H (12.00-20.00) Ratio Calcium 8.4 L (8.7-10.3) mg/dL Microbiology - Last 24 Hours (Table) 01/29/23 06:00 Blood Culture - Preliminary Blood No Growth after 120 hours 01/29/23 05:45 Blood Culture - Preliminary Blood No Growth after 120 hours 01/29/23 21:05 Anaerobic Culture - Final Breast - Right Anaerobic Gm Negative Bacilli Anaerobic Gm Negative Bacilli#2 Anaerobic Gm Negative Bacilli#3 01/29/23 21:05 Gram Stain - Final Breast - Right Wound Culture - Final Acinetobacter divya/haemol Methicillin resist S. aureus Enterococcus faecalis Assessment and Plan (1) Failure of outpatient treatment Current Visit: Yes Status: Acute Code(s): Z78.9 - OTHER SPECIFIED HEALTH STATUS SNOMED Code(s): 654498880 (2) Skin lesion, infected Current Visit: Yes Status: Acute Code(s): L08.9 - LOCAL INFECTION OF THE SKIN AND SUBCUTANEOUS TISSUE, UNSP SNOMED Code(s): 64745858 Plan: 1patient with extensive cutaneous candidiasis involving the bilateral breast fold right greater than the left and also involving the bilateral groin area with no evidence of any secondary cellulitis in this patient with no fever or elevated white count. 2patient has been advised to continue the patient on nystatin powder twice a day and oral Diflucan, keeping the area dry as much as possible, with use of abdominal material or clothing such as cotton or absorbent dressing to separate the skin fold will help and daily cleansing followed by drying of the affected area with a hairdryer 3patient did have local cultures obtained which did grow multiple pathogen of questionable clinical significance however keeping in mind her persistent symptoms he will go ahead and add oral Cipro and Flagyl and see clinical response Time with Patient: Less than 30
[2023-02-04] MEDS: ACYCLOVIR SODIUM 450 MG in SODIUM CHLORIDE 0.9% 100 ML IVPB SCH ×3 (05:36→20:20)
--- NOTE | 2023-02-04 06:19 | PN ---
PROGRESS NOTE SUBJECTIVE: A 47-year-old white female is admitted for Darier's disease flare. Multiple cultures have come back. On the right chest and lower breast area, under the breasts, worsening rash. Positive skin cultures x4. Antibiotics were readjusted. OBJECTIVE: VITAL SIGNS: Temp 98.1, pulse is 56, respiratory rate 16 to 18, blood pressure 142/87, O2 is 98%. CARDIOVASCULAR: S1, S2. LUNGS: Clear. ENDOCRINE: BMI is over 40. PSYCHIATRIC: Fair mood and affect. NEUROLOGIC: Alert and oriented x3. LABORATORY DATA: Hemoglobin is 11.8, white count 8.76. ASSESSMENT: Darier's disease flare, outpatient treatment failed, right abdomen, severe excoriations and pustules. She is on multiple antibiotics now as she has MRSA blood cultures. Continue with multiple antibiotics. Prognosis guarded. MMODL / IJN: [id number] /
[2023-02-04] MEDS: LEVOTHYROXINE 75 MCG TAB PO SCH (06:29)
[2023-02-04 07:51] LABS: Basophils % (A) 0 %; Eosinophils # (A) 0.4 k/uL (0-0.7); Eosinophils % (A) 4 %; HCT 40.3 % (34.0-46.0); HGB 13.5 gm/dL (11.4-16.0); Lymphocytes # (A) 2.2 k/uL (1.0-4.8); Lymphocytes % (A) 21 %; MCH 29.5 pg (25.0-35.0); MCHC 33.4 g/dL (31.0-37.0); MCV 88.1 fL (80.0-100.0); Mean Platelet Volume 6.8; Monocytes # (A) 0.4 k/uL (0-1.0); Monocytes % (A) 4 %; Neutrophils # (A) 7.3 k/uL (1.3-7.7); Neutrophils % (A) 70 %; Platelet Count 225 k/uL (150-450); RBC 4.57 m/uL (3.80-5.40); RDW 14.6 % (11.5-15.5); WBC 10.4 k/uL (3.8-10.6)
[2023-02-04 07:56] LABS: ALT 32 U/L (4-34); AST 24 U/L (14-36); African American GFR (CKD) >90 (>60 ml/min/1.73 sqM); Albumin 3.5 g/dL (3.5-5.0); Albumin/Globulin Ratio 1.3; Alkaline Phosphatase 63 U/L (38-126); Anion Gap 6 mmol/L; Blood Urea Nitrogen 21 mg/dL (7-17); Calcium 8.7 mg/dL (8.4-10.2); Carbon Dioxide 27 mmol/L (22-30); Chloride 107 mmol/L (98-107); Globulin 2.8 g/dL; Glucose 79 mg/dL (74-99); Non-African American GFR(CKD) 87 (>60 ml/min/1.73 sqM); Potassium 4.8 mmol/L (3.5-5.1); Sodium 140 mmol/L (137-145); Total Bilirubin 0.4 mg/dL (0.2-1.3); Total Protein 6.3 g/dL (6.3-8.2)
[2023-02-04] MEDS: VANCOMYCIN 1,750 MG in SODIUM CHLORIDE 0.9% 500 ML 500 ML IVPB SCH ×2 (08:37→20:08)
[2023-02-04] MEDS: metroNIDAZOLE 500 MG TAB PO SCH ×3 (08:37→20:08)
[2023-02-04] MEDS: CIPROFLOXACIN HCL 500 MG TAB PO SCH ×2 (08:37→20:08)
[2023-02-04] MEDS: NYSTATIN 100,000 UNIT/GM POWD 15 GM TOPICAL SCH ×2 (08:38→20:11)
[2023-02-04 12:43] VITALS: BMI 40.8
[2023-02-04 12:56] LABS: C Reactive Protein 1.8 mg/dL (<1.0)
--- NOTE | 2023-02-04 14:45 | P.PN ---
Subjective Progress Note Date: 02/04/23 Principal diagnosis: Cutenous Candidiasis Patient is a 47-year-old female with a past medical history taken for eczema and Dariers' disease, presented to hospital with increasing pain discomfort to the breast fold as well as the bilateral groin fold area. On today's evaluation that is 02/03/2023, the patient continues to be afebrile, the patient pain and discomfort to the right breast fold area has decreased in intensity, patient denies having any chest pain shortness of cough no nausea vomiting or diarrhea Objective - Vital Signs Vital signs: Vital Signs Temp 97.8 F 02/04/23 08:00 Pulse 72 02/04/23 08:00 Resp 20 02/04/23 08:00 BP 138/86 02/04/23 08:00 Pulse Ox 100 02/04/23 08:00 FiO2 Intake & Output 02/03/23 02/04/23 02/04/23 18:59 06:59 18:59 Intake Total 720 240 Balance 720 240 Weight 118.388 kg Intake: Oral 720 240 Other: Voiding Method Toilet # Voids 2 2 1 - Exam GENERAL DESCRIPTION: Middle-age female up in bed in no distress RESPIRATORY SYSTEM: Unlabored breathing , decreased breath sounds at bases HEART: S1 S2 regular rate and rhythm , ABDOMEN: Soft , no tenderness SKIN : Right breast fold did have excoriation no significant redness - Labs CBC & Chem 7: 02/04/23 06:01 02/04/23 06:01 Labs: Abnormal Lab Results - Last 24 Hours (Table) 02/04/23 Range/Units 06:01 BUN 21 H (7-17) mg/dL C-Reactive Protein 1.8 H (<1.0) mg/dL Microbiology - Last 24 Hours (Table) 01/29/23 05:45 Blood Culture - Final Blood No Growth after 144 hours 01/29/23 06:00 Blood Culture - Final Blood No Growth after 144 hours Assessment and Plan (1) Failure of outpatient treatment Current Visit: Yes Status: Acute Code(s): Z78.9 - OTHER SPECIFIED HEALTH STATUS SNOMED Code(s): 249981687 (2) Skin lesion, infected Current Visit: Yes Status: Acute Code(s): L08.9 - LOCAL INFECTION OF THE SKIN AND SUBCUTANEOUS TISSUE, UNSP SNOMED Code(s): 93283811 Plan: 1patient with extensive cutaneous candidiasis involving the bilateral breast fold right greater than the left and also involving the bilateral groin area with no evidence of any secondary cellulitis in this patient with no fever or elevated white count. 2patient has been advised to continue the patient on nystatin powder twice a day and oral Diflucan, keeping the area dry as much as possible, with use of abdominal material or clothing such as cotton or absorbent dressing to separate the skin fold will help and daily cleansing followed by drying of the affected area with a hairdryer 3patient did have local cultures obtained which did grow multiple pathogen of questionable clinical significance however keeping in mind her persistent symptoms, patient was started on oral Cipro and Flagyl patient reporting some clinical improvement continue and monitor clinical course closely Time with Patient: Less than 30
[2023-02-04] MEDS: IBUPROFEN 400 MG TAB PO PRN (14:55)
[2023-02-04] MEDS ORDERED: VANCOMYCIN TROUGH DUE 1 EACH MISC MISCELLANE ONE (20:00)
[2023-02-05] MEDS: ACYCLOVIR SODIUM 450 MG in SODIUM CHLORIDE 0.9% 100 ML IVPB SCH ×3 (05:29→20:06)
[2023-02-05] MEDS: LEVOTHYROXINE 75 MCG TAB PO SCH (05:45)
[2023-02-05] MEDS ORDERED: VANCOMYCIN TROUGH DUE 1 EACH MISC MISCELLANE ONE (08:00)
[2023-02-05] MEDS: NYSTATIN 100,000 UNIT/GM POWD 15 GM TOPICAL SCH ×2 (09:27→20:11)
[2023-02-05] MEDS: IBUPROFEN 400 MG TAB PO PRN ×2 (09:28→16:32)
[2023-02-05] MEDS: VANCOMYCIN 1,750 MG in SODIUM CHLORIDE 0.9% 500 ML 500 ML IVPB SCH (09:28)
[2023-02-05] MEDS: metroNIDAZOLE 500 MG TAB PO SCH ×3 (09:28→20:11)
[2023-02-05] MEDS: CIPROFLOXACIN HCL 500 MG TAB PO SCH ×2 (09:28→20:11)
--- NOTE | 2023-02-05 15:31 | P.PN ---
Subjective Progress Note Date: 02/05/23 Principal diagnosis: Cutenous Candidiasis Patient is a 47-year-old female with a past medical history taken for eczema and Dariers' disease, presented to hospital with increasing pain discomfort to the breast fold as well as the bilateral groin fold area. On today's evaluation that is 02/05/2023, the patient remains to be afebrile, the patient pain to the right breast fold area has decreased in intensity, patient denies having any chest pain shortness of cough no nausea vomiting or diarrhea, is feeling better today Objective - Vital Signs Vital signs: Vital Signs Temp 97.4 F L 02/05/23 08:00 Pulse 61 02/05/23 08:00 Resp 18 02/05/23 08:00 BP 114/72 02/05/23 08:00 Pulse Ox 100 02/05/23 08:00 FiO2 Intake & Output 02/04/23 02/05/23 02/05/23 18:59 06:59 18:59 Intake Total 480 358 Balance 480 358 Weight 118.388 kg Intake: Oral 480 358 Other: Voiding Method Toilet # Voids 1 1 - Exam GENERAL DESCRIPTION: Middle-age female up in bed in no distress RESPIRATORY SYSTEM: Unlabored breathing , decreased breath sounds at bases HEART: S1 S2 regular rate and rhythm , ABDOMEN: Soft , no tenderness SKIN : Right breast fold did have excoriation no significant redness - Labs CBC & Chem 7: 02/04/23 06:01 02/04/23 06:01 Assessment and Plan (1) Failure of outpatient treatment Current Visit: Yes Status: Acute Code(s): Z78.9 - OTHER SPECIFIED HEALTH STATUS SNOMED Code(s): 246535458 (2) Skin lesion, infected Current Visit: Yes Status: Acute Code(s): L08.9 - LOCAL INFECTION OF THE SKIN AND SUBCUTANEOUS TISSUE, UNSP SNOMED Code(s): 19769545 Plan: 1patient with extensive cutaneous candidiasis involving the bilateral breast fold right greater than the left and also involving the bilateral groin area with no evidence of any secondary cellulitis in this patient with no fever or elevated white count. 2patient has been advised to continue the patient on nystatin powder twice a day and oral Diflucan, keeping the area dry as much as possible, with use of abdominal material or clothing such as cotton or absorbent dressing to separate the skin fold will help and daily cleansing followed by drying of the affected area with a hairdryer 3patient did have local cultures obtained which did grow multiple pathogen of questionable clinical significance however keeping in mind her persistent symptoms, patient to continue with oral Cipro and Flagyl as the patient seemed to have some clinical improvement and continue local care as ordered Time with Patient: Less than 30
[2023-02-05] MEDS: VANCOMYCIN 1,500 MG in SODIUM CHLORIDE 0.9% 500 ML 500 ML IVPB SCH (20:11)
[2023-02-06] MEDS: ACYCLOVIR SODIUM 450 MG in SODIUM CHLORIDE 0.9% 100 ML IVPB SCH ×4 (05:39→23:42)
[2023-02-06] MEDS: LEVOTHYROXINE 75 MCG TAB PO SCH (05:40)
[2023-02-06 06:35] LABS: African American GFR (CKD) >90 (>60 ml/min/1.73 sqM); Non-African American GFR(CKD) 87 (>60 ml/min/1.73 sqM)
[2023-02-06 08:08] VITALS: RESP 16
[2023-02-06] MEDS: NYSTATIN 100,000 UNIT/GM POWD 15 GM TOPICAL SCH ×2 (08:26→20:37)
[2023-02-06] MEDS: IBUPROFEN 400 MG TAB PO PRN ×2 (08:26→16:36)
[2023-02-06] MEDS: CIPROFLOXACIN HCL 500 MG TAB PO SCH ×2 (08:26→20:46)
[2023-02-06] MEDS: metroNIDAZOLE 500 MG TAB PO SCH ×3 (08:26→20:46)
[2023-02-06] MEDS: VANCOMYCIN 1,500 MG in SODIUM CHLORIDE 0.9% 500 ML 500 ML IVPB SCH ×2 (08:27→20:39)
--- NOTE | 2023-02-06 13:01 | PN ---
PROGRESS NOTE SUBJECTIVE: This is a 47-year-old white female who is admitted for Darier's disease and severe aspiration of the breast. She is responding to multiple medications due to positive skin cultures. OBJECTIVE: VITAL SIGNS: Blood pressure is 114/72, temperature 97.4, pulse 60s, respiratory rate 18. CARDIOVASCULAR: S1, S2. LUNGS: Clear. GI: Soft. INTEGUMENT: Shows severe maceration of the breast with oozing exudate, right lateral abdominal wound is scabbed up. ASSESSMENT: Outpatient treatment, severe Darier's disease flare, severe candidiasis, herpes simplex versus severe cellulitis of the skin. Prognosis is guarded. Continue antibiotics x3. Oral Cipro. Prognosis guarded. MMODL / IJN: [id number] /
--- NOTE | 2023-02-06 18:26 | P.PN ---
Subjective Progress Note Date: 02/06/23 Principal diagnosis: Cutenous Candidiasis Patient is a 47-year-old female with a past medical history taken for eczema and Dariers' disease, presented to hospital with increasing pain discomfort to the breast fold as well as the bilateral groin fold area. On today's evaluation that is 02/06/2023, the patient continues to be afebrile, the patient pain to the right breast fold area has decreased in intensity and the patient is feeling better today, patient denies having any chest pain shortness of cough no nausea vomiting or diarrhea Objective - Vital Signs Vital signs: Vital Signs Temp 98.3 F 02/06/23 08:00 Pulse 62 02/06/23 08:00 Resp 16 02/06/23 08:00 BP 146/78 02/06/23 08:00 Pulse Ox 99 02/06/23 08:00 FiO2 Intake & Output 02/05/23 02/06/23 02/06/23 18:59 06:59 18:59 Intake Total 476 240 Balance 476 240 Intake: Oral 476 240 Other: Voiding Method Toilet # Voids 1 - Exam GENERAL DESCRIPTION: Middle-age female up in bed in no distress RESPIRATORY SYSTEM: Unlabored breathing , decreased breath sounds at bases HEART: S1 S2 regular rate and rhythm , ABDOMEN: Soft , no tenderness SKIN : Right breast fold did have excoriation no significant redness - Labs CBC & Chem 7: 02/04/23 06:01 02/06/23 05:25 Assessment and Plan (1) Failure of outpatient treatment Current Visit: Yes Status: Acute Code(s): Z78.9 - OTHER SPECIFIED HEALTH STATUS SNOMED Code(s): 372986835 (2) Skin lesion, infected Current Visit: Yes Status: Acute Code(s): L08.9 - LOCAL INFECTION OF THE SKIN AND SUBCUTANEOUS TISSUE, UNSP SNOMED Code(s): 09080301 Plan: 1patient with extensive cutaneous candidiasis involving the bilateral breast fold right greater than the left and also involving the bilateral groin area with no evidence of any secondary cellulitis in this patient with no fever or elevated white count. 2patient has been advised to continue the patient on nystatin powder twice a day and oral Diflucan, keeping the area dry as much as possible, with use of abdominal material or clothing such as cotton or absorbent dressing to separate the skin fold will help and daily cleansing followed by drying of the affected area with a hairdryer 3patient did have local cultures obtained which did grow multiple pathogen of questionable clinical significance however keeping in mind her persistent symptoms, patient reporting clinical improvement and would consider ten-day cou rse of oral Cipro Flagyl along with nystatin powder on discharge prescription was sent to the pharmacy Time with Patient: Less than 30
[2023-02-07] MEDS: ACYCLOVIR SODIUM 450 MG in SODIUM CHLORIDE 0.9% 100 ML IVPB SCH (03:22)
[2023-02-07 03:38] VITALS: TEMP 97.8
[2023-02-07] MEDS: LEVOTHYROXINE 75 MCG TAB PO SCH (06:28)
[2023-02-07] MEDS ORDERED: VANCOMYCIN TROUGH DUE 1 EACH MISC MISCELLANE ONE (08:00)
[2023-02-07 08:26] VITALS: BP 160/84; PULSE 58
[2023-02-07] MEDS: CIPROFLOXACIN HCL 500 MG TAB PO SCH (08:46)
[2023-02-07] MEDS: metroNIDAZOLE 500 MG TAB PO SCH (08:46)
[2023-02-07] MEDS: NYSTATIN 100,000 UNIT/GM POWD 15 GM TOPICAL SCH (08:47)
[2023-02-07] MEDS: VANCOMYCIN 1,500 MG in SODIUM CHLORIDE 0.9% 500 ML 500 ML IVPB SCH (08:47)
[2023-02-07 10:16] LABS: African American GFR (CKD) >90 (>60 ml/min/1.73 sqM); Non-African American GFR(CKD) 86 (>60 ml/min/1.73 sqM)
--- NOTE | 2023-02-07 14:08 | P.PN ---
Subjective Progress Note Date: 02/07/23 Principal diagnosis: Cutenous Candidiasis Patient is a 47-year-old female with a past medical history taken for eczema and Dariers' disease, presented to hospital with increasing pain discomfort to the breast fold as well as the bilateral groin fold area. On today's evaluation that is 02/07/2023, the patient remains to be afebrile, the patient pain to the right breast fold area has decreased in intensity and the drainage has decreased in intensity, patient denies having any chest pain shortness of cough no nausea vomiting or diarrhea Objective - Vital Signs Vital signs: Vital Signs Temp 97.8 F 02/07/23 07:15 Pulse 58 L 02/07/23 08:00 Resp 16 02/07/23 08:00 BP 160/84 02/07/23 07:15 Pulse Ox 100 02/07/23 07:15 FiO2 Intake & Output 02/06/23 02/07/23 02/07/23 18:59 06:59 18:59 Intake Total 720 500 118 Balance 720 500 118 Intake: Oral 720 500 118 Other: Voiding Method Toilet Toilet # Voids 3 - Exam GENERAL DESCRIPTION: Middle-age female up in bed in no distress RESPIRATORY SYSTEM: Unlabored breathing , decreased breath sounds at bases HEART: S1 S2 regular rate and rhythm , ABDOMEN: Soft , no tenderness SKIN : Right breast fold excoriation has decreased no drainage - Labs CBC & Chem 7: 02/04/23 06:01 02/07/23 09:44 Assessment and Plan (1) Failure of outpatient treatment Status: Acute Code(s): Z78.9 - OTHER SPECIFIED HEALTH STATUS SNOMED Code(s): 724439446 (2) Skin lesion, infected Status: Acute Code(s): L08.9 - LOCAL INFECTION OF THE SKIN AND SUBCUTANEOUS TISSUE, UNSP SNOMED Code(s): 60699548 Plan: 1patient with extensive cutaneous candidiasis involving the bilateral breast fold right greater than the left and also involving the bilateral groin area with no evidence of any secondary cellulitis in this patient with no fever or elevated white count. 2patient has been advised to continue the patient on nystatin powder twice a day, keeping the area dry as much as possible, with use of abdominal material or clothing such as cotton or absorbent dressing to separate the skin fold will help and daily cleansing followed by drying of the affected area with a hairdryer 3patient did have local cultures obtained which did grow multiple pathogen of questionable clinical significance however keeping in mind her persistent symptoms, patient reporting clinical improvement , prescription for ten-day course of oral Cipro Flagyl along with nystatin powder has been sent to the pharmacy yesterday patient to continue with those medication and close outpatient follow-up Time with Patient: Less than 30
[2023-02-08] MEDS ORDERED: VANCOMYCIN 1,500 MG in SODIUM CHLORIDE 0.9% 500 ML 500 ML IVPB SCH (09:00)
== END 2023-02-07 13:11 | disposition home or self-care (01) | DRG 607 ==
LOC: EC 05:31 → 6NMEDSUR 06:12 → OBSVTOIN 02-02 14:15
PROVIDERS: ADMIT Family Medicine; ATTEND Family Medicine
PROC: 05H933Z Insertion of Infusion Device into Right Brachial Vein, Percutaneous Approach (ICD-10-PCS; principal; 2023-02-02 08:30)
DX: B37.2 Candidiasis of skin and nail (principal); Q82.8 Other specified congenital malformations of skin; E03.9 Hypothyroidism, unspecified; Z79.890 Hormone replacement therapy; L30.9 Dermatitis, unspecified; J45.909 Unspecified asthma, uncomplicated; Z86.14 Personal history of Methicillin resistant Staphylococcus aureus infection; Z88.5 Allergy status to narcotic agent; Z88.0 Allergy status to penicillin; Z88.2 Allergy status to sulfonamides; Z79.899 Other long term (current) drug therapy
CPT/HCPCS: 36410; 36415; 76937; 80048; 80053; 80202; 82565; 83036; 83605; 84439; 84443; 84481; 85025; 85652; 86140; 87040; 87070; 87075; 87077; 87186; 87205; 96365; 96375; 99284

== ENCOUNTER 2023-06-02 07:11 | Observation (INO) | payer BC ==
[2023-06-02] MEDS ORDERED: DEXAMETHASONE SOD PHOSPHATE 10 MG/ML 1 ML VIAL IV STA (07:50)
[2023-06-02] MEDS ORDERED: NALOXONE 0.4 MG/ML 1 ML VIAL IV PRN (07:51)
--- NOTE | 2023-06-02 08:01 | ED ---
General Adult HPI - General Chief complaint: Wound/Laceration Stated complaint: Weeping skin Time Seen by Provider: 06/02/23 07:26 Source: patient, RN notes reviewed, old records reviewed Mode of arrival: ambulatory Limitations: no limitations - History of Present Illness Initial comments: 47-year-old female presents for evaluation of skin erythema and irritation. Patient has history of both eczema and Darier's disease. She has been following with her prepress operator and attempting topical treatment. She was told on Thursday that if her symptoms did not improve she should present to the emergency department. Patient states that she has been on doxycycline for the past 2 weeks. No reported fever. Patient reports nausea. Patient has followed with infectious disease in the past related to superficial skin infections. - Related Data Home Medications Medication Instructions Recorded Confirmed Acitretin [Soriatane] 10 mg PO DIRECTED 01/29/23 01/29/23 Clobetasol Propionate [Temovate 1 applic TOPICAL BID 01/29/23 01/29/23 0.05% Oint] Previous Rx's Medication Instructions Recorded Ciprofloxacin HCl [Cipro] 500 mg PO Q12HR 10 Days #20 tab 02/06/23 Nystatin 100,000 Unit/gm Powd 1 applic TOPICAL BID #30 gm 02/06/23 [Mycostatin Powder] metroNIDAZOLE [Flagyl] 500 mg PO TID #30 tab 02/06/23 Levothyroxine Sodium [Synthroid] 75 mcg PO DAILY@0630 90 Days #90 02/07/23 tab Allergies Allergy/AdvReac Type Severity Reaction Status Date / Time valacyclovir [From Valtrex] Allergy Severe Rash/Hives Verified 01/29/23 05:45 Penicillins Allergy Intermediate Itching Verified 01/29/23 07:56 codeine Allergy Swelling Verified 01/29/23 05:45 piperacillin [From Zosyn] Allergy Itching Verified 01/29/23 07:56 sulfamethoxazole Allergy Rash/Hives Verified 01/29/23 05:45 [From Bactrim] tazobactam [From Zosyn] Allergy Itching Verified 01/29/23 07:56 trimethoprim [From Bactrim] Allergy Rash/Hives Verified 01/29/23 05:45 Review of Systems ROS Statement: Those systems with pertinent positive or pertinent negative responses have been documented in the HPI. ROS Other: All systems not noted in ROS Statement are negative. 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 Date of last positivie culture/infection: 01/29/23 MDRO Source:: Right Breast Past Surgical History: Section, Tubal Ligation Past Anesthesia/Blood Transfusion Reactions: No Reported Reaction Past Psychological History: No Psychological Hx Reported Smoking Status: Never smoker Past Alcohol Use History: Rare Past Drug Use History: None Reported - Past Family History Mother Family Medical History: Cancer Additional Family Medical History / Comment(s): Dariers, Father Family Medical History: No Reported History General Exam Limitations: no limitations General appearance: alert, in no apparent distress Head exam: Present: atraumatic, normocephalic Eye exam: Present: normal appearance, PERRL ENT exam: Present: normal exam Neck exam: Present: normal inspection. Absent: tenderness Respiratory exam: Present: normal lung sounds bilaterally. Absent: respiratory distress Cardiovascular Exam: Present: regular rate, normal rhythm GI/Abdominal exam: Absent: distended Extremities exam: Present: normal capillary refill Neurological exam: Present: alert, oriented X3, CN II-XII intact. Absent: motor sensory deficit Psychiatric exam: Present: normal affect, normal mood Skin exam: Present: warm, other (Yellowish discoloration with erythematous base of the neck, groin, right hip) Course Vital Signs 06/02/23 07:12 Temperature 97.2 F L Pulse Rate 64 Respiratory 16 Rate Blood Pressure 138/85 O2 Sat by Pulse 97 Oximetry Medical Decision Making - Medical Decision Making Was pt. sent in by a medical professional or institution (, PA, CANE FLUME FEEDING MACHINE OPERATOR, urgent care, hospital, or longterm...) When possible be specific @ -No Did you speak to anyone other than the patient for history (EMS, parent, family, police, friend...)? What history was obtained from this source @ -No Did you review nursing and triage notes (agree or disagree)? Why? @ -I reviewed and agree with nursing and triage notes Were old charts reviewed (outside hosp., previous admission, EMS record, old EKG, old radiological studies, urgent care reports/EKG's, longterm records)? Report findings @ -No old charts were reviewed Differential Diagnosis (chest pain, altered mental status, abdominal pain women, abdominal pain men, vaginal bleeding, weakness, fever, dyspnea, syncope, headache, dizziness, GI bleed, back pain, seizure, CVA, palpatations, mental health, musculoskeletal)? @ -Eczema, psoriasis, intertrigo, erysipelas EKG interpreted by me (3pts min.). @ -As above X-rays interpreted by me (1pt min.). @ -None done CT interpreted by me (1pt min.). @ -None done U/S interpreted by me (1pt. min.). @ -None done What testing was considered but not performed or refused? (CT, X-rays, U/S, labs)? Why? @ -None What meds were considered but not given or refused? Why? @ -None Did you discuss the management of the patient with other professionals (professionals i.e. , PA, CANE FLUME FEEDING MACHINE OPERATOR, lab, RT, psych nurse, addiction social worker, executive asst, teacher, weapons officer, nurse case management)? Give summary @ -Case discussed with Dr. Duarte who does recommend 23 hour observation Was smoking cessation discussed for >3mins.? @ -No Was critical care preformed (if so, how long)? @ -No Were there social determinants of health that impacted care today? How? (Homelessness, low income, unemployed, alcoholism, drug addiction, transportation, low edu. Level, literacy, decrease access to med. care, alf, rehab)? @ -No Was there de-escalation of care discussed even if they declined (Discuss DNR or withdrawal of care, Hospice)? DNR status @ -No What co-morbidities impacted this encounter? (DM, HTN, Smoking, COPD, CAD, Cancer, CVA, ARF, Chemo, Hep., AIDS, mental health diagnosis, sleep apnea, morbid obesity)? @ -Asthma, eczema Was patient admitted / discharged? Hospital course, mention meds given and route, prescriptions, significant lab abnormalities, going to OR and other pertinent info. @ -[Patient will be given a dose of steroids and antibiotics in the emergency department. Laboratory studies will be obtained. These results are pending. Undiagnosed new problem with uncertain prognosis? @ -No Drug Therapy requiring intensive monitoring for toxicity (Heparin, Nitro, Insulin, Cardizem)? @ -No Were any procedures done? @ -No Diagnosis/symptom? @ -Superficial skin infection,Darier's disease, failed outpatient treatment Acute, or Chronic, or Acute on Chronic? @ -[Acute on chronic Uncomplicated (without systemic symptoms) or Complicated (systemic symptoms)? @ -Uncomplicated Side effects of treatment? @ -No Exacerbation, Progression, or Severe Exacerbation? @ -No Poses a threat to life or bodily function? How? (Chest pain, USA, DC, pneumonia, PE, COPD, DKA, ARF, appy, cholecystitis, CVA, Diverticulitis, Homicidal, Suicidal, threat to staff... and all critical care pts) @ -No Disposition Clinical Impression: Darier disease, Failure of outpatient treatment Disposition: ADMITTED IP TO THIS [facility] Condition: Stable Is patient prescribed a controlled substance at d/c from ED?: No Referrals: Hever Duarte MD [Primary Care Provider] - 1-2 days Time of Disposition: 08:02
[2023-06-02 08:47] LABS: Basophils % (A) 0 %; Eosinophils # (A) 0.4 k/uL (0-0.7); Eosinophils % (A) 5 %; HCT 39.7 % (34.0-46.0); HGB 13.7 gm/dL (11.4-16.0); Lymphocytes # (A) 1.2 k/uL (1.0-4.8); Lymphocytes % (A) 13 %; MCH 30.8 pg (25.0-35.0); MCHC 34.6 g/dL (31.0-37.0); MCV 89.2 fL (80.0-100.0); Mean Platelet Volume 6.8; Monocytes # (A) 0.4 k/uL (0-1.0); Monocytes % (A) 4 %; Neutrophils # (A) 6.9 k/uL (1.3-7.7); Neutrophils % (A) 77 %; Platelet Count 236 k/uL (150-450); RBC 4.45 m/uL (3.80-5.40); RDW 13.4 % (11.5-15.5)
[2023-06-02 08:58] LABS: ALT 26 U/L (4-34); AST 28 U/L (14-36); African American GFR (CKD) 86 (>60 ml/min/1.73 sqM); Albumin 3.7 g/dL (3.5-5.0); Alkaline Phosphatase 75 U/L (38-126); Anion Gap 4 mmol/L; Blood Urea Nitrogen 12 mg/dL (7-17); Calcium 8.7 mg/dL (8.4-10.2); Carbon Dioxide 30 mmol/L (22-30); Chloride 104 mmol/L (98-107); Glucose 91 mg/dL (74-99); Non-African American GFR(CKD) 75 (>60 ml/min/1.73 sqM); Potassium 4.2 mmol/L (3.5-5.1); Sodium 138 mmol/L (137-145); Total Bilirubin 0.6 mg/dL (0.2-1.3); Total Protein 6.6 g/dL (6.3-8.2)
[2023-06-02] MEDS: SODIUM CHLORIDE 0.9% 1,000 ML IV SCH ×2 (09:16→21:49)
[2023-06-02] MEDS: CLOTRIMAZOLE 1% CREAM 30 GM TUBE TOPICAL SCH ×2 (10:45→20:00)
--- NOTE | 2023-06-02 18:48 | HP ---
HISTORY AND PHYSICAL HISTORY OF PRESENT ILLNESS: The patient came to the emergency room. She is a 47-year-old white female with weeping skin, wound infection, irritation, eczema, and Darier's disease. She sees tree care foreman for topical treatments. She came in due to worsening and failing outpatient doxycycline. We admitted her to the hospital for treatment. We are going to get Infectious Disease involved for treatment. HOME MEDICATIONS: She takes Synthroid 75 mcg daily. ALLERGIES: Please see further orders. PAST MEDICAL HISTORY: Asthma, skin disorder, Darier's disease, eczema, and heart murmurs. PAST SURGICAL HISTORY: and tubal ligation. FAMILY HISTORY: Mother had Darier's REVIEW OF SYSTEMS: Fourteen-point review of systems is otherwise negative except for asthma and dyspnea. PHYSICAL EXAMINATION: VITAL SIGNS: Temperature 97.2, pulse 64, respiratory rate 16 to 18, blood pressure 130s/80s, O2 of 97%. GENERAL: She is obese white female. HEART: S1 and S2. LUNGS: Decreased breath sounds x4. ABDOMEN: 2 to 3+ edema. PSYCHIATRIC: Fair mood and affect. NEUROLOGIC: Alert and oriented x3. SKIN: Neck, groin, and right hip; she has a warm yellow discoloration and erythema at its base. ASSESSMENT: 1. Cellulitis of the skin, Darier's flare, multiple areas. 2. Failure to thrive. 3. Failure of outpatient treatment. 4. Asthma. 5. Possibly sleep apnea. PLAN: Continue current treatment. Infectious Disease consult. Broad-spectrum IV antibiotics. Please see further orders. MMODL / IJN: [id number] /
--- NOTE | 2023-06-02 19:54 | CT ---
EXAMINATION TYPE: CT chest wo con CT DLP: 630.8 mGycm, Automated exposure control for dose reduction was used. DATE OF EXAM: 06/02/2023 7:23 PM COMPARISON: None CLINICAL INDICATION:Female, 47 years old with history of dyspnea; TECHNIQUE: Multiple axial images were obtained through the chest. Sagittal and coronal reformats were created for review. Contrast used: mL of (None if empty) Oral contrast used: (None if empty) FINDINGS: LUNGS/ PLEURA: The lung parenchyma appears unremarkable. AIRWAY: Patent and unremarkable. HEART: The heart is mildly enlarged for size. MEDIASTINUM: No gross evidence of adenopathy. VASCULATURE: No aortic aneurysm. MUSCULOSKELETAL: Moderate disc degeneration changes are present throughout the thoracolumbar spine. SOFT TISSUES/LYMPH NODES: Unremarkable. LOWER NECK: No significant findings. UPPER ABDOMEN: No significant findings. IMPRESSION: 1. No evidence for acute process. 2. Mild cardiomegaly.
[2023-06-02] MEDS: methylPREDNISolone SOD SUCCI 125 MG/2 ML VIAL IV SCH ×2 (20:00→23:38)
[2023-06-02] MEDS: FLUCONAZOLE IN NACL,ISO-OSM 200 MG in SALINE 1 100ML.BAG IVPB SCH (21:48)
--- NOTE | 2023-06-02 23:06 | P.CONS ---
History of Present Illness - Reason for Consult Consult date: 06/02/23 - History of Present Illness Patient is a 47-year female with a past medical history significant for dariers disease eczema history of recurrence skin and soft tissue infection, presented to the hospital with increasing discomfort to the bilateral breast fold and bilateral groin area that apparently has been getting worse over the last few weeks patient has been evaluated outpatient setting by his dermatologis t and has been treated with the doxycycline for 3 weeks and was advised to go to the hospital if any worsening patient complaining of worsening pain as well as itching and did have some drainage from the groin area patient denies any fever or chills, patient on presentation to the hospital for was afebrile and no fever has been followed subsequently patient was not tachycardic or hypertensive darrell ent did have normal white count with no left shift kidney function was normal liver enzymes are normal patient did receive a dose of Rocephin and dexamethasone subsequently has been started on doxycycline and infectious disease was consulted concern for possible cellulitis and need for antibiotic th erapy 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 Year Discovered:: 01/29/23 MDRO Source:: Right Breast Past Surgical History: Section, Tubal Ligation Past Anesthesia/Blood Transfusion Reactions: No Reported Reaction Past Psychological History: No Psychological Hx Reported Smoking Status: Never smoker Past Alcohol Use History: Rare Past Drug Use History: None Reported - Past Family History Mother Family Medical History: Cancer Additional Family Medical History / Comment(s): Dariers, Father Family Medical History: No Reported History Medications and Allergies Home Medications Medication Instructions Recorded Confirmed Type Cephalexin [Keflex] 500 mg PO DIRECTED 06/02/23 06/02/23 History Doxycycline Hyclate 100 mg PO DAILY 06/02/23 06/02/23 History Ibuprofen [Motrin Ib] 400 mg PO Q6H PRN 06/02/23 06/02/23 History Loratadine [Claritin] 10 mg PO DAILY 06/02/23 06/02/23 History diphenhydrAMINE HCL [Benadryl] 25 mg PO HS 06/02/23 06/02/23 History Allergies Allergy/AdvReac Type Severity Reaction Status Date / Time valacyclovir [From Valtrex] Allergy Severe Rash/Hives Verified 06/02/23 09:21 Penicillins Allergy Intermediate Itching Verified 06/02/23 09:21 codeine Allergy Swelling Verified 06/02/23 09:21 piperacillin [From Zosyn] Allergy Itching Verified 06/02/23 09:21 sulfamethoxazole Allergy Rash/Hives Verified 06/02/23 09:21 [From Bactrim] tazobactam [From Zosyn] Allergy Itching Verified 06/02/23 09:21 trimethoprim [From Bactrim] Allergy Rash/Hives Verified 06/02/23 09:21 Physical Exam Vitals: Vital Signs Temp Pulse Resp BP Pulse Ox 06/02/23 10:19 97.9 F 62 18 138/81 100 06/02/23 07:12 97.2 F L 64 16 138/85 97 Intake and Output 06/01/23 06/02/23 06/02/23 22:59 06:59 14:59 Other: Weight 120.202 kg Results CBC & Chem 7: 06/02/23 07:56 06/02/23 07:56 Assessment and Plan Plan: 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, and this patient especially with involvement of bilateral breast fold and groin area now presenting to hospital with worsening pain and some drainage to the groin region however no significant erythema was noticed on routine examination patient not running any fever and did have a normal white count clinically doubt secondary cellulitis and need for antibiotic therapy 2-with concern for possible cutaneous candidiasis will benefit from nystatin powder and Diflucan 3-May benefit from trial of steroids 4-we will avoid any local culture to avoid use of any unnecessary antibiotics as no clinical suspicion for cellulitis in this patient with no fever or elevated white count this has been explained to the patient in layman term and will discontinue doxycycline We will follow on clinical condition and cultures to further adjust medication if needed Thank you for this consultation we will follow the patient along with you Dictation was produced using Medaxionation software. please excuse any grammatical, word or spelling errors. Time with Patient: Greater than 30
[2023-06-03] MEDS: methylPREDNISolone SOD SUCCI 125 MG/2 ML VIAL IV SCH ×4 (05:28→23:51)
[2023-06-03] MEDS: LORATADINE 10 MG TAB PO SCH (08:42)
[2023-06-03] MEDS: CLOTRIMAZOLE 1% CREAM 30 GM TUBE TOPICAL SCH ×2 (08:43→21:34)
[2023-06-03] MEDS ORDERED: DOXYCYCLINE 100 MG CAP PO SCH (09:00)
--- NOTE | 2023-06-03 12:48 | CA ---
Transthoracic Echo Report Name: Catherine Black Age: 47 Gender: F : 1975 Exam Date: 06/03/2023 10:30 Exam Location: [facility] Ht (in): 67 Wt (lb): 265 Ordering Physician: Hever Duarte MD Attending/Referring Phys: Promotional Model Edgard Rizo Procedure CPT: Indications: dyspnea Cardiac Hx: Technical Quality: Technically difficult study Contrast 1: Lumason Total Dose (mL): 5 Contrast 2: Total Dose (mL): MEASUREMENTS (Male / Female) Normal Values 2D ECHO LV Diastolic Diameter PLAX 4.9 cm 4.2 - 5.9 / 3.9 - 5.3 cm LV Systolic Diameter PLAX 3.2 cm IVS Diastolic Thickness 1.0 cm 0.6 - 1.0 / 0.6 - 0.9 cm LVPW Diastolic Thickness 0.9 cm 0.6 - 1.0 / 0.6 - 0.9 cm LV Relative Wall Thickness 0.4 RV Internal Dim ED PLAX 2.7 cm LVOT Diameter 2.0 cm Aortic Root Diameter 2.4 cm LA Systolic Diameter LX 2.1 cm 3.0 - 4.0 / 2.7 - 3.8 cm LV Diastolic Volume MOD BP 53.4 cm??? 67 - 155 / 56 - 104 cm??? LV Systolic Volume MOD BP 23.0 cm??? - 58 / 19 - 49 cm??? LV Ejection Fraction MOD BP 56.9 % >= 55 % LV Cardiac Index MOD BP 833.7 cm???/min???m??? LV Diastolic Volume MOD 4C 47.4 cm??? LV Systolic Volume MOD 4C 20.5 cm??? LV Ejection Fraction MOD 4C 56.8 % LV Cardiac Index MOD 4C 738.5 cm???/min???m??? LV Diastolic Length 4C 5.8 cm LV Systolic Length 4C 5.4 cm LV Diastolic Volume MOD 2C 50.2 cm??? LV Systolic Volume MOD 2C 23.7 cm??? LV Ejection Fraction MOD 2C 52.8 % LV Cardiac Index MOD 2C 727.0 cm???/min???m??? LV Diastolic Length 2C 7.0 cm LV Systolic Length 2C 6.2 cm LA Volume 37.0 cm??? 18 - 58 / 22 - 52 cm??? Ascending Aorta Diameter 2.6 cm DOPPLER AV Peak Velocity 126.9 cm/s AV Peak Gradient 6.4 mmHg LVOT Peak Velocity 110.1 cm/s LVOT Peak Gradient 4.9 mmHg AV Area Cont Eq pk 2.7 cm??? MV Peak Velocity 110.9 cm/s MV Peak Gradient 4.9 mmHg MV Mean Velocity 49.2 cm/s MV Mean Gradient 1.3 mmHg MV Velocity Time Integral 41.4 cm MR Peak Velocity 191.5 cm/s MR Peak Gradient 14.7 mmHg Mitral E Point Velocity 86.9 cm/s Mitral A Point Velocity 78.6 cm/s Mitral E to A Ratio 1.1 MV Deceleration Time 314.9 ms TR Peak Velocity 171.2 cm/s TR Peak Gradient 11.7 mmHg Right Ventricular Systolic Press 16.7 mmHg PV Peak Velocity 91.6 cm/s PV Peak Gradient 3.4 mmHg FINDINGS Left Ventricle Normal LV size and wall thickness.left ventricular ejection fraction is estimated at 55-60 %.normal left ventricular wall motion. Right Ventricle Normal right ventricular size. Right Atrium Normal right atrial size. Left Atrium Normal left atrial size. Mitral Valve Structurally normal mitral valve. Mild MR. Aortic Valve Trileaflet aortic valve. No aortic valve stenosis or regurgitation. Tricuspid Valve Structurally normal tricuspid valve. No tricuspid regurgitation. Pulmonic Valve Pulmonic valve not well visualized. No pulmonic regurgitation. Pericardium Normal pericardium. Aorta Normal size aortic root and proximal ascending aorta. CONCLUSIONS 1. Normal left ventricular size and systolic function 2. Mild mitral regurgitation Lumason ECHO contrast used for improved visualization of the endocardial borders (inadequate visualization of two or more contiguous segments). Previewed by: Dr. Jen Kaiser MD (Electronically Signed) Final Date: 03 June 2023 12:47
[2023-06-03] MEDS: SODIUM CHLORIDE 0.9% 1,000 ML IV SCH ×2 (13:22→23:52)
[2023-06-03 14:31] LABS: ALT 24 U/L (4-34); AST 25 U/L (14-36); African American GFR (CKD) >90 (>60 ml/min/1.73 sqM); Albumin 3.8 g/dL (3.5-5.0); Albumin/Globulin Ratio 1.4; Alkaline Phosphatase 74 U/L (38-126); Anion Gap 9 mmol/L; Blood Urea Nitrogen 13 mg/dL (7-17); Calcium 8.6 mg/dL (8.4-10.2); Carbon Dioxide 22 mmol/L (22-30); Chloride 106 mmol/L (98-107); Globulin 2.8 g/dL; Glucose 180 mg/dL (74-99); Non-African American GFR(CKD) >90 (>60 ml/min/1.73 sqM); Potassium 4.1 mmol/L (3.5-5.1); Sodium 137 mmol/L (137-145); Total Bilirubin 0.4 mg/dL (0.2-1.3); Total Protein 6.6 g/dL (6.3-8.2)
[2023-06-03] MEDS: FLUCONAZOLE IN NACL,ISO-OSM 200 MG in SALINE 1 100ML.BAG IVPB SCH (17:43)
[2023-06-03] MEDS ORDERED: ACETAMINOPHEN TAB 325 MG TAB PO PRN (21:50)
--- NOTE | 2023-06-04 03:28 | PN ---
PROGRESS NOTE SUBJECTIVE: A 47-year-old white female, remains on IV fluconazole. She rash, IV Solu-Medrol for Darier's flare. The patient is improving. Discussed with her CAT scan and echo report. She will go home in the morning. OBJECTIVE: VITAL SIGNS: Blood pressure 120s over 70s to 80s, O2 of 98% on room air, temp 96, respiratory rate 16 to 18, heart rate 67. CARDIOVASCULAR: S1 and S2. LUNGS: Decreased breath sounds. HEMATOLOGY: Negative Homans. PSYCHIATRIC: Fair mood and affect. LABORATORY DATA: Carbon dioxide is down to 22. PLAN: The patient will be discharged home on a prednisone taper with Darier's flare and will follow up as an outpatient. Instructed to take Symbicort inhaler 160/4.5 two puffs b.i.d. Weight loss, for possible Wegovy injections. Please see further orders. Discharge in the morning. MMODL / IJN: [id number] /
[2023-06-04] MEDS: methylPREDNISolone SOD SUCCI 125 MG/2 ML VIAL IV SCH (05:44)
[2023-06-04 08:09] VITALS: BP 142/84; PULSE 54; RESP 20; TEMP 97.9
[2023-06-04] MEDS: CLOTRIMAZOLE 1% CREAM 30 GM TUBE TOPICAL SCH (08:30)
[2023-06-04] MEDS: LORATADINE 10 MG TAB PO SCH (08:30)
[2023-06-04] MEDS ORDERED: FLUCONAZOLE 100 MG TAB PO SCH (09:00)
[2023-06-04] MEDS ORDERED: predniSONE 20 MG TAB PO SCH (09:00)
[2023-06-04 14:05] LABS: ALT 24 U/L (8-44); AST 19 U/L (13-35); Albumin/Globulin Ratio 1.67 Ratio (1.60-3.17); Alkaline Phosphatase 69 U/L (41-126); BUN/Creat Ratio 14.62 Ratio (12.00-20.00); Blood Urea Nitrogen 11.7 mg/dL (9.0-27.0); Carbon Dioxide 24.9 mmol/L (21.6-31.8); Chloride 106 mmol/L (96-109); Globulin 2.4 d/dL (1.6-3.3); Glucose 111 mg/dL (70-110); Potassium 4.4 mmol/L (3.5-5.5); Sodium 142 mmol/L (135-145); Total Bilirubin 0.2 mg/dL (0.3-1.2); Total Protein 6.4 d/dL (6.2-8.2)
== END 2023-06-04 11:05 | disposition home or self-care (01) ==
LOC: EC 07:11 → 6NMEDSUR 07:53
PROVIDERS: ADMIT Family Medicine; ATTEND Family Medicine
DX: Q82.8 Other specified congenital malformations of skin (principal); L03.90 Cellulitis, unspecified; R62.7 Adult failure to thrive; J45.909 Unspecified asthma, uncomplicated; E66.9 Obesity, unspecified; Z79.890 Hormone replacement therapy; Z79.899 Other long term (current) drug therapy; Z88.0 Allergy status to penicillin; Z88.5 Allergy status to narcotic agent; Z88.2 Allergy status to sulfonamides; Z88.1 Allergy status to other antibiotic agents
CPT/HCPCS: 96361; 96366 ×2; 96367; 96376 ×2; 96365; 96375; 99284; 93306; 80053 ×3; 83605; 85025; 87040; 87070; 87205; 87075; 84145; 71250; G0378 ×3; J1100; J2930 ×2; J0696; J1450 ×2; J7512; Q9950

== ENCOUNTER 2023-06-11 00:35 | Emergency (ER) | payer BC ==
[2023-06-11 00:40] VITALS: RESP 18; TEMP 98.1
--- NOTE | 2023-06-11 00:56 | ED ---
General Adult HPI - General Chief complaint: Skin/Abscess/Foreign Body Stated complaint: Infection Time Seen by Provider: 06/11/23 00:41 Source: patient, RN notes reviewed, old records reviewed Mode of arrival: ambulatory Limitations: no limitations - History of Present Illness Initial comments: 47-year-old female for reevaluation of skin irritation and suspected infection. Patient does report pain. No fever. She had been recently admitted and evaluated by infectious disease. She does follow with dermatology. She is currently on oral antibiotics including Keflex and doxycycline. She is on oral steroids as well as Diflucan - Related Data Home Medications Medication Instructions Recorded Confirmed Ibuprofen [Motrin Ib] 400 mg PO Q6H PRN 06/02/23 06/02/23 Loratadine [Claritin] 10 mg PO DAILY 06/02/23 06/02/23 diphenhydrAMINE HCL [Benadryl] 25 mg PO HS 06/02/23 06/02/23 Previous Rx's Medication Instructions Recorded Acetaminophen Tab [Tylenol] 650 mg PO Q6HR PRN tab 06/04/23 Fluconazole [Diflucan] 100 mg PO DAILY 10 Days #10 tab 06/04/23 Sulconazole Nitrate 1 applic TOPICAL BID #60 gram 06/04/23 predniSONE [Deltasone] 40 mg PO DAILY 30 Days #30 tab 06/04/23 Allergies Allergy/AdvReac Type Severity Reaction Status Date / Time valacyclovir [From Valtrex] Allergy Severe Rash/Hives Verified 06/11/23 00:36 Penicillins Allergy Intermediate Itching Verified 06/11/23 00:36 codeine Allergy Swelling Verified 06/11/23 00:36 piperacillin [From Zosyn] Allergy Itching Verified 06/11/23 00:36 sulfamethoxazole Allergy Rash/Hives Verified 06/11/23 00:36 [From Bactrim] tazobactam [From Zosyn] Allergy Itching Verified 06/11/23 00:36 trimethoprim [From Bactrim] Allergy Rash/Hives Verified 06/11/23 00:36 Review of Systems ROS Statement: Those systems with pertinent positive or pertinent negative responses have been documented in the HPI. ROS Other: All systems not noted in ROS Statement are negative. 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 Date of last positivie culture/infection: 01/29/23 MDRO Source:: Right Breast Past Surgical History: Section, Tubal Ligation Past Anesthesia/Blood Transfusion Reactions: No Reported Reaction Past Psychological History: No Psychological Hx Reported Smoking Status: Never smoker Past Alcohol Use History: Rare Past Drug Use History: None Reported - Past Family History Mother Family Medical History: Cancer Additional Family Medical History / Comment(s): Tiffany, Father Family Medical History: No Reported History General Exam Limitations: no limitations General appearance: alert, in no apparent distress Head exam: Present: atraumatic, normocephalic Eye exam: Present: normal appearance ENT exam: Present: normal exam Neck exam: Present: normal inspection Respiratory exam: Absent: respiratory distress Cardiovascular Exam: Present: regular rate, normal rhythm GI/Abdominal exam: Present: soft. Absent: distended Extremities exam: Present: normal inspection Neurological exam: Present: alert, oriented X3, CN II-XII intact. Absent: motor sensory deficit Psychiatric exam: Present: normal affect, normal mood Skin exam: Present: warm, other (Erythema and skin irritation under the bilateral breasts) Course Vital Signs 06/11/23 00:37 Temperature 98.1 F Pulse Rate 66 Respiratory 18 Rate Blood Pressure 139/85 O2 Sat by Pulse 97 Oximetry Medical Decision Making - Medical Decision Making Was pt. sent in by a medical professional or institution ([facility], STONE FABRICATOR, urgent care, hospital, or group home...) When possible be specific @ -No Did you speak to anyone other than the patient for history (EMS, parent, family, police, friend...)? What history was obtained from this source @ -No Did you review nursing and triage notes (agree or disagree)? Why? @ -I reviewed and agree with nursing and triage notes Were old charts reviewed (outside hosp., previous admission, EMS record, old EKG, old radiological studies, urgent care reports/EKG's, group home records)? Report findings @ Reviewed recent infectious disease notes Differential Diagnosis (chest pain, altered mental status, abdominal pain women, abdominal pain men, vaginal bleeding, weakness, fever, dyspnea, syncope, headache, dizziness, GI bleed, back pain, seizure, CVA, palpatations, mental health, musculoskeletal)? @ -Intertrigo, eczema, abscess, cellulitis EKG interpreted by me (3pts min.). @ -As above X-rays interpreted by me (1pt min.). @ -None done CT interpreted by me (1pt min.). @ -None done U/S interpreted by me (1pt. min.). @ -None done What testing was considered but not performed or refused? (CT, X-rays, U/S, labs)? Why? @ -None What meds were considered but not given or refused? Why? @ -None Did you discuss the management of the patient with other professionals (professionals i.e. , PA, STONE FABRICATOR, lab, RT, psych nurse, manager social services, rope laying machine operator, teacher, deportation officer, disease case manager)? Give summary @ -No Was smoking cessation discussed for >3mins.? @ -No Was critical care preformed (if so, how long)? @ -No Were there social determinants of health that impacted care today? How? (Homelessness, low income, unemployed, alcoholism, drug addiction, transportation, low edu. Level, literacy, decrease access to med. care, prison, re hab)? @ -No Was there de-escalation of care discussed even if they declined (Discuss DNR or withdrawal of care, Hospice)? DNR status @ -No What co-morbidities impacted this encounter? (DM, HTN, Smoking, COPD, CAD, Cancer, CVA, ARF, Chemo, Hep., AIDS, mental health diagnosis, sleep apnea, morbid obesity)? @ -None Was patient admitted / discharged? Hospital course, mention meds given and route, prescriptions, significant lab abnormalities, going to OR and other pertinent info. @ 47-year-old female presents for evaluation skin irritation. There is no induration, no drainage, the skin is erythematous with combination of eczema and intertrigo. Patient afebrile non-tachycardic. I do feel she is stable for continued outpatient evaluation treatment. Will add nystatin powder in the patient is instructed to elevate the breasts and encourage airflow. Undiagnosed new problem with uncertain prognosis? @ -No Drug Therapy requiring intensive monitoring for toxicity (Heparin, Nitro, Insulin, Cardizem)? @ -No Were any procedures done? @ -No Diagnosis/symptom? @ -Intertrigo Acute, or Chronic, or Acute on Chronic? @ Chronic Uncomplicated (without systemic symptoms) or Complicated (systemic symptoms)? @ -default Side effects of treatment? @ -No Exacerbation, Progression, or Severe Exacerbation? @ -No Poses a threat to life or bodily function? How? (Chest pain, [place], [place], pneumonia, PE, COPD, DKA, ARF, appy, cholecystitis, CVA, Diverticulitis, Homicidal, Suicidal, threat to staff... and all critical care pts) @ -No Disposition Clinical Impression: Darier disease, Intertriginous candidiasis Disposition: HOME SELF-CARE Condition: Fair Instructions (If sedation given, give patient instructions): Skin Yeast Infection (ED) Is patient prescribed a controlled substance at d/c from ED?: No Referrals: Hever Duarte MD [Primary Care Provider] - 1-2 days Time of Disposition: 00:56
[2023-06-11] MEDS ORDERED: NYSTATIN 100,000 UNIT/GM POWD 15 GM TOPICAL SCH (01:00)
[2023-06-11 01:25] VITALS: BP 154/90; PULSE 56
== END 2023-06-11 01:38 | disposition home or self-care (01) ==
LOC: EC 00:35
DX: B37.2 Candidiasis of skin and nail (principal); Q82.8 Other specified congenital malformations of skin; J45.909 Unspecified asthma, uncomplicated; Z88.0 Allergy status to penicillin; Z88.5 Allergy status to narcotic agent; Z88.1 Allergy status to other antibiotic agents; Z88.2 Allergy status to sulfonamides; Z88.8 Allergy status to other drugs, medicaments and biological substances
CPT/HCPCS: 99283

== ENCOUNTER 2023-06-13 09:01 | Emergency (ER) | payer BC ==
[2023-06-13 09:08] VITALS: TEMP 98.5
[2023-06-13] MEDS ORDERED: KETOROLAC 15 MG/ML 1 ML VIAL IVP STA (09:21)
--- NOTE | 2023-06-13 09:37 | ED ---
General Adult HPI - General Chief complaint: Skin/Abscess/Foreign Body Stated complaint: rash Time Seen by Provider: 06/13/23 09:15 Source: patient, RN notes reviewed Mode of arrival: ambulatory Limitations: no limitations - History of Present Illness Initial comments: Patient is a pleasant 47-year-old female presenting to the emergency department with concern for her rash. Patient states symptoms have been occurring for the past couple weeks. Patient is still having discomfort and feels it is getting worse. Patient is on multiple antibiotics. Patient has been recently hospitalized for this. Area of rash is in the groin and left side of trunk, mostly under the breast - Related Data Home Medications Medication Instructions Recorded Confirmed Ibuprofen [Motrin Ib] 400 mg PO Q6H PRN 06/02/23 06/02/23 Loratadine [Claritin] 10 mg PO DAILY 06/02/23 06/02/23 diphenhydrAMINE HCL [Benadryl] 25 mg PO HS 06/02/23 06/02/23 Previous Rx's Medication Instructions Recorded Acetaminophen Tab [Tylenol] 650 mg PO Q6HR PRN tab 06/04/23 Fluconazole [Diflucan] 100 mg PO DAILY 10 Days #10 tab 06/04/23 Sulconazole Nitrate 1 applic TOPICAL BID #60 gram 06/04/23 predniSONE [Deltasone] 40 mg PO DAILY 30 Days #30 tab 06/04/23 Allergies Allergy/AdvReac Type Severity Reaction Status Date / Time valacyclovir [From Valtrex] Allergy Severe Rash/Hives Verified 06/13/23 09:08 Penicillins Allergy Intermediate Itching Verified 06/13/23 09:08 codeine Allergy Swelling Verified 06/13/23 09:08 piperacillin [From Zosyn] Allergy Itching Verified 06/13/23 09:08 sulfamethoxazole Allergy Rash/Hives Verified 06/13/23 09:08 [From Bactrim] tazobactam [From Zosyn] Allergy Itching Verified 06/13/23 09:08 trimethoprim [From Bactrim] Allergy Rash/Hives Verified 06/13/23 09:08 Review of Systems ROS Statement: Those systems with pertinent positive or pertinent negative responses have been documented in the HPI. ROS Other: All systems not noted in ROS Statement are negative. 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 Date of last positivie culture/infection: 01/29/23 MDRO Source:: Right Breast Past Surgical History: Section, Tubal Ligation Past Anesthesia/Blood Transfusion Reactions: No Reported Reaction Past Psychological History: No Psychological Hx Reported Smoking Status: Never smoker Past Alcohol Use History: Rare Past Drug Use History: None Reported - Past Family History Mother Family Medical History: Cancer Additional Family Medical History / Comment(s): Tiffany, Father Family Medical History: No Reported History General Exam Limitations: no limitations General appearance: alert, in no apparent distress Head exam: Present: normocephalic Eye exam: Present: normal appearance Neck exam: Present: normal inspection Respiratory exam: Present: normal lung sounds bilaterally Cardiovascular Exam: Present: regular rate, normal rhythm GI/Abdominal exam: Present: soft. Absent: tenderness Neurological exam: Present: alert Psychiatric exam: Present: normal affect, normal mood Skin exam: Present: rash (Patient has erythematous scaly rash underneath both breasts, more so on the left and somewhat left abdomen as well. There is also some the groin. Patient has rash covered with Desitin that she apply just prior to arrival) Course Vital Signs 06/13/23 06/13/23 09:05 10:00 Temperature 98.5 F Pulse Rate 87 61 Respiratory 22 15 Rate Blood Pressure 139/93 150/94 O2 Sat by Pulse 95 94 L Oximetry EKG Findings - EKG Results: EKG: interpreted by ERMD (([place] left), sinus rhythm, normal axis, normal QRS, normal ST/T Medical Decision Making - Medical Decision Making Was pt. sent in by a medical professional or institution (, PA, MEAT APPRENTICE, urgent care, hospital, or jail...) When possible be specific @ -No Did you speak to anyone other than the patient for history (EMS, parent, family, police, friend...)? What history was obtained from this source @ -No Did you review nursing and triage notes (agree or disagree)? Why? @ -I reviewed and agree with nursing and triage notes Were old charts reviewed (outside hosp., previous admission, EMS record, old EKG, old radiological studies, urgent care reports/EKG's, jail records)? Report findings @ -Previous culture results reviewed Differential Diagnosis (chest pain, altered mental status, abdominal pain women, abdominal pain men, vaginal bleeding, weakness, fever, dyspnea, syncope, headache, dizziness, GI bleed, back pain, seizure, CVA, palpatations, mental he alth, musculoskeletal)? @ -Differential Fever: Pneumonia, viral URI, endocarditis, myocarditis, pericarditis, otitis, sinusitis, peritonsillar Abscess, retropharyngeal Abscess, epiglottitis, peritonitis, appendicitis, Yadira cystitis, diverticulitis, hepatitis, colitis, UTI, PID, TOA, pyelonephritis, prostatitis, epididymitis, meningitis, encephalitis, pulmonary embolism, CVA, thyroid storm, pancreatitis, adrenal crisis, cavernous sinus thrombosis, this is not meant to be an all-inclusive list. EKG interpreted by me (3pts min.). @ -As above X-rays interpreted by me (1pt min.). @ -None done CT interpreted by me (1pt min.). @ -None done U/S interpreted by me (1pt. min.). @ -None done What testing was considered but not performed or refused? (CT, X-rays, U/S, labs)? Why? @ -None What meds were considered but not given or refused? Why? @ -Considered antibiotics, see below Did you discuss the management of the patient with other professionals (professionals i.e. , PA, MEAT APPRENTICE, lab, RT, psych nurse, social media marketing analyst, fruit worker, teacher, air support control officer, embedded case manager)? Give summary @ -Case was discussed in detail with Dr. Alvarado who is familiar with this patient. He did recently evaluation of this patient does not feel there is acute infection. Cultures reviewed with him. He does not recommend admission or further antibiotics. He does recommend following with dermatology. He does add patient is currently on steroids. Labs also reviewed with him. Was smoking cessation discussed for >3mins.? @ -No Was critical care preformed (if so, how long)? @ -No Were there social determinants of health that impacted care today? How? (Homelessness, low income, unemployed, alcoholism, drug addiction, transportation, low edu. Level, literacy, decrease access to med. care, [facility], rehab)? @ -No Was there de-escalation of care discussed even if they declined (Discuss DNR or withdrawal of care, Hospice)? DNR status @ -No What co-morbidities impacted this encounter? (DM, HTN, Smoking, COPD, CAD, Cancer, CVA, ARF, Chemo, Hep., AIDS, mental health diagnosis, sleep apnea, morbid obesity)? @ -None Was patient admitted / discharged? Hospital course, mention meds given and route, prescriptions, significant lab abnormalities, going to OR and other pertinent info. @ -Patient reevaluated and is feeling somewhat better. Patient is updated on results and plan. Undiagnosed new problem with uncertain prognosis? @ -No Drug Therapy requiring intensive monitoring for toxicity (Heparin, Nitro, Insulin, Cardizem)? @ -No Were any procedures done? @ -No Diagnosis/symptom? @ -Darier's disease Acute, or Chronic, or Acute on Chronic? @ -Acute on chronic Uncomplicated (without systemic symptoms) or Complicated (systemic symptoms)? @ -default Side effects of treatment? @ -No Exacerbation, Progression, or Severe Exacerbation? @ -No Poses a threat to life or bodily function? How? (Chest pain, [place], [place], pneumonia, PE, COPD, DKA, ARF, appy, cholecystitis, CVA, Diverticulitis, Homicidal, Suicidal, threat to staff... and all critical care pts) @ -No - Lab Data Result diagrams: 06/13/23 09:47 06/13/23 09:47 Lab Results 06/13/23 06/13/23 06/13/23 Range/Units 09:47 09:47 09:47 WBC 12.7 H (3.8-10.6) k/uL RBC 4.46 (3.80-5.40) m/uL Hgb 13.7 (11.4-16.0) gm/dL Hct 39.9 (34.0-46.0) % MCV 89.4 (80.0-100.0) fL MCH 30.8 (25.0-35.0) pg MCHC 34.5 (31.0-37.0) g/dL RDW 13.6 (11.5-15.5) % Plt Count 261 (150-450) k/uL MPV 6.8 Neutrophils % 83 % Lymphocytes % 13 % Monocytes % 3 % Eosinophils % 0 % Basophils % 0 % Neutrophils # 10.5 H (1.3-7.7) k/uL Lymphocytes # 1.7 (1.0-4.8) k/uL Monocytes # 0.4 (0-1.0) k/uL Eosinophils # 0.1 (0-0.7) k/uL Basophils # 0.0 (0-0.2) k/uL Sodium 136 L (137-145) mmol/L Potassium 3.9 (3.5-5.1) mmol/L Chloride 103 (98-107) mmol/L Carbon Dioxide 24 (22-30) mmol/L Anion Gap 9 mmol/L BUN 23 H (7-17) mg/dL Creatinine 0.85 (0.52-1.04) mg/dL Est GFR (CKD-EPI)AfAm >90 (>60 ml/min/1.73 sqM) Est GFR (CKD-EPI)NonAf 82 (>60 ml/min/1.73 sqM) Glucose 124 H (74-99) mg/dL Plasma Lactic Acid Esteban 2.6 H* (0.7-2.0) mmol/L Calcium 8.3 L (8.4-10.2) mg/dL Total Bilirubin 0.6 (0.2-1.3) mg/dL AST 36 (14-36) U/L ALT 62 H (4-34) U/L Alkaline Phosphatase 48 (38-126) U/L Total Protein 6.1 L (6.3-8.2) g/dL Albumin 3.6 (3.5-5.0) g/dL Disposition Clinical Impression: Darier disease Disposition: HOME SELF-CARE Condition: Stable Additional Instructions: Please do follow-up to primary care physician as well as traffic supervisor in the next couple days for recheck. Return for fever, increased pain or rash, worsening symptoms or other concerns. Is patient prescribed a controlled substance at d/c from ED?: No Referrals: Hever Duarte MD [Primary Care Provider] - 1-2 days Jim Milan MD [STAFF PHYSICIAN] - 1-2 days Time of Disposition: 11:19
[2023-06-13 09:57] LABS: Basophils % (A) 0 %; Eosinophils # (A) 0.1 k/uL (0-0.7); Eosinophils % (A) 0 %; HCT 39.9 % (34.0-46.0); HGB 13.7 gm/dL (11.4-16.0); Lymphocytes # (A) 1.7 k/uL (1.0-4.8); Lymphocytes % (A) 13 %; MCH 30.8 pg (25.0-35.0); MCHC 34.5 g/dL (31.0-37.0); MCV 89.4 fL (80.0-100.0); Mean Platelet Volume 6.8; Monocytes # (A) 0.4 k/uL (0-1.0); Monocytes % (A) 3 %; Neutrophils # (A) 10.5 k/uL (1.3-7.7); Neutrophils % (A) 83 %; Platelet Count 261 k/uL (150-450); RBC 4.46 m/uL (3.80-5.40); RDW 13.6 % (11.5-15.5); WBC 12.7 k/uL (3.8-10.6)
[2023-06-13 10:11] LABS: ALT 62 U/L (4-34); AST 36 U/L (14-36); African American GFR (CKD) >90 (>60 ml/min/1.73 sqM); Albumin 3.6 g/dL (3.5-5.0); Alkaline Phosphatase 48 U/L (38-126); Anion Gap 9 mmol/L; Blood Urea Nitrogen 23 mg/dL (7-17); Calcium 8.3 mg/dL (8.4-10.2); Carbon Dioxide 24 mmol/L (22-30); Chloride 103 mmol/L (98-107); Glucose 124 mg/dL (74-99); Non-African American GFR(CKD) 82 (>60 ml/min/1.73 sqM); Potassium 3.9 mmol/L (3.5-5.1); Sodium 136 mmol/L (137-145); Total Bilirubin 0.6 mg/dL (0.2-1.3); Total Protein 6.1 g/dL (6.3-8.2)
[2023-06-13 10:43] VITALS: PULSE 61
[2023-06-13 11:53] VITALS: BP 145/80; RESP 18
== END 2023-06-13 11:53 | disposition home or self-care (01) ==
LOC: EC 09:01
DX: Q82.8 Other specified congenital malformations of skin (principal); J45.909 Unspecified asthma, uncomplicated; Z88.0 Allergy status to penicillin; Z88.5 Allergy status to narcotic agent; Z88.2 Allergy status to sulfonamides; Z88.6 Allergy status to analgesic agent; Z88.8 Allergy status to other drugs, medicaments and biological substances; Z88.1 Allergy status to other antibiotic agents
CPT/HCPCS: 36415; 93005; 80053; 83605; 85025; 87040; 99284; 96374; J1885

== ENCOUNTER 2023-06-13 13:28 | Observation (INO) | payer BC ==
[2023-06-13] MEDS ORDERED: NALOXONE 0.4 MG/ML 1 ML VIAL IV PRN (14:29)
[2023-06-13] MEDS ORDERED: MORPHINE SULFATE 4 MG/ML SYRINGE IV PRN (14:29)
[2023-06-13] MEDS ORDERED: ACETAMINOPHEN TAB 325 MG TAB PO PRN (14:29)
--- NOTE | 2023-06-13 14:29 | ED ---
General Adult HPI - General Chief complaint: Recheck/Abnormal Lab/Rx Stated complaint: rash Time Seen by Provider: 06/13/23 13:45 Source: patient, RN notes reviewed, old records reviewed Mode of arrival: ambulatory Limitations: no limitations - History of Present Illness Initial comments: Patient is a pleasant 47-year-old female returning emergency Department with continued pain. 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 Patient has been in the hospital recently for this. Patient was in the emergency department earlier today and released. Patient states her pain has worsened since that time. Patient states she talked her doctor who recommended she come to the hospital to be admitted. Otherwise symptoms are similar. - Related Data Home Medications Medication Instructions Recorded Confirmed Ibuprofen [Motrin Ib] 400 mg PO Q6H PRN 06/02/23 06/02/23 Loratadine [Claritin] 10 mg PO DAILY 06/02/23 06/02/23 diphenhydrAMINE HCL [Benadryl] 25 mg PO HS 06/02/23 06/02/23 Previous Rx's Medication Instructions Recorded Acetaminophen Tab [Tylenol] 650 mg PO Q6HR PRN tab 06/04/23 Fluconazole [Diflucan] 100 mg PO DAILY 10 Days #10 tab 06/04/23 Sulconazole Nitrate 1 applic TOPICAL BID #60 gram 06/04/23 predniSONE [Deltasone] 40 mg PO DAILY 30 Days #30 tab 06/04/23 Ketorolac [Toradol] 10 mg PO Q6HR PRN #12 tab 06/13/23 Allergies Allergy/AdvReac Type Severity Reaction Status Date / Time valacyclovir [From Valtrex] Allergy Severe Rash/Hives Verified 06/13/23 09:08 Penicillins Allergy Intermediate Itching Verified 06/13/23 09:08 codeine Allergy Swelling Verified 06/13/23 09:08 piperacillin [From Zosyn] Allergy Itching Verified 06/13/23 09:08 sulfamethoxazole Allergy Rash/Hives Verified 06/13/23 09:08 [From Bactrim] tazobactam [From Zosyn] Allergy Itching Verified 06/13/23 09:08 trimethoprim [From Bactrim] Allergy Rash/Hives Verified 06/13/23 09:08 Review of Systems ROS Statement: Those systems with pertinent positive or pertinent negative responses have been documented in the HPI. ROS Other: All systems not noted in ROS Statement are negative. Constitutional: Denies: fever Eyes: Denies: eye pain ENT: Denies: ear pain Skin: Reports: as per HPI, rash 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 Date of last positivie culture/infection: 01/29/23 MDRO Source:: Right Breast Past Surgical History: Section, Tubal Ligation Past Anesthesia/Blood Transfusion Reactions: No Reported Reaction Past Psychological History: No Psychological Hx Reported Smoking Status: Never smoker Past Alcohol Use History: Rare Past Drug Use History: None Reported - Past Family History Mother Family Medical History: Cancer Additional Family Medical History / Comment(s): Tiffany, Father Family Medical History: No Reported History General Exam Limitations: no limitations General appearance: alert, in no apparent distress Head exam: Present: atraumatic Eye exam: Present: normal appearance Respiratory exam: Present: normal lung sounds bilaterally Cardiovascular Exam: Present: regular rate, normal rhythm GI/Abdominal exam: Present: soft. Absent: tenderness Extremities exam: Present: normal inspection Neurological exam: Present: alert Skin exam: Present: rash (Patient does have erythematous patches with plaque formation under bilateral breast and left trunk anteriorly as well as) Course Vital Signs 06/13/23 13:32 Temperature 98.4 F Pulse Rate 74 Respiratory 22 Rate Blood Pressure 156/90 O2 Sat by Pulse 97 Oximetry Medical Decision Making - Medical Decision Making Was pt. sent in by a medical professional or institution (, PA, OVER THE [employer] T[employer]ING SUPERVISOR, urgent care, hospital, or skilled nursing...) When possible be specific @ -Patient was reportedly sent in by her primary care physician Dr. Garcia Did you speak to anyone other than the patient for history (EMS, parent, family, police, friend...)? What history was obtained from this source @ -No Did you review nursing and triage notes (agree or disagree)? Why? @ -I reviewed and agree with nursing and triage notes Were old charts reviewed (outside hosp., previous admission, EMS record, old EKG, old radiological studies, urgent care reports/EKG's, skilled nursing records)? Report findings @ -No old charts were reviewed Differential Diagnosis (chest pain, altered mental status, abdominal pain women, abdominal pain men, vaginal bleeding, weakness, fever, dyspnea, syncope, headache, dizziness, GI bleed, back pain, seizure, CVA, palpatations, mental health, musculoskeletal)? @ -Differential Abdominal Pain Women: Appendicitis, Cholecystitis, diverticulosis, ischemic bowel, pancreatitis, hepatitis, UTI, gastroenteritis, AAA, incarcerated hernia, bowel obstruction, constipation, inflammatory bowel, hepatitis, peptic ulcer disease, splenic infarction, perforated viscus, vulvitis, ovarian torsion, PID, kidney stone, placenta abruption, this is not meant to be an all-inclusive list EKG interpreted by me (3pts min.). @ -As above X-rays interpreted by me (1pt min.). @ -None done CT interpreted by me (1pt min.). @ -None done U/S interpreted by me (1pt. min.). @ -None done What testing was considered but not performed or refused? (CT, X-rays, U/S, labs)? Why? @ -None What meds were considered but not given or refused? Why? @ -None Did you discuss the management of the patient with other professionals (professionals i.e. , PA, OVER [employer] T[employer]ING SUPERVISOR, lab, RT, psych nurse, social media specialist, box truck driver, teacher, occupational medicine officer, corrections caseworker)? Give summary @ -Case was discussed with Dr. Duarte who is familiar with this patient and will admit. He does request IV steroid and consult with Dr. Alvarado Was smoking cessation discussed for >3mins.? @ -No Was critical care preformed (if so, how long)? @ -No Were there social determinants of health that impacted care today? How? (Homelessness, low income, unemployed, alcoholism, drug addiction, transportation, low edu. Level, literacy, decrease access to med. care, fdc, rehab)? @ -No Was there de-escalation of care discussed even if they declined (Discuss DNR or withdrawal of care, Hospice)? DNR status @ -No What co-morbidities impacted this encounter? (DM, HTN, Smoking, COPD, CAD, Cancer, CVA, ARF, Chemo, Hep., AIDS, mental health diagnosis, sleep apnea, morbid obesity)? @ -None Was patient admitted / discharged? Hospital course, mention meds given and route, prescriptions, significant lab abnormalities, going to OR and other pertinent info. @ -Patient will be admitted. Admission orders written. Undiagnosed new problem with uncertain prognosis? @ -No Drug Therapy requiring intensive monitoring for toxicity (Heparin, Nitro, Insulin, Cardizem)? @ -No Were any procedures done? @ -No Diagnosis/symptom? @ -Darier's disease Acute, or Chronic, or Acute on Chronic? @ -Acute on chronic Uncomplicated (without systemic symptoms) or Complicated (systemic symptoms)? @ -default Side effects of treatment? @ -No Exacerbation, Progression, or Severe Exacerbation? @ -No Poses a threat to life or bodily function? How? (Chest pain, USA, VT, pneumonia, PE, COPD, DKA, ARF, appy, cholecystitis, CVA, Diverticulitis, Homicidal, Suicidal, threat to staff... and all critical care pts) @ -No Disposition Clinical Impression: Darier disease Disposition: ADMITTED IP TO THIS HOSP Is patient prescribed a controlled substance at d/c from ED?: No Referrals: Hever Duarte MD [Primary Care Provider] - 1-2 days Time of Disposition: 14:29
[2023-06-13 15:00] LABS: Basophils % (A) 0 %; Eosinophils # (A) 0.1 k/uL (0-0.7); Eosinophils % (A) 0 %; HCT 41.8 % (34.0-46.0); HGB 14.1 gm/dL (11.4-16.0); Lymphocytes # (A) 1.4 k/uL (1.0-4.8); Lymphocytes % (A) 9 %; MCH 30.4 pg (25.0-35.0); MCHC 33.8 g/dL (31.0-37.0); MCV 90.1 fL (80.0-100.0); Mean Platelet Volume 6.9; Monocytes # (A) 0.5 k/uL (0-1.0); Monocytes % (A) 3 %; Neutrophils # (A) 14.1 k/uL (1.3-7.7); Neutrophils % (A) 88 %; Platelet Count 274 k/uL (150-450); RBC 4.65 m/uL (3.80-5.40); RDW 13.7 % (11.5-15.5); WBC 16.1 k/uL (3.8-10.6)
[2023-06-13 15:12] LABS: ALT 70 U/L (4-34); AST 34 U/L (14-36); African American GFR (CKD) >90 (>60 ml/min/1.73 sqM); Albumin 3.8 g/dL (3.5-5.0); Alkaline Phosphatase 58 U/L (38-126); Anion Gap 9 mmol/L; Blood Urea Nitrogen 24 mg/dL (7-17); Calcium 8.8 mg/dL (8.4-10.2); Carbon Dioxide 28 mmol/L (22-30); Chloride 100 mmol/L (98-107); Glucose 97 mg/dL (74-99); Non-African American GFR(CKD) 79 (>60 ml/min/1.73 sqM); Potassium 4.6 mmol/L (3.5-5.1); Sodium 137 mmol/L (137-145); Total Bilirubin 0.5 mg/dL (0.2-1.3); Total Protein 6.5 g/dL (6.3-8.2)
[2023-06-13] MEDS ORDERED: ETODOLAC 400 MG TAB PO PRN (16:41)
--- NOTE | 2023-06-13 18:21 | P.HPIM ---
History of Present Illness H&P Date: 06/13/23 Chief Complaint: Increasing skin infection This is a 47-year-old patient who follows with Dr. Hever Duarte. Patient was recently discharged from the hospital June 04. She has known significantDariers disease/eczema, with recurrent soft tissue infection. She was in the hospital from June 02 through June 04. It is getting worse at that time. She was seen also by the apartment maintenance worker outpatient and treated with doxycycline for 3 weeks. And then presented last him to the hospital for worsening symptoms. This is present below the breast and in the groin area contiguous areas. Patient was discharged on steroids. Diflucan. And topical nystatin. Patient now presents with worsening maceration below the breast in the groin area. Especially below the left breast. Significant secretions. No fever no chills. Increasing pain. Patient was here in the ER on June 11 and also earlier this morning. Later patient called Dr. Hever Duarte and who admitted the patient. Dr. Mead has been consulted. Appetite good. No change in bowel pattern. Patient does use antibacterial soap in that area. Review of systems: GEN.: None EYES: None HEENT: None NECK: None RESPIRATORY: None CARDIOVASCULAR: None GASTROINTESTINAL: None GENITOURINARY: None MUSCULOSKELETAL: None LYMPHATICS: None HEMATOLOGICAL: None PSYCHIATRY: None NEUROLOGICAL: None DERMATOLOGICAL: As above Past medical history to include: Asthma, dariers disease, eczema, obesity Social history: Lives with her . Nonsmoker. Alcohol rarely. Physical examination: VITAL SIGNS: 98, 50, 16, 137/83, 98% room air GENERAL: BMI 41, reclining but awake but in distress. EYES: Pupils equal. Conjunctiva normal. HEENT: External appearance of nose and ears normal, oral cavity grossly normal. NECK: JVD not raised; masses not palpable. HEART: First and second heart sounds are normal; no edema. LUNGS: Respiratory rate normal; clear to auscultation. ABDOMEN: Soft, nontender, liver spleen not palpable, no masses palpable. PSYCH: Alert and oriented x3; mood and affect normal. MUSCULOSKELETAL:No Clubbing/cyanosis;muscles-grossly intact NEUROLOGICAL: Cranial nerves grossly intact; no facial asymmetry, power and sensation grossly intact. LYMPHATICS: No lymph nodes palpable in the axilla and neck DERMATOLOGICAL: Multiple skin lockett around the body. Patient was seen in the presence of nurse Tamezdith as a trout farmer. Any of of right discoloration with nystatin powder mixed especially below the left breast and in the groin area. Strong order. INVESTIGATIONS, reviewed in the clinical context: White count 16.1 hemoglobin 14.1 platelets 274 sodium 137 potassium 4.6 BUN 24 creatinine 0.88 CRP less than 0.5 assessment and plan: -Increasing candidiasis in the adjoining area in the contiguous areas in the breast in the groin. Nystatin powder. Keep area dry. ID consulted. Patient has been on steroids per ID. -Leukocytosis from patient being on steroids -Morbid obesity BMI 41 Weight loss measures -Tiffany, disease Patient does follow with apartment maintenance worker outpatient. Continue home medications. Discussed with patient. ID consulted. Past Medical History Past Medical History: Asthma, Skin Disorder Additional Past Medical History / Comment(s): Tiffany disease, eczema, heart murmur History of Any Multi-Drug Resistant Organisms: MRSA Date of last positivie culture/infection: 01/29/23 MDRO Source:: Right Breast Past Surgical History: Section, Tubal Ligation Past Anesthesia/Blood Transfusion Reactions: No Reported Reaction Past Psychological History: No Psychological Hx Reported Smoking Status: Never smoker Past Alcohol Use History: Rare Past Drug Use History: None Reported - Past Family History Mother Family Medical History: Cancer Additional Family Medical History / Comment(s): Tiffany, Father Family Medical History: No Reported History Medications and Allergies Home Medications Medication Instructions Recorded Confirmed Type Ibuprofen [Motrin Ib] 400 mg PO Q6H PRN 06/02/23 06/13/23 History Loratadine [Claritin] 10 mg PO DAILY 06/02/23 06/13/23 History diphenhydrAMINE HCL [Benadryl] 25 mg PO HS 06/02/23 06/13/23 History Acetaminophen Tab [Tylenol] 650 mg PO Q6HR PRN tab 06/04/23 06/13/23 Rx Fluconazole [Diflucan] 100 mg PO DAILY 10 Days #10 tab 06/04/23 06/13/23 Rx Sulconazole Nitrate 1 applic TOPICAL BID #60 gram 06/04/23 06/13/23 Rx predniSONE [Deltasone] 40 mg PO DAILY 30 Days #30 tab 06/04/23 06/13/23 Rx Ketorolac [Toradol] 10 mg PO Q6HR PRN #12 tab 06/13/23 06/13/23 Rx Allergies Allergy/AdvReac Type Severity Reaction Status Date / Time valacyclovir [From Valtrex] Allergy Severe Rash/Hives Verified 06/13/23 14:32 Penicillins Allergy Intermediate Itching Verified 06/13/23 14:32 codeine Allergy Swelling Verified 06/13/23 14:32 piperacillin [From Zosyn] Allergy Itching Verified 06/13/23 14:32 sulfamethoxazole Allergy Rash/Hives Verified 06/13/23 14:32 [From Bactrim] tazobactam [From Zosyn] Allergy Itching Verified 06/13/23 14:32 trimethoprim [From Bactrim] Allergy Rash/Hives Verified 06/13/23 14:32 Physical Exam Vitals: Vital Signs Temp Pulse Pulse Resp BP BP Pulse Ox 06/13/23 16:45 98.0 F 50 L 16 137/83 98 06/13/23 16:26 98 F 52 L 18 142/85 98 06/13/23 13:32 98.4 F 74 22 156/90 97 Intake and Output 06/13/23 06/13/23 06/13/23 06:59 14:59 22:59 Other: Weight 118.841 kg Results CBC & Chem 7: 06/13/23 14:43 06/13/23 14:43 Labs: Abnormal Lab Results - Last 24 Hours (Table) 06/13/23 06/13/23 Range/Units 14:43 14:43 WBC 16.1 H (3.8-10.6) k/uL Neutrophils # 14.1 H (1.3-7.7) k/uL BUN 24 H (7-17) mg/dL ALT 70 H (4-34) U/L
[2023-06-13] MEDS: diphenhydrAMINE 25 MG CAP PO SCH (20:46)
[2023-06-13] MEDS: CLOTRIMAZOLE 1% CREAM 30 GM TUBE TOPICAL SCH (20:46)
[2023-06-13] MEDS: traMADol 50 MG TAB PO PRN (20:51)
[2023-06-14] MEDS: traMADol 50 MG TAB PO PRN ×3 (03:19→21:48)
[2023-06-14] MEDS: LORATADINE 10 MG TAB PO SCH (08:24)
[2023-06-14] MEDS: CLOTRIMAZOLE 1% CREAM 30 GM TUBE TOPICAL SCH ×2 (08:24→21:45)
[2023-06-14] MEDS ORDERED: predniSONE 20 MG TAB PO SCH (09:00)
[2023-06-14 10:46] LABS: Basophils # (A) 0.03 X 10*3/uL (0.00-0.10); Basophils % (A) 0.2 %; Eosinophils # (A) 0.04 X 10*3/uL (0.04-0.35); Eosinophils % (A) 0.2 %; HCT 39.1 % (37.2-46.3); HGB 12.8 d/dL (12.0-15.0); Lymphocytes # (A) 2.93 X 10*3/uL (0.90-5.00); Lymphocytes % (A) 17.3 %; MCH 29.8 pg (27.0-32.0); MCHC 32.7 d/dL (32.0-37.0); MCV 90.9 FL (80.0-97.0); Mean Platelet Volume 8.4 FL (9.5-12.2); Monocytes # (A) 1.18 X 10*3/uL (0.20-1.00); Monocytes % (A) 6.9 %; NRBC Per 100 WBC 0 X 10*3/uL (0.00-0.01); Neutrophils # (A) 12.56 X 10*3/uL (1.80-7.70); Platelet Count 261 X 10*3/uL (140-440); RDW 13.6 % (11.5-14.5); WBC 16.98 X 10*3/uL (4.50-10.00)
[2023-06-14 11:55] LABS: BUN/Creat Ratio 27.88 Ratio (12.00-20.00); Blood Urea Nitrogen 22.3 mg/dL (9.0-27.0); Glucose 80 mg/dL (70-110)
[2023-06-14 11:56] LABS: ALT 52 U/L (8-44); AST 20 U/L (13-35); Albumin 3.7 d/dL (3.8-4.9); Albumin/Globulin Ratio 1.85 Ratio (1.60-3.17); Alkaline Phosphatase 54 U/L (41-126); Calcium 8.7 mg/dL (8.7-10.3); Carbon Dioxide 26.7 mmol/L (21.6-31.8); Chloride 102 mmol/L (96-109); Potassium 4.5 mmol/L (3.5-5.5); Sodium 138 mmol/L (135-145); Total Bilirubin 0.3 mg/dL (0.3-1.2); Total Protein 5.7 d/dL (6.2-8.2)
--- NOTE | 2023-06-14 14:42 | P.PN ---
Progress Note - Text Progress Note Date: 06/14/23 Chief Complaint: Increasing skin infection This is a 47-year-old patient who follows with Dr. Hever Duarte. Patient was recently discharged from the hospital June 04. She has known significantDariers disease/eczema, with recurrent soft tissue infection. She was in the hospital from June 02 through June 04. It is getting worse at that time. She was seen also by the distributed generation project manager outpatient and treated with doxycycline for 3 weeks. And then presented last him to the hospital for worsening symptoms. This is present below the breast and in the groin area contiguous areas. Patient was discharged on steroids. Diflucan. And topical nystatin. Patient now presents with worsening maceration below the breast in the groin area. Especially below the left breast. Significant secretions. No fever no chills. Increasing pain. Patient was here in the ER on June 11 and also earlier this morning. Later patient called Dr. Hever Duarte and who admitted the patient. Dr. Mead has been consulted. Appetite good. No change in bowel pattern. Patient does use antibacterial soap in that area. 06/14/2023: Sitting up in a chair. Still having discharge from the skin lesions. Pain is controlled. Further input per Dr. Mead from [place] who patient is well-known. Active Medications Acetaminophen (Acetaminophen Tab 325 Mg Tab) 650 mg PO Q6HR PRN PRN Reason: Mild Pain or Fever > 100.5 Clotrimazole (Clotrimazole 1% Cream 30 Gm Tube) 1 applic TOPICAL BID [facility] Last Admin: 06/14/23 08:24 Dose: 1 applic Diphenhydramine HCl (Diphenhydramine 25 Mg Cap) 25 mg PO HS [facility] Last Admin: 06/13/23 20:46 Dose: 25 mg Etodolac (Etodolac 400 Mg Tab) 400 mg PO TID PRN PRN Reason: Pain Loratadine (Loratadine 10 Mg Tab) 10 mg PO DAILY [facility] Last Admin: 06/14/23 08:24 Dose: 10 mg Morphine Sulfate (Morphine Sulfate 4 Mg/Ml Syringe) 4 mg IV Q4HR PRN PRN Reason: Severe Pain (Scale 7 to 10) Last Admin: 06/13/23 14:55 Dose: 4 mg Naloxone HCl (Naloxone 0.4 Mg/Ml 1 Ml Vial) 0.2 mg IV Q2M PRN PRN Reason: Opioid Reversal Prednisone (Prednisone 20 Mg Tab) 40 mg PO DAILY [facility] Last Admin: 06/14/23 08:24 Dose: 40 mg Tramadol HCl (Tramadol 50 Mg Tab) 50 mg PO Q6H PRN PRN Reason: Moderate Pain (Scale 4 to 6) Last Admin: 06/14/23 10:52 Dose: 50 mg Past medical history to include: Asthma, dariers disease, eczema, obesity Social history: Lives with her . Nonsmoker. Alcohol rarely. Physical examination: VITAL SIGNS: 97.9, 51, 16, 125-81, 98% room air GENERAL: Up in a recliner, comfortable EYES: Pupils equal. Conjunctiva normal. HEENT: External appearance of nose and ears normal, oral cavity grossly normal. NECK: JVD not raised; masses not palpable. HEART: First and second heart sounds are normal; no edema. LUNGS: Respiratory rate normal; clear to auscultation. ABDOMEN: Soft, nontender, liver spleen not palpable, no masses palpable. PSYCH: Alert and oriented x3; mood and affect normal. DERMATOLOGICAL: Multiple skin lockett around the body. Patient was seen in the presence of nurse Gala as a room service runner. Any of of right discoloration with nystatin powder mixed especially below the left breast and in the groin area. Strong order. INVESTIGATIONS, reviewed in the clinical context: June 14: White count 16.9 hemoglobin 12.8 platelets with 61 White count 16.1 hemoglobin 14.1 platelets 274 sodium 137 potassium 4.6 BUN 24 creatinine 0.88 CRP less than 0.5 assessment and plan: -Increasing candidiasis in the adjoining area in the contiguous areas in the breast in the groin. Cannot rule out secondary infection. Nystatin powder. Keep area dry. ID consulted. Patient has been on steroids per ID. -Leukocytosis from patient being on steroids -Morbid obesity BMI 41 Weight loss measures -Dariers, disease Patient does follow with distributed generation project manager outpatient. Continue current medications. For the change of antibiotics anti-infectives per ID. Discussed.
[2023-06-14] MEDS ORDERED: ANIDULAFUNGIN 200 MG in SODIUM CHLORIDE 0.9% 200 ML IVPB ONE (15:51)
[2023-06-14] MEDS: diphenhydrAMINE 25 MG CAP PO SCH (21:45)
--- NOTE | 2023-06-14 23:14 | P.CONS ---
History of Present Illness - Reason for Consult Consult date: 06/14/23 Dariers disease Requesting physician: Piyush Hanks - Chief Complaint Pain to the left breast fold and groin area x few days - History of Present Illness Patient is a 47-year-old female with a past medical history significant for Darier's disease eczema and history of recurrent cellulitis and antibiotic therapy patient was recently admitted to this hospital with concern for possible worsening of her skin condition and secondary bacterial infection however the patient was not febrile and no white count local cultures were negative subsequent discharged home on Diflucan and steroids presenting back to the hospital with worsening pain especially to the left breast fold area and left groin area that has been getting worse for the last 2 to 3 days patient describes the pain to be sharp intensity almost 7-8 out of 10 no radiation patient complaining of some greenish drainage from the left breast on area and has been complaining of some chills patient however did not have any fever on presentation to the hospital and no fever has been gone subsequently patient did have white of 16.1 which is slightly up to 16.8 today patient did have a normal creatinine level seems ALT was mildly elevated CRP and a procalcitonin has been negative patient was admitted to the hospital infectious he was consulted for further management of antibiotic therapy Review of Systems Positive point and negatives has been mentioned in the HPI, complete review of systems was performed and all other systems are negative 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 Year Discovered:: 01/29/23 MDRO Source:: Right Breast Past Surgical History: Section, Tubal Ligation Past Anesthesia/Blood Transfusion Reactions: No Reported Reaction Past Psychological History: No Psychological Hx Reported Smoking Status: Never smoker Past Alcohol Use History: Rare Past Drug Use History: None Reported - Past Family History Mother Family Medical History: Cancer Additional Family Medical History / Comment(s): Dariers, Father Family Medical History: No Reported History Medications and Allergies Home Medications Medication Instructions Recorded Confirmed Type Ibuprofen [Motrin Ib] 400 mg PO Q6H PRN 06/02/23 06/13/23 History Loratadine [Claritin] 10 mg PO DAILY 06/02/23 06/13/23 History diphenhydrAMINE HCL [Benadryl] 25 mg PO HS 06/02/23 06/13/23 History Acetaminophen Tab [Tylenol] 650 mg PO Q6HR PRN tab 06/04/23 06/13/23 Rx Ketorolac [Toradol] 10 mg PO Q6HR PRN #12 tab 06/13/23 06/13/23 Rx Anidulafungin [Eraxis] 100 mg IVPB DAILY each 06/18/23 Rx Calcium Acetate-Aluminum Sulf 1 each TOPICAL BID packet 06/18/23 Rx [[place] Packet] Clotrimazole Cream [Lotrimin Cream] 1 applic TOPICAL BID 30 Days #60 06/18/23 Rx each Nystatin 100,000 Unit/gm Powd 1 applic TOPICAL BID 30 Days #100 06/18/23 Rx [Mycostatin Powder] each traMADol HCl [Ultram] 50 mg PO Q6H PRN tab 06/18/23 Rx Allergies Allergy/AdvReac Type Severity Reaction Status Date / Time valacyclovir [From Valtrex] Allergy Severe Rash/Hives Verified 06/13/23 14:32 Penicillins Allergy Intermediate Itching Verified 06/13/23 14:32 codeine Allergy Swelling Verified 06/13/23 14:32 piperacillin [From Zosyn] Allergy Itching Verified 06/13/23 14:32 sulfamethoxazole Allergy Rash/Hives Verified 06/13/23 14:32 [From Bactrim] tazobactam [From Zosyn] Allergy Itching Verified 06/13/23 14:32 trimethoprim [From Bactrim] Allergy Rash/Hives Verified 06/13/23 14:32 Physical Exam Vitals: Vital Signs Temp Pulse Pulse Resp BP BP Pulse Ox 06/14/23 08:00 51 L 16 06/14/23 07:45 97.9 F 51 L 16 125/81 98 06/14/23 02:00 98.0 F 51 L 16 108/66 90 L 06/14/23 01:17 63 16 06/13/23 20:00 63 16 06/13/23 19:25 98.5 F 63 16 134/84 96 06/13/23 16:45 98.0 F 50 L 16 137/83 98 06/13/23 16:26 98 F 52 L 18 142/85 98 Intake and Output 06/13/23 06/14/23 06/14/23 22:59 06:59 14:59 Intake Total 591 Balance 591 Intake: Oral 591 Other: Voiding Method Toilet Toilet Toilet # Voids 2 2 3 Weight 118.841 kg GENERAL DESCRIPTION: Middle-aged female lying in bed, no distress. No tachypnea or accessory muscle of respiration use. HEENT: Shows Pallor , no scleral icterus. Oral mucous membrane is dry. No pharyngeal erythema or thrush NECK: Trachea central, no thyromegaly. LUNGS: Unlabored breathing. Clear to auscultation anteriorly. No wheeze or crackle. HEART: S1, S2, regular rate and rhythm. No loud murmur ABDOMEN: Soft, no tenderness , guarding or rigidity, no organomegaly EXTREMITIES: No edema of feet. SKIN: Left breast for did have a superficial ulceration swelling no foul- smelling drainage similar finding to the left groin but less severe than the breast fold area NEUROLOGICAL: The patient is awake, alert, oriented x3, mood and affect normal. Results CBC & Chem 7: 06/18/23 10:29 06/18/23 10:29 Labs: Abnormal Lab Results - Last 24 Hours (Table) 06/13/23 06/13/23 06/14/23 Range/Units 14:43 14:43 06:26 WBC 16.1 H (3.8-10.6) k/uL MPV (9.5-12.2) FL Neutrophils # 14.1 H (1.3-7.7) k/uL Monocytes # (0.20-1.00) X 10*3/uL BUN 24 H (7-17) mg/dL BUN/Creatinine Ratio 27.88 H (12.00-20.00) Ratio ALT 70 H 52 H (4-34) U/L Total Protein 5.7 L (6.2-8.2) d/dL Albumin 3.7 L (3.8-4.9) d/dL 06/14/23 Range/Units 06:31 WBC 16.98 H (3.8-10.6) k/uL MPV 8.4 L (9.5-12.2) FL Neutrophils # 12.56 H (1.3-7.7) k/uL Monocytes # 1.18 H (0.20-1.00) X 10*3/uL BUN (7-17) mg/dL BUN/Creatinine Ratio (12.00-20.00) Ratio ALT (4-34) U/L Total Protein (6.2-8.2) d/dL Albumin (3.8-4.9) d/dL Assessment and Plan (1) Cutaneous candidiasis Status: Acute Code(s): B37.2 - CANDIDIASIS OF SKIN AND NAIL SNOMED Code(s): 07190832 (2) Darier disease Status: Acute Code(s): Q82.8 - OTHER SPECIFIED CONGENITAL MALFORMATIONS OF SKIN SNOMED Code(s): 208492434 (3) Failure of outpatient treatment Status: Acute Code(s): Z78.9 - OTHER SPECIFIED HEALTH STATUS SNOMED Code(s): 882790858 Plan: 1patient with a history of eczema Darier's disease and also with cutaneous candidiasis involving the bilateral breast fold and groin area patient noticed to have worsening condition to the left breast fold area possibly fungal failing outpatient oral Diflucan therapy will need to cover for more resistant pathogen. Clinically doubt secondary bacterial cellulitis 2 patient with multiple antibiotic allergies that would limit the number of antibiotics safe to use 3we will start patient on Eraxis and see clinical response Multiple questions concerns were answered We will follow on clinical condition and cultures to further adjust medication if needed Thank you for this consultation we will follow the patient along with you Dictation was produced using [employer] dictation software. please excuse any grammatical, word or spelling errors. Time with Patient: Greater than 30
[2023-06-15] MEDS: ANIDULAFUNGIN 100 MG in SODIUM CHLORIDE 0.9% 100 ML IVPB SCH (09:31)
[2023-06-15] MEDS: CLOTRIMAZOLE 1% CREAM 30 GM TUBE TOPICAL SCH ×2 (09:32→22:07)
[2023-06-15] MEDS: traMADol 50 MG TAB PO PRN ×2 (09:33→22:09)
[2023-06-15] MEDS: LORATADINE 10 MG TAB PO SCH (09:33)
[2023-06-15] MEDS: NYSTATIN 100,000 UNIT/GM POWD 15 GM TOPICAL SCH ×2 (16:11→21:44)
[2023-06-15] MEDS: diphenhydrAMINE 25 MG CAP PO SCH (21:43)
[2023-06-15] MEDS: methylPREDNISolone SOD SUCCI 125 MG/2 ML VIAL IV SCH ×2 (21:43→23:09)
--- NOTE | 2023-06-16 01:26 | PN ---
PROGRESS NOTE SUBJECTIVE: This 47-year-old white female came in today for followup with Darier's disease. She is on IV which is improving. I will give her IV steroids for Darier's disease. Continue current treatment. OBJECTIVE: CARDIOVASCULAR: S1, S2. LUNGS: Transmitted upper sounds. HEMATOLOGY: Negative for Homans. PSYCH: Fair mood and affect. NEUROLOGIC: Alert and oriented x3. ASSESSMENT: Darier's flare, IV steroids, IV for fungal infection. Continue current treatment PT OT, possible outpatient IV will be needed when she goes home. MMODL / IJN: [id number] /
[2023-06-16] MEDS: methylPREDNISolone SOD SUCCI 125 MG/2 ML VIAL IV SCH ×4 (06:39→22:41)
[2023-06-16] MEDS: NYSTATIN 100,000 UNIT/GM POWD 15 GM TOPICAL SCH ×2 (07:44→21:27)
[2023-06-16] MEDS: CLOTRIMAZOLE 1% CREAM 30 GM TUBE TOPICAL SCH ×2 (07:45→21:26)
[2023-06-16] MEDS: LORATADINE 10 MG TAB PO SCH (07:45)
[2023-06-16] MEDS: ANIDULAFUNGIN 100 MG in SODIUM CHLORIDE 0.9% 100 ML IVPB SCH (07:45)
[2023-06-16] MEDS: CALCIUM ACETATE-ALUMINUM SULF 1 EACH PACKET TOPICAL SCH ×2 (12:53→21:25)
[2023-06-16] MEDS ORDERED: LIDOCAINE 1% INJ 10MG/ML (20 ML MDV) ONE (15:21)
[2023-06-16] MEDS ORDERED: LIDOCAINE 1% INJ 10MG/ML (5 ML VIAL-PF) SQ ONE (15:27)
[2023-06-16] MEDS: diphenhydrAMINE 25 MG CAP PO SCH (21:25)
[2023-06-16] MEDS: traMADol 50 MG TAB PO PRN (21:26)
--- NOTE | 2023-06-17 01:37 | PN ---
PROGRESS NOTE A 47-year-old white female with Darier's disease flare, improving with IV solution has been given, is up ambulating. OBJECTIVE: CARDIOVASCULAR: S1, S2. LUNGS: Clear. GI: Soft. ASSESSMENT: Darier's disease with a flare. Continue with IV . Home PICC line will be given. solution. Possible discharge home soon with a PICC line set up and home antibiotics are set up. MMODL / IJN: [id number] /
[2023-06-17] MEDS: methylPREDNISolone SOD SUCCI 125 MG/2 ML VIAL IV SCH ×3 (05:22→17:52)
[2023-06-17] MEDS: CALCIUM ACETATE-ALUMINUM SULF 1 EACH PACKET TOPICAL SCH ×2 (07:37→21:31)
[2023-06-17] MEDS: LORATADINE 10 MG TAB PO SCH (07:37)
[2023-06-17] MEDS: ANIDULAFUNGIN 100 MG in SODIUM CHLORIDE 0.9% 100 ML IVPB SCH (07:38)
[2023-06-17] MEDS: CLOTRIMAZOLE 1% CREAM 30 GM TUBE TOPICAL SCH ×2 (07:38→21:31)
[2023-06-17] MEDS: NYSTATIN 100,000 UNIT/GM POWD 15 GM TOPICAL SCH ×2 (07:38→21:31)
--- NOTE | 2023-06-17 08:25 | IR ---
PICC LINE PLACEMENT: HISTORY: Infection requiring long-term antibiotic therapy PROCEDURE: Ultrasound and fluoroscopic guidance of PICC line placement. COMPLICATIONS: None ANESTHESIA: 1. 1% Lidocaine locally. FINDINGS/TECHNIQUE: The procedure was explained to the patient. The risks, complications, benefits and alternatives were discussed and any questions were answered. Informed consent was obtained. The patient was placed supine on the fluoroscopic table and prepped and draped in the usual sterile fash ion. Utilizing a 21 gauge needle and sonographic and fluoroscopic guidance, access in the right cep halic vein was achieved and there is placement of a 0.018 guidewire. The vein is patent. A 4-F mcwilliams th was placed over the guidewire. The guidewire and dilator were removed and a 4-F. PICC line was pl aced through the sheath with the tip at the level of the SVC. The sheath was removed, the catheter w as flushed and sutured into position. The patient was stable throughout the procedure and remained s table upon discharge from the Department of Radiology. The vein puncture was patent under ultrasound. A vo scale image was obtained to document patency of the vein punctured. All elements of the maximal barrier technique were utilized. FLUOROSCOPY TIME: DAP 0.604Gy cm2 IMPRESSION: Successful PICC line placement under ultrasound and fluoroscopic guidance.
--- NOTE | 2023-06-17 13:25 | P.PN ---
Subjective Progress Note Date: 06/15/23 Principal diagnosis: Left breast for cutaneous candidiasis Patient is a 47-year-old female with a past medical history significant for Darier's disease eczema and history of recurrent cellulitis , presented to hospital with worsening pain and redness and drainage to the left breast fold and left groin area, patient is in a complete course of oral Diflucan concern for possible Diflucan resistant pathogen. On today's evaluation that is 06/15/2023, the patient denies having any fever or chills, patient is breathing comfortably on room air, the patient denies chest pain shortness of breath or cough patient mentioned some slight decrease in the pain to the left breast fold area and no drainage. Patient did have what was 16.9 and a creatinine 0.8 as of 06/14/2023, no CBC was done today Objective - Vital Signs Vital signs: Vital Signs Temp 97.6 F 06/15/23 07:00 Pulse 58 L 06/15/23 07:00 Resp 16 06/15/23 07:00 BP 138/69 06/15/23 07:00 Pulse Ox 96 06/15/23 07:00 FiO2 Intake & Output 06/14/23 06/15/23 06/15/23 18:59 06:59 18:59 Intake Total 591 118 Balance 591 118 Intake: Oral 591 118 Other: Voiding Method Toilet # Voids 3 1 - Exam Middle-age female lying in bed in no distress Left breast fold did have some maceration no foul-smelling drainage Left groin with some maceration but no redness or drainage Patient was seen with the nurse - Labs CBC & Chem 7: 06/14/23 06:31 06/14/23 06:26 Labs: Abnormal Lab Results - Last 24 Hours (Table) 06/14/23 06/14/23 Range/Units 06:26 06:31 WBC 16.98 H (4.50-10.00) X 10*3/uL MPV 8.4 L (9.5-12.2) FL Neutrophils # 12.56 H (1.80-7.70) X 10*3/uL Monocytes # 1.18 H (0.20-1.00) X 10*3/uL BUN/Creatinine Ratio 27.88 H (12.00-20.00) Ratio ALT 52 H (8-44) U/L Total Protein 5.7 L (6.2-8.2) d/dL Albumin 3.7 L (3.8-4.9) d/dL Microbiology - Last 24 Hours (Table) 06/13/23 16:55 Blood Culture - Preliminary Blood Assessment and Plan (1) Cutaneous candidiasis Current Visit: Yes Status: Acute Code(s): B37.2 - CANDIDIASIS OF SKIN AND NAIL SNOMED Code(s): 20933910 (2) Intertriginous candidiasis Current Visit: No Status: Acute Code(s): B37.2 - CANDIDIASIS OF SKIN AND NAIL SNOMED Code(s): 620200694 Plan: 1patient with a history of eczema Darier's disease and also with cutaneous candidiasis involving the bilateral breast fold and groin area patient noticed to have worsening condition to the left breast fold area possibly fungal failing outpatient oral Diflucan therapy will need to cover for more resistant pathogen. Clinically doubt secondary bacterial cellulitis 2 patient with multiple antibiotic allergies that would limit the number of antibiotics safe to use 3patient will continue with Eraxis and monitor clinical course closely Dictation was produced using [employer] dictation software. please excuse any grammatical, word or spelling errors. Time with Patient: Less than 30
--- NOTE | 2023-06-17 13:29 | P.PN ---
Subjective Progress Note Date: 06/16/23 Principal diagnosis: Left breast for cutaneous candidiasis Patient is a 47-year-old female with a past medical history significant for Darier's disease eczema and history of recurrent cellulitis , presented to hospital with worsening pain and redness and drainage to the left breast fold and left groin area, patient is in a complete course of oral Diflucan concern for possible Diflucan resistant pathogen. On today's evaluation that is 06/16/2023, the patient continues to be afebrile, the patient is breathing comfortablyy on room air, the patient denies chest pain shortness of breath or cough patient mentioned some slight decrease in the pain to the left breast fold area however is complaining of more drainage. Patient did have what was 16.9 and a creatinine 0.8 as of 06/14/2023, no CBC was done today Objective - Vital Signs Vital signs: Vital Signs Temp 98.0 F 06/16/23 07:00 Pulse 55 L 06/16/23 07:00 Resp 16 06/16/23 07:00 BP 131/78 06/16/23 07:00 Pulse Ox 95 06/16/23 07:00 FiO2 Intake & Output 06/15/23 06/16/23 18:59 06:59 Intake Total Balance Intake: Oral Other: Voiding Method Toilet # Voids 10 2 # Bowel Movements 1 - Exam Middle-age female lying in bed in no distress Left breast fold did have some maceration no foul-smelling drainage Left groin with some maceration but no redness or drainage Patient was seen with the nurse - Labs CBC & Chem 7: 06/14/23 06:31 06/14/23 06:26 Labs: Microbiology - Last 24 Hours (Table) 06/16/23 11:33 Gram Stain - Preliminary Breast - Left 06/13/23 16:55 Blood Culture - Preliminary Blood Assessment and Plan (1) Cutaneous candidiasis Current Visit: Yes Status: Acute Code(s): B37.2 - CANDIDIASIS OF SKIN AND NAIL SNOMED Code(s): 46572275 (2) Intertriginous candidiasis Current Visit: No Status: Acute Code(s): B37.2 - CANDIDIASIS OF SKIN AND NAIL SNOMED Code(s): 978262521 Plan: 1patient with a history of eczema Darier's disease and also with cutaneous candidiasis involving the bilateral breast fold and groin area patient noticed to have worsening condition to the left breast fold area possibly fungal failing outpatient oral Diflucan therapy will need to cover for more resistant pathogen. Clinically doubt secondary bacterial cellulitis 2 patient with multiple antibiotic allergies that would limit the number of antibiotics safe to use 3patient noticed to have more drainage culture has been obtained to rule out bacterial infection and will change local care with [place] will continue with Eraxis and monitor cultures closely Dictation was produced using [employer] dictation software. please excuse any grammatical, word or spelling errors.
--- NOTE | 2023-06-17 13:30 | P.PN ---
Subjective Progress Note Date: 06/17/23 Principal diagnosis: Left breast for cutaneous candidiasis Patient is a 47-year-old female with a past medical history significant for Darier's disease eczema and history of recurrent cellulitis , presented to hospital with worsening pain and redness and drainage to the left breast fold and left groin area, patient is in a complete course of oral Diflucan concern for possible Diflucan resistant pathogen. On today's evaluation that is 06/17/2023, the patient denies any fever or any chills, the patient is breathing comfortablyy on room air, the patient denies chest pain shortness of breath or cough patient did say slight decrease in the pain to the left breast fold area and also less drainage.[place] with . Patient did have what was 16.9 and a creatinine 0.8 as of 06/14/2023, no CBC was done today Objective - Vital Signs Vital signs: Vital Signs Temp 98.0 F 06/17/23 07:00 Pulse 55 L 06/17/23 07:00 Resp 16 06/17/23 07:00 BP 131/78 06/17/23 07:00 Pulse Ox 95 06/17/23 07:00 FiO2 Intake & Output 06/16/23 06/17/23 06/17/23 18:59 06:59 18:59 Intake Total 118 Balance 118 Intake: Oral 118 Other: Voiding Method Toilet # Voids 10 2 # Bowel Movements 1 - Exam Middle-age female lying in bed in no distress Left breast fold did have some maceration no foul-smelling drainage Left groin with some maceration but no redness or drainage Patient was seen with the nurse - Labs CBC & Chem 7: 06/14/23 06:31 06/14/23 06:26 Labs: Microbiology - Last 24 Hours (Table) 06/16/23 11:33 Gram Stain - Preliminary Breast - Left 06/13/23 16:55 Blood Culture - Preliminary Blood Assessment and Plan (1) Cutaneous candidiasis Current Visit: Yes Status: Acute Code(s): B37.2 - CANDIDIASIS OF SKIN AND NAIL SNOMED Code(s): 40976789 (2) Intertriginous candidiasis Current Visit: No Status: Acute Code(s): B37.2 - CANDIDIASIS OF SKIN AND NAIL SNOMED Code(s): 321453172 Plan: 1patient with a history of eczema Darier's disease and also with cutaneous candidiasis involving the bilateral breast fold and groin area patient noticed to have worsening condition to the left breast fold area possibly fungal failing outpatient oral Diflucan therapy will need to cover for more resistant pathogen. Clinically doubt secondary bacterial cellulitis 2 patient with multiple antibiotic allergies that would limit the number of antibiotics safe to use 3patient noticed to have more drainage culture has been obtained yesterday and so far pending 4- will continue local care with [place] will continue with Eraxis and monitor cultures closely Dictation was produced using [employer] dictation software. please excuse any grammatical, word or spelling errors. Time with Patient: Less than 30
[2023-06-17] MEDS: diphenhydrAMINE 25 MG CAP PO SCH (21:31)
[2023-06-17] MEDS: traMADol 50 MG TAB PO PRN (21:34)
[2023-06-18] MEDS: methylPREDNISolone SOD SUCCI 125 MG/2 ML VIAL IV SCH ×2 (00:22→05:11)
--- NOTE | 2023-06-18 00:58 | PN ---
PROGRESS NOTE SUBJECTIVE: Still remains on IV . OBJECTIVE: CARDIOVASCULAR: S1, S2. LUNGS: Clear. GI: Soft. INTEGUMENT: Shows macerated open wound under the breast area, worse on the left side and multiple patch. She has severe excoriation. ASSESSMENT: Darier's disease, asthma, obesity. Continue current treatment. Home medicines. IV . Possible discharge home once IV antibiotics are arranged. MMODL / IJN: [id number] /
[2023-06-18] MEDS: CALCIUM ACETATE-ALUMINUM SULF 1 EACH PACKET TOPICAL SCH ×2 (09:57→20:11)
[2023-06-18] MEDS: CLOTRIMAZOLE 1% CREAM 30 GM TUBE TOPICAL SCH ×2 (09:57→20:17)
[2023-06-18] MEDS: NYSTATIN 100,000 UNIT/GM POWD 15 GM TOPICAL SCH ×2 (09:57→20:17)
[2023-06-18] MEDS: LORATADINE 10 MG TAB PO SCH (09:58)
[2023-06-18 10:28] VITALS: BMI 41.0
[2023-06-18] MEDS: traMADol 50 MG TAB PO PRN ×2 (10:45→20:16)
[2023-06-18] MEDS: ANIDULAFUNGIN 100 MG in SODIUM CHLORIDE 0.9% 100 ML IVPB SCH (10:45)
[2023-06-18 10:47] LABS: Basophils % (A) 0 %; Eosinophils # (A) 0.4 k/uL (0-0.7); Eosinophils % (A) 3 %; HCT 39.1 % (34.0-46.0); HGB 13.3 gm/dL (11.4-16.0); Lymphocytes % (A) 28 %; MCH 30.7 pg (25.0-35.0); MCV 90.3 fL (80.0-100.0); Mean Platelet Volume 6.4; Monocytes # (A) 0.7 k/uL (0-1.0); Monocytes % (A) 5 %; Neutrophils # (A) 9.1 k/uL (1.3-7.7); Neutrophils % (A) 64 %; Platelet Count 220 k/uL (150-450); RBC 4.33 m/uL (3.80-5.40); RDW 14.3 % (11.5-15.5); WBC 14.4 k/uL (3.8-10.6)
[2023-06-18 11:10] LABS: ALT 33 U/L (4-34); AST 22 U/L (14-36); African American GFR (CKD) >90 (>60 ml/min/1.73 sqM); Albumin 3.3 g/dL (3.5-5.0); Albumin/Globulin Ratio 1.3; Alkaline Phosphatase 56 U/L (38-126); Anion Gap 6 mmol/L; Blood Urea Nitrogen 34 mg/dL (7-17); C Reactive Protein 1.2 mg/dL (<1.0); Calcium 8.5 mg/dL (8.4-10.2); Carbon Dioxide 28 mmol/L (22-30); Chloride 102 mmol/L (98-107); Globulin 2.6 g/dL; Glucose 79 mg/dL (74-99); Non-African American GFR(CKD) 79 (>60 ml/min/1.73 sqM); Potassium 4.1 mmol/L (3.5-5.1); Sodium 136 mmol/L (137-145); Total Bilirubin 0.4 mg/dL (0.2-1.3); Total Protein 5.9 g/dL (6.3-8.2)
[2023-06-18] MEDS: diphenhydrAMINE 25 MG CAP PO SCH (20:13)
--- NOTE | 2023-06-19 01:46 | PN ---
PROGRESS NOTE SUBJECTIVE: White female with Darier's flare, on IV antibiotics and solution continues to have no chest pain or shortness of breath. OBJECTIVE: CARDIOVASCULAR: S1, S2. LUNGS: Transmitted upper sounds. HEMATOLOGY: Negative for Homans. PSYCH: Fair mood and affect. INTEGUMENT: Shows red excoriation below bilateral breasts with . Prognosis guarded. Follow up in the next 24 to 48 hours. Continue current treatment. Follow up in next 24 to 48 hours. Prognosis guarded. MMODL / IJN: [id number] /
[2023-06-19 08:25] VITALS: BP 128/77; PULSE 71; RESP 16; TEMP 97.9
--- NOTE | 2023-06-19 08:28 | P.PN ---
Subjective Progress Note Date: 06/18/23 Principal diagnosis: Left breast for cutaneous candidiasis Patient is a 47-year-old female with a past medical history significant for Darier's disease eczema and history of recurrent cellulitis , presented to hospital with worsening pain and redness and drainage to the left breast fold and left groin area, patient is in a complete course of oral Diflucan concern for possible Diflucan resistant pathogen. On today's evaluation that is 06/18/2023, the patient remains to be afebrile, patient discomfort to the left breast fold has slightly decreased in intensity recommending of some drainage no chest pain shortness of breath or cough no abdominal pain or diarrhea some Her blood culture has been negative local cultures currently pending and no CBC has been done Objective - Vital Signs Vital signs: Vital Signs Temp 98.1 F 06/18/23 07:05 Pulse 65 06/18/23 07:05 Resp 16 06/18/23 07:05 BP 121/78 06/18/23 07:05 Pulse Ox 98 06/18/23 07:05 FiO2 Intake & Output 06/17/23 06/18/23 06/18/23 18:59 06:59 18:59 Intake Total 236 118 Balance 236 118 Intake: Oral 236 118 Other: Voiding Method Toilet # Voids 4 2 - Exam Middle-age female lying in bed in no distress Left breast fold did have some maceration no foul-smelling drainage Left groin with some maceration but no redness or drainage Patient was seen with the nurse - Labs CBC & Chem 7: 06/18/23 10:29 06/18/23 10:29 Labs: Microbiology - Last 24 Hours (Table) 06/16/23 11:33 Gram Stain - Preliminary Breast - Left Assessment and Plan (1) Cutaneous candidiasis Current Visit: Yes Status: Acute Code(s): B37.2 - CANDIDIASIS OF SKIN AND NAIL SNOMED Code(s): 33541168 (2) Intertriginous candidiasis Current Visit: No Status: Acute Code(s): B37.2 - CANDIDIASIS OF SKIN AND NAIL SNOMED Code(s): 115718412 Plan: 1patient with a history of eczema Darier's disease and also with cutaneous candidiasis involving the bilateral breast fold and groin area patient noticed to have worsening condition to the left breast fold area possibly fungal failing outpatient oral Diflucan therapy will need to cover for more resistant pathogen. Clinically doubt secondary bacterial cellulitis 2 patient with multiple antibiotic allergies that would limit the number of antibiotics safe to use 3patient noticed to have more drainage culture has been obtained which are pending 4-Pt to continue local care with [place] will continue with Eraxis while waiting for cultures to finalize Dictation was produced using [employer] dictation software. please excuse any grammatical, word or spelling errors. Time with Patient: Less than 30
[2023-06-19] MEDS: CALCIUM ACETATE-ALUMINUM SULF 1 EACH PACKET TOPICAL SCH (09:29)
[2023-06-19] MEDS: traMADol 50 MG TAB PO PRN (09:29)
[2023-06-19] MEDS: ANIDULAFUNGIN 100 MG in SODIUM CHLORIDE 0.9% 100 ML IVPB SCH (09:29)
[2023-06-19] MEDS: LORATADINE 10 MG TAB PO SCH (09:30)
[2023-06-19] MEDS: NYSTATIN 100,000 UNIT/GM POWD 15 GM TOPICAL SCH (09:30)
[2023-06-19] MEDS: CLOTRIMAZOLE 1% CREAM 30 GM TUBE TOPICAL SCH (09:30)
--- NOTE | 2023-06-26 15:38 | P.PN ---
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 On today's evaluation that is 06/19/2023, the patient continues to be afebrile, patient discomfort to the left breast fold has Decreased in intensity , did have some drainage no chest pain shortness of breath or cough no abdominal pain or diarrhea , overall feeling better Her blood culture has been negative local cultures currently pending patient did have a white count of 14.4 yesterday and no CBC has been done today Objective - Vital Signs Vital signs: Vital Signs Temp 97.9 F 06/19/23 07:40 Pulse 71 06/19/23 07:40 Resp 16 06/19/23 07:40 BP 128/77 06/19/23 07:40 Pulse Ox 99 06/19/23 07:40 FiO2 Intake & Output 06/18/23 06/19/23 06/19/23 18:59 06:59 18:59 Intake Total 476 Balance 476 Weight 118.841 kg Intake: Oral 476 Other: Voiding Method Toilet Toilet # Voids 3 2 # Bowel Movements 3 - Exam Middle-age female lying in bed in no distress Left breast fold did have some maceration no foul-smelling drainage Left groin with some maceration but no redness or drainage Patient was seen with the nurse - Labs CBC & Chem 7: 06/18/23 10:29 06/18/23 10:29 Labs: Microbiology - Last 24 Hours (Table) 06/13/23 16:55 Blood Culture - Final Blood 06/16/23 11:33 Gram Stain - Final Breast - Left Wound Culture - Final Assessment and Plan (1) Cutaneous candidiasis Status: Acute Code(s): B37.2 - CANDIDIASIS OF SKIN AND NAIL SNOMED Code(s): 66726702 (2) Intertriginous candidiasis Status: Acute Code(s): B37.2 - CANDIDIASIS OF SKIN AND NAIL SNOMED Code(s): 362103920 Plan: 1patient with a history of eczema Darier's disease and also with cutaneous candidiasis involving the bilateral breast fold and groin area patient noticed to have worsening condition to the left breast fold area possibly fungal failing outpatient oral Diflucan therapy will need to cover for more resistant pathogen. Clinically doubt secondary bacterial cellulitis and local culture has been negative 2Pt seemed to have shown clinical improvement, patient to continue local care with Domeboro along with Eraxis/caspofungin 10 days on discharge in a grocery patient follow-up Dictation was produced using [email or web address] dictation software. please excuse any grammatical, word or spelling errors. Time with Patient: Less than 30
== END 2023-06-19 14:01 | disposition home or self-care (01) ==
LOC: EC 13:28 → 6NMEDSUR 14:29
PROVIDERS: ADMIT Family Medicine; ATTEND Family Medicine
DX: Q82.8 Other specified congenital malformations of skin (principal); B37.2 Candidiasis of skin and nail; D72.829 Elevated white blood cell count, unspecified; E66.01 Morbid (severe) obesity due to excess calories; Z68.41 Body mass index [BMI] 40.0-44.9, adult; R01.1 Cardiac murmur, unspecified; J45.909 Unspecified asthma, uncomplicated; Z16.24 Resistance to multiple antibiotics; Z86.14 Personal history of Methicillin resistant Staphylococcus aureus infection; Z79.899 Other long term (current) drug therapy; Z88.8 Allergy status to other drugs, medicaments and biological substances; Z88.0 Allergy status to penicillin; Z88.2 Allergy status to sulfonamides; Z88.1 Allergy status to other antibiotic agents; Z88.5 Allergy status to narcotic agent; Z84.0 Family history of diseases of the skin and subcutaneous tissue; Z80.9 Family history of malignant neoplasm, unspecified
CPT/HCPCS: 96376; 96365; 96366 ×6; 96375 ×2; 99284; 36573; 80053 ×3; 85652; 85025 ×3; 86140 ×2; 87040; 87070; 87205; 84145; G0378 ×7; C1751; C1769; J2270; J2930 ×2; J2001; J7512; J0348 ×6

== ENCOUNTER 2024-05-21 12:24 | Emergency (ER) | payer BC ==
[2024-05-21 12:30] VITALS: RESP 18
[2024-05-21 13:03] VITALS: TEMP 97.9
[2024-05-21] MEDS: KETOROLAC 15 MG/ML 1 ML VIAL IM STA (13:22)
--- NOTE | 2024-05-21 13:28 | ED ---
Lower Extremity Injury HPI - General Chief Complaint: Extremity Injury, Lower Stated Complaint: Fall, head injury Time Seen by Provider: 05/21/24 13:16 Source: patient, RN notes reviewed Mode of arrival: ambulatory Limitations: no limitations - History of Present Illness Initial Comments: 58-year-old female presents the ER chief complaint of right knee injury. 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 She states she fell landing on her right knee. Since then she has been able to ambulate. She has been icing, elevating and resting the knee. Patient does report significant swelling which brought her to the ER today. Patient denies any paresthesias or other injuries. - Related Data Home Medications Medication Instructions Recorded Confirmed Ibuprofen [Motrin Ib] 400 mg PO Q6H PRN 06/02/23 06/13/23 Loratadine [Claritin] 10 mg PO DAILY 06/02/23 06/13/23 diphenhydrAMINE HCL [Benadryl] 25 mg PO HS 06/02/23 06/13/23 Previous Rx's Medication Instructions Recorded Acetaminophen Tab [Tylenol] 650 mg PO Q6HR PRN tab 06/04/23 Ketorolac [Toradol] 10 mg PO Q6HR PRN #12 tab 06/13/23 Anidulafungin [Eraxis] 100 mg IVPB DAILY each 06/18/23 Calcium Acetate-Aluminum Sulf 1 each TOPICAL BID packet 06/18/23 [Domeboro Packet] Clotrimazole Cream [Lotrimin Cream] 1 applic TOPICAL BID 30 Days #60 06/18/23 each Nystatin 100,000 Unit/gm Powd 1 applic TOPICAL BID 30 Days #100 06/18/23 [Mycostatin Powder] each traMADol HCl [Ultram] 50 mg PO Q6H PRN tab 06/18/23 Allergies Allergy/AdvReac Type Severity Reaction Status Date / Time valacyclovir [From Valtrex] Allergy Severe Rash/Hives Verified 05/21/24 12:30 Penicillins Allergy Intermediate Itching Verified 05/21/24 12:30 codeine Allergy Swelling Verified 05/21/24 12:30 piperacillin [From Zosyn] Allergy Itching Verified 05/21/24 12:30 sulfamethoxazole Allergy Rash/Hives Verified 05/21/24 12:30 [From Bactrim] tazobactam [From Zosyn] Allergy Itching Verified 05/21/24 12:30 trimethoprim [From Bactrim] Allergy Rash/Hives Verified 05/21/24 12:30 Review of Systems ROS Statement: Those systems with pertinent positive or pertinent negative responses have been documented in the HPI. ROS Other: All systems not noted in ROS Statement are negative. 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 Date of last positivie culture/infection: 01/29/23 MDRO Source:: Right Breast Past Surgical History: Section, Tubal Ligation Past Anesthesia/Blood Transfusion Reactions: No Reported Reaction Past Psychological History: No Psychological Hx Reported Smoking Status: Never smoker Past Alcohol Use History: Rare Past Drug Use History: None Reported - Past Family History Mother Family Medical History: Cancer Additional Family Medical History / Comment(s): Dariers, Father Family Medical History: No Reported History General Exam Limitations: no limitations General appearance: alert, in no apparent distress Respiratory exam: Present: normal lung sounds bilaterally. Absent: respiratory distress, wheezes, rales, rhonchi, stridor Cardiovascular Exam: Present: regular rate, normal rhythm, normal heart sounds. Absent: systolic murmur, diastolic murmur, rubs, gallop, clicks Extremities exam: Present: normal inspection, full ROM, normal capillary refill, other (abrasion to anterior right knee. 2+ PT and DP pulses. Patient has full active range of motion.). Absent: tenderness, pedal edema, joint swelling, calf tenderness Neurological exam: Present: alert, oriented X3, CN II-XII intact Skin exam: Present: warm, dry, intact, normal color. Absent: rash Course Vital Signs 05/21/24 05/21/24 12:26 14:16 Temperature 98 F 97.9 F Pulse Rate 62 52 L Respiratory 18 18 Rate Blood Pressure 119/77 114/77 O2 Sat by Pulse 98 99 Oximetry Medical Decision Making - Medical Decision Making Was pt. sent in by a medical professional or institution (, PA, ENVIRONMENTAL GEOLOGIST, urgent care, hospital, or [place] [facility] [place] facility...) When possible be specific @ -No Did you speak to anyone other than the patient for history (EMS, parent, family, police, friend...)? What history was obtained from this source @ -No Did you review nursing and triage notes (agree or disagree)? Why? @ -I reviewed and agree with nursing and triage notes Were old charts reviewed (outside hosp., previous admission, EMS record, old EKG, old radiological studies, urgent care reports/EKG's, [place] health care facility records)? Report findings @ -No old charts were reviewed Differential Diagnosis (chest pain, altered mental status, abdominal pain women, abdominal pain men, vaginal bleeding, weakness, fever, dyspnea, syncope, headache, dizziness, GI bleed, back pain, seizure, CVA, palpatations, mental health, musculoskeletal)? @ -Differential Musculoskeletal: Muscular strain, contusion, ligament sprain, fracture, arthritis, septic arthritis, bursitis, cellulitis, muscle spasm, nerve compression, DVT, arterial occlusion, herpes zoster, electrolyte abnormality, tumor.... This is not meant to be in all inclusive list EKG interpreted by me (3pts min.). @ -None X-rays interpreted by me (1pt min.). @ -Right knee x-ray interpreted me negative for acute osseous process. CT interpreted by me (1pt min.). @ -None done U/S interpreted by me (1pt. min.). @ -None done What testing was considered but not performed or refused? (CT, X-rays, U/S, labs)? Why? @ -None What meds were considered but not given or refused? Why? @ -None Did you discuss the management of the patient with other professionals (professionals i.e. , PA, ENVIRONMENTAL GEOLOGIST, lab, RT, psych nurse, certified social workers in health care, counter maker, teacher, correctional security officer, case preparer and liner)? Give summary @ -No Was smoking cessation discussed for >3mins.? @ -No Was critical care preformed (if so, how long)? @ -No Were there social determinants of health that impacted care today? How? (Homelessness, low income, unemployed, alcoholism, drug addiction, transpo rtation, low edu. Level, literacy, decrease access to med. care, skilled nursing, rehab)? @ -No Was there de-escalation of care discussed even if they declined (Discuss DNR or withdrawal of care, Hospice)? DNR status @ -No What co-morbidities impacted this encounter? (DM, HTN, Smoking, COPD, CAD, Cancer, CVA, ARF, Chemo, Hep., AIDS, mental health diagnosis, sleep apnea, morbid obesity)? @ -Obese Was patient admitted / discharged? Hospital course, mention meds given and route, prescriptions, significant lab abnormalities, going to OR and other pertinent info. @ -Discharge. 48-year-old female presented to the ER with chief complaint of right knee pain. History of physical exam completed. Vitals stable. Patient in no signs of acute distress and nontoxic-appearing. Right lower extremity neurovascular intact. Patient has full active range of motion. There is a minor superficial abrasion to anterior right knee. No active bleeding. X-rays obtained negative for acute process. Patient received by mouth Tylenol for pain control in the ER. Upon reevaluation, patient resting comfortably in exam room in no signs of acute distress. Results discussed with patient, all questions answered. Advise close follow-up with PCP. Patient verbally expressed understanding and agreed with care plan. Case discussed with ED attending, Dr. Carrasco. Undiagnosed new problem with uncertain prognosis? @ -No Drug Therapy requiring intensive monitoring for toxicity (Heparin, Nitro, Insulin, Cardizem)? @ -No Were any procedures done? @ -No Diagnosis/symptom? @ -Abrasion/knee contusion Acute, or Chronic, or Acute on Chronic? @ -Acute Uncomplicated (without systemic symptoms) or Complicated (systemic symptoms)? @ -Uncomplicated Side effects of treatment? @ -No Exacerbation, Progression, or Severe Exacerbation? @ -No Poses a threat to life or bodily function? How? (Chest pain, [place], [place], pneumonia, PE, COPD, DKA, ARF, appy, cholecystitis, CVA, Diverticulitis, Homicidal, Suicidal, threat to staff... and all critical care pts) @ -No - Radiology Data Radiology results: report reviewed, image reviewed Disposition Clinical Impression: Knee contusion Disposition: HOME SELF-CARE Condition: Stable Instructions (If sedation given, give patient instructions): Knee Pain (ED) Additional Instructions: You can take [id number] Tylenol and Motrin for pain control. Follow-up with PCP. Continue to ice, rest, elevate and use compression. Return to the ER for any new or worsening concerns. Is patient prescribed a controlled substance at d/c from ED?: No Referrals: Hever Duarte MD [Primary Care Provider] - 1-2 days Time of Disposition: 14:12
--- NOTE | 2024-05-21 13:39 | XR ---
EXAMINATION TYPE: XR knee complete RT DATE OF EXAM: 05/21/2024 1:15 PM CLINICAL INDICATION:Female, 48 years old with history of fall injury; [facility] COMPARISON: None. TECHNIQUE: XR knee complete RT; examined in Frontal, lateral and oblique projections. FINDINGS: No evidence of any acute osseous pathology, soft tissue swelling, or joint effusion is no robin. IMPRESSION: 1. No acute osseous pathology. 2. Mild tricompartmental osteoarthritic changes.
[2024-05-21 14:16] VITALS: BP 114/77; PULSE 52
== END 2024-05-21 14:19 | disposition home or self-care (01) ==
LOC: EC 12:24
DX: S80.01XA Contusion of right knee, initial encounter (principal); E66.9 Obesity, unspecified; Z88.8 Allergy status to other drugs, medicaments and biological substances; Z88.0 Allergy status to penicillin; Z88.5 Allergy status to narcotic agent; Z88.2 Allergy status to sulfonamides; Z88.1 Allergy status to other antibiotic agents; Z68.39 Body mass index [BMI] 39.0-39.9, adult; W01.0XXA Fall on same level from slipping, tripping and stumbling without subsequent striking against object, initial encounter
CPT/HCPCS: 73562; 99283; 96372; J1885

== ENCOUNTER 2024-11-12 14:00 | Inpatient (IN) | payer BC ==
--- NOTE | 2024-11-12 15:43 | ED ---
General Adult HPI - General Chief complaint: Skin/Abscess/Foreign Body Stated complaint: Rash-medication issue Time Seen by Provider: 11/12/24 14:56 Source: patient, RN notes reviewed Mode of arrival: ambulatory Limitations: no limitations - History of Present Illness Initial comments: 49-year-old female with a history of Darier's disease presents to the emergency department for evaluation of rash throughout her body most significant on her abdomen. Patient states that she has been on doxycycline for the past 10 days without any improvement. She states that the rash is on her abdomen, in her groin, in her armpits, and her right ear. Denies fever, chills, nausea, vomiting. - Related Data Home Medications Medication Instructions Recorded Confirmed Ibuprofen [Motrin Ib] 800 mg PO Q6H PRN 06/02/23 11/12/24 diphenhydrAMINE HCL [Benadryl] 25 mg PO HS 06/02/23 11/12/24 Doxycycline Hyclate 100 mg PO BID 11/12/24 11/12/24 Allergies Allergy/AdvReac Type Severity Reaction Status Date / Time valacyclovir [From Valtrex] Allergy Severe Rash/Hives Verified 11/12/24 17:55 Penicillins Allergy Intermediate Itching Verified 11/12/24 17:55 codeine Allergy Swelling Verified 11/12/24 17:55 piperacillin [From Zosyn] Allergy Itching Verified 11/12/24 17:55 sulfamethoxazole Allergy Rash/Hives Verified 11/12/24 17:55 [From Bactrim] tazobactam [From Zosyn] Allergy Itching Verified 11/12/24 17:55 trimethoprim [From Bactrim] Allergy Rash/Hives Verified 11/12/24 17:55 Review of Systems ROS Statement: Those systems with pertinent positive or pertinent negative responses have been documented in the HPI. ROS Other: All systems not noted in ROS Statement are negative. 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 Date of last positivie culture/infection: 01/29/23 MDRO Source:: Right Breast Past Surgical History: Section, Tubal Ligation Past Anesthesia/Blood Transfusion Reactions: No Reported Reaction Past Psychological History: No Psychological Hx Reported Smoking Status: Never smoker Past Alcohol Use History: Rare Past Drug Use History: None Reported - Past Family History Mother Family Medical History: Cancer Additional Family Medical History / Comment(s): Tiffany, Father Family Medical History: No Reported History General Exam Limitations: no limitations General appearance: alert, in no apparent distress Head exam: Present: atraumatic, normocephalic, normal inspection Eye exam: Present: normal appearance, PERRL, EOMI. Absent: scleral icterus, conjunctival injection, periorbital swelling Respiratory exam: Present: normal lung sounds bilaterally. Absent: respiratory distress, wheezes, rales, rhonchi, stridor Cardiovascular Exam: Present: regular rate, normal rhythm, normal heart sounds. Absent: systolic murmur, diastolic murmur, rubs, gallop, clicks Neurological exam: Present: alert, oriented X3 Psychiatric exam: Present: normal affect, normal mood Skin exam: Present: warm, dry, erythema, vesicles, other (Erythema, vesicles, thickening of the skin of the abdomen, groin, under breasts, scalp.). Absent: intact, normal color Course Vital Signs 11/12/24 11/12/24 14:50 17:18 Temperature 98.3 F Pulse Rate 74 79 Respiratory 18 18 Rate Blood Pressure 129/69 122/62 O2 Sat by Pulse 97 99 Oximetry Medical Decision Making - Medical Decision Making Was pt. sent in by a medical professional or institution (Dr. PA, RICE CLEANING MACHINE TENDER, urgent care, hospital, or penitentiary...) When possible be specific @ -No Did you speak to anyone other than the patient for history (EMS, parent, family, police, friend...)? What history was obtained from this source @ -No Did you review nursing and triage notes (agree or disagree)? Why? @ -I reviewed and agree with nursing and triage notes Were old charts reviewed (outside hosp., previous admission, EMS record, old EKG, old radiological studies, urgent care reports/EKG's, penitentiary records)? Report findings @ -No old charts were reviewed Differential Diagnosis (chest pain, altered mental status, abdominal pain women, abdominal pain men, vaginal bleeding, weakness, fever, dyspnea, syncope, headache, dizziness, GI bleed, back pain, seizure, CVA, palpatations, mental health, musculoskeletal)? @ -Not applicable EKG interpreted by me (3pts min.). @ -None X-rays interpreted by me (1pt min.). @ -None done CT interpreted by me (1pt min.). @ -None done U/S interpreted by me (1pt. min.). @ -None done What testing was considered but not performed or refused? (CT, X-rays, U/S, labs)? Why? @ -None What meds were considered but not given or refused? Why? @ -None Did you discuss the management of the patient with other professionals (professionals i.e. DrLorenzo, PA, RICE CLEANING MACHINE TENDER, lab, RT, psych nurse, director of social media marketing, it applications developer, teacher, juvenile corrections officer, machine adjuster leader case trim)? Give summary @ -Case discussed with Dr. Duarte who is accepting of the admission, discussed treatment plan, states that he will come evaluate the patient and come up with treatment plan, requesting Dr. Blood consultation. Was smoking cessation discussed for >3mins.? @ -No Was critical care preformed (if so, how long)? @ -No Were there social determinants of health that impacted care today? How? (Homelessness, low income, unemployed, alcoholism, drug addiction, transportation, low edu. Level, literacy, decrease access to med. care, custodial, rehab)? @ -No Was there de-escalation of care discussed even if they declined (Discuss DNR or withdrawal of care, Hospice)? DNR status @ -No What co-morbidities impacted this encounter? (DM, HTN, Smoking, COPD, CAD, Cancer, CVA, ARF, Chemo, Hep., AIDS, mental health diagnosis, sleep apnea, m orbid obesity)? @ -None Was patient admitted / discharged? Hospital course, mention meds given and route, prescriptions, significant lab abnormalities, going to OR and other pertinent info. @ -Admitted. Patient presented to the emergency department for evaluation of worsening rash. Reports history of Darier's disease. She reports being on doxycycline for the past 10 days. She noted worsening in her skin condition. Laboratory studies obtained revealing no significant leukocytosis, lactic acid 0.9. Because of the patient's skin condition and the failure of outpatient antibiotics patient will be admitted for further treatment. Case was discussed with Dr. Duarte who is accepting of the admission. Discussed antibiotic preference with Dr. Mullally who states he will evaluate the patient prior to initiating treatment. Case discussed with Dr. Pinto Undiagnosed new problem with uncertain prognosis? @ -No Drug Therapy requiring intensive monitoring for toxicity (Heparin, Nitro, Insul in, Cardizem)? @ -No Were any procedures done? @ -No Diagnosis/symptom? @ -Dariers disease, cellulitis Acute, or Chronic, or Acute on Chronic? @ -Acute Uncomplicated (without systemic symptoms) or Complicated (systemic symptoms)? @ -Uncomplicated Side effects of treatment? @ -No Exacerbation, Progression, or Severe Exacerbation? @ -No Poses a threat to life or bodily function? How? (Chest pain, [place], [place], pneumonia, PE, COPD, DKA, ARF, appy, cholecystitis, CVA, Diverticulitis, Homicidal, Leon icidal, threat to staff... and all critical care pts) @ -No - Lab Data Result diagrams: 11/12/24 16:23 11/14/24 04:58 Lab Results 11/12/24 11/12/24 11/12/24 Range/Units 16:23 16:23 16:23 WBC 10.1 (3.8-10.6) k/uL RBC 4.47 (3.80-5.40) m/uL Hgb 13.2 (11.4-16.0) gm/dL Hct 39.2 (34.0-46.0) % MCV 87.7 (80.0-100.0) fL MCH 29.5 (25.0-35.0) pg MCHC 33.6 (31.0-37.0) g/dL RDW 13.6 (11.5-15.5) % Plt Count 279 (150-450) k/uL MPV 6.2 Neutrophils % 68 % Lymphocytes % 21 % Monocytes % 4 % Eosinophils % 7 % Basophils % 0 % Neutrophils # 6.9 (1.3-7.7) k/uL Lymphocytes # 2.1 (1.0-4.8) k/uL Monocytes # 0.4 (0-1.0) k/uL Eosinophils # 0.7 (0-0.7) k/uL Basophils # 0.0 (0-0.2) k/uL Sodium 142 (137-145) mmol/L Potassium 4.6 (3.5-5.1) mmol/L Chloride 108 H (98-107) mmol/L Carbon Dioxide 28 (22-30) mmol/L Anion Gap 6 mmol/L BUN 14 (7-17) mg/dL Creatinine 0.88 (0.52-1.04) mg/dL Est GFR (CKD-EPI)AfAm 90 (>60 ml/min/1.73 sqM) Est GFR (CKD-EPI)NonAf 78 (>60 ml/min/1.73 sqM) Glucose 88 (74-99) mg/dL Plasma Lactic Acid Esteban 0.9 (0.7-2.0) mmol/L Calcium 8.9 (8.4-10.2) mg/dL Total Bilirubin 0.3 (0.2-1.3) mg/dL AST 22 (14-36) U/L ALT 16 (4-34) U/L Alkaline Phosphatase 78 (38-126) U/L Total Protein 6.4 (6.3-8.2) g/dL Albumin 3.8 (3.5-5.0) g/dL Disposition Clinical Impression: Darier disease, Recurrent cellulitis, Failure of outpatient treatment Disposition: ADMITTED IP TO THIS HOSP Condition: Stable Is patient prescribed a controlled substance at d/c from ED?: No
[2024-11-12 16:30] LABS: HCT 39.2 % (34.0-46.0); HGB 13.2 gm/dL (11.4-16.0); Lymphocytes % (A) 21 %; MCH 29.5 pg (25.0-35.0); MCHC 33.6 g/dL (31.0-37.0); MCV 87.7 fL (80.0-100.0); Mean Platelet Volume 6.2; Neutrophils % (A) 68 %; Platelet Count 279 k/uL (150-450); RBC 4.47 m/uL (3.80-5.40); RDW 13.6 % (11.5-15.5); WBC 10.1 k/uL (3.8-10.6)
[2024-11-12 16:31] LABS: Basophils % (A) 0 %; Eosinophils # (A) 0.7 k/uL (0-0.7); Eosinophils % (A) 7 %; Lymphocytes # (A) 2.1 k/uL (1.0-4.8); Monocytes # (A) 0.4 k/uL (0-1.0); Monocytes % (A) 4 %; Neutrophils # (A) 6.9 k/uL (1.3-7.7)
[2024-11-12 16:41] LABS: ALT 16 U/L (4-34); AST 22 U/L (14-36); African American GFR (CKD) 90 (>60 ml/min/1.73 sqM); Albumin 3.8 g/dL (3.5-5.0); Alkaline Phosphatase 78 U/L (38-126); Anion Gap 6 mmol/L; Blood Urea Nitrogen 14 mg/dL (7-17); Calcium 8.9 mg/dL (8.4-10.2); Carbon Dioxide 28 mmol/L (22-30); Chloride 108 mmol/L (98-107); Glucose 88 mg/dL (74-99); Non-African American GFR(CKD) 78 (>60 ml/min/1.73 sqM); Potassium 4.6 mmol/L (3.5-5.1); Sodium 142 mmol/L (137-145); Total Bilirubin 0.3 mg/dL (0.2-1.3); Total Protein 6.4 g/dL (6.3-8.2)
[2024-11-12] MEDS ORDERED: ONDANSETRON 4 MG/2 ML VIAL IVP PRN (17:12)
[2024-11-12] MEDS ORDERED: NALOXONE 0.4 MG/ML 1 ML VIAL IV PRN (17:12)
[2024-11-12] MEDS: SODIUM CHLORIDE 0.9% 1,000 ML IV SCH (17:55)
[2024-11-12] MEDS: IBUPROFEN 400 MG TAB PO PRN (18:59)
[2024-11-12] MEDS: DOXYCYCLINE 100 MG CAP PO SCH (21:18)
[2024-11-12] MEDS: diphenhydrAMINE 25 MG CAP PO SCH (21:18)
[2024-11-13] MEDS: VANCOMYCIN 1,500 MG in SODIUM CHLORIDE 0.9% 500 ML 500 ML IVPB SCH (12:10)
[2024-11-13] MEDS: IPRATROPIUM-ALBUTEROL 3 ML NEB INHALATION SCH (15:44)
[2024-11-13] MEDS: FLUCONAZOLE 100 MG TAB PO SCH (15:54)
[2024-11-13] MEDS: NYSTATIN 100,000 UNIT/GM POWD 15 GM TOPICAL SCH (15:54)
[2024-11-13] MEDS: methylPREDNISolone SOD SUCCI 40 MG/ML 1 ML VIAL IV SCH (15:58)
[2024-11-13] MEDS ORDERED: PIPERACILLIN-TAZOBACTAM 3.375 GM in SODIUM CHLORIDE 0.9% 100 ML IVPB SCH (16:00)
--- NOTE | 2024-11-13 22:32 | HP ---
HISTORY AND PHYSICAL HISTORY OF PRESENT ILLNESS: 49-year-old female with Darier disease, who came to the emergency room for evaluation of rash throughout her body, most significant on her abdomen and shoulder. She has been on doxycycline for the past 10 days without any improvement, rashes on her abdomen, groin, armpits, and right ear. HOME MEDICATIONS: 1. Benadryl. 2. Doxycycline. 3. Motrin. ALLERGIES: Valacyclovir, penicillin, Bactrim, Zosyn. PAST MEDICAL HISTORY: Asthma, skin disorder, Darier disease, eczema, heart murmur. PAST SURGICAL HISTORY: , tubal ligation. SOCIAL HISTORY: Does not smoke. Second-hand smoke for many years. Works at . FAMILY HISTORY: Mother with cancer, Darier's. Father, negative. REVIEW OF SYSTEMS: 14-point review of systems otherwise is negative except for fatigue and breaking out in rashes and a recent ear infection. PHYSICAL EXAMINATION: HEENT: Normocephalic, atraumatic. GENERAL: Obese white female in no acute distress. INTEGUMENT: She has rashes diffusely across her right lateral neck, left lateral neck, scalp, healing scabbed areas. She has severe redness and erythema on the lateral abdomen bilaterally. CARDIOVASCULAR: S1, S2. HEMATOLOGY: 2+ edema. NEUROLOGIC: Cranial nerves intact. PSYCH: Poor mood and affect. OPHTHALMOLOGIC: Pupils equal, round, reactive. VITAL SIGNS: Blood pressures are reviewed. Blood pressure 120s over 60s, pulse 79, respiratory rate 16 to 18. LABORATORY DATA: Reviewed. Hemoglobin is 13.2. Carbon dioxide is 28. Lactic acid 0.9. Recurrent cellulitis, severe Darier disease flare with failure of outpatient treatment. Vancomycin has been started. She will be here multiple days. Start breathing treatments for asthma, etc. Prognosis guarded. Start IV Solu-Medrol. MMODL / IJN: [id number] /
[2024-11-14 06:08] LABS: African American GFR (CKD) >90 (>60 ml/min/1.73 sqM); Anion Gap 8 mmol/L; Blood Urea Nitrogen 12 mg/dL (7-17); Calcium 8.8 mg/dL (8.4-10.2); Carbon Dioxide 23 mmol/L (22-30); Chloride 108 mmol/L (98-107); Glucose 146 mg/dL (74-99); Non-African American GFR(CKD) 90 (>60 ml/min/1.73 sqM); Potassium 4.6 mmol/L (3.5-5.1); Sodium 139 mmol/L (137-145)
--- NOTE | 2024-11-14 09:00 | P.CONS ---
History of Present Illness - Reason for Consult Consult date: 11/13/24 Dariers , cellulitis Requesting physician: Drea Wong - Chief Complaint Worsening rash x days - History of Present Illness Patient is a 49-year-old female with a past medical history significant for asthma Dariers disease, presenting to the hospital for evalua tion of worsening rash especially involving bilateral breast and groin fold area patient mention he started he initially around the right around the ear there was drainage patient did use some compounding agent and the seem to have helped subsequently noticed to having a worsening rash to bilateral breast fold abdominal wall and groin area patient complaining of burning pain associated with this lesion moderate intensity without radiation mention there was some drainage around the unlikely that has been cultured by the ER physician patient denies high-grade fever or chills on presentation to the hospital the patient was afebrile and no fever have been called subsequently patient was not tach ycardic hypotensive or hypoxic patient did have white count of 10.1 creatinine 0.88 electrolytes has been normal liver isms are normal patient was started on vancomycin and Solu-Medrol Doxy by admitting physician infectious disease was consulted regarding cellulitis Review of Systems Positive point and negatives has been mentioned in the HPI, complete review of systems was performed and all other systems are negative 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 Year Discovered:: 01/29/23 MDRO Source:: Right Breast Past Surgical History: Section, Tubal Ligation Past Anesthesia/Blood Transfusion Reactions: No Reported Reaction Past Psychological History: No Psychological Hx Reported Smoking Status: Never smoker Past Alcohol Use History: Rare Past Drug Use History: None Reported - Past Family History Mother Family Medical History: Cancer Additional Family Medical History / Comment(s): Dariers, Father Family Medical History: No Reported History Medications and Allergies Home Medications Medication Instructions Recorded Confirmed Type Ibuprofen [Motrin Ib] 800 mg PO Q6H PRN 06/02/23 11/12/24 History diphenhydrAMINE HCL [Benadryl] 25 mg PO HS 06/02/23 11/12/24 History Doxycycline Hyclate 100 mg PO BID 11/12/24 11/12/24 History Allergies Allergy/AdvReac Type Severity Reaction Status Date / Time valacyclovir [From Valtrex] Allergy Severe Rash/Hives Verified 11/12/24 17:55 Penicillins Allergy Intermediate Itching Verified 11/12/24 17:55 codeine Allergy Swelling Verified 11/12/24 17:55 piperacillin [From Zosyn] Allergy Itching Verified 11/12/24 17:55 sulfamethoxazole Allergy Rash/Hives Verified 11/12/24 17:55 [From Bactrim] tazobactam [From Zosyn] Allergy Itching Verified 11/12/24 17:55 trimethoprim [From Bactrim] Allergy Rash/Hives Verified 11/12/24 17:55 Physical Exam Vitals: Vital Signs Temp Pulse Pulse Resp BP BP Pulse Ox 11/13/24 07:00 97.9 F 59 L 15 134/81 99 11/13/24 01:21 97.5 F L 67 18 101/66 97 11/12/24 20:50 97.9 F 60 18 107/74 99 11/12/24 20:00 18 11/12/24 18:36 97.6 F 58 L 16 115/76 100 11/12/24 17:18 79 18 122/62 99 11/12/24 14:50 98.3 F 74 18 129/69 97 Intake and Output 11/12/24 11/13/24 11/13/24 22:59 06:59 14:59 Other: # Voids 1 4 Weight 108.862 kg GENERAL DESCRIPTION: Middle-aged female lying in bed, no distress. No tachypnea or accessory muscle of respiration use. HEENT: Shows Pallor , no scleral icterus. Oral mucous membrane is dry. NECK: Trachea central, no thyromegaly. LUNGS: Unlabored breathing. Clear to auscultation anteriorly. No wheeze or crackle. HEART: S1, S2, regular rate and rhythm. No loud murmur ABDOMEN: Soft, no tenderness , guarding or rigidity, no organomegaly EXTREMITIES: No edema of feet. SKIN: Patient did have evidence of rash involving bilateral breast fold and groin area some rash was noticed on the abdominal wall and perirectal area mild foul-smelling but no purulent drainage noticed NEUROLOGICAL: The patient is awake, alert, oriented x3, mood and affect normal. Results CBC & Chem 7: 11/12/24 16:23 11/14/24 04:58 Labs: Abnormal Lab Results - Last 24 Hours (Table) 11/12/24 Range/Units 16:23 Chloride 108 H (98-107) mmol/L Assessment and Plan (1) Allergy to multiple antibiotics Current Visit: Yes Status: Acute Code(s): Z88.1 - ALLERGY STATUS TO OTHER ANTIBIOTIC AGENTS SNOMED Code(s): 295441623 (2) Cutaneous candidiasis Current Visit: No Status: Acute Code(s): B37.2 - CANDIDIASIS OF SKIN AND NAIL SNOMED Code(s): 04159573 (3) Intertriginous candidiasis Current Visit: No Status: Acute Code(s): B37.2 - CANDIDIASIS OF SKIN AND NAIL SNOMED Code(s): 339719656 Plan: 1patient presented to hospital with worsening rash to the chest wall/breast fold as well as abdominal wall and groin area in this patient who did have a history of Dariers disease with a question of possible exacerbation versus cutaneous candidiasis secondary cellulitis less likely without excluded 2patient with multiple antibiotic ALLERGIES that would limit the number of antibiotic safe to use 3I will start the patient on nystatin powder to the pannus fold in the groin area and to keep the area dry with Interdry this was explained to the patient and will add Diflucan 4continue with vancomycin while waiting for the culture to finalize question concern answered We will follow on clinical condition and cultures to further adjust medication if needed Thank you for this consultation we will follow the patient along with you Dictation was produced using [employer] dictation software. please excuse any grammatical, word or spelling errors. Time with Patient: Greater than 30
--- NOTE | 2024-11-15 02:16 | PN ---
PROGRESS NOTE SUBJECTIVE: A 49-year-old white female, continues on current treatment with Vibramycin, vancomycin, Mycostatin powder. The patient is slowly improving. OBJECTIVE: VITAL SIGNS: Temp 97.8, blood pressure 132/76, O2 of 96% on room air, pulse 70s, respiratory rate 16 to 18. CARDIOVASCULAR: S1, S2. NEUROLOGIC: Alert and oriented x3. HEENT: Pupils equal, round, reactive. PLAN: Continue current treatment with vancomycin, Solu-Medrol. Wait for Dr. Blood's recommendations. Prognosis guarded, but good. She is slowly improving. MMODL / IJN: [id number] /
[2024-11-15] MEDS: HYDROcodone/APAP 5-325MG 1 EACH TAB PO PRN (08:11)
[2024-11-15 12:23] LABS: African American GFR (CKD) >90 (>60 ml/min/1.73 sqM); Non-African American GFR(CKD) >90 (>60 ml/min/1.73 sqM)
[2024-11-15] MEDS ORDERED: NYSTAT-TRIAMCIN 100,000-0.1 UNIT/GM-% CREAM 30 GM TUBE TOPICAL SCH (13:45)
[2024-11-15] MEDS: TRIAMCINOLONE 0.1% CREAM 80 GM TUBE TOPICAL SCH (14:34)
[2024-11-15] MEDS: NYSTATIN 100,000UNIT/GM CREAM 30 GM TUBE TOPICAL SCH (14:34)
[2024-11-15] MEDS: VANCOMYCIN TROUGH DUE 1 EACH MISC MISCELLANE ONE (17:38)
[2024-11-15] MEDS: ENOXAPARIN 40 MG/0.4 ML SYRINGE SQ SCH (21:35)
[2024-11-16] MEDS: VANCOMYCIN 1,750 MG in SODIUM CHLORIDE 0.9% 500 ML 500 ML IVPB SCH
[2024-11-16] MEDS: methylPREDNISolone SOD SUCCI 40 MG/ML 1 ML VIAL IV SCH (00:01)
--- NOTE | 2024-11-16 08:04 | P.PN ---
Subjective Progress Note Date: 11/14/24 Principal diagnosis: Reason for follow-up is groin abdominal fold cutaneous skin disease/cellulitis Patient is a 49-year-old female with a past medical history significa nt for asthma Dariers disease, presenting to the hospital for evaluation of worsening rash especially involving bilateral breast and groin fold area, patient mated to hospital concerning for cellulitis and worsening of her illness. On today's evaluation that is 11/14/2023, patient has been afebrile, patient is breathing comfortably and is currently on room air, patient denies having any significant cough no chest pain, patient denies nausea vomiting or diarrhea has been complaining of most burning pain to the rash behind the ear and neck area. Patient did have a creatinine 0.78 cultures currently pending Objective - Vital Signs Vital signs: Vital Signs Temp 98.3 F 11/14/24 07:00 Pulse 76 11/14/24 09:13 Resp 15 11/14/24 07:00 BP 124/74 11/14/24 07:00 Pulse Ox 97 11/14/24 07:00 FiO2 Intake & Output 11/13/24 11/14/24 11/14/24 18:59 06:59 18:59 Intake Total 800 240 Balance 800 240 Intake: Intake, IV Titration 800 Amount Sodium Chloride 0.9% 1, 800 000 ml @ 100 mls/hr IV . Q10H [facility] Rx#:[id number] Oral 240 Other: # Voids 3 - Exam GENERAL DESCRIPTION: Middle-age female lying in bed in no distress RESPIRATORY SYSTEM: Unlabored breathing , decreased breath sounds at bases HEART: S1 S2 regular rate and rhythm , ABDOMEN: Soft , no tenderness Did have more prominent rash behind the right ear and neck area - Labs CBC & Chem 7: 11/12/24 16:23 11/15/24 11:32 Labs: Abnormal Lab Results - Last 24 Hours (Table) 11/14/24 Range/Units 04:58 Chloride 108 H (98-107) mmol/L Glucose 146 H (74-99) mg/dL Microbiology - Last 24 Hours (Table) 11/12/24 16:23 Blood Culture - Preliminary Blood 11/12/24 16:26 Gram Stain - Preliminary Abdomen Assessment and Plan (1) Allergy to multiple antibiotics Current Visit: Yes Status: Acute Code(s): Z88.1 - ALLERGY STATUS TO OTHER ANTIBIOTIC AGENTS SNOMED Code(s): 960756470 (2) Cutaneous candidiasis Current Visit: No Status: Acute Code(s): B37.2 - CANDIDIASIS OF SKIN AND NAIL SNOMED Code(s): 21188971 (3) Intertriginous candidiasis Current Visit: No Status: Acute Code(s): B37.2 - CANDIDIASIS OF SKIN AND NAIL SNOMED Code(s): 120050796 Plan: 1patient presented to hospital with worsening rash to the chest wall/breast fold as well as abdominal wall and groin area in this patient who did have a history of Dariers disease with a question of possible exacerbation versus cutaneous candidiasis secondary cellulitis less likely without excluded 2patient with multiple antibiotic ALLERGIES that would limit the number of antibiotic safe to use 3patient advised to continue with nystatin powder to the pannus fold in the groin area and to keep the area dry with Interdry along with Diflucan 4continue with vancomycin while waiting for the culture to finalize and monitor clinical course closely Dictation was produced using [employer] dictation software. please excuse any grammatical, word or spelling errors. Time with Patient: Less than 30
--- NOTE | 2024-11-16 08:06 | P.PN ---
Subjective Progress Note Date: 11/15/24 Principal diagnosis: Reason for follow-up is groin abdominal fold cutaneous skin disease/cellulitis Patient is a 49-year-old female with a past medical history significa nt for asthma Dariers disease, presenting to the hospital for evaluation of worsening rash especially involving bilateral breast and groin fold area, patient mated to hospital concerning for cellulitis and worsening of her illness. On today's evaluation that is 11/15/2023, Patient is afebrile this morning patient denies having any chest pain shortness of breath or cough, the patient is currently on room air, patient denies any abdominal pain no diarrhea no nausea no vomiting, has been complaining of pain discomfort most of the rash to the neck and behind the right ear rash to the abdominal and groin fold slightly decreased. Patient did have a creatinine 0.76 local culture currently growing MRSA and strep Objective - Vital Signs Vital signs: Vital Signs Temp 97.8 F 11/15/24 07:00 Pulse 60 11/15/24 11:51 Resp 16 11/15/24 11:51 BP 147/84 11/15/24 07:00 Pulse Ox 98 11/15/24 07:00 FiO2 Intake & Output 11/14/24 11/15/24 11/15/24 18:59 06:59 18:59 Intake Total 976 Balance 976 Intake: Intake, IV Titration 500 Amount Vancomycin 1,500 mg In 500 Sodium Chloride 0.9% 500 ml 500 ml @ 167 mls/hr IVPB Q12H [facility] Rx#: [id number] Oral 476 Other: # Voids 1 - Exam GENERAL DESCRIPTION: Middle-age female lying in bed in no distress RESPIRATORY SYSTEM: Unlabored breathing , decreased breath sounds at bases HEART: S1 S2 regular rate and rhythm , ABDOMEN: Soft , no tenderness Did have more prominent rash behind the right ear and neck area - Labs CBC & Chem 7: 11/12/24 16:23 11/15/24 11:32 Labs: Microbiology - Last 24 Hours (Table) 11/12/24 16:23 Blood Culture - Preliminary Blood 11/12/24 16:26 Gram Stain - Preliminary Abdomen Wound Culture - Preliminary Beta Hemolytic Strep Group C Presumptive MRSA Gram Neg Bacilli Assessment and Plan (1) Allergy to multiple antibiotics Current Visit: Yes Status: Acute Code(s): Z88.1 - ALLERGY STATUS TO OTHER ANTIBIOTIC AGENTS SNOMED Code(s): 343205762 (2) Cutaneous candidiasis Current Visit: No Status: Acute Code(s): B37.2 - CANDIDIASIS OF SKIN AND NAIL SNOMED Code(s): 58804971 (3) Intertriginous candidiasis Current Visit: No Status: Acute Code(s): B37.2 - CANDIDIASIS OF SKIN AND NAIL SNOMED Code(s): 633789262 Plan: 1patient presented to hospital with worsening rash to the chest wall/breast fold as well as abdominal wall and groin area in this patient who did have a history of Dariers disease with a question of possible exacerbation versus cutaneous candidiasis secondary cellulitis less likely without excluded 2patient with multiple antibiotic ALLERGIES that would limit the number of antibiotic safe to use 3patient to continue with nystatin powder to the pannus fold in the groin area and to keep the area dry with Interdry along with Diflucan 4patient will culture currently growing MRSA for the patient is covered with vancomycin, we will add Mycolog cream to the rash involving behind the ear and n mary area discussed with the nursing staff Dictation was produced using [employer] dictation software. please excuse any grammatical, word or spelling errors. Time with Patient: Less than 30
[2024-11-16] MEDS: CEFEPIME 2 GM in SODIUM CHLORIDE 0.9% 100 ML IVPB SCH (08:42)
[2024-11-16 10:32] LABS: African American GFR (CKD) >90 (>60 ml/min/1.73 sqM); Non-African American GFR(CKD) >90 (>60 ml/min/1.73 sqM)
--- NOTE | 2024-11-16 11:49 | P.PN ---
Progress Note - Text Progress Note Date: 11/15/24 I am rounding for Dr. Hever Duarte who called this evening not feeling well. Interval history: November 15: Patient has known Dariers disease and seborrheic dermatitis. Patient just completed a 10-day course of doxycycline with a concrete pipe plant supervisor. Presented with weeping lesions in the abdominal wall fold. In the groin area. Also some lesions around her neck. Also in the right side of the scalp. Patient is on multiple antibiotics including vancomycin, Kenalog cream, nystatin topical, Diflucan. He states sleeping is better. Eating well. Had a bowel movement. Scalp incision improving. Has family visiting. Medications reviewed On examination: VITAL SIGNS: [] 98.8, 60, 14, 137/72, 100% room air GENERAL APPEARANCE: BMI 37.6, sitting bed awake not in distress HEENT: Normal external appearance of nose and ear. Oral cavity normal scaly lesions on the scalp. Most on the right side. Slight weeping. EYES: Pupils equal. Conjunctiva normal. NECK: JVD not raised. Mass not palpable. RESPIRATORY: Respiratory effort normal. Lungs clear to auscultation. CARDIOVASCULAR: First and second sounds normal. No edema. ABDOMEN: Soft. Liver and spleen not palpable. No tenderness. No mass palpable. PSYCHIATRY: Alert and oriented x3. Mood and affect normal. Dermatological: Scaly lesion some redness in the abdominal wall fold. Some around the neck with some satellite lesions. INVESTIGATIONS, reviewed in the clinical context: Creatinine 0.76 Assessment plan: -Seborrheic dermatitis extensive multiple sites. With some secondary infection from scratching. Wound cultures growing multiple organisms including MRSA IV vancomycin. Solu-Medrol. Topical Kenalog cream. Benadryl. -Severe intertriginous linwood infection Diflucan. Topical Mycostatin powder/cream -Obesity BMI 37.6 Weight loss measures -dariers disease Being followed by concrete pipe plant supervisor outpatientdr [facility] was discussed with the patient. Follow-up with ID. -
--- NOTE | 2024-11-16 11:52 | P.PN ---
Progress Note - Text Progress Note Date: 11/16/24 I am rounding for Dr. Hever Duarte who called this evening not feeling well. Interval history: November 15: Patient has known Dariers disease and seborrheic dermatitis. Patient just completed a 10-day course of doxycycline with a cullet washer. Presented with weeping lesions in the abdominal wall fold. In the groin area. Also some lesions around her neck. Also in the right side of the scalp. Patient is on multiple antibiotics including vancomycin, Kenalog cream, nystatin topical, Diflucan. He states sleeping is better. Eating well. Had a bowel movement. Scalp incision improving. Has family visiting. November 16: Sitting up in bed. IV cefepime added by ID. Also on oral Diflucan. IV Solu-Medrol. Nystatin topical. Kenalog cream topical. IV vancomycin. Tolerating diet. Lesions are improving. Will decrease vaping. Active Medications Hydrocodone Bitart/Acetaminophen (Hydrocodone/Apap 5-325mg 1 Each Tab) 1 each PO Q4HR PRN PRN Reason: Pain Last Admin: 11/16/24 06:14 Dose: 1 each Albuterol/Ipratropium (Ipratropium-Albuterol 3 Ml Neb) 3 ml INHALATION RT-QID [facility] Last Admin: 11/16/24 09:28 Dose: 3 ml Diphenhydramine HCl (Diphenhydramine 25 Mg Cap) 25 mg PO HS [facility] Last Admin: 11/15/24 21:31 Dose: 25 mg Enoxaparin Sodium (Enoxaparin 40 Mg/0.4 Ml Syringe) 40 mg SQ HS [facility] Last Admin: 11/15/24 21:35 Dose: 40 mg Fluconazole (Fluconazole 100 Mg Tab) 100 mg PO DAILY [facility]; Protocol Last Admin: 11/16/24 08:15 Dose: 100 mg Sodium Chloride (Saline 0.9%) 1,000 mls @ 100 mls/hr IV .Q10H [facility] Last Admin: 11/16/24 01:07 Dose: 100 mls/hr Vancomycin HCl 1,750 mg/ (Sodium Chloride) 500 mls @ 167 mls/hr IVPB Q12H [facility] Last Admin: 11/16/24 00:00 Dose: 167 mls/hr Cefepime HCl 2 gm/ Sodium (Chloride) 100 mls @ 25 mls/hr IVPB Q8HR [facility]; Protocol Last Admin: 11/16/24 08:42 Dose: 25 mls/hr Ibuprofen (Ibuprofen 400 Mg Tab) 400 mg PO Q6HR PRN PRN Reason: Mild Pain or Fever > 100.5 Last Admin: 11/15/24 07:35 Dose: 400 mg Methylprednisolone Sodium Succinate (Methylprednisolone Sod Succi 40 Mg/Ml 1 Ml Vial) 20 mg IV Q8HR [facility] Last Admin: 11/16/24 08:15 Dose: 20 mg Naloxone HCl (Naloxone 0.4 Mg/Ml 1 Ml Vial) 0.2 mg IV Q2M PRN PRN Reason: Opioid Reversal Nystatin (Nystatin 100,000 Unit/Gm Powd 15 Gm) 1 applic TOPICAL BID [facility]; Protocol Last Admin: 11/16/24 09:14 Dose: 1 applic Nystatin (Nystatin 100,000unit/Gm Cream 30 Gm Tube) 1 applic TOPICAL BID [facility] Last Admin: 11/16/24 09:14 Dose: 1 applic Ondansetron HCl (Ondansetron 4 Mg/2 Ml Vial) 4 mg IVP Q8HR PRN PRN Reason: Nausea And Vomiting Triamcinolone Acetonide (Triamcinolone 0.1% Cream 80 Gm Tube) 1 applic TOPICAL BID [facility] Last Admin: 11/16/24 09:14 Dose: 1 applic On examination: VITAL SIGNS: 98, 60, 14, 137 x 72, 100% room air GENERAL APPEARANCE: BMI 37.6, sitting bed awake not in distress HEENT: Normal external appearance of nose and ear. Oral cavity normal scaly lesions on the scalp. Most on the right side. Slight weeping. EYES: Pupils equal. Conjunctiva normal. NECK: JVD not raised. Mass not palpable. RESPIRATORY: Respiratory effort normal. Lungs clear to auscultation. CARDIOVASCULAR: First and second sounds normal. No edema. ABDOMEN: Soft. Liver and spleen not palpable. No tenderness. No mass palpable. PSYCHIATRY: Alert and oriented x3. Mood and affect normal. Dermatological: Scaly lesion some redness in the abdominal wall fold. Some around the neck with some satellite lesions. INVESTIGATIONS, reviewed in the clinical context: Wound culture: Beta-hemolytic strep group C, MRSA, Morganella Clinton I Creatinine 0.76 Assessment plan: -Seborrheic dermatitis extensive multiple sites. With some secondary infection from scratching.: Some improvement Wound cultures growing multiple organisms including MRSA IV vancomycin. Solu-Medrol. Topical Kenalog cream. Benadryl. IV cefepime added by ID today. -Severe intertriginous linwood infection Diflucan. Topical Mycostatin powder/cream -Obesity BMI 37.6 Weight loss measures -dariers disease Being followed by cullet washer shannan solorzano Discussed with the patient. Continue current medications. IV cefepime added. Check labs tomorrow. -
[2024-11-16] MEDS: LINEZOLID 600 MG TAB PO SCH (20:37)
[2024-11-16] MEDS: CIPROFLOXACIN HCL 500 MG TAB PO SCH (20:37)
[2024-11-17 07:23] LABS: Basophils % (A) 0 %; Eosinophils % (A) 0 %; HCT 40.9 % (34.0-46.0); HGB 13.2 gm/dL (11.4-16.0); Lymphocytes % (A) 8 %; MCH 29.3 pg (25.0-35.0); MCHC 32.3 g/dL (31.0-37.0); MCV 90.6 fL (80.0-100.0); Mean Platelet Volume 7.4; Monocytes # (A) 0.6 k/uL (0-1.0); Monocytes % (A) 4 %; Neutrophils # (A) 11.8 k/uL (1.3-7.7); Neutrophils % (A) 87 %; Platelet Count 305 k/uL (150-450); RBC 4.51 m/uL (3.80-5.40); RDW 13.8 % (11.5-15.5); WBC 13.6 k/uL (3.8-10.6)
[2024-11-17 07:50] LABS: African American GFR (CKD) >90 (>60 ml/min/1.73 sqM); Anion Gap 8 mmol/L; Blood Urea Nitrogen 21 mg/dL (7-17); Calcium 8.8 mg/dL (8.4-10.2); Carbon Dioxide 28 mmol/L (22-30); Chloride 101 mmol/L (98-107); Glucose 92 mg/dL (74-99); Non-African American GFR(CKD) 86 (>60 ml/min/1.73 sqM); Potassium 4.5 mmol/L (3.5-5.1); Sodium 137 mmol/L (137-145)
[2024-11-17 14:38] VITALS: BP 162/81; RESP 17; TEMP 98
[2024-11-17 16:05] VITALS: PULSE 60
--- NOTE | 2024-11-17 16:13 | P.PN ---
Subjective Progress Note Date: 11/16/24 Principal diagnosis: Reason for follow-up is groin abdominal fold cutaneous skin disease/cellulitis Patient is a 49-year-old female with a past medical history significa nt for asthma Dariers disease, presenting to the hospital for evaluation of worsening rash especially involving bilateral breast and groin fold area, patient mated to hospital concerning for cellulitis and worsening of her illness. On today's evaluation that is 11/16/2024,the patient denies any fever or any chills, patient is breathing comfortably on room air, the patient denies chest pain shortness of breath and no significant cough, patient denies abdominal pain, no nausea vomiting or diarrhea. Patient mention improvement of the rash on the posterior neck area. Patient did have a creatinine 0.71 no CBC was done today Objective - Vital Signs Vital signs: Vital Signs Temp 98.0 F 11/16/24 07:44 Pulse 72 11/16/24 12:26 Resp 18 11/16/24 12:26 BP 137/85 11/16/24 07:44 Pulse Ox 98 11/16/24 07:44 FiO2 Intake & Output 11/15/24 11/16/24 11/16/24 18:59 06:59 18:59 Intake Total 354 240 Balance 354 240 Intake: Oral 354 240 Other: # Voids 4 2 - Exam GENERAL DESCRIPTION: Middle-age female lying in bed in no distress RESPIRATORY SYSTEM: Unlabored breathing , decreased breath sounds at bases HEART: S1 S2 regular rate and rhythm , ABDOMEN: Soft , no tenderness Did have more prominent rash behind the right ear and neck area - Labs CBC & Chem 7: 11/17/24 05:55 11/17/24 05:55 Labs: Microbiology - Last 24 Hours (Table) 11/12/24 16:23 Blood Culture - Preliminary Blood 11/12/24 16:26 Gram Stain - Final Abdomen Wound Culture - Final Beta Hemolytic Strep Group C Methicillin resist S. aureus Morganella morganii Assessment and Plan (1) Allergy to multiple antibiotics Current Visit: Yes Status: Acute Code(s): Z88.1 - ALLERGY STATUS TO OTHER ANTIBIOTIC AGENTS SNOMED Code(s): 379050492 (2) Cutaneous candidiasis Current Visit: No Status: Acute Code(s): B37.2 - CANDIDIASIS OF SKIN AND NAIL SNOMED Code(s): 03547595 (3) Intertriginous candidiasis Current Visit: No Status: Acute Code(s): B37.2 - CANDIDIASIS OF SKIN AND NAIL SNOMED Code(s): 504170280 Plan: 1patient presented to hospital with worsening rash to the chest wall/breast fold as well as abdominal wall and groin area in this patient who did have a history of Dariers disease with a question of possible exacerbation versus cutaneous candidiasis secondary cellulitis less likely without excluded 2patient with multiple antibiotic ALLERGIES that would limit the number of antibiotic safe to use 3patient to continue with nystatin powder to the pannus fold in the groin area and to keep the area dry with Interdry along with Diflucan and Mycolog cream to the rash involving behind the ear and neck area 4local culture currently growing MRSA and Pseudomonas patient has been on vancomycin cefepime was added this morning however the patient is very hard to get any blood and Vanco continue monitor we will discuss vancomycin for pain start the patient on oral Cipro and Zyvox and if continue to improve should be able to finish therapy with these to oral antibiotic on discharge Dictation was produced using [employer] dictation software. please excuse any grammatical, word or spelling errors.
--- NOTE | 2024-11-17 16:14 | P.PN ---
Subjective Progress Note Date: 11/17/24 Principal diagnosis: Reason for follow-up is groin abdominal fold cutaneous skin disease/cellulitis Patient is a 49-year-old female with a past medical history significa nt for asthma Dariers disease, presenting to the hospital for evaluation of worsening rash especially involving bilateral breast and groin fold area, patient mated to hospital concerning for cellulitis and worsening of her illness. On today's evaluation that is 11/17/2024,the patient remains to be afebrile, patient is on room air not requiring supplemental oxygen and denies any shortness of breath no chest pain or cough.Patient denies having any nausea or vomiting, no abdominal pain and no diarrhea has been reported, mention improvement in the rash and no new rash has been noticed. Patient white count 13.6, creatinine 0.81 Objective - Vital Signs Vital signs: Vital Signs Temp 98 F 11/17/24 14:00 Pulse 60 11/17/24 15:55 Resp 17 11/17/24 14:00 BP 162/81 11/17/24 14:00 Pulse Ox 94 L 11/17/24 14:00 FiO2 Intake & Output 11/16/24 11/17/24 11/17/24 18:59 06:59 18:59 Intake Total 360 Balance 360 Intake: Oral 360 Other: Voiding Method Toilet Toilet # Voids 1 3 5 # Bowel Movements 1 - Exam GENERAL DESCRIPTION: Middle-age female lying in bed in no distress RESPIRATORY SYSTEM: Unlabored breathing , decreased breath sounds at bases HEART: S1 S2 regular rate and rhythm , ABDOMEN: Soft , no tenderness Did have more prominent rash behind the right ear and neck area - Labs CBC & Chem 7: 11/17/24 05:55 11/17/24 05:55 Labs: Abnormal Lab Results - Last 24 Hours (Table) 11/17/24 11/17/24 Range/Units 05:55 05:55 WBC 13.6 H (3.8-10.6) k/uL Neutrophils # 11.8 H (1.3-7.7) k/uL BUN 21 H (7-17) mg/dL Assessment and Plan (1) Allergy to multiple antibiotics Current Visit: Yes Status: Acute Code(s): Z88.1 - ALLERGY STATUS TO OTHER ANTIBIOTIC AGENTS SNOMED Code(s): 096212252 (2) Cutaneous candidiasis Current Visit: No Status: Acute Code(s): B37.2 - CANDIDIASIS OF SKIN AND NAIL SNOMED Code(s): 67003054 (3) Intertriginous candidiasis Current Visit: No Status: Acute Code(s): B37.2 - CANDIDIASIS OF SKIN AND NAIL SNOMED Code(s): 098143569 Plan: 1patient presented to hospital with worsening rash to the chest wall/breast fold as well as abdominal wall and groin area in this patient who did have a history of Dariers disease with a question of possible exacerbation versus cutaneous candidiasis secondary cellulitis less likely without excluded 2patient with multiple antibiotic ALLERGIES that would limit the number of antibiotic safe to use 3patient to continue with nystatin powder to the pannus fold in the groin area and to keep the area dry with Interdry along with Diflucan and Mycolog cream to the rash involving behind the ear and neck area 4local culture currently growing MRSA and Pseudomonas patient currently on oral Cipro and Zyvox, plan is for about a week of oral antibiotic on discharge Dictation was produced using [employer] dictation software. please excuse any grammatical, word or spelling errors. Time with Patient: Less than 30
--- NOTE | 2024-11-17 18:41 | P.DS ---
Providers Date of admission: 11/15/24 08:19 Expected date of discharge: 11/17/24 Attending physician: Hever Duarte Consults: 11/12/24 17:12 Consult Physician Routine Consulting Provider: Jimmy Blood Consult Reason/Comments: dariers, cellulitis Do you want consulting provider notified?: Yes Primary care physician: [facility] Course: I am rounding for Dr. Hever Duarte who called this evening not feeling well. Interval history: November 15: Patient has known Dariers disease and seborrheic dermatitis. Patient just completed a 10-day course of doxycycline with a shredder tender. Presented with weeping lesions in the abdominal wall fold. In the groin area. Also some lesions around her neck. Also in the right side of the scalp. Patient is on multiple antibiotics including vancomycin, Kenalog cream, nystatin topical, Diflucan. He states sleeping is better. Eating well. Had a bowel movement. Scalp incision improving. Has family visiting. November 16: Sitting up in bed. IV cefepime added by ID. Also on oral Diflucan. IV Solu-Medrol. Nystatin topical. Kenalog cream topical. IV vancomycin. Tolerating diet. Lesions are improving. Will decrease vaping. November 17: Doing much better. Lesions are much improved. Spoke with Dr. Reyes from [place]. Discharged on Zyvox for 7 days and Cipro for 7 days. Tapering dose of prednisone. Patient to follow-up with Dr. Reyes from [place], observing for dermatology and Dr. Duarte. Questions answered. Discussion and discharge planning more than 35 minutes On examination: VITAL SIGNS: 98, 77, 17, 1 04/03/1981, 94% room air GENERAL APPEARANCE: BMI 37.6, comfortable HEENT: Normal external appearance of nose and ear. Oral cavity normal scaly lesions on the scalp. Most on the right side. EYES: Pupils equal. Conjunctiva normal. NECK: JVD not raised. Mass not palpable. RESPIRATORY: Respiratory effort normal. Lungs clear to auscultation. CARDIOVASCULAR: First and second sounds normal. No edema. ABDOMEN: Soft. Liver and spleen not palpable. No tenderness. No mass palpable. PSYCHIATRY: Alert and oriented x3. Mood and affect normal. Dermatological: Scaly lesion some redness in the abdominal wall fold. Some around the neck with some satellite lesions. INVESTIGATIONS, reviewed in the clinical context: November 17: White count 13.6 hemoglobin 13.2 potassium 4.5 creatinine 0.81 Wound culture: Beta-hemolytic strep group C, MRSA, Morganella Clinton I Creatinine 0.76 Assessment plan: -Seborrheic dermatitis extensive multiple sites. With some secondary infection from scratching.: Some improvement Wound cultures growing multiple organisms including MRSA IV vancomycin. Solu-Medrol. Topical Kenalog cream. Benadryl. IV cefepime added by ID today. Discharge on Zyvox, Cipro, -Severe intertriginous linwood infection Diflucan. Topical Mycostatin powder/cream -Obesity BMI 37.6 Weight loss measures -dariers disease Being followed by shredder tender shannan milan -Full code Disposition: Home - Plan - Discharge Summary Discharge Rx Participant: No New Discharge Prescriptions: New Triamcinolone 0.1% Cream [Kenalog 0.1% Cream] 1 applic TOPICAL BID each Nystatin 100,000 Unit/gm Powd [Mycostatin Powder] 1 applic TOPICAL BID each predniSONE 10 mg PO DAILY #30 tab Linezolid [Zyvox] 600 mg PO Q12HR #14 tab Ciprofloxacin HCl [Cipro] 500 mg PO BID #14 tab Fluconazole [Diflucan] 100 mg PO DAILY #7 tab Ipratropium-Albuterol Nebulize [Duoneb 0.5 mg-3 mg/3 ml Soln] 3 ml INHALATION TID #90 each Continue Ibuprofen [Motrin Ib] 800 mg PO Q6H PRN PRN Reason: Pain Or Fever > 100.5 diphenhydrAMINE HCL [Benadryl] 25 mg PO HS Discontinued Doxycycline Hyclate 100 mg PO BID Discharge Medication List Ibuprofen [Motrin Ib] 800 mg PO Q6H PRN 06/02/23 [History] diphenhydrAMINE HCL [Benadryl] 25 mg PO HS 06/02/23 [History] Ciprofloxacin HCl [Cipro] 500 mg PO BID #14 tab 11/17/24 [Rx] Fluconazole [Diflucan] 100 mg PO DAILY #7 tab 11/17/24 [Rx] Ipratropium-Albuterol Nebulize [Duoneb 0.5 mg-3 mg/3 ml Soln] 3 ml INHALATION TID #90 each 11/17/24 [Rx] Linezolid [Zyvox] 600 mg PO Q12HR #14 tab 11/17/24 [Rx] Nystatin 100,000 Unit/gm Powd [Mycostatin Powder] 1 applic TOPICAL BID each 11/17/24 [Rx] Triamcinolone 0.1% Cream [Kenalog 0.1% Cream] 1 applic TOPICAL BID each 11/17/24 [Rx] predniSONE 10 mg PO DAILY #30 tab 11/17/24 [Rx] Follow up Appointment(s)/Referral(s): Jim Milan MD [STAFF PHYSICIAN] - 1 Week Hever Duarte MD [Primary Care Provider] - 1-2 days Jimmy Blood MD [STAFF PHYSICIAN] - 10 Days Patient Instructions/Handouts: MRSA (Methicillin-Resistant Staphylococcus Aureus) (DC) Discharge Disposition: HOME SELF-CARE
== END 2024-11-17 17:46 | disposition home or self-care (01) | DRG 607 ==
LOC: EC 14:00 → 6NMEDSUR 16:56 → OBSVTOIN 11-15 08:19
PROVIDERS: ADMIT Family Medicine; ATTEND Family Medicine
DX: Q82.8 Other specified congenital malformations of skin (principal); B37.2 Candidiasis of skin and nail; J45.909 Unspecified asthma, uncomplicated; L21.9 Seborrheic dermatitis, unspecified; A49.02 Methicillin resistant Staphylococcus aureus infection, unspecified site; E66.9 Obesity, unspecified; Z68.37 Body mass index [BMI] 37.0-37.9, adult; Z28.310 Unvaccinated for COVID-19; Z28.21 Immunization not carried out because of patient refusal; Z88.5 Allergy status to narcotic agent; Z88.0 Allergy status to penicillin; Z88.2 Allergy status to sulfonamides; Z86.14 Personal history of Methicillin resistant Staphylococcus aureus infection
CPT/HCPCS: 36415; 80048; 80053; 80202; 82565; 83605; 84145; 85025; 87040; 87070; 87077; 87186; 87205; 94640; 99285

== ENCOUNTER → 2024-11-30 | Outpatient (CLI) | payer BC ==
--- NOTE | 2024-11-30 17:07 | US ---
EXAMINATION TYPE: US venous doppler duplex LE BI DATE OF EXAM: 11/30/2024 4:39 PM COMPARISON: NONE CLINICAL INDICATION: Female, 49 years old with history of M79.662 PAIN IN LEFT LEG M79.661 PAIN IN RI GHT LEG; swelling in bilat legs for awhile, no h/o dvt TECHNIQUE: The lower extremity deep venous system is examined utilizing real time linear array sonog lindsay with graded compression, color doppler sonography, and spectral doppler. SIDE PERFORMED: Bilateral FINDINGS: VESSELS IMAGED: Common Femoral Vein Deep Femoral Vein Greater Saphenous Vein * Femoral Vein Popliteal Vein Small Saphenous Vein * Proximal Calf Veins (* superficial vessels) Right Leg: Negative for DVT, Color Doppler imaging shows patency of the vessels. Spectral waveforms are within normal limits. Left Leg: Negative for DVT, Color Doppler imaging shows patency of the vessels. Spectral waveforms a re within normal limits. IMPRESSION: No ultrasound evidence for deep venous thrombosis. [facility], , 11/30/2024 5:04 PM
== END | disposition home or self-care (01) ==
LOC: RADUSWWP 16:08
PROVIDERS: ATTEND Internal Medicine Infectious Disease
DX: M79.662 Pain in left lower leg (principal); M79.661 Pain in right lower leg
CPT/HCPCS: 93970

== ENCOUNTER 2024-12-29 17:47 | Inpatient (IN) | payer BC ==
--- NOTE | 2024-12-29 18:11 | ED ---
Skin/Abscess/FB HPI - General Source: patient, RN notes reviewed, old records reviewed Mode of arrival: ambulatory Limitations: no limitations <Gina Loomis - Last Filed: 12/29/24 18:10> - General Source: patient, RN notes reviewed <Adriana Robertson - Last Filed: 12/29/24 22:41> - General Stated complaint: infected rash chest and abd area Time Seen by Provider: 12/29/24 18:10 - History of Present Illness Initial comments: Quick note: 49-year-old female presented to the ER for evaluation of infected rash. Patient states she has a rash under bilateral breasts, pannus and abdomen with a foul odor and is concerned of infection. Patient states she was recently admitted for this has a history of MRSA. No fevers or chills. (Gina Loomis) 49-year-old female with history of Darier disease presenting with infected rash. States the rash is under bilateral breasts and in inguinal folds. Reports burning in the skin folds and a foul odor coming from the rash. States she was admitted to the hospital for this 1 month ago where they diagnosed her with MRSA and yeast infections and put her on IV vancomycin. She was then discharged on a course of ciprofloxacin, finishing course 10 days ago. States she felt as though the rash was under control until 4 days ago she began to feel ill with flulike symptoms such as nasal congestion, fever, and cough which she believed flared up the rash. (Adriana Robertson) - Related Data Home Medications Medication Instructions Recorded Confirmed Ibuprofen [Motrin Ib] 800 mg PO Q6H PRN 06/02/23 11/12/24 diphenhydrAMINE HCL [Benadryl] 25 mg PO HS 06/02/23 11/12/24 Previous Rx's Medication Instructions Recorded Ciprofloxacin HCl [Cipro] 500 mg PO BID #14 tab 11/17/24 Fluconazole [Diflucan] 100 mg PO DAILY #7 tab 11/17/24 Ipratropium-Albuterol Nebulize 3 ml INHALATION TID #90 each 11/17/24 [Duoneb 0.5 mg-3 mg/3 ml Soln] Linezolid [Zyvox] 600 mg PO Q12HR #14 tab 11/17/24 Nystatin 100,000 Unit/gm Powd 1 applic TOPICAL BID each 11/17/24 [Mycostatin Powder] Triamcinolone 0.1% Cream [Kenalog 1 applic TOPICAL BID each 11/17/24 0.1% Cream] predniSONE 10 mg PO DAILY #30 tab 11/17/24 Allergies Allergy/AdvReac Type Severity Reaction Status Date / Time valacyclovir [From Valtrex] Allergy Severe Rash/Hives Verified 12/29/24 19:34 Penicillins Allergy Intermediate Itching Verified 12/29/24 19:34 codeine Allergy Swelling Verified 12/29/24 19:34 piperacillin [From Zosyn] Allergy Itching Verified 12/29/24 19:34 sulfamethoxazole Allergy Rash/Hives Verified 12/29/24 19:34 [From Bactrim] tazobactam [From Zosyn] Allergy Itching Verified 12/29/24 19:34 trimethoprim [From Bactrim] Allergy Rash/Hives Verified 12/29/24 19:34 Review of Systems ROS Other: All systems not noted in ROS Statement are negative. <Gina Loomis - Last Filed: 12/29/24 18:10> ROS Other: All systems not noted in ROS Statement are negative. <Adriana Robertson - Last Filed: 12/29/24 22:41> ROS Statement: Those systems with pertinent positive or pertinent negative responses have been documented in the HPI. 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 Date of last positivie culture/infection: 01/29/23 MDRO Source:: Right Breast Past Surgical History: Section, Tubal Ligation Past Anesthesia/Blood Transfusion Reactions: No Reported Reaction Past Psychological History: No Psychological Hx Reported Smoking Status: Never smoker Past Alcohol Use History: Rare Past Drug Use History: None Reported - Past Family History Mother Family Medical History: Cancer Additional Family Medical History / Comment(s): Tiffany, Father Family Medical History: No Reported History <Gina Loomis - Last Filed: 12/29/24 18:10> General Exam <Gina Loomis - Last Filed: 12/29/24 18:10> General appearance: alert, in no apparent distress Head exam: Present: atraumatic, normocephalic, normal inspection ENT exam: Present: normal exam, normal oropharynx, mucous membranes moist Respiratory exam: Present: normal lung sounds bilaterally. Absent: respiratory distress, wheezes, rales, rhonchi, stridor Cardiovascular Exam: Present: regular rate, normal rhythm, normal heart sounds. Absent: systolic murmur, diastolic murmur, rubs, gallop, clicks GI/Abdominal exam: Present: soft, normal bowel sounds, other (Diffuse rashes underneath bilateral breasts and in skin folds between legs and abdomen with severe erythema with white purulence and foul odor). Absent: distended, tenderness, guarding, rebound, rigid Neurological exam: Present: alert, oriented X3 Psychiatric exam: Present: normal affect, normal mood Skin exam: Present: warm, dry, intact, normal color. Absent: rash <Adriana Robertson - Last Filed: 12/29/24 22:41> - General Exam Comments Initial Comments: Visual Physical Exam Vital signs reviewed General: Well-appearing, nontoxic, no acute distress. Head: Normocephalic, atraumatic Eyes: PERRLA, EOMI ENT: Airway patent Chest: Nonlabored breathing Skin: No visual rash, normal skin tone Neuro: Alert and oriented 3 Musculoskeletal: No gross abnormalities (Gina Loomis) Course Vital Signs 12/29/24 12/29/24 19:28 21:48 Temperature 99.1 F Pulse Rate 93 69 Respiratory 18 18 Rate Blood Pressure 113/82 113/73 O2 Sat by Pulse 97 99 Oximetry Medical Decision Making <Gina Loomis - Last Filed: 12/29/24 18:10> - Lab Data Result diagrams: 12/29/24 21:00 12/29/24 21:00 <Adriana Robertson - Last Filed: 12/29/24 22:41> - Medical Decision Making I performed the quick note portion of this chart. Electronically signed by Gina Loomis PA-C (Gina Loomis) Was pt. sent in by a medical professional or institution ([facility], SCROLL ASSEMBLER, urgent care, hospital, or alf...) When possible be specific @ -No Did you speak to anyone other than the patient for history (EMS, parent, family, police, friend...)? What history was obtained from this source @ -No Did you review nursing and triage notes (agree or disagree)? Why? @ -I reviewed and agree with nursing and triage notes Were old charts reviewed (outside hosp., previous admission, EMS record, old EKG, old radiological studies, urgent care reports/EKG's, alf records)? Report findings @ -Reviewed previous admission charting and lab work Differential Diagnosis (chest pain, altered mental status, abdominal pain women, abdominal pain men, vaginal bleeding, weakness, fever, dyspnea, syncope, headache, dizziness, GI bleed, back pain, seizure, CVA, palpatations, mental health, musculoskeletal)? @ -Differential Musculoskeletal Intertrigo, muscular strain, contusion, ligament sprain, fracture, arthritis, septic arthritis, bursitis, cellulitis, muscle spasm, nerve compression, DVT, arterial occlusion, herpes zoster, electrolyte abnormality, tumor.... This is not meant to be in all inclusive list EKG interpreted by me (3pts min.). @ -None X-rays interpreted by me (1pt min.). @ -None done CT interpreted by me (1pt min.). @ -None done U/S interpreted by me (1pt. min.). @ -None done What testing was considered but not performed or refused? (CT, X-rays, U/S, labs)? Why? @ -None What meds were considered but not given or refused? Why? @ -None Did you discuss the management of the patient with other professionals (professionals i.e. , PA, SCROLL ASSEMBLER, lab, RT, psych nurse, social security specialist, high voltage electrician, teacher, residential care officer, embedded case manager)? Give summary @ -I spoke with Dr. Duarte who accepts admission for IV antibiotics with cons ultation to infectious disease services Was smoking cessation discussed for >3mins.? @ -No Was critical care preformed (if so, how long)? @ -No Were there social determinants of health that impacted care today? How? (Homelessness, low income, unemployed, alcoholism, drug addiction, transportation, low edu. Level, literacy, decrease access to med. care, [place] [facility], rehab)? @ -No Was there de-escalation of care discussed even if they declined (Discuss DNR or withdrawal of care, Hospice)? DNR status @ -No What co-morbidities impacted this encounter? (DM, HTN, Smoking, COPD, CAD, Cancer, CVA, ARF, Chemo, Hep., AIDS, mental health diagnosis, sleep apnea, morbid obesity)? @ -None Was patient admitted / discharged? Hospital course, mention meds given and route, prescriptions, significant lab abnormalities, going to OR and other pertinent info. @ -Admitted. Patient was provided with IV fluids, Zofran, and Tylenol for supportive care. Blood cultures were taken. Lab work largely unremarkable. White blood cell count stable at 5.5, lactic acid normal. Patient is positive for influenza A. I do not believe outpatient treatment will be effective at this time as patient was admitted for this 1 month ago, underwent extensive treatment, and was discharged on oral antibiotics. Patient will be admitted to Dr. Duarte with consultation to infectious disease and started on IV vancomycin. Patient is agreeable to plan. Case was discussed with my ED attending Dr. Pinto. Undiagnosed new problem with uncertain prognosis? @ -No Drug Therapy requiring intensive monitoring for toxicity (Heparin, Nitro, Insulin, Cardizem)? @ -No Were any procedures done? @ -No Diagnosis/symptom? @ -Intertrigo with secondary cellulitis Acute, or Chronic, or Acute on Chronic? @ -Acute Uncomplicated (without systemic symptoms) or Complicated (systemic symptoms)? @ -Uncomplicated Side effects of treatment? @ -No Exacerbation, Progression, or Severe Exacerbation? @ -No Poses a threat to life or bodily function? How? (Chest pain, [place], [place], pneumonia, PE, COPD, DKA, ARF, appy, cholecystitis, CVA, Diverticulitis, Homicidal, Suicidal, threat to staff... and all critical care pts) @ -Possibly (Adriana Robertson) - Lab Data Lab Results 12/29/24 12/29/24 12/29/24 Range/Units 21:00 21:00 21:00 WBC 5.5 (3.8-10.6) k/uL RBC 4.93 (3.80-5.40) m/uL Hgb 14.5 (11.4-16.0) gm/dL Hct 43.2 (34.0-46.0) % MCV 87.6 (80.0-100.0) fL MCH 29.4 (25.0-35.0) pg MCHC 33.6 (31.0-37.0) g/dL RDW 14.9 (11.5-15.5) % Plt Count 200 (150-450) k/uL MPV 6.7 Neutrophils % 67 % Lymphocytes % 24 % Monocytes % 5 % Eosinophils % 2 % Basophils % 0 % Neutrophils # 3.7 (1.3-7.7) k/uL Lymphocytes # 1.3 (1.0-4.8) k/uL Monocytes # 0.3 (0-1.0) k/uL Eosinophils # 0.1 (0-0.7) k/uL Basophils # 0.0 (0-0.2) k/uL Poikilocytosis Slight Sodium 135 L (137-145) mmol/L Potassium 4.0 (3.5-5.1) mmol/L Chloride 102 (98-107) mmol/L Carbon Dioxide 25 (22-30) mmol/L Anion Gap 8 mmol/L BUN 18 H (7-17) mg/dL Creatinine 0.91 (0.52-1.04) mg/dL Est GFR (CKD-EPI)AfAm 86 (>60 ml/min/1.73 sqM) Est GFR (CKD-EPI)NonAf 74 (>60 ml/min/1.73 sqM) Glucose 94 (74-99) mg/dL Plasma Lactic Acid Esteban 0.8 (0.7-2.0) mmol/L Calcium 8.3 L (8.4-10.2) mg/dL Total Bilirubin 0.7 (0.2-1.3) mg/dL AST 33 (14-36) U/L ALT 20 (4-34) U/L Alkaline Phosphatase 53 (38-126) U/L Total Protein 6.4 (6.3-8.2) g/dL Albumin 3.8 (3.5-5.0) g/dL Influenza Type A (PCR) (Not Detectd) Influenza Type B (PCR) (Not Detectd) RSV (PCR) (Not Detectd) SARS-CoV-2 (PCR) (Not Detectd) 12/29/24 Range/Units 21:26 WBC (3.8-10.6) k/uL RBC (3.80-5.40) m/uL Hgb (11.4-16.0) gm/dL Hct (34.0-46.0) % MCV (80.0-100.0) fL MCH (25.0-35.0) pg MCHC (31.0-37.0) g/dL RDW (11.5-15.5) % Plt Count (150-450) k/uL MPV Neutrophils % % Lymphocytes % % Monocytes % % Eosinophils % % Basophils % % Neutrophils # (1.3-7.7) k/uL Lymphocytes # (1.0-4.8) k/uL Monocytes # (0-1.0) k/uL Eosinophils # (0-0.7) k/uL Basophils # (0-0.2) k/uL Poikilocytosis Sodium (137-145) mmol/L Potassium (3.5-5.1) mmol/L Chloride (98-107) mmol/L Carbon Dioxide (22-30) mmol/L Anion Gap mmol/L BUN (7-17) mg/dL Creatinine (0.52-1.04) mg/dL Est GFR (CKD-EPI)AfAm (>60 ml/min/1.73 sqM) Est GFR (CKD-EPI)NonAf (>60 ml/min/1.73 sqM) Glucose (74-99) mg/dL Plasma Lactic Acid Esteban (0.7-2.0) mmol/L Calcium (8.4-10.2) mg/dL Total Bilirubin (0.2-1.3) mg/dL AST (14-36) U/L ALT (4-34) U/L Alkaline Phosphatase (38-126) U/L Total Protein (6.3-8.2) g/dL Albumin (3.5-5.0) g/dL Influenza Type A (PCR) Detected A (Not Detectd) Influenza Type B (PCR) Not Detected (Not Detectd) RSV (PCR) Not Detected (Not Detectd) SARS-CoV-2 (PCR) Not Detected (Not Detectd) Disposition <Gina Loomis - Last Filed: 12/29/24 18:10> Time of Disposition: 22:41 <Adriana Robertson - Last Filed: 12/29/24 22:41> Clinical Impression: Intertrigo, Cellulitis Disposition: ADMITTED IP TO THIS HOSP Condition: Fair Referrals: Hever Duarte MD [Primary Care Provider] - 1-2 days
[2024-12-29] MEDS: ONDANSETRON ODT 4 MG TAB PO STA (20:30)
[2024-12-29] MEDS: ACETAMINOPHEN TAB 500 MG TAB PO STA (21:15)
[2024-12-29] MEDS: SODIUM CHLORIDE 0.9% 1,000 ML IV STA (21:17)
[2024-12-29 21:22] LABS: Basophils % (A) 0 %; Eosinophils # (A) 0.1 k/uL (0-0.7); Eosinophils % (A) 2 %; HCT 43.2 % (34.0-46.0); HGB 14.5 gm/dL (11.4-16.0); Lymphocytes # (A) 1.3 k/uL (1.0-4.8); Lymphocytes % (A) 24 %; MCH 29.4 pg (25.0-35.0); MCHC 33.6 g/dL (31.0-37.0); MCV 87.6 fL (80.0-100.0); Mean Platelet Volume 6.7; Monocytes # (A) 0.3 k/uL (0-1.0); Monocytes % (A) 5 %; Neutrophils # (A) 3.7 k/uL (1.3-7.7); Neutrophils % (A) 67 %; Platelet Count 200 k/uL (150-450); Poikilocytosis Slight; RBC 4.93 m/uL (3.80-5.40); RDW 14.9 % (11.5-15.5); WBC 5.5 k/uL (3.8-10.6)
[2024-12-29 21:27] LABS: ALT 20 U/L (4-34); AST 33 U/L (14-36); African American GFR (CKD) 86 (>60 ml/min/1.73 sqM); Albumin 3.8 g/dL (3.5-5.0); Alkaline Phosphatase 53 U/L (38-126); Anion Gap 8 mmol/L; Blood Urea Nitrogen 18 mg/dL (7-17); Calcium 8.3 mg/dL (8.4-10.2); Carbon Dioxide 25 mmol/L (22-30); Chloride 102 mmol/L (98-107); Glucose 94 mg/dL (74-99); Non-African American GFR(CKD) 74 (>60 ml/min/1.73 sqM); Sodium 135 mmol/L (137-145); Total Bilirubin 0.7 mg/dL (0.2-1.3); Total Protein 6.4 g/dL (6.3-8.2)
[2024-12-29 22:11] LABS: Influenza A Detected (Not Detectd); Influenza B Not Detected (Not Detectd); RSV Not Detected (Not Detectd)
[2024-12-29] MEDS ORDERED: VANCOMYCIN IV PER PHARMACY 1 EACH MISC MISCELLANE PRN (22:32)
[2024-12-29] MEDS ORDERED: NALOXONE 0.4 MG/ML 1 ML VIAL IV PRN (22:33)
[2024-12-29] MEDS ORDERED: KETOROLAC 15 MG/ML 1 ML VIAL IVP PRN (22:33)
[2024-12-29] MEDS ORDERED: ONDANSETRON 4 MG/2 ML VIAL IVP PRN (22:33)
[2024-12-29] MEDS: SODIUM CHLORIDE 0.9% 1,000 ML IV SCH (23:26)
[2024-12-29] MEDS: VANCOMYCIN 1,750 MG in SODIUM CHLORIDE 0.9% 500 ML 500 ML IVPB ONE (23:26)
[2024-12-30] MEDS: VANCOMYCIN 1,750 MG in SODIUM CHLORIDE 0.9% 500 ML 500 ML IVPB SCH (11:14)
[2024-12-30] MEDS: NYSTATIN 100,000 UNIT/GM POWD 15 GM TOPICAL SCH (14:08)
[2024-12-30] MEDS ORDERED: IBUPROFEN 200 MG TAB PO PRN (15:04)
[2024-12-30] MEDS ORDERED: FLUOCINOLONE ACETONIDE TOPICAL PRN (15:04)
[2024-12-30] MEDS ORDERED: ACETAMINOPHEN TAB 500 MG TAB PO PRN (15:04)
--- NOTE | 2024-12-30 16:07 | P.CONS ---
History of Present Illness - Reason for Consult Consult date: 12/30/24 Cellulitis Requesting physician: Adriana Robertson - Chief Complaint Worsening rash to the breast fold and groin area with pain x days - History of Present Illness Patient is a 49-year-old female with a past medical history significant for Dariers disease, eczema, asthma presenting to the hospital for evaluation of worsening rash to the bilateral breast and bilateral groin fold area and this patient symptom apparently been getting worse for the last few days patient denies high-grade fever or any chills he did have mild URI symptoms but denies any chest pain no cough has been complaining of pain to the rash area to be mostly sharp moderate intense without radiation and did have foul-smelling drainage patient on presentation to hospital was afebrile no fever have been called subsequently patient was not tachycardic hypotensive or hypoxic did have white count of 5.5 creatinine of 0.91 patient did tested positive for influenza A RSV COVID testing was negative, patient did have a cultures from the skin lesion 11/12/2024 which did grew MRSA strep and Morganella patient has been started on vancomycin infectious he was consulted for further management of an tibiotic therapy Review of Systems Positive point and negatives has been mentioned in the HPI, complete review of systems was performed and all other systems are negative 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 Year Discovered:: 01/29/23 MDRO Source:: Right Breast Past Surgical History: Section, Tubal Ligation Past Anesthesia/Blood Transfusion Reactions: No Reported Reaction Past Psychological History: No Psychological Hx Reported Smoking Status: Never smoker Past Alcohol Use History: Rare Past Drug Use History: None Reported - Past Family History Mother Family Medical History: Cancer Additional Family Medical History / Comment(s): Dariers, Father Family Medical History: No Reported History Medications and Allergies Home Medications Medication Instructions Recorded Confirmed Type Ibuprofen [Motrin Ib] 400 mg PO Q6H PRN 06/02/23 12/30/24 History diphenhydrAMINE HCL [Benadryl] 25 mg PO HS 06/02/23 12/30/24 History Acetaminophen Tab [Tylenol Tab] 500 mg PO Q6HR PRN 12/30/24 12/30/24 History Fluocinolone Acetonide [Lidex 1 applic TOPICAL BID PRN 12/30/24 12/30/24 History 0.01% Soln] Fluocinonide [Lidex 0.05%] 1 applic TOPICAL HS 12/30/24 12/30/24 History Allergies Allergy/AdvReac Type Severity Reaction Status Date / Time valacyclovir [From Valtrex] Allergy Severe Rash/Hives Verified 12/30/24 07:49 Penicillins Allergy Intermediate Itching Verified 12/30/24 07:49 codeine Allergy Swelling Verified 12/30/24 07:49 piperacillin [From Zosyn] Allergy Itching Verified 12/30/24 07:49 sulfamethoxazole Allergy Rash/Hives Verified 12/30/24 07:49 [From Bactrim] tazobactam [From Zosyn] Allergy Itching Verified 12/30/24 07:49 trimethoprim [From Bactrim] Allergy Rash/Hives Verified 12/30/24 07:49 Physical Exam Vitals: Vital Signs Temp Pulse Pulse Resp BP BP Pulse Ox 12/30/24 07:15 98.2 F 64 16 102/66 97 12/30/24 01:54 65 18 12/30/24 00:22 98.2 F 65 18 126/71 99 12/29/24 21:48 69 18 113/73 99 12/29/24 19:28 99.1 F 93 18 113/82 97 Intake and Output 12/29/24 12/30/24 12/30/24 22:59 06:59 14:59 Intake Total 118 Balance 118 Intake: Oral 118 Other: Voiding Method Toilet # Voids 2 Weight 113.852 kg 113.852 kg GENERAL DESCRIPTION: Middle-age female in bed, no distress. No tachypnea or accessory muscle of respiration use. HEENT: Shows Pallor , no scleral icterus. Oral mucous membrane is dry. No pharyngeal erythema or thrush NECK: Trachea central, no thyromegaly. LUNGS: Unlabored breathing. Clear to auscultation anteriorly. No wheeze or crackle. HEART: S1, S2, regular rate and rhythm. No loud murmur ABDOMEN: Soft, no tenderness , EXTREMITIES: No edema of feet. SKIN: Patient did have extensive rash to the bilateral groin and breast fold area with some foul-smelling NEUROLOGICAL: The patient is awake, alert, oriented x3, mood and affect normal. Results CBC & Chem 7: 12/29/24 21:00 12/31/24 04:20 Labs: Abnormal Lab Results - Last 24 Hours (Table) 12/29/24 12/29/24 Range/Units 21:00 21:26 Sodium 135 L (137-145) mmol/L BUN 18 H (7-17) mg/dL Calcium 8.3 L (8.4-10.2) mg/dL Influenza Type A (PCR) Detected A (Not Detectd) Assessment and Plan (1) Influenza A Current Visit: Yes Status: Acute Code(s): J10.1 - FLU DUE TO OTH IDENT INFLUENZA VIRUS W OTH RESP MANIFEST SNOMED Code(s): 928669392 (2) Cellulitis Current Visit: Yes Status: Acute Code(s): L03.90 - CELLULITIS, UNSPECIFIED SNOMED Code(s): 670765782 (3) Intertrigo Current Visit: Yes Status: Acute Code(s): L30.4 - ERYTHEMA INTERTRIGO SNOMED Code(s): 26248582 (4) Allergy to multiple antibiotics Current Visit: No Status: Acute Code(s): Z88.1 - ALLERGY STATUS TO OTHER ANTIBIOTIC AGENTS SNOMED Code(s): 753974263 Plan: 1patient presented to hospital with worsening pain discomfort and drainage to bilateral breast fold as well as bilateral groin area and this patient did have evidence of extensive rash likely cutaneous candidiasis concerning for secondary cellulitis likely from gram-positive skin lisa. 2patient also have URI symptoms and tested positive for influenza A. 3we will start the patient on Tamiflu 75 mg p.o. twice a day for 5 days 4nystatin powder to the breast fold as well as groin fold area 5continue with vancomycin pharmacy to dose concern for possible secondary cellulitis Question concern answered We will follow on clinical condition and cultures to further adjust medication if needed Thank you for this consultation we will follow the patient along with you Dictation was produced using [employer] dictation software. please excuse any grammatical, word or spelling errors. Time with Patient: Greater than 30
[2024-12-30] MEDS: BETAMETHASONE DIPROPIONATE 0.05% CREAM 15 GM TUBE TOPICAL SCH (21:45)
[2024-12-30] MEDS: diphenhydrAMINE 25 MG CAP PO SCH (21:46)
[2024-12-30] MEDS: OSELTAMIVIR 75 MG CAP PO SCH (21:46)
[2024-12-31] MEDS: methylPREDNISolone SOD SUCCI 40 MG/ML 1 ML VIAL IV SCH (00:18)
--- NOTE | 2024-12-31 03:11 | HP ---
HISTORY AND PHYSICAL HISTORY OF PRESENT ILLNESS: A 49-year-old female, came to the emergency room with severe maceration and cellulitis under her breasts, chest, under arms, inguinal folds, foul odor, swelling, history of MRSA in the past. She is on IV vancomycin. Dr. Blood seen her 4 days ago. She had influenza A which flared up the rash. ALLERGIES: Valacyclovir, penicillin, codeine, Zosyn. PAST MEDICAL HISTORY: Asthma, skin disorder right breast, , tubal ligation. FAMILY HISTORY: Mother, cancer, Darier's. Father, negative. PHYSICAL EXAMINATION: VITAL SIGNS: Temperature 99.1, pulse 69 to 93, respiratory rate 16 to 18, blood pressure 130s over 80s to 70s, and O2 is 97 to 99. CARDIOVASCULAR: S1 and S2. LUNGS: Transmitted upper sounds. HEMATOLOGY: Negative Homans. PSYCH: Fair mood and affect. GI: Soft. INTEGUMENT: Diffuse maceration under the breast bilaterally, inguinal folds bilaterally. LABORATORY DATA: Sodium 135, potassium 4, BUN 18, and creatinine 0.91. ASSESSMENT: Severe intertrigo cellulitis. There is disease with flare, tinea corporis, and influenza A candidiasis. Wait for Dr. Blood's recommendations. Breathing treatments. Treatment for influenza A also. PROGNOSIS: Guarded. MMODL / IJN: [id number] /
[2024-12-31 05:15] LABS: African American GFR (CKD) >90 (>60 ml/min/1.73 sqM); Non-African American GFR(CKD) >90 (>60 ml/min/1.73 sqM)
[2024-12-31] MEDS: IPRATROPIUM-ALBUTEROL 3 ML NEB INHALATION SCH (08:06)
--- NOTE | 2024-12-31 15:04 | P.PN ---
Subjective Progress Note Date: 12/31/24 Principal diagnosis: Reason for follow-up is acute influenza A, bilateral breast fold and groin fold cutaneous candidiasis/cellulitis Patient is a 49-year-old female with a past medical history significant for Dariers disease, eczema, asthma presenting to the hospital for evaluation of worsening rash to the bilateral breast and bilateral groin fold with associated discomfort foul-smelling drainage and URI symptoms. On today's evaluation that is 12/31/2024, patient did not have any fever and denies any chills, patient is breathing comfortably on room air, patient with no chest pain or cough patient did not have any abdominal pain nausea vomiting or any loose stools still complaining of discomfort to bilateral breast fold and groin area and some foul-smelling drainage. Patient did have a creatinine 0.74 blood cultures are pending Objective - Vital Signs Vital signs: Vital Signs Temp 98.2 F 12/31/24 07:00 Pulse 60 12/31/24 11:55 Resp 16 12/31/24 07:00 BP 99/67 12/31/24 07:00 Pulse Ox 95 12/31/24 07:00 FiO2 Intake & Output 12/30/24 12/31/24 12/31/24 18:59 06:59 18:59 Intake Total 354 118 Balance 354 118 Intake: Oral 354 118 Other: Voiding Method Toilet Toilet Toilet # Voids 2 3 - Exam Middle-age female lying in bed in no distress Unlabored breathing Erythema/inflammation to the breast for slightly decreased Patient was seen with the RN - Labs CBC & Chem 7: 12/29/24 21:00 12/31/24 04:20 Labs: Microbiology - Last 24 Hours (Table) 12/29/24 21:35 Blood Culture - Preliminary Blood 12/29/24 21:00 Blood Culture - Preliminary Blood Assessment and Plan (1) Influenza A Current Visit: Yes Status: Acute Code(s): J10.1 - FLU DUE TO OTH IDENT INFLUENZA VIRUS W OTH RESP MANIFEST SNOMED Code(s): 571961040 (2) Cellulitis Current Visit: Yes Status: Acute Code(s): L03.90 - CELLULITIS, UNSPECIFIED SNOMED Code(s): 074173948 (3) Intertrigo Current Visit: Yes Status: Acute Code(s): L30.4 - ERYTHEMA INTERTRIGO SNOMED Code(s): 47873335 (4) Allergy to multiple antibiotics Current Visit: No Status: Acute Code(s): Z88.1 - ALLERGY STATUS TO OTHER ANTIBIOTIC AGENTS SNOMED Code(s): 696722917 Plan: 1patient presented to hospital with worsening pain discomfort and drainage to bilateral breast fold as well as bilateral groin area and this patient did have evidence of extensive rash likely cutaneous candidiasis and concerning for secondary cellulitis likely from gram-positive skin lisa. 2patient also have URI symptoms and tested positive for influenza A for which the patient is being treated with Tamiflu 75 mg p.o. twice a day for 5 days 3patient to continue nystatin powder to the breast fold as well as groin fold area along with vancomycin pharmacy to dose concern for possible secondary cellulitis Question concern answered Dictation was produced using [employer] dictation software. please excuse any grammatical, word or spelling errors.
[2025-01-01] MEDS: ACETAMINOPHEN TAB 325 MG TAB PO PRN (04:46)
[2025-01-01 11:31] LABS: African American GFR (CKD) >90 (>60 ml/min/1.73 sqM); Non-African American GFR(CKD) >90 (>60 ml/min/1.73 sqM)
[2025-01-01] MEDS: VANCOMYCIN TROUGH DUE 1 EACH MISC MISCELLANE ONE (11:46)
--- NOTE | 2025-01-01 15:26 | P.PN ---
Subjective Progress Note Date: 01/01/25 Principal diagnosis: Reason for follow-up is acute influenza A, bilateral breast fold and groin fold cutaneous candidiasis/cellulitis Patient is a 49-year-old female with a past medical history significant for Dariers disease, eczema, asthma presenting to the hospital for evaluation of worsening rash to the bilateral breast and bilateral groin fold with associated discomfort foul-smelling drainage and URI symptoms. On today's evaluation that is 01/01/2025, Patient is afebrile patient is currently on room air and denies having any shortness of breath, the patient denies any chest pain or cough, the patient denies any nausea vomiting did not have any abdominal pain and no diarrhea still complaining of discomfort to the rash and foul-smelling. Patient did have creatinine 0.67 Vanco trough is 18.8 blood culture negative Objective - Vital Signs Vital signs: Vital Signs Temp 97.6 F 01/01/25 07:00 Pulse 68 01/01/25 11:17 Resp 18 01/01/25 07:00 BP 111/50 01/01/25 07:00 Pulse Ox 94 L 01/01/25 07:00 FiO2 Intake & Output 12/31/24 01/01/25 01/01/25 18:59 06:59 18:59 Intake Total 236 Balance 236 Intake: Oral 236 Other: Voiding Method Toilet Toilet # Voids 3 2 - Exam Middle-age female lying in bed in no distress Unlabored breathing Erythema/inflammation to the breast for slightly decreased Patient was seen with the RN - Labs CBC & Chem 7: 12/29/24 21:00 01/01/25 10:53 Labs: Microbiology - Last 24 Hours (Table) 12/29/24 21:35 Blood Culture - Preliminary Blood 12/29/24 21:00 Blood Culture - Preliminary Blood Assessment and Plan (1) Influenza A Current Visit: Yes Status: Acute Code(s): J10.1 - FLU DUE TO OTH IDENT INFLUENZA VIRUS W OTH RESP MANIFEST SNOMED Code(s): 204603668 (2) Cellulitis Current Visit: Yes Status: Acute Code(s): L03.90 - CELLULITIS, UNSPECIFIED SNOMED Code(s): 503836003 (3) Intertrigo Current Visit: Yes Status: Acute Code(s): L30.4 - ERYTHEMA INTERTRIGO SNOMED Code(s): 58453301 (4) Allergy to multiple antibiotics Current Visit: No Status: Acute Code(s): Z88.1 - ALLERGY STATUS TO OTHER ANTIBIOTIC AGENTS SNOMED Code(s): 976604634 Plan: 1patient presented to hospital with worsening pain discomfort and drainage to bilateral breast fold as well as bilateral groin area and this patient did have evidence of extensive rash likely cutaneous candidiasis and concerning for secondary cellulitis likely from gram-positive skin lisa. 2patient also have URI symptoms and tested positive for influenza A for which the patient is being treated with Tamiflu 75 mg p.o. twice a day for 5 days 3patient to continue nystatin powder to the breast fold as well as groin fold area along with vancomycin pharmacy to dose with still having discomfort and foul-smelling possible gram-negative infection will add cefepime local culture has been requested that will guide further antibiotic therapy Dictation was produced using [employer] dictation software. please excuse any grammatical, word or spelling errors. Time with Patient: Less than 30
[2025-01-01] MEDS: CEFEPIME 2 GM in SODIUM CHLORIDE 0.9% 100 ML IVPB SCH ×2 (17:12→23:03)
--- NOTE | 2025-01-02 08:17 | PN ---
PROGRESS NOTE A 49-year-old white female. Dr. Blood saw her for severe deleterious flare in the influenza A, URI symptoms, severe rash in all inguinal and breast areas, significant excoriation in multiple areas, diffuse. PHYSICAL EXAMINATION: VITAL SIGNS: Temp 98.2, pulse 60, respiratory rate 18, blood pressure 99/67, 95 on room air. LUNGS: Essentially, a mild wheeze x4. CARDIOVASCULAR: S1, S2. EXTREMITIES: Integument as mentioned above. ASSESSMENT: There is disease, cellulitis flare, intertrigo, resistant to antibiotics, sensitive rash, secondary to candidiasis, secondary cellulitis; influenza A on Tamiflu, nystatin powder, vancomycin. Prognosis guarded. Maybe do some cultures what to see. Prognosis guarded. MMODL / IJN: [id number] /
--- NOTE | 2025-01-02 08:18 | PN ---
PROGRESS NOTE A 49-year-old white female with intertrigo candidiasis, secondary infection, deleterious flare, over the chest, back, etc. The back has improved. Her flare appears to be improving with antibiotics and steroids. She is on breathing treatments for COPD. Continue with current treatment. She is slowly getting better. Betamethasone cream, Benadryl cream at night, IV Solu-Medrol, Mycostatin powder, Tamiflu for influenza A, which has improved. White count and hemoglobin are normal. Sodium is 135, potassium 4.0, creatinine is good. GFR is good. Liver enzymes are good. She was tested for influenza A, which has improved. Continue with treatment for areas of disease. Wait for wound cultures. Vancomycin, nystatin, Tamiflu for influenza A. Prognosis is guarded. MMODL / IJN: [id number] /
--- NOTE | 2025-01-02 16:08 | P.PN ---
Subjective Progress Note Date: 01/02/25 Principal diagnosis: Reason for follow-up is acute influenza A, bilateral breast fold and groin fold cutaneous candidiasis/cellulitis Patient is a 49-year-old female with a past medical history significant for Dariers disease, eczema, asthma presenting to the hospital for evaluation of worsening rash to the bilateral breast and bilateral groin fold with associated discomfort foul-smelling drainage and URI symptoms. On today's evaluation that is 01/02/2025, patient has been afebrile, patient is breathing comfortably and is currently on room air, patient denies having any significant cough no chest pain, patient denies nausea vomiting or diarrhea and no abdominal pain patient mention smell to the breast fold as well as a 0.4 has decreased in intensity. Patient did not have a lab draw today blood cultures pending Objective - Vital Signs Vital signs: Vital Signs Temp 97.9 F 01/02/25 07:36 Pulse 62 01/02/25 10:01 Resp 16 01/02/25 07:36 BP 156/76 01/02/25 07:36 Pulse Ox 96 01/02/25 07:36 FiO2 Intake & Output 01/01/25 01/02/25 01/02/25 18:59 06:59 18:59 Intake Total 100 Balance 100 Intake: Oral 100 Other: Voiding Method Toilet Toilet Toilet # Voids 4 2 - Exam Middle-age female lying in bed in no distress Unlabored breathing, clear to auscultation anteriorly Abdominal soft no tenderness Erythema/inflammation to the breast for slightly decreased as reported by nursing staff - Labs CBC & Chem 7: 12/29/24 21:00 01/01/25 10:53 Labs: Microbiology - Last 24 Hours (Table) 12/29/24 21:35 Blood Culture - Preliminary Blood 12/29/24 21:00 Blood Culture - Preliminary Blood Assessment and Plan (1) Influenza A Current Visit: Yes Status: Acute Code(s): J10.1 - FLU DUE TO OTH IDENT INFLUENZA VIRUS W OTH RESP MANIFEST SNOMED Code(s): 473768062 (2) Cellulitis Current Visit: Yes Status: Acute Code(s): L03.90 - CELLULITIS, UNSPECIFIED SNOMED Code(s): 763642341 (3) Intertrigo Current Visit: Yes Status: Acute Code(s): L30.4 - ERYTHEMA INTERTRIGO SNOMED Code(s): 40423760 (4) Allergy to multiple antibiotics Current Visit: No Status: Acute Code(s): Z88.1 - ALLERGY STATUS TO OTHER ANTIBIOTIC AGENTS SNOMED Code(s): 590764053 Plan: 1patient presented to hospital with worsening pain discomfort and drainage to bilateral breast fold as well as bilateral groin area and this patient did have evidence of extensive rash likely cutaneous candidiasis and concerning for sec ondary cellulitis likely from gram-positive skin lisa. 2patient also have URI symptoms and tested positive for influenza A for which the patient is being treated with Tamiflu 75 mg p.o. twice a day for 5 days 3patient to continue nystatin powder to the breast fold as well as groin fold area along with vancomycin pharmacy to dose along with cefepime while waiting for the culture to finalize Dictation was produced using [employer] dictation software. please excuse any grammatical, word or spelling errors.
--- NOTE | 2025-01-02 23:05 | PN ---
PROGRESS NOTE The patient with deleterious disease. OBJECTIVE: VITAL SIGNS: Temperature 98.4, O2 98, blood pressure 120/76, respiratory rate 16 to 18. So far the cultures of the breast and the bladder are not back yet. This shows PMNs. White count is 5.5, hemoglobin is 14.4. Sodium 135, potassium 4.0. OBJECTIVE: VITAL SIGNS: Temp 97.9, blood pressure 156/76, O2 96, pulse 62, respiratory rate 16 to 18. CARDIOVASCULAR: S1 and S2. LUNGS: Transmitted upper airway sounds. GI: Soft. HEMATOLOGY: Negative Homans. ASSESSMENT: 1. Influenza A. 2. Cellulitis. 3. Intertrigo. 4. Allergy to multiple antibiotics. 5. Cutaneous candidiasis, secondary to cellulitis. 6. Influenza A treated with Tamiflu. 7. Nystatin powder, vancomycin, and cefepime. Wait for the final cultures. MMODL / IJN: [id number] /
[2025-01-03 11:33] LABS: Basophils % (A) 0 %; Eosinophils % (A) 0 %; HCT 39.4 % (34.0-46.0); HGB 12.6 gm/dL (11.4-16.0); Hypochromasia Slight; Lymphocytes # (A) 0.9 k/uL (1.0-4.8); Lymphocytes % (A) 11 %; MCH 29.2 pg (25.0-35.0); MCV 91.1 fL (80.0-100.0); Mean Platelet Volume 6.6; Monocytes # (A) 0.3 k/uL (0-1.0); Monocytes % (A) 3 %; Neutrophils # (A) 7.1 k/uL (1.3-7.7); Neutrophils % (A) 85 %; Platelet Count 226 k/uL (150-450); RBC 4.33 m/uL (3.80-5.40); RDW 14.9 % (11.5-15.5); WBC 8.4 k/uL (3.8-10.6)
[2025-01-03 11:35] LABS: African American GFR (CKD) >90 (>60 ml/min/1.73 sqM); Non-African American GFR(CKD) >90 (>60 ml/min/1.73 sqM)
[2025-01-03 11:37] LABS: ALT 32 U/L (4-34); AST 27 U/L (14-36); African American GFR (CKD) >90 (>60 ml/min/1.73 sqM); Albumin 3.6 g/dL (3.5-5.0); Albumin/Globulin Ratio 1.5; Alkaline Phosphatase 49 U/L (38-126); Anion Gap 10 mmol/L; Blood Urea Nitrogen 15 mg/dL (7-17); Calcium 8.3 mg/dL (8.4-10.2); Carbon Dioxide 27 mmol/L (22-30); Chloride 103 mmol/L (98-107); Globulin 2.4 g/dL; Glucose 144 mg/dL (74-99); Non-African American GFR(CKD) >90 (>60 ml/min/1.73 sqM); Potassium 3.6 mmol/L (3.5-5.1); Sodium 140 mmol/L (137-145); Total Bilirubin 0.5 mg/dL (0.2-1.3)
[2025-01-03] MEDS: VANCOMYCIN TROUGH DUE 1 EACH MISC MISCELLANE ONE (12:36)
--- NOTE | 2025-01-03 15:16 | P.PN ---
Subjective Progress Note Date: 01/03/25 Principal diagnosis: Reason for follow-up is acute influenza A, bilateral breast fold and groin fold cutaneous candidiasis/cellulitis Patient is a 49-year-old female with a past medical history significant for Dariers disease, eczema, asthma presenting to the hospital for evaluation of worsening rash to the bilateral breast and bilateral groin fold with associated discomfort foul-smelling drainage and URI symptoms. On today's evaluation that is 01/03/2025, Patient is afebrile this morning patient denies having any chest pain shortness of breath or cough, the patient is currently on room air, patient denies any abdominal pain no diarrhea no nausea no vomiting mention swelling to the wound has decreased in intensity. Patient white count is 8.4, creatinine 0.76 culture growing MRSA and history of bacterial Objective - Vital Signs Vital signs: Vital Signs Temp 97.8 F 01/03/25 07:22 Pulse 64 01/03/25 09:56 Resp 16 01/03/25 09:44 BP 135/79 01/03/25 07:22 Pulse Ox 96 01/03/25 07:22 FiO2 Intake & Output 01/02/25 01/03/25 01/03/25 18:59 06:59 18:59 Intake Total 1070 240 Balance 1070 240 Intake: Oral 1070 240 Other: Voiding Method Toilet # Voids 3 2 - Exam Middle-age female lying in bed in no distress Unlabored breathing, Erythema/inflammation to the breast has decreased in intensity no foul-smelling Awake alert oriented x 3 - Labs CBC & Chem 7: 01/03/25 10:34 01/03/25 10:34 Labs: Microbiology - Last 24 Hours (Table) 01/01/25 12:50 Gram Stain - Preliminary Breast - Left Wound Culture - Preliminary Presumptive MRSA Acinetobacter baumanii/noscomi Assessment and Plan (1) Influenza A Current Visit: Yes Status: Acute Code(s): J10.1 - FLU DUE TO OTH IDENT INFLUENZA VIRUS W OTH RESP MANIFEST SNOMED Code(s): 771217557 (2) Cellulitis Current Visit: Yes Status: Acute Code(s): L03.90 - CELLULITIS, UNSPECIFIED SNOMED Code(s): 839015962 (3) Intertrigo Current Visit: Yes Status: Acute Code(s): L30.4 - ERYTHEMA INTERTRIGO SNOMED Code(s): 52227460 (4) Allergy to multiple antibiotics Current Visit: No Status: Acute Code(s): Z88.1 - ALLERGY STATUS TO OTHER ANTIBIOTIC AGENTS SNOMED Code(s): 285357321 Plan: 1patient presented to hospital with worsening pain discomfort and drainage to bilateral breast fold as well as bilateral groin area and this patient did have evidence of extensive rash likely cutaneous candidiasis and concerning for secondary cellulitis likely from gram-positive skin lisa. 2patient also have URI symptoms and tested positive for influenza A for which the patient to finish a 5-day course of Tamiflu 75 mg p.o. twice a day 3patient local culture current growing MRSA and Acetobacter, to continue nystatin powder to the breast fold as well as groin fold area along with vancomycin pharmacy to dose along with cefepime while waiting for the culture to finalize Dictation was produced using [employer] dictation software. please excuse any grammatical, word or spelling errors. Time with Patient: Less than 30
[2025-01-04] MEDS ORDERED: VANCOMYCIN 1,750 MG in SODIUM CHLORIDE 0.9% 500 ML 500 ML IVPB SCH (02:00)
[2025-01-04] MEDS: VANCOMYCIN 1,500 MG in SODIUM CHLORIDE 0.9% 500 ML 500 ML IVPB SCH (02:45)
[2025-01-04 07:31] VITALS: RESP 16
--- NOTE | 2025-01-04 12:15 | P.PN ---
Subjective Progress Note Date: 01/04/25 Principal diagnosis: Reason for follow-up is acute influenza A, bilateral breast fold and groin fold cutaneous candidiasis/cellulitis Patient is a 49-year-old female with a past medical history significant for Dariers disease, eczema, asthma presenting to the hospital for evaluation of worsening rash to the bilateral breast and bilateral groin fold with associated discomfort foul-smelling drainage and URI symptoms. On today's evaluation that is 01/04/2025,the patient denies any fever or any chills, patient is breathing comfortably on room air, the patient denies chest pain shortness of breath and no significant cough, patient denies abdominal pain, no nausea vomiting or diarrhea. Patient mention discomfort to the bilateral groin and breast fold when she has decreases pain is gone. Patient white count is 8.4 as of yesterday creatinine 0.76 culture with Aci netobacter and MRSA Objective - Vital Signs Vital signs: Vital Signs Temp 98.1 F 01/04/25 07:30 Pulse 74 01/04/25 08:15 Resp 16 01/04/25 07:30 BP 132/83 01/04/25 07:30 Pulse Ox 95 01/04/25 07:30 FiO2 Intake & Output 01/03/25 01/04/25 01/04/25 18:59 06:59 18:59 Intake Total 720 118 Balance 720 118 Intake: Oral 720 118 Other: Voiding Method Toilet Toilet Toilet # Voids 4 2 # Bowel Movements 2 - Exam Middle-age female lying in bed in no distress Unlabored breathing, Erythema and smell to the breast fold has decreased per patient Awake alert oriented x 3 - Labs CBC & Chem 7: 01/03/25 10:34 01/03/25 10:34 Labs: Abnormal Lab Results - Last 24 Hours (Table) 01/03/25 01/03/25 Range/Units 10:34 10:34 Lymphocytes # 0.9 L (1.0-4.8) k/uL Glucose 144 H (74-99) mg/dL Calcium 8.3 L (8.4-10.2) mg/dL Total Protein 6.0 L (6.3-8.2) g/dL Microbiology - Last 24 Hours (Table) 12/29/24 21:35 Blood Culture - Final Blood 12/29/24 21:00 Blood Culture - Final Blood 01/01/25 12:50 Gram Stain - Final Breast - Left Wound Culture - Final Methicillin resist S. aureus Acinetobacter baumanii/noscomi Assessment and Plan (1) Influenza A Current Visit: Yes Status: Acute Code(s): J10.1 - FLU DUE TO OTH IDENT INFLUENZA VIRUS W OTH RESP MANIFEST SNOMED Code(s): 521583729 (2) Cellulitis Current Visit: Yes Status: Acute Code(s): L03.90 - CELLULITIS, UNSPECIFIED SNOMED Code(s): 035205523 (3) Intertrigo Current Visit: Yes Status: Acute Code(s): L30.4 - ERYTHEMA INTERTRIGO SNOMED Code(s): 77421259 (4) Allergy to multiple antibiotics Current Visit: No Status: Acute Code(s): Z88.1 - ALLERGY STATUS TO OTHER ANTIBIOTIC AGENTS SNOMED Code(s): 416535585 Plan: 1patient presented to hospital with worsening pain discomfort and drainage to bilateral breast fold as well as bilateral groin area and this patient did have evidence of extensive rash likely cutaneous candidiasis and concerning for secondary cellulitis likely from gram-positive skin lisa. 2patient also have URI symptoms and tested positive for influenza A for which the patient to finish a 5-day course of Tamiflu 75 mg p.o. twice a day 3patient local culture current growing MRSA and Acetobacter, seem to have shown overall clinical improvement she will finish therapy with oral Cipro and Zyvox prescription has been sent to the pharmacy care discussed with admitting physician Dictation was produced using [employer] dictation software. please excuse any grammatical, word or spelling errors. Time with Patient: Less than 30
[2025-01-04] MEDS ORDERED: ALBUTEROL NEBULIZED 2.5 MG/3 ML INHALATION PRN (13:54)
[2025-01-04 14:04] VITALS: BP 150/88; PULSE 74; TEMP 98
--- NOTE | 2025-01-04 14:59 | PN ---
PROGRESS NOTE SUBJECTIVE: A 49-year-old white female with Darier disease flare with influenza A. Symptomatically, she has done better from pulmonary standpoint, about 50% better. She still has severe maceration under her breast. The back looks better, healing maculopapular rash. Dr. Blood has her on vancomycin, cefepime, antibiotics. Waiting for cultures to come back, which show some drug resistance. Await to get oral antibiotics or IV from him prior to going home. OBJECTIVE: LUNGS: Clear. CARDIOVASCULAR: S1, S2. PSYCH: Fair mood and affect. ASSESSMENT: Darier disease flare, dermatitis, chronic. Continue current treatment. Possible discharge home on oral antibiotics or IV per Dr. Blood's recommendations as well as [facility]'s medicine and creams. MMODL / IJN: [id number] /
== END 2025-01-04 14:43 | disposition home or self-care (01) | DRG 603 ==
LOC: EC 17:47 → 6NMEDSUR 22:35 → OBSVTOIN 22:36 → 6NMEDSUR 23:48
PROVIDERS: ADMIT Family Medicine; ATTEND Family Medicine
PROC: 05HC33Z Insertion of Infusion Device into Left Basilic Vein, Percutaneous Approach (ICD-10-PCS; principal; 2024-12-30 12:30)
PROC: 02HV33Z Insertion of Infusion Device into Superior Vena Cava, Percutaneous Approach (ICD-10-PCS; 2025-01-02)
PROC: B5181ZA Fluoroscopy of Superior Vena Cava using Low Osmolar Contrast, Guidance (ICD-10-PCS; 2025-01-02)
PROC: B548ZZA Ultrasonography of Superior Vena Cava, Guidance (ICD-10-PCS; 2025-01-02)
DX: L03.313 Cellulitis of chest wall (principal); B35.4 Tinea corporis; L03.314 Cellulitis of groin; J10.1 Influenza due to other identified influenza virus with other respiratory manifestations; B95.62 Methicillin resistant Staphylococcus aureus infection as the cause of diseases classified elsewhere; B37.2 Candidiasis of skin and nail; Z11.52 Encounter for screening for COVID-19; L30.4 Erythema intertrigo; Z86.14 Personal history of Methicillin resistant Staphylococcus aureus infection; Z88.1 Allergy status to other antibiotic agents; Z88.5 Allergy status to narcotic agent; Z88.0 Allergy status to penicillin; Z88.8 Allergy status to other drugs, medicaments and biological substances; Z88.2 Allergy status to sulfonamides
CPT/HCPCS: 36410; 36415; 36573; 76937; 80053; 80202; 82565; 83605; 85025; 87040; 87070; 87077; 87186; 87205; 87636; 94640; 96361; 96365; 99285

== ENCOUNTER 2025-02-09 13:48 | Emergency (ER) | payer BC ==
[2025-02-09 14:14] VITALS: BP 129/82; PULSE 77; RESP 22; TEMP 98.1
--- NOTE | 2025-02-09 15:01 | ED ---
Skin/Abscess/FB HPI <ShannonYahir D - Last Filed: 02/09/25 15:09> - General Source: patient Mode of arrival: ambulatory Limitations: no limitations <Hermelinda Hernandez - Last Filed: 02/09/25 15:56> - General Chief complaint: Skin/Abscess/Foreign Body Stated complaint: lump in L armpit Time Seen by Provider: 02/09/25 14:27 - History of Present Illness Initial comments: Patient is a 49-year-old female with past medical history significant for hidradenitis suppurativa presenting to the ER for left axillary abscess. Patient reports she is currently on Dupixent and received 2 injections on Thursday. States she has had no recent antibiotic use for the last month. Prior she was on ciprofloxacin. She denies any fevers, chills, nausea, vomiting, diarrhea, abdominal pain. (Hermelinda Hernandez) - Related Data Home Medications Medication Instructions Recorded Confirmed Ibuprofen [Motrin Ib] 400 mg PO Q6H PRN 06/02/23 12/30/24 diphenhydrAMINE HCL [Benadryl] 25 mg PO HS 06/02/23 12/30/24 Acetaminophen Tab [Tylenol] 500 mg PO Q6HR PRN 12/30/24 12/30/24 Fluocinolone Acetonide [Lidex 1 applic TOPICAL BID PRN 12/30/24 12/30/24 0.01% Soln] Fluocinonide [Lidex 0.05%] 1 applic TOPICAL HS 12/30/24 12/30/24 Previous Rx's Medication Instructions Recorded Albuterol Inhaler [Ventolin Hfa 2 puff INHALATION RT-QID PRN 30 01/04/25 Inhaler] Days #1 each Ciprofloxacin HCl [Cipro] 500 mg PO BID 10 Days #20 tab 01/04/25 Ipratropium-Albuterol Nebulize 3 ml INHALATION RT-QID 30 Days 01/04/25 [Duoneb 0.5 mg-3 mg/3 ml Soln] #120 each Linezolid [Zyvox] 600 mg PO Q12H 10 Days #20 tab 01/04/25 Nystatin 100,000 Unit/gm Powd 1 applic TOPICAL TID 30 Days #100 01/04/25 [Mycostatin Powder] each Ciprofloxacin HCl [Cipro] 500 mg PO Q12HR 7 Days #14 tab 02/09/25 Allergies Allergy/AdvReac Type Severity Reaction Status Date / Time valacyclovir [From Valtrex] Allergy Severe Rash/Hives Verified 02/09/25 14:14 Penicillins Allergy Intermediate Itching Verified 02/09/25 14:14 codeine Allergy Swelling Verified 02/09/25 14:14 piperacillin [From Zosyn] Allergy Itching Verified 02/09/25 14:14 sulfamethoxazole Allergy Rash/Hives Verified 02/09/25 14:14 [From Bactrim] tazobactam [From Zosyn] Allergy Itching Verified 02/09/25 14:14 trimethoprim [From Bactrim] Allergy Rash/Hives Verified 02/09/25 14:14 Review of Systems ROS Other: All systems not noted in ROS Statement are negative. <Yahir Ortega - Last Filed: 02/09/25 15:09> ROS Other: All systems not noted in ROS Statement are negative. Constitutional: Denies: fever, chills <Hermelinda Hernandez - Last Filed: 02/09/25 15:56> ROS Statement: Those systems with pertinent positive or pertinent negative responses have been documented in the HPI. 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 Date of last positivie culture/infection: 01/01/25 MDRO Source:: both breasts Past Surgical History: Section, Tubal Ligation Past Anesthesia/Blood Transfusion Reactions: No Reported Reaction Past Psychological History: No Psychological Hx Reported Smoking Status: Never smoker Past Alcohol Use History: Rare Past Drug Use History: None Reported - Past Family History Mother Family Medical History: Cancer Additional Family Medical History / Comment(s): Dariers, Father Family Medical History: No Reported History <Hermelinda Hernandez - Last Filed: 02/09/25 15:56> General Exam Limitations: no limitations <Hermelinda Hernandez - Last Filed: 02/09/25 15:56> Course Vital Signs 02/09/25 14:12 Temperature 98.1 F Pulse Rate 77 Respiratory 22 Rate Blood Pressure 129/82 O2 Sat by Pulse 100 Oximetry Medical Decision Making <Yahir Ortega - Last Filed: 02/09/25 15:09> <Hermelinda Hernandez - Last Filed: 02/09/25 15:56> - Medical Decision Making I personally saw the patient and performed the critical portion of the service. I discussed the patient care with the Dr. Hernandez. I directed management, care planning and final disposition of the patient. This includes, but not limited to, review of all lab work, radiological studies, EKG's, consultations, vital signs, and nursing notes. EKG interpreted by me (3pts min.) @ [as above] X-Rays interpreted by me (1 pt min.) @ [none] CT interpreted by me ( 1pt min.) @ [none] U/S interpreted by me (1 pt min.) @ [none] Critical care time of [0] minutes excluding separately billable procedures was spent in conjunction with critical care activities provided by the Resident and Attending simultaneously. I was present during [no procedures] for all critical portions of the procedure and as immediately available to furnish service during the entire procedure. (Yahir Ortega) Was pt. sent in by a medical professional or institution (, PA, GEAR DESIGN ENGINEER, urgent care, hospital, or prison...) When possible be specific @ -[No] Did you speak to anyone other than the patient for history (EMS, parent, family, police, friend...)? What history was obtained from this source @ -[No] Did you review nursing and triage notes (agree or disagree)? Why? @ -[I reviewed and agree with nursing and triage notes] Were old charts reviewed (outside hosp., previous admission, EMS record, old EKG, old radiological studies, urgent care reports/EKG's, prison records)? Report findings @ -[No old charts were reviewed] Differential Diagnosis? @ -Skin abscess EKG interpreted by me (3pts min.). @ -[As above] X-rays interpreted by me (1pt min.). @ -[None done] CT interpreted by me (1pt min.). @ -None done U/S interpreted by me (1pt. min.). @ -None done What testing was considered but not performed or refused? (CT, X-rays, U/S, labs)? Why? @ -None What meds were considered but not given or refused? Why? @ -None Did you discuss the management of the patient with other professionals (professionals i.e. Dr., PA, GEAR DESIGN ENGINEER, lab, RT, psych nurse, health care social worker, management engineer, teacher, minesweeping officer, classification case manager)? Give summary @ -Case was discussed with the ED attending physician Dr. Ortega. Was smoking cessation discussed for >3mins.? @ -No Was critical care preformed (if so, how long)? @ -No Were there social determinants of health that impacted care today? How? (Homelessness, low income, unemployed, alcoholism, drug addiction, transportation, low edu. Level, literacy, decrease access to med. care, snf, rehab)? @ -No Was there de-escalation of care discussed even if they declined (Discuss DNR or withdrawal of care, Hospice)? DNR status @ -No What co-morbidities impacted this encounter? (DM, HTN, Smoking, COPD, CAD, Cancer, CVA, ARF, Chemo, Hep., AIDS, mental health diagnosis, sleep apnea, morbid obesity)? @ -None Was patient admitted / discharged? Hospital course, mention meds given and route , prescriptions, significant lab abnormalities, going to OR and other pertinent info. @ -Hospital course Undiagnosed new problem with uncertain prognosis? @ -No Drug Therapy requiring intensive monitoring for toxicity (Heparin, Nitro, Insulin, Cardizem)? @ -No Were any procedures done? @ -No Diagnosis/symptom? @ -Axillary abscess Acute, or Chronic, or Acute on Chronic? @ -Default Uncomplicated (without systemic symptoms) or Complicated (systemic symptoms)? @ -Default Side effects of treatment? @ -No Exacerbation, Progression, or Severe Exacerbation? @ -No Poses a threat to life or bodily function? How? (Chest pain, [place], [place], pneumonia, PE, COPD, DKA, ARF, appy, cholecystitis, CVA, Diverticulitis, Homicidal, Suicidal, threat to staff... and all critical care pts) @ -No (Hermelinda Hernandez) Disposition <Yahir Ortega - Last Filed: 02/09/25 15:09> Is patient prescribed a controlled substance at d/c from ED?: No <Hermelinda Hernandez - Last Filed: 02/09/25 15:56> Clinical Impression: Abscess Narrative: Patient will be discharged home with self-care. Short antibiotic course was sent patient to follow-up with PCP in 1 to 2 days. Patient to return to ER if symptoms worsen or persist. (Hermelinda Hernandez) Disposition: HOME SELF-CARE Prescriptions: Ciprofloxacin HCl [Cipro] 500 mg PO Q12HR 7 Days #14 tab Referrals: Hever Duarte MD [Primary Care Provider] - 1-2 days
[2025-02-09] MEDS: LIDOCAINE 1%-EPI 1:100,000 20 ML VIAL SQ STA (15:25)
== END 2025-02-09 16:16 | disposition home or self-care (01) ==
LOC: EC 13:48
DX: L02.412 Cutaneous abscess of left axilla (principal); Z88.0 Allergy status to penicillin; Z88.2 Allergy status to sulfonamides; Z88.5 Allergy status to narcotic agent; Z88.8 Allergy status to other drugs, medicaments and biological substances
CPT/HCPCS: 99282